=== PATIENT | female | born 1930 | race Caucasian/White ===

== ENCOUNTER → 2016-05-26 | Outpatient (CLI) | payer OTHER, MEDICAID ==
[2016-03-10 12:38] VITALS: BP 187/87
[2016-05-26 09:19] LABS: BASOPHILS # (AUTO) 0.3 X10^3/uL (0.0-0.1); BASOPHILS % (AUTO) 2.9 % (0.2-1.0); EOSINOPHILS # (AUTO) 0.6 x10^3/uL (0.0-0.2); EOSINOPHILS % (AUTO) 6.4 % (0.9-2.9); HEMATOCRIT 34.7 % (36.0-47.0); HEMOGLOBIN 11.1 g/dL (12.0-16.0); LYMPHOCYTES # (AUTO) 3.5 X10^3/uL (1.3-2.9); LYMPHOCYTES % (AUTO) 38.8 % (21.0-51.0); MEAN CORPUSCULAR HEMOGLOBIN 30.1 pg (27.0-34.0); MEAN PLATELET VOLUME 11.1 fL (7.4-11.0); MONOCYTES # (AUTO) 0.7 x10^3/uL (0.3-0.8); MONOCYTES % (AUTO) 7.7 % (0.0-13.0); NEUTROPHILS % (AUTO) 44.2 % (42.0-75.0); PLATELET COUNT 212 X10^3/uL (150.0-450.0); RED BLOOD COUNT 3.69 X10^6/uL (3.5-5.4); RED CELL DISTRIBUTION WIDTH 14.8 % (11.6-16.5)
[2016-05-26 09:30] LABS: ALBUMIN 3.2 g/dL (3.4-5.0); BLOOD UREA NITROGEN 74 mg/dL (7-18); CALCIUM 8.1 mg/dL (8.5-10.1); CARBON DIOXIDE 23.1 mmol/L (21-32); CHLORIDE 111 mmol/L (98-107); COR CA(FOR HYPOALB) 8.7 mg/dL (8.5-10.1); GLUCOSE 102 mg/dL (65-99); PHOSPHORUS 5.6 mg/dL (2.6-4.7); SODIUM 148 mmol/L (136-145); URIC ACID 5.6 mg/dL (2.6-6.0); eGFR BLACK RACES 24 (>60); eGFR NON BLACK RACES 19 (>60)
[2016-05-27 08:18] LABS: CHOL/HDL RATIO 2.6 (0.0-5.0); CHOLESTEROL 119 mg/dL (0-200); HDL CHOLESTEROL 46 mg/dL (40-60); TRIGLYCERIDES 125 mg/dL (0-150)
== END ==
LOC: LAB 08:48
PROVIDERS: ATTEND Internal Medicine
DX: I12.9 Hypertensive chronic kidney disease with stage 1 through stage 4 chronic kidney disease, or unspecified chronic kidney disease (principal); N18.4 Chronic kidney disease, stage 4 (severe)
CPT/HCPCS: 36415; 80061; 80069; 84550; 85025

== ENCOUNTER → 2016-06-17 | Outpatient (CLI) | payer OTHER, MEDICAID ==
[2016-03-10 12:38] VITALS: BP 187/87
[2016-06-17 12:29] LABS: BILIRUBIN,URINE NEGATIVE (NEGATIVE); BLOOD/HEMOGLOBIN,URINE NEGATIVE (NEGATIVE); GLUCOSE, URINE NEGATIVE (NEGATIVE); KETONES,URINE NEGATIVE (NEGATIVE); LEUKOCYTE ESTERASE ,URINE 2+ (NEGATIVE); NITRITES,URINE NEGATIVE (NEGATIVE); PROTEIN,URINE 1+ (NEGATIVE); UROBILINOGEN,URINE NORMAL (NORMAL)
[2016-06-17 12:47] LABS: APPEARANCE,URINE HAZY (CLEAR); BACTERIA,URINE 2+ /HPF (NEGATIVE); COLOR,URINE YELLOW (YELLOW); RBC,URINE 0-2 /HPF (NEGATIVE); SQUAMOUS EPITHELIAL CELL,UR FEW /HPF (NEGATIVE)
--- NOTE | 2016-06-18 08:11 | RAD ---
HISTORY: Right heel pain Study: Right ankle three view Comparison: None Findings: There is moderate medial lateral soft tissue swelling. No joint effusion is present. No fracture, ly tic, or blastic lesion is identified. The talus, subtalar joint and calcaneus are intact. IMPRESSION: Mild medial lateral soft tissue swelling No other significant findings Reported By:
--- NOTE | 2016-06-18 08:12 | RAD ---
HISTORY: Chronic heel pain Study: Right foot three view Comparison: None Findings: The bones are osteopenic peer E No acute cortical disruption or dislocation can be identified. No s ignificant soft tissue swelling or injury can be seen. The visualized portions of the talus and margarita caneus are unremarkable. The joints are normal. IMPRESSION: 1. Osteopenia Reported By:
== END ==
LOC: LAB 11:37
PROVIDERS: ATTEND Nurse Practitioner Family
DX: M54.5 Low back pain (principal); M79.671 Pain in right foot; M85.88 Other specified disorders of bone density and structure, other site
CPT/HCPCS: 73610; 73630; 81001; 87086

== ENCOUNTER 2016-06-21 14:32 | Inpatient (IN) | payer OTHER, MEDICAID ==
[2016-06-21 15:09] LABS: BASOPHILS # (AUTO) 0.1 X10^3/uL (0.0-0.1); BASOPHILS % (AUTO) 1.4 % (0.2-1.0); EOSINOPHILS # (AUTO) 0.4 x10^3/uL (0.0-0.2); EOSINOPHILS % (AUTO) 5.3 % (0.9-2.9); HEMATOCRIT 32.3 % (36.0-47.0); HEMOGLOBIN 10.5 g/dL (12.0-16.0); MEAN CORPUSCULAR HEMOGLOBIN 30.4 pg (27.0-34.0); MEAN CORPUSCULAR HGB CONC 32.5 g/dL (33.0-35.0); MEAN CORPUSCULAR VOLUME 93.6 fL (80.0-100.0); MEAN PLATELET VOLUME 10.1 fL (7.4-11.0); MONOCYTES # (AUTO) 0.6 x10^3/uL (0.3-0.8); MONOCYTES % (AUTO) 7.3 % (0.0-13.0); NEUTROPHILS # (AUTO) 3.8 x10^3/uL (2.2-4.8); PLATELET COUNT 208 X10^3/uL (150.0-450.0); RED BLOOD COUNT 3.45 X10^6/uL (3.5-5.4); RED CELL DISTRIBUTION WIDTH 14.9 % (11.6-16.5); WHITE BLOOD COUNT 7.9 X10^3/uL (3.6-10.0)
--- NOTE | 2016-06-21 15:13 | DR.GENAD ---
HPI - HPI Comment HPI Comment: SHE WAS WEAK AND HER CHEST WAS HURTING. HER HOUSE WAS HOT HER AIR WAS NOT WORKING. SHE WAS WONDERING IF HER SYMTOMS MAY BE RELATED TO THAT. - Complaint/Symptoms Chief Complaint Doctors Comments: PATIENT WAS ON THE CAMMODE WHEN BECAME DIZZY AND ALMOST PASS OUT. - Nurses notes reviewed Nurses Notes Review: Yes - Source History Provided: Patient, Family Member - Mode of Arrival Mode of Arrival: EMS - Timing Came on: Suddenly - Duration Duration: Days - Severity Severity: Moderate PMH - PMH Past Medical History: CHF, COPD, Dyslipidemia, GERD, Hypertension, Renal Disease Past Surgical History: Yes Surgical History: Angioplasty/Stents, Cholecystectomy - Family History Family Medical History: Diabetes Mellitus, Cancer, [place], Coronary Artery Disease, Heart Failure, Hypertension - Social History Do you use any recreational Drugs:: No ROS - Review of Systems Constitutional: Weakness, Fatigue. negative: Chills, Loss of Appetite Eyes: No Symptoms Reported. negative: Eye Pain, Discharge ENTM: No Symptoms Reported Respiratoy: Non-Productive Cough, Short of Breath. negative: Wheezing, Hemoptysis Cardiovascular: Chest Pain, Syncope (NEAR SYNCOPE) Gastrointestinal/Abdominal: No Symptoms Reported. negative: Abdominal Pain, Diarrhea, Nausea, Vomiting Genitourinary: negative: Hematuria Neurological: Weakness, Dizziness. negative: Headache Musculoskeletal: Muscle Pain Integumentary: Dryness Hematologic/Lymphatic: Easy Bruising Endocrine: No Symptoms Reported All Other Systems: Reviewed and Negative PE - Vital Signs Vitals: Temperature 99.0 F Pulse Rate 57 Respiratory Rate 16 Blood Pressure [Right Radial 163/89 Artery] Blood Pressure [Right Arm] 187/87 Blood Pressure [Left Arm] 187/77 Blood Pressure 192/77 O2 Sat by Pulse Oximetry 97 - General General Appearance: Alert - Head Head Exam: Normal Inspection - Eyes Eye exam: Normal Appearance - ENT ENT Exam: Normal External Ear Exam External Ear Exam: Normal External Inspection TM/Canal Exam: Bilateral Normal Nose Exam: Normal Nose Exam Mouth Exam: Normal Inspection Throat Exam: Normal Inspection - Neck Neck Exam: Trachea Midline - Chest Chest Inspection: Symmetric Chest Wall Rise, Other (KYPHOSIS PRESENT) - Respiratory Respiratory Exam: Normal Lung Sounds Bilat Respiratory Exam: Bilateral Rhonchi, Lower Rhonchi - Cardiovascular Cardiovascular Exam: Regular Rate, Normal Rhythm, Bradycardia - Abdominal Exam Abdominal Exam: Normal Bowel Sounds, Soft - Extremities Extremities Exam: Edema (ANKLE EDEMA) - Back Back Exam: Paraspinal Tenderness - Neurologic Neurological Exam: Alert, Motor Sensory Deficit - Skin Skin Exam: Dry MDM - Additional Information Additional Information Obtained From: Family - Differential Diagnosis Differential Diagnosis: NEAR SYNCOPAL EPISODE, CHEST AIN, GENERALIZE WEAKNESS. Course - Education/Counseling Education/Counseling: Patient ROR - Labs Reviewed Laboratory Results Reviewed?: Yes Result Diagrams: 06/22/16 03:23 06/22/16 03:23 Laboratory: WBC 7.9 X10^3/uL (3.6-10.0) 06/21/16 15:00 RBC 3.45 X10^6/uL (3.5-5.4) L 06/21/16 15:00 Hgb 10.5 g/dL (12.0-16.0) L 06/21/16 15:00 Hct 32.3 % (36.0-47.0) L 06/21/16 15:00 MCV 93.6 fL (80.0-100.0) 06/21/16 15:00 MCH 30.4 pg (27.0-34.0) 06/21/16 15:00 MCHC 32.5 g/dL (33.0-35.0) L 06/21/16 15:00 RDW 14.9 % (11.6-16.5) 06/21/16 15:00 Plt Count 208 X10^3/uL (150.0-450.0) 06/21/16 15:00 MPV 10.1 fL (7.4-11.0) 06/21/16 15:00 Neut % 48.0 % (42.0-75.0) 06/21/16 15:00 Lymph % 38.0 % (21.0-51.0) 06/21/16 15:00 [place] % 7.3 % (0.0-13.0) 06/21/16 15:00 Eos % 5.3 % (0.9-2.9) H 06/21/16 15:00 Baso % 1.4 % (0.2-1.0) H 06/21/16 15:00 Neut # 3.8 x10^3/uL (2.2-4.8) 06/21/16 15:00 Lymph # 3.0 X10^3/uL (1.3-2.9) H 06/21/16 15:00 [place] # 0.6 x10^3/uL (0.3-0.8) 06/21/16 15:00 Eos # 0.4 x10^3/uL (0.0-0.2) H 06/21/16 15:00 Baso # 0.1 X10^3/uL (0.0-0.1) 06/21/16 15:00 Absolute Nucleated RBC 0.0 /100WBC 06/21/16 15:00 Sodium 145 mmol/L (136-145) 06/21/16 15:00 Corrected Sodium TNP 06/21/16 15:00 Potassium 4.0 mmol/L (3.5-5.1) 06/21/16 15:00 Chloride 108 mmol/L (98-107) H 06/21/16 15:00 Carbon Dioxide 22.3 mmol/L (21-32) 06/21/16 15:00 BUN 78 mg/dL (7-18) H 06/21/16 15:00 Creatinine 2.73 mg/dL (0.55-1.02) H 06/21/16 15:00 Est GFR (MDRD) Af Amer 21 (>60) L 06/21/16 15:00 Est GFR (MDRD) Non-Af 18 (>60) L 06/21/16 15:00 Glucose 101 mg/dL (65-99) H 06/21/16 15:00 Calcium 8.0 mg/dL (8.5-10.1) L 06/21/16 15:00 Corrected Calcium 8.8 mg/dL (8.5-10.1) 06/21/16 15:00 Total Bilirubin 0.40 mg/dL (0.2-1.0) 06/21/16 15:00 AST 17 Units/L (15-37) 06/21/16 15:00 ALT 10 Units/L (12-78) L 06/21/16 15:00 Alkaline Phosphatase 108 Units/L (46-116) 06/21/16 15:00 Creatine Kinase 76 Units/L (26-192) 06/21/16 15:00 CK-MB (CK-2) < 1.0 ng/mL (0-4.0) 06/21/16 15:00 CK/CKMB % Calc 1.3 % (<4) 06/21/16 15:00 Troponin I < 0.02 ng/mL (0-1.5) 06/21/16 15:00 Total Protein 6.8 g/dL (6.4-8.2) 06/21/16 15:00 Albumin 3.0 g/dL (3.4-5.0) L 06/21/16 15:00 Globulin 3.8 g/dL (2.5-4.5) 06/21/16 15:00 Albumin/Globulin Ratio 0.8 Ratio (1.1-2.1) L 06/21/16 15:00 - XRAY XRAY Interpreted by: Radiologist (REPORT DISCUSS WITH PATIENT.) XRAY Findings: REPORT DISCUSS WITH PATIENT AND HER FAMILY. - EKG Rhythm: NSR (EKG NOTED) - Diagnosis Discharge Problem: Near syncope, Dehydration, Generalized weakness - Discharge Plan Disposition: ADMITTED INPATIENT Condition: Stable - Follow ups/Referrals - Instructions
[2016-06-21 15:23] LABS: BLOOD UREA NITROGEN 78 mg/dL (7-18); CARBON DIOXIDE 22.3 mmol/L (21-32); CHLORIDE 108 mmol/L (98-107); CREATININE 2.73 mg/dL (0.55-1.02); GLUCOSE 101 mg/dL (65-99); SODIUM 145 mmol/L (136-145); TROPONIN I < 0.02 ng/mL (0-1.5); eGFR BLACK RACES 21 (>60); eGFR NON BLACK RACES 18 (>60)
[2016-06-21 15:28] LABS: ALANINE AMINOTRANSFERASE 10 Units/L (12-78); ALKALINE PHOSPHATASE 108 Units/L (46-116); ASPARTATE AMINO TRANSFERASE 17 Units/L (15-37); CKMB % 1.3 % (<4); COR CA(FOR HYPOALB) 8.8 mg/dL (8.5-10.1); CREATINE KINASE 76 Units/L (26-192); CREATINE KINASE MB < 1.0 ng/mL (0-4.0); TOTAL PROTEIN 6.8 g/dL (6.4-8.2)
--- NOTE | 2016-06-21 15:34 | RAD ---
HISTORY: Chest pain Study: Chest one view Comparison: March 09, 2016 Findings: The heart mildly enlarged. No congestive heart failure is noted. The swetha are normal. The aorta is c alcified. The lung spivey are clear. IMPRESSION: Mild cardiomegaly without congestive heart failure Lungs clear Reported By:
--- NOTE | 2016-06-21 15:44 | CT ---
HISTORY: Weakness Study: CT brain without contrast Comparison: March 07, 2016 Technique: Multiple axial images of the brain were obtained from the skull base to the vertex without administr ation of IV contrast. Coronal and sagittal reformats were performed. Dose reduction procedures were used with MA/kv adjusted for body size. Findings: No acute intraparenchymal hemorrhage or mass can be identified. No extra-axial fluid collections ar e seen. No alteration in the attenuation of the brain parenchyma can be identified to suggest acute or subacute ischemic change. The ventricular system is symmetric and nondilated. The extracranial structures are grossly unremarkable. if acute CVA is a strong clinical consideration MRI with diffu mary grace imaging is recommended for further evaluation. IMPRESSION: 1. No significant intracranial abnormality identified Reported By:
[2016-06-21] MEDS: NS 1000 ML 1,000 ML IV SCH (16:27)
[2016-06-21 16:42] LABS: BILIRUBIN,URINE NEGATIVE (NEGATIVE); BLOOD/HEMOGLOBIN,URINE NEGATIVE (NEGATIVE); GLUCOSE, URINE NEGATIVE (NEGATIVE); KETONES,URINE NEGATIVE (NEGATIVE); LEUKOCYTE ESTERASE ,URINE 1+ (NEGATIVE); NITRITES,URINE NEGATIVE (NEGATIVE); PH,URINE 6.5 (5.0 - 8.0); PROTEIN,URINE NEGATIVE (NEGATIVE); UROBILINOGEN,URINE NORMAL (NORMAL)
[2016-06-21 16:50] LABS: APPEARANCE,URINE CLEAR (CLEAR); BACTERIA,URINE 1+ /HPF (NEGATIVE); COLOR,URINE YELLOW (YELLOW); RBC,URINE 0-1 /HPF (NEGATIVE); SQUAMOUS EPITHELIAL CELL,UR FEW /HPF (NEGATIVE)
[2016-06-21 19:52] VITALS: BMI 24.7
[2016-06-21 21:46] LABS: CKMB % 1.4 % (<4); CREATINE KINASE 72 Units/L (26-192); TROPONIN I < 0.02 ng/mL (0-1.5)
[2016-06-22] MEDS: NS 1000 ML 1,000 ML IV SCH ×3 (00:02→16:20)
[2016-06-22 05:33] LABS: BASOPHILS # (AUTO) 0.1 X10^3/uL (0.0-0.1); EOSINOPHILS # (AUTO) 0.5 x10^3/uL (0.0-0.2); EOSINOPHILS % (AUTO) 6.2 % (0.9-2.9); HEMATOCRIT 27.6 % (36.0-47.0); HEMOGLOBIN 8.7 g/dL (12.0-16.0); LYMPHOCYTES # (AUTO) 2.6 X10^3/uL (1.3-2.9); LYMPHOCYTES % (AUTO) 35.4 % (21.0-51.0); MEAN CORPUSCULAR HEMOGLOBIN 29.7 pg (27.0-34.0); MEAN CORPUSCULAR HGB CONC 31.5 g/dL (33.0-35.0); MEAN CORPUSCULAR VOLUME 94.4 fL (80.0-100.0); MEAN PLATELET VOLUME 10.6 fL (7.4-11.0); MONOCYTES # (AUTO) 0.6 x10^3/uL (0.3-0.8); MONOCYTES % (AUTO) 7.8 % (0.0-13.0); NEUTROPHILS # (AUTO) 3.7 x10^3/uL (2.2-4.8); NEUTROPHILS % (AUTO) 49.6 % (42.0-75.0); RED BLOOD COUNT 2.92 X10^6/uL (3.5-5.4); RED CELL DISTRIBUTION WIDTH 14.9 % (11.6-16.5); WHITE BLOOD COUNT 7.4 X10^3/uL (3.6-10.0)
[2016-06-22 05:35] LABS: PLATELET COUNT 158 X10^3/uL (150.0-450.0)
[2016-06-22 05:40] LABS: ALBUMIN 2.5 g/dL (3.4-5.0); CALCIUM 7.7 mg/dL (8.5-10.1); CARBON DIOXIDE 22.6 mmol/L (21-32); CKMB % 1.5 % (<4); COR CA(FOR HYPOALB) 8.9 mg/dL (8.5-10.1); CREATINE KINASE MB 1.1 ng/mL (0-4.0); CREATININE 2.37 mg/dL (0.55-1.02); TOTAL PROTEIN 5.6 g/dL (6.4-8.2); TROPONIN I 0.02 ng/mL (0-1.5)
[2016-06-22] MEDS ORDERED: ZYLOPRIM PO SCH (09:00)
[2016-06-22] MEDS ORDERED: BUMEX TAB 1 MG PO SCH (09:00)
[2016-06-22] MEDS ORDERED: [UNRECOGNIZED DRUG - OTHER] PO SCH (09:00)
[2016-06-22] MEDS ORDERED: [UNRECOGNIZED DRUG - OTHER] PO SCH (09:00)
[2016-06-22] MEDS: DIAMOX PO SCH (09:22)
[2016-06-22] MEDS: TOPROL XL PO SCH (09:22)
[2016-06-22] MEDS: PriLOSEC PO SCH ×2 (09:22→23:01)
[2016-06-22] MEDS: ALBUMIN HUMAN 25%- 100ML 100 ML IV SCH (09:23)
--- NOTE | 2016-06-22 14:14 | VAS ---
HISTORY: Syncope Study: Carotid sonogram Comparison: None Technique: Multiple mccullough scale and color flow Doppler images of the right and left carotid arterial system were obtained. The vertebral arterial system was evaluated as well. Findings: Normal color flow Doppler is seen throughout the right and left carotid arterial system. No hemodyn amically significant stenosis is seen based on velocity criteria. The left vertebral arteries dem onstrate antegrade flow. The right vertebral artery was not identified. IMPRESSION: 1. No hemodynamically significant stenosis. 2. The right vertebral artery was not identified Reported By:
--- NOTE | 2016-06-22 15:37 | DR.H&P ---
H&P - History & Physical for Day of: H&P Date: 06/22/16 - Chief Complaint Chief Complaint: NEAR SYNCOPAL EPISODE - Allergies Allergies/Adverse Reactions: Allergies Allergy/AdvReac Type Severity Reaction Status Date / Time No Known Drug Allergy Allergy Verified 06/21/16 14:33 - History of Present Illness History of Present Illness: THIS IS AN 86 YEAR OLD FEMALE, WHO IS A PATIENT OF [facility]. SHE PRESENTS TO THE EMERGENCY ROOM, VIA EMS, WITH COMPLAINTS OF A NEAR SYNCOPAL EPISODE AT HOME. SHE REPORTS SHE WAS SITTING ON THE TOILET WHEN SHE BECAME DIZZY AND NEARLY PASSED OUT. SHE IS ALSO REPORTING GENERALIZED WEAKNESS AND CHEST PAIN ON ARRIVAL. PATIENT REPORTS HER AIR CONDITIONING IN HER HOME IS NOT WORKING AND HER HOUSE WAS HOT. SHE WAS WONDERING IF THAT WAS THE CAUSE OF DIZZINESS. LABS AND CT OBTAINED. CBC WNL EXCEPT: H/H 10.5/32.3. CMP WNL EXCEPT: SODIUM 147, POTASSIUM 3.3, CHL 113, BUN/ CREAT 70/2.34, GFR 21, GLUCOSE 124, CALCIUM 7.7, TOT PROTEIN 5.6, ALBUMIN 2.5. BRAIN CT REPORTS NO SIGNIFICANT ABNORMALITY. CHEST XRAY REPORTS MILD CARDIOMEGALY WITHOUT CHF; LUNGS CLEAR. EKG: SINUS RHYTHM, PAC, RATE 57. WE WILL ADMIT PATIENT FOR FURTHER TREATMENT AND EVALUATION. WE WILL START IV FLUIDS AND MONITOR ON TELEMETRY. WE WILL FOLLOW UP IN AM WITH LABS. - Past Medical History Past Medical History: CHF, COPD, Coronary Artery Disease, Dyslipidemia, GERD, Gout, Hypertension, Renal Disease Additional Medical History: Cataracts, Heart Murmur, Gastrointestinal Ulcer, Gout, Vascular Dementia, Bronchitis - Past Surgical History Surgical History: Angioplasty/Stents, Cholecystectomy Additional Surgical History: Cataract Surgery - Family History Family Medical History: Diabetes Mellitus, Cancer, [place], Coronary Artery Disease, Heart Failure, Hypertension - Social History Does patient currently use any type of tobacco product: No Have you used tobacco products in the last 12 months: No Type of Tobacco Use: None Does any household member use tobacco: No Alcohol Use: None Drug Use: Prescription Drugs - Medications Home Medications: Acetazolamide 1 tab PO DAILY 03/07/16 Allopurinol 1 tab PO DAILY 03/07/16 Bumetanide 1 tab PO BID 03/07/16 Ezetimibe [Zetia] 1 tab PO HS 03/07/16 Metoprolol Tartrate [Lopressor] 1 tab PO DAILY 03/07/16 Omeprazole 1 cap PO BID 03/07/16 Simvastatin 1 tab PO HS 03/07/16 - Review of Systems Constitutional: Weakness, Malaise Eyes: No Symptoms Reported. denies: Pain, Vision Change, Conjunctivae Inflammation, Eyelid Inflammation, Redness ENT: No Symptoms Reported. denies: Ear Pain, Ear Discharge, Nose Pain, Nose Discharge, Nose Congestion, Mouth Pain, Mouth Swelling, Throat Pain, Throat Swelling Respiratory: No Symptoms Reported. denies: Cough, Shortness of Breath, Hemoptysis, SOB with Excertion, Pleuritic Pain, Sputum, Wheezing Cardiovascular: Chest Pain, Light Headedness. denies: Palpitations, Orthopnea, Paroxysmal Noc. Dyspnea Gastrointestinal: No Symptoms Reported. denies: Nausea, Vomiting, Abdominal Pain, Diarrhea, Constipation, Melena, Hematochezia Genitourinary: No Symptoms Reported. denies: Dysuria, Frequency, Incontinence, Hematuria, Retention Musculoskeletal: Other (Generalized Muscle Weakness). denies: Shoulder Pain, Arm Pain, Back Pain, Hand Pain Skin: No Symptoms Reported. denies: Rash, Lesions, Jaundice, Bruising, Wound, Ecchymosis Neurological: Weakness. denies: Numbness, Incoordination, Change in Speech, Confusion, Seizures - Physical Exam Vital Signs: Temperature 97.4 F Pulse Rate [Right Brachial] 65 Respiratory Rate 20 Blood Pressure [Right Arm] 194/76 O2 Sat by Pulse Oximetry 96 Oriented: Normal, Time, Person, Place Eyes: Normal. negative: Blurred Vision, Diplopia, Discharge, Pain, Redness, Photophobia Ear: Normal. negative: Swelling, Ecchymosis, Hemotypanum, Abrasion, Laceration Nose: Normal. negative: Injected, Discharge, Blood Throat: Dry. negative: Tonsillar Hypertrophy, Exudate Respiratory: Clear Throughout Cardiovascular: Normal. negative: Murmur, Edema : Normal. negative: Dysuria, Hematuria, Frequency, Discharge, Bleeding, Auscultation: Bowel Sounds: Decreased. negative: Bruit Palpation: Normal. negative: Spleen Enlarged, Liver Enlarged, Mass Pulsatile Tenderness: Normal. negative: Rebound, Guarding, Rigidity Skin: Decreased Turgur. negative: Diaphoresis, Wound, Bruising, Ecchymosis Musculoskeletal: Instability Psychiatric: Normal Mood Description: Calm, Appropriate Affect: Normal Speech Pattern: Clear, Appropriate - Assessment/Plan (1) Near syncope Status: Acute Plan: ADMIT PATIENT, START IV FLUIDS, CONTINUE TO MONITOR. (2) Dehydration Status: Acute Plan: START IV FLUIDS, MONITOR LABS. (3) Generalized weakness Status: Acute Plan: ABOVE. 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
[2016-06-22] MEDS ORDERED: TYLENOL 325 MG TAB PO PRN (16:20)
--- NOTE | 2016-06-22 16:27 | PCM.PROG ---
Progress Note - Progress Note for Day of Date: 06/22/16 - Subjective Subjective: PATIENT CONTINUES WITH GENERALIZED WEAKNESS AND DIZZINESS. FAMILY AT BEDSIDE. WE DISCUSS CURRENT TREATMENT. PATIENT CONTINUES ON IV FLUIDS FOR DEHYDRATION. CBC WNL EXCEPT: H/H 8.7/27.6. CMP WNL EXCEPT: SODIUM 147, POTASSIUM 3.3, CHL 113, BUN/CREAT 70/2.37, GFR 21, GLUCOSE 124, CALCIUM 7.7, TOT PROTEIN 5.6, ALBUMIN 2.5. WE WILL OBTAIN SERIAL CARDIAC ENZYMES AND EKG'S. WE WILL ALSO OBTAIN CAROTID DOPPLER AND ECHO. WE WILL CONTINUE IV FLUIDS AND CONTINUE TO MONITOR ON TELEMETRY. WE WILL FOLLOW UP IN AM WITH LABS. - Past Medical Family Social History Past Med/Fam/Surg Hx: No changes since H&P Allergies: Allergies No Known Drug Allergy Allergy (Verified 06/21/16 14:33) - Review of Systems ROS: No change since H&P - Vital Signs and I&O's Vital Signs: Temperature 97.4 F Pulse Rate [Right Brachial] 65 Respiratory Rate 20 Blood Pressure [Right Arm] 194/76 O2 Sat by Pulse Oximetry 96 Intake and Output: Intake & Output 06/20/16 06/21/16 06/22/16 06/23/16 11:59 11:59 11:59 11:59 Intake Total 1196 Balance 1196 - Physical Exam Oriented: Normal, Time, Person, Place Eyes: Normal. negative: Blurred Vision, Diplopia, Discharge, Pain, Redness, Photophobia Ear: Normal. negative: Swelling, Ecchymosis, Hemotypanum, Abrasion, Laceration Nose: Normal. negative: Injected, Discharge, Blood Throat: Dry. negative: Tonsillar Hypertrophy, Exudate Respiratory: Normal Cardiovascular: Normal. negative: Murmur, Edema : Normal. negative: Dysuria, Hematuria, Frequency, Discharge, Bleeding, Auscultation: Bowel Sounds: Decreased. negative: Bruit Palpation: Normal. negative: Spleen Enlarged, Liver Enlarged, Mass Pulsatile Tenderness: Normal. negative: Rebound, Guarding, Rigidity Skin: Decreased Turgur. negative: Diaphoresis, Wound, Bruising, Ecchymosis Musculoskeletal: Instability Psychiatric: Normal Mood Description: Calm, Appropriate Affect: Normal Speech Pattern: Clear, Appropriate - Laboratory and Diagnostics Result Diagrams: 06/22/16 03:23 06/22/16 03:23 Labs: Laboratory WBC 7.4 X10^3/uL (3.6-10.0) 06/22/16 03:23 RBC 2.92 X10^6/uL (3.5-5.4) L 06/22/16 03:23 Hgb 8.7 g/dL (12.0-16.0) L 06/22/16 03:23 Hct 27.6 % (36.0-47.0) L 06/22/16 03:23 MCV 94.4 fL (80.0-100.0) 06/22/16 03:23 MCH 29.7 pg (27.0-34.0) 06/22/16 03:23 MCHC 31.5 g/dL (33.0-35.0) L 06/22/16 03:23 RDW 14.9 % (11.6-16.5) 06/22/16 03:23 Plt Count 158 X10^3/uL (150.0-450.0) 06/22/16 03:23 MPV 10.6 fL (7.4-11.0) 06/22/16 03:23 Neut % 49.6 % (42.0-75.0) 06/22/16 03:23 Lymph % 35.4 % (21.0-51.0) 06/22/16 03:23 [place] % 7.8 % (0.0-13.0) 06/22/16 03:23 Eos % 6.2 % (0.9-2.9) H 06/22/16 03:23 Baso % 1.0 % (0.2-1.0) 06/22/16 03:23 Neut # 3.7 x10^3/uL (2.2-4.8) 06/22/16 03:23 Lymph # 2.6 X10^3/uL (1.3-2.9) 06/22/16 03:23 [place] # 0.6 x10^3/uL (0.3-0.8) 06/22/16 03:23 Eos # 0.5 x10^3/uL (0.0-0.2) H 06/22/16 03:23 Baso # 0.1 X10^3/uL (0.0-0.1) 06/22/16 03:23 Absolute Nucleated RBC 0.2 /100WBC 06/22/16 03:23 INR Target Range - 06/22/16 03:23 INR 1.09 (0.8-1.3) 06/22/16 03:23 PTT 32.2 SECONDS (22.9-36.5) 06/22/16 03:23 PTT Comment - 06/22/16 03:23 Sodium 147 mmol/L (136-145) H 06/22/16 03:23 Corrected Sodium 148 mmol/L (136-145) H 06/22/16 03:23 Potassium 3.3 mmol/L (3.5-5.1) L 06/22/16 03:23 Chloride 113 mmol/L (98-107) H 06/22/16 03:23 Carbon Dioxide 22.6 mmol/L (21-32) 06/22/16 03:23 BUN 70 mg/dL (7-18) H 06/22/16 03:23 Creatinine 2.37 mg/dL (0.55-1.02) H 06/22/16 03:23 Est GFR (MDRD) Af Amer 25 (>60) L 06/22/16 03:23 Est GFR (MDRD) Non-Af 21 (>60) L 06/22/16 03:23 Glucose 124 mg/dL (65-99) H 06/22/16 03:23 Calcium 7.7 mg/dL (8.5-10.1) L 06/22/16 03:23 Corrected Calcium 8.9 mg/dL (8.5-10.1) 06/22/16 03:23 Total Bilirubin 0.30 mg/dL (0.2-1.0) 06/22/16 03:23 AST 16 Units/L (15-37) 06/22/16 03:23 ALT 9 Units/L (12-78) L 06/22/16 03:23 Alkaline Phosphatase 84 Units/L (46-116) 06/22/16 03:23 Creatine Kinase 74 Units/L (26-192) 06/22/16 03:23 CK-MB (CK-2) 1.1 ng/mL (0-4.0) 06/22/16 03:23 CK/CKMB % Calc 1.5 % (<4) 06/22/16 03:23 Troponin I 0.02 ng/mL (0-1.5) 06/22/16 03:23 Total Protein 5.6 g/dL (6.4-8.2) L 06/22/16 03:23 Albumin 2.5 g/dL (3.4-5.0) L 06/22/16 03:23 Globulin 3.1 g/dL (2.5-4.5) 06/22/16 03:23 Albumin/Globulin Ratio 0.8 Ratio (1.1-2.1) L 06/22/16 03:23 Specimen Type Clean catch urine 06/21/16 16:30 Urine Color Yellow (YELLOW) 06/21/16 16:30 Urine Appearance Clear (CLEAR) 06/21/16 16:30 Urine pH 6.5 (5.0 - 8.0) 06/21/16 16:30 Ur Specific [place] 1.010 (1.000-1.030) 06/21/16 16:30 Urine Protein Negative (NEGATIVE) 06/21/16 16:30 Urine Glucose (UA) Negative (NEGATIVE) 06/21/16 16:30 Urine Ketones Negative (NEGATIVE) 06/21/16 16:30 Urine Occult Blood Negative (NEGATIVE) 06/21/16 16:30 Urine Nitrite Negative (NEGATIVE) 06/21/16 16:30 Urine Bilirubin Negative (NEGATIVE) 06/21/16 16:30 Urine Urobilinogen Normal (NORMAL) 06/21/16 16:30 Ur Leukocyte Esterase 1+ (NEGATIVE) 06/21/16 16:30 Urine RBC 0-1 /HPF (NEGATIVE) 06/21/16 16:30 Urine WBC 0-3 /HPF (NEGATIVE) 06/21/16 16:30 Ur Squamous Epith Cells Few /HPF (NEGATIVE) 06/21/16 16:30 Urine Bacteria 1+ /HPF (NEGATIVE) 06/21/16 16:30 Ur Culture Indicated? No/not indicated 06/21/16 16:30 - Plan (1) Near syncope Status: Acute Plan: CONTINUE IV FLUIDS, CONTINUE TO MONITOR. (2) Dehydration Status: Acute Plan: CONTINUE IV FLUIDS, MONITOR LABS. (3) Generalized weakness Status: Acute Plan: ABOVE. (4) CHF (congestive heart failure) Status: Chronic Qualifiers: Congestive heart failure type: C Congestive heart failure chronicity: C (5) GERD (gastroesophageal reflux disease) Status: Chronic Qualifiers: Esophagitis presence: esophagitis presence not specified Qualified Code(s) : K21.9 - Gastro-esophageal reflux disease without esophagitis (6) Gout Status: Chronic Qualifiers: Gout site: multiple sites Gout etiology: idiopathic Encounter type: E Laterality: L Chronicity: chronic Presence of tophus: without tophus Qualified Code(s): M1A.09X0 - Idiopathic chronic gout, multiple sites, without tophus (tophi) (7) Hyperlipidemia Status: Chronic Qualifiers: Hyperlipidemia type: mixed hyperlipidemia Qualified Code(s): E78.2 - Mixed hyperlipidemia (8) Hypertension Status: Chronic Qualifiers: Hypertension type: essential hypertension Qualified Code(s): I10 - Essential (primary) hypertension (9) Renal failure Status: Chronic (10) Vascular dementia Status: Chronic Qualifiers: Dementia behavioral disturbance: without behavioral disturbance Qualified Code(s): F01.50 - Vascular dementia without behavioral disturbance
[2016-06-22] MEDS: ZOCOR TAB 20 MG PO SCH (23:01)
[2016-06-22] MEDS: ZETIA TAB 10 MG PO SCH (23:02)
[2016-06-23] MEDS: NS 1000 ML 1,000 ML IV SCH ×2 (00:34→11:32)
[2016-06-23 05:53] LABS: BASOPHILS # (AUTO) 0.1 X10^3/uL (0.0-0.1); BASOPHILS % (AUTO) 0.9 % (0.2-1.0); EOSINOPHILS # (AUTO) 0.5 x10^3/uL (0.0-0.2); EOSINOPHILS % (AUTO) 5.7 % (0.9-2.9); HEMATOCRIT 29.5 % (36.0-47.0); HEMOGLOBIN 9.5 g/dL (12.0-16.0); LYMPHOCYTES # (AUTO) 2.1 X10^3/uL (1.3-2.9); LYMPHOCYTES % (AUTO) 25.7 % (21.0-51.0); MEAN CORPUSCULAR HEMOGLOBIN 30.3 pg (27.0-34.0); MEAN CORPUSCULAR HGB CONC 32.3 g/dL (33.0-35.0); MEAN CORPUSCULAR VOLUME 93.9 fL (80.0-100.0); MEAN PLATELET VOLUME 10.6 fL (7.4-11.0); MONOCYTES # (AUTO) 0.7 x10^3/uL (0.3-0.8); MONOCYTES % (AUTO) 8.2 % (0.0-13.0); NEUTROPHILS # (AUTO) 4.9 x10^3/uL (2.2-4.8); NEUTROPHILS % (AUTO) 59.5 % (42.0-75.0); PLATELET COUNT 182 X10^3/uL (150.0-450.0); RED BLOOD COUNT 3.14 X10^6/uL (3.5-5.4); RED CELL DISTRIBUTION WIDTH 15.5 % (11.6-16.5); WHITE BLOOD COUNT 8.2 X10^3/uL (3.6-10.0)
[2016-06-23 05:56] LABS: ALANINE AMINOTRANSFERASE 8 Units/L (12-78); ALBUMIN 2.5 g/dL (3.4-5.0); ALKALINE PHOSPHATASE 78 Units/L (46-116); ASPARTATE AMINO TRANSFERASE 14 Units/L (15-37); BLOOD UREA NITROGEN 46 mg/dL (7-18); CALCIUM 7.8 mg/dL (8.5-10.1); CARBON DIOXIDE 18.9 mmol/L (21-32); CREATININE 1.71 mg/dL (0.55-1.02); GLUCOSE 102 mg/dL (65-99); TOTAL PROTEIN 5.4 g/dL (6.4-8.2); eGFR BLACK RACES 36 (>60); eGFR NON BLACK RACES 30 (>60)
[2016-06-23 06:05] LABS: CHLORIDE 120 mmol/L (98-107); SODIUM 150 mmol/L (136-145)
[2016-06-23] MEDS: ALBUMIN HUMAN 25%- 100ML 100 ML IV SCH (08:38)
[2016-06-23] MEDS: DIAMOX PO SCH (08:39)
[2016-06-23] MEDS: PriLOSEC PO SCH ×2 (08:39→21:12)
[2016-06-23] MEDS: TOPROL XL PO SCH (08:39)
[2016-06-23] MEDS: DUONEB 0.5 MG/3 MG NEB SCH ×3 (12:17→20:20)
--- NOTE | 2016-06-23 17:15 | PCM.PROG ---
Progress Note - Progress Note for Day of Date: 06/23/16 - Subjective Subjective: PATIENT CONTINUES WITH GENERALIZED WEAKNESS AND DIZZINESS. FAMILY AT BEDSIDE. PATIENT CONTINUES ON IV FLUIDS FOR DEHYDRATION. RENAL FUNCTION IS SHOWING IMPROVEMENT WITH IV FLUIDS. FAMILY MEMBER REPORTS PATIENT HAD DIARRHEA AND VOMITING PRIOR TO ADMISSION. ON AUSCULTATION, LUNGS NOTED WITH SCATTERED WHEEZING. CBC WNL EXCEPT: H/H 9.5/29.5. CMP WNL EXCEPT: SODIUM 150, CHL 120, CARBON DIOXIDE 18.9, BUN/CREAT 46/1.71, GFR 30, GLUCOSE 102, CALCIUM 7.8, TOT PROTEIN 5.4, ALBUMIN 2.5. CAROTID DOPPLER WAS NORMAL. WE WILL OBTAIN ECHO TODAY. WE WILL DECREASE IV FLUIDS, START DUONEBS, AND CONTINUE TO MONITOR ON TELEMETRY. WE WILL FOLLOW UP IN AM WITH LABS AND CHEST XRAY. - Past Medical Family Social History Past Med/Fam/Surg Hx: No changes since H&P Allergies: Allergies No Known Drug Allergy Allergy (Verified 06/21/16 14:33) - Review of Systems ROS: No change since H&P - Vital Signs and I&O's Vital Signs: Temperature 97.7 F Pulse Rate [Right Brachial] 58 Pulse Rate 68 Respiratory Rate 16 Blood Pressure [Right Arm] 171/65 O2 Sat by Pulse Oximetry 95 Intake and Output: Intake & Output 06/21/16 06/22/16 06/23/16 06/24/16 11:59 11:59 11:59 11:59 Intake Total 1196 1270 660 Balance 1196 1270 660 - Physical Exam Oriented: Normal, Time, Person, Place Eyes: Normal. negative: Blurred Vision, Diplopia, Discharge, Pain, Redness, Photophobia Ear: Normal. negative: Swelling, Ecchymosis, Hemotypanum, Abrasion, Laceration Nose: Normal. negative: Injected, Discharge, Blood Throat: Dry. negative: Tonsillar Hypertrophy, Exudate Respiratory: Generalized, Wheezes Cardiovascular: Normal. negative: Murmur, Edema : Normal. negative: Dysuria, Hematuria, Frequency, Discharge, Bleeding, Auscultation: Bowel Sounds: Normal. negative: Bruit Palpation: Normal. negative: Spleen Enlarged, Liver Enlarged, Mass Pulsatile Tenderness: Normal. negative: Rebound, Guarding, Rigidity Skin: Decreased Turgur. negative: Diaphoresis, Wound, Bruising, Ecchymosis Musculoskeletal: Instability Psychiatric: Normal Mood Description: Calm, Appropriate Affect: Normal Speech Pattern: Clear, Appropriate - Laboratory and Diagnostics Result Diagrams: 06/23/16 05:20 06/23/16 05:20 Labs: Laboratory WBC 8.2 X10^3/uL (3.6-10.0) 06/23/16 05:20 RBC 3.14 X10^6/uL (3.5-5.4) L 06/23/16 05:20 Hgb 9.5 g/dL (12.0-16.0) L 06/23/16 05:20 Hct 29.5 % (36.0-47.0) L 06/23/16 05:20 MCV 93.9 fL (80.0-100.0) 06/23/16 05:20 MCH 30.3 pg (27.0-34.0) 06/23/16 05:20 MCHC 32.3 g/dL (33.0-35.0) L 06/23/16 05:20 RDW 15.5 % (11.6-16.5) 06/23/16 05:20 Plt Count 182 X10^3/uL (150.0-450.0) 06/23/16 05:20 MPV 10.6 fL (7.4-11.0) 06/23/16 05:20 Neut % 59.5 % (42.0-75.0) 06/23/16 05:20 Lymph % 25.7 % (21.0-51.0) 06/23/16 05:20 [place] % 8.2 % (0.0-13.0) 06/23/16 05:20 Eos % 5.7 % (0.9-2.9) H 06/23/16 05:20 Baso % 0.9 % (0.2-1.0) 06/23/16 05:20 Neut # 4.9 x10^3/uL (2.2-4.8) H 06/23/16 05:20 Lymph # 2.1 X10^3/uL (1.3-2.9) 06/23/16 05:20 [place] # 0.7 x10^3/uL (0.3-0.8) 06/23/16 05:20 Eos # 0.5 x10^3/uL (0.0-0.2) H 06/23/16 05:20 Baso # 0.1 X10^3/uL (0.0-0.1) 06/23/16 05:20 Absolute Nucleated RBC 0.0 /100WBC 06/23/16 05:20 INR Target Range - 06/22/16 03:23 INR 1.09 (0.8-1.3) 06/22/16 03:23 PTT 32.2 SECONDS (22.9-36.5) 06/22/16 03:23 PTT Comment - 06/22/16 03:23 Sodium 150 mmol/L (136-145) H* 06/23/16 05:20 Corrected Sodium TNP 06/23/16 05:20 Potassium 3.6 mmol/L (3.5-5.1) 06/23/16 05:20 Chloride 120 mmol/L (98-107) H* 06/23/16 05:20 Carbon Dioxide 18.9 mmol/L (21-32) L 06/23/16 05:20 BUN 46 mg/dL (7-18) H 06/23/16 05:20 Creatinine 1.71 mg/dL (0.55-1.02) H 06/23/16 05:20 Est GFR (MDRD) Af Amer 36 (>60) L 06/23/16 05:20 Est GFR (MDRD) Non-Af 30 (>60) L 06/23/16 05:20 Glucose 102 mg/dL (65-99) H 06/23/16 05:20 Calcium 7.8 mg/dL (8.5-10.1) L 06/23/16 05:20 Corrected Calcium 9.0 mg/dL (8.5-10.1) 06/23/16 05:20 Total Bilirubin 0.30 mg/dL (0.2-1.0) 06/23/16 05:20 AST 14 Units/L (15-37) L 06/23/16 05:20 ALT 8 Units/L (12-78) L 06/23/16 05:20 Alkaline Phosphatase 78 Units/L (46-116) 06/23/16 05:20 Creatine Kinase 74 Units/L (26-192) 06/22/16 03:23 CK-MB (CK-2) 1.1 ng/mL (0-4.0) 06/22/16 03:23 CK/CKMB % Calc 1.5 % (<4) 06/22/16 03:23 Troponin I 0.02 ng/mL (0-1.5) 06/22/16 03:23 Total Protein 5.4 g/dL (6.4-8.2) L 06/23/16 05:20 Albumin 2.5 g/dL (3.4-5.0) L 06/23/16 05:20 Globulin 2.9 g/dL (2.5-4.5) 06/23/16 05:20 Albumin/Globulin Ratio 0.9 Ratio (1.1-2.1) L 06/23/16 05:20 Specimen Type Clean catch urine 06/21/16 16:30 Urine Color Yellow (YELLOW) 06/21/16 16:30 Urine Appearance Clear (CLEAR) 06/21/16 16:30 Urine pH 6.5 (5.0 - 8.0) 06/21/16 16:30 Ur Specific [place] 1.010 (1.000-1.030) 06/21/16 16:30 Urine Protein Negative (NEGATIVE) 06/21/16 16:30 Urine Glucose (UA) Negative (NEGATIVE) 06/21/16 16:30 Urine Ketones Negative (NEGATIVE) 06/21/16 16:30 Urine Occult Blood Negative (NEGATIVE) 06/21/16 16:30 Urine Nitrite Negative (NEGATIVE) 06/21/16 16:30 Urine Bilirubin Negative (NEGATIVE) 06/21/16 16:30 Urine Urobilinogen Normal (NORMAL) 06/21/16 16:30 Ur Leukocyte Esterase 1+ (NEGATIVE) 06/21/16 16:30 Urine RBC 0-1 /HPF (NEGATIVE) 06/21/16 16:30 Urine WBC 0-3 /HPF (NEGATIVE) 06/21/16 16:30 Ur Squamous Epith Cells Few /HPF (NEGATIVE) 06/21/16 16:30 Urine Bacteria 1+ /HPF (NEGATIVE) 06/21/16 16:30 Ur Culture Indicated? No/not indicated 06/21/16 16:30 - Plan (1) Near syncope Status: Acute Plan: CONTINUE IV FLUIDS, CONTINUE TO MONITOR. (2) Dehydration Status: Acute Plan: CONTINUE IV FLUIDS, MONITOR LABS. (3) Generalized weakness Status: Acute Plan: ABOVE. (4) CHF (congestive heart failure) Status: Chronic Qualifiers: Congestive heart failure type: C Congestive heart failure chronicity: C Plan: ECHO TODAY. (5) GERD (gastroesophageal reflux disease) Status: Chronic Qualifiers: Esophagitis presence: esophagitis presence not specified Qualified Code(s) : K21.9 - Gastro-esophageal reflux disease without esophagitis (6) Gout Status: Chronic Qualifiers: Gout site: multiple sites Gout etiology: idiopathic Encounter type: E Laterality: L Chronicity: chronic Presence of tophus: without tophus Qualified Code(s): M1A.09X0 - Idiopathic chronic gout, multiple sites, without tophus (tophi) (7) Hyperlipidemia Status: Chronic Qualifiers: Hyperlipidemia type: mixed hyperlipidemia Qualified Code(s): E78.2 - Mixed hyperlipidemia (8) Hypertension Status: Chronic Qualifiers: Hypertension type: essential hypertension Qualified Code(s): I10 - Essential (primary) hypertension (9) Renal failure Status: Chronic (10) Vascular dementia Status: Chronic Qualifiers: Dementia behavioral disturbance: without behavioral disturbance Qualified Code(s): F01.50 - Vascular dementia without behavioral disturbance
[2016-06-23] MEDS: ZETIA TAB 10 MG PO SCH (21:12)
[2016-06-23] MEDS: ZOCOR TAB 20 MG PO SCH (21:12)
[2016-06-23] MEDS ORDERED: NS 1/2 1000 ML IV 1,000 ML IV ONE (22:43)
[2016-06-23] MEDS: NS 1/2 1000 ML IV 1,000 ML IV SCH (22:48)
[2016-06-24] MEDS: NS 1/2 1000 ML IV 1,000 ML IV SCH (02:08)
[2016-06-24 05:19] LABS: BASOPHILS # (AUTO) 0.1 X10^3/uL (0.0-0.1); BASOPHILS % (AUTO) 1.2 % (0.2-1.0); EOSINOPHILS # (AUTO) 0.2 x10^3/uL (0.0-0.2); EOSINOPHILS % (AUTO) 3.4 % (0.9-2.9); HEMATOCRIT 27.5 % (36.0-47.0); HEMOGLOBIN 8.8 g/dL (12.0-16.0); LYMPHOCYTES % (AUTO) 28.5 % (21.0-51.0); MEAN CORPUSCULAR HEMOGLOBIN 30.2 pg (27.0-34.0); MEAN CORPUSCULAR VOLUME 94.2 fL (80.0-100.0); MEAN PLATELET VOLUME 10.8 fL (7.4-11.0); MONOCYTES # (AUTO) 0.6 x10^3/uL (0.3-0.8); MONOCYTES % (AUTO) 8.3 % (0.0-13.0); NEUTROPHILS # (AUTO) 4.1 x10^3/uL (2.2-4.8); NEUTROPHILS % (AUTO) 58.6 % (42.0-75.0); PLATELET COUNT 168 X10^3/uL (150.0-450.0); RED BLOOD COUNT 2.92 X10^6/uL (3.5-5.4)
[2016-06-24 05:37] LABS: ALANINE AMINOTRANSFERASE 9 Units/L (12-78); ALBUMIN 2.9 g/dL (3.4-5.0); ALKALINE PHOSPHATASE 77 Units/L (46-116); ASPARTATE AMINO TRANSFERASE 16 Units/L (15-37); BLOOD UREA NITROGEN 34 mg/dL (7-18); CALCIUM 7.8 mg/dL (8.5-10.1); CARBON DIOXIDE 16.8 mmol/L (21-32); COR CA(FOR HYPOALB) 8.7 mg/dL (8.5-10.1); CREATININE 1.56 mg/dL (0.55-1.02); GLUCOSE 91 mg/dL (65-99); SODIUM 148 mmol/L (136-145); TOTAL PROTEIN 5.7 g/dL (6.4-8.2); eGFR BLACK RACES 41 (>60); eGFR NON BLACK RACES 34 (>60)
[2016-06-24 05:52] LABS: CHLORIDE 117 mmol/L (98-107)
--- NOTE | 2016-06-24 07:05 | RAD ---
Chest, one view Indication: Weakness, syncope, wheeze Comparison: 06/21/2016 Findings: Mild cardiac silhouette enlargement is unchanged. There is increased perihilar and basilar predominant interstitial thickening with suggestion of trace bilateral pleural effusions. No dense infiltrate identified. Impression: Cardiomegaly with suggestion of mild CHF. Reported By:
[2016-06-24] MEDS: TOPROL XL PO SCH (08:55)
[2016-06-24] MEDS: ALBUMIN HUMAN 25%- 100ML 100 ML IV SCH (08:55)
[2016-06-24] MEDS: DIAMOX PO SCH (08:55)
[2016-06-24] MEDS: PriLOSEC PO SCH ×2 (08:56→21:59)
[2016-06-24] MEDS: DUONEB 0.5 MG/3 MG NEB SCH ×4 (09:02→21:32)
--- NOTE | 2016-06-24 10:16 | RAD ---
AP abdomen Indication: Abdominal pain, constipation Comparison: CT abdomen and pelvis 05/01/2014 Findings: The bowel gas pattern is nonobstructed. There is no significantly increased colonic stool burden. No free air identified. Common duct stent overlies the central abdomen. Impression: No acute abdominal abnormality. No marked colonic stool burden. Reported By:
[2016-06-24] MEDS: MIRALAX POWDER (1 DOSE 17GM) PO SCH (12:03)
[2016-06-24] MEDS: MILK OF MAGNESIA PO SCH ×4 (12:03→21:59)
[2016-06-24] MEDS: COLACE CAP 100 MG PO SCH ×2 (12:04→21:59)
[2016-06-24] MEDS: MEGACE PO SCH ×2 (12:04→21:59)
[2016-06-24] MEDS: LASIX IVP SCH ×2 (12:04→21:59)
--- NOTE | 2016-06-24 13:22 | PCM.PROG ---
Progress Note - Progress Note for Day of Date: 06/24/16 - Subjective Subjective: PATIENT CONTINUES WITH GENERALIZED WEAKNESS AND DIZZINESS. PATIENT ALSO COMPLAINS OF SHORTNESS OF BREATH. FAMILY AT BEDSIDE. FAMILY STATES THAT PATIENT HAS NOT HAD A BOWEL MOVEMENT AND IS NOT EATING WELL. PATIENT CONTINUES ON IV FLUIDS FOR DEHYDRATION. RENAL FUNCTION IS SHOWING IMPROVEMENT WITH IV FLUID. ON AUSCULTATION, LUNGS NOTED WITH SCATTERED WHEEZING. BOWEL SOUNDS ARE HYPOACTIVE. CBC WNL EXCEPT: H/H 8.8/27.5. CMP WNL EXCEPT: SODIUM 148, CHL 117, CARBON DIOXIDE 16.8, BUN/CREAT 34/1.56, GFR 34, CALCIUM 7.8, TOT PROTEIN 5.7, ALBUMIN 2.9. ECHO WAS OBTAINED AND REPORTS AN EJECTION FRACTION OF 73%. CHEST XRAY REPORTS MILD CHF. WE WILL DISCONTINUE IVF, START BOWEL REGIMEN, CHECK KUB, AND CONTINUE TO MONITOR ON TELEMETRY. WE WILL ALSO START ON MEGACE AND LASIX TODAY. WE WILL FOLLOW UP IN AM WITH LABS AND CHEST XRAY. - Past Medical Family Social History Past Med/Fam/Surg Hx: No changes since H&P Allergies: Allergies No Known Drug Allergy Allergy (Verified 06/21/16 14:33) - Review of Systems ROS: No change since H&P - Vital Signs and I&O's Vital Signs: Temperature 97.5 F Pulse Rate [Right Brachial] 58 Pulse Rate 78 Respiratory Rate 18 Blood Pressure [Right Arm] 171/66 Blood Pressure [Left Arm] 179/74 O2 Sat by Pulse Oximetry 98 Intake and Output: Intake & Output 06/22/16 06/23/16 06/24/16 06/25/16 11:59 11:59 11:59 11:59 Intake Total 1196 1270 1140 Balance 1196 1270 1140 - Physical Exam Oriented: Normal, Time, Person, Place Eyes: Normal. negative: Blurred Vision, Diplopia, Discharge, Pain, Redness, Photophobia Ear: Normal. negative: Swelling, Ecchymosis, Hemotypanum, Abrasion, Laceration Nose: Normal. negative: Injected, Discharge, Blood Throat: Dry. negative: Tonsillar Hypertrophy, Exudate Respiratory: Generalized, Wheezes Cardiovascular: Normal. negative: Murmur, Edema : Normal. negative: Dysuria, Hematuria, Frequency, Discharge, Bleeding, Auscultation: Bowel Sounds: Normal. negative: Bruit Palpation: Normal. negative: Spleen Enlarged, Liver Enlarged, Mass Pulsatile Tenderness: Normal. negative: Rebound, Guarding, Rigidity Skin: Decreased Turgur. negative: Diaphoresis, Wound, Bruising, Ecchymosis Musculoskeletal: Instability Psychiatric: Normal Mood Description: Calm, Appropriate Affect: Normal Speech Pattern: Clear, Appropriate - Laboratory and Diagnostics Result Diagrams: 06/24/16 04:40 06/24/16 04:40 Labs: Laboratory WBC 7.0 X10^3/uL (3.6-10.0) 06/24/16 04:40 RBC 2.92 X10^6/uL (3.5-5.4) L 06/24/16 04:40 Hgb 8.8 g/dL (12.0-16.0) L 06/24/16 04:40 Hct 27.5 % (36.0-47.0) L 06/24/16 04:40 MCV 94.2 fL (80.0-100.0) 06/24/16 04:40 MCH 30.2 pg (27.0-34.0) 06/24/16 04:40 MCHC 32.0 g/dL (33.0-35.0) L 06/24/16 04:40 RDW 15.0 % (11.6-16.5) 06/24/16 04:40 Plt Count 168 X10^3/uL (150.0-450.0) 06/24/16 04:40 MPV 10.8 fL (7.4-11.0) 06/24/16 04:40 Neut % 58.6 % (42.0-75.0) 06/24/16 04:40 Lymph % 28.5 % (21.0-51.0) 06/24/16 04:40 [place] % 8.3 % (0.0-13.0) 06/24/16 04:40 Eos % 3.4 % (0.9-2.9) H 06/24/16 04:40 Baso % 1.2 % (0.2-1.0) H 06/24/16 04:40 Neut # 4.1 x10^3/uL (2.2-4.8) 06/24/16 04:40 Lymph # 2.0 X10^3/uL (1.3-2.9) 06/24/16 04:40 [place] # 0.6 x10^3/uL (0.3-0.8) 06/24/16 04:40 Eos # 0.2 x10^3/uL (0.0-0.2) 06/24/16 04:40 Baso # 0.1 X10^3/uL (0.0-0.1) 06/24/16 04:40 Absolute Nucleated RBC 0.0 /100WBC 06/24/16 04:40 INR Target Range - 06/22/16 03:23 INR 1.09 (0.8-1.3) 06/22/16 03:23 PTT 32.2 SECONDS (22.9-36.5) 06/22/16 03:23 PTT Comment - 06/22/16 03:23 Sodium 148 mmol/L (136-145) H 06/24/16 04:40 Corrected Sodium TNP 06/24/16 04:40 Potassium 3.5 mmol/L (3.5-5.1) 06/24/16 04:40 Chloride 117 mmol/L (98-107) H* 06/24/16 04:40 Carbon Dioxide 16.8 mmol/L (21-32) L 06/24/16 04:40 BUN 34 mg/dL (7-18) H 06/24/16 04:40 Creatinine 1.56 mg/dL (0.55-1.02) H 06/24/16 04:40 Est GFR (MDRD) Af Amer 41 (>60) L 06/24/16 04:40 Est GFR (MDRD) Non-Af 34 (>60) L 06/24/16 04:40 Glucose 91 mg/dL (65-99) 06/24/16 04:40 Calcium 7.8 mg/dL (8.5-10.1) L 06/24/16 04:40 Corrected Calcium 8.7 mg/dL (8.5-10.1) 06/24/16 04:40 Total Bilirubin 0.50 mg/dL (0.2-1.0) 06/24/16 04:40 AST 16 Units/L (15-37) 06/24/16 04:40 ALT 9 Units/L (12-78) L 06/24/16 04:40 Alkaline Phosphatase 77 Units/L (46-116) 06/24/16 04:40 Creatine Kinase 74 Units/L (26-192) 06/22/16 03:23 CK-MB (CK-2) 1.1 ng/mL (0-4.0) 06/22/16 03:23 CK/CKMB % Calc 1.5 % (<4) 06/22/16 03:23 Troponin I 0.02 ng/mL (0-1.5) 06/22/16 03:23 Total Protein 5.7 g/dL (6.4-8.2) L 06/24/16 04:40 Albumin 2.9 g/dL (3.4-5.0) L 06/24/16 04:40 Globulin 2.8 g/dL (2.5-4.5) 06/24/16 04:40 Albumin/Globulin Ratio 1.0 Ratio (1.1-2.1) L 06/24/16 04:40 Specimen Type Clean catch urine 06/21/16 16:30 Urine Color Yellow (YELLOW) 06/21/16 16:30 Urine Appearance Clear (CLEAR) 06/21/16 16:30 Urine pH 6.5 (5.0 - 8.0) 06/21/16 16:30 Ur Specific [place] 1.010 (1.000-1.030) 06/21/16 16:30 Urine Protein Negative (NEGATIVE) 06/21/16 16:30 Urine Glucose (UA) Negative (NEGATIVE) 06/21/16 16:30 Urine Ketones Negative (NEGATIVE) 06/21/16 16:30 Urine Occult Blood Negative (NEGATIVE) 06/21/16 16:30 Urine Nitrite Negative (NEGATIVE) 06/21/16 16:30 Urine Bilirubin Negative (NEGATIVE) 06/21/16 16:30 Urine Urobilinogen Normal (NORMAL) 06/21/16 16:30 Ur Leukocyte Esterase 1+ (NEGATIVE) 06/21/16 16:30 Urine RBC 0-1 /HPF (NEGATIVE) 06/21/16 16:30 Urine WBC 0-3 /HPF (NEGATIVE) 06/21/16 16:30 Ur Squamous Epith Cells Few /HPF (NEGATIVE) 06/21/16 16:30 Urine Bacteria 1+ /HPF (NEGATIVE) 06/21/16 16:30 Ur Culture Indicated? No/not indicated 06/21/16 16:30 - Plan (1) CHF (congestive heart failure) Status: Chronic Qualifiers: Congestive heart failure type: C Congestive heart failure chronicity: C Plan: LASIX 20MG IV BID X 2 DOSES, CHEST XRAY IN AM (2) Dehydration Status: Acute Plan: MONITOR LABS. (3) Near syncope Status: Acute Plan: CONTINUE TO MONITOR. (4) Generalized weakness Status: Acute Plan: ABOVE. (5) GERD (gastroesophageal reflux disease) Status: Chronic Qualifiers: Esophagitis presence: esophagitis presence not specified Qualified Code(s) : K21.9 - Gastro-esophageal reflux disease without esophagitis (6) Gout Status: Chronic Qualifiers: Gout site: multiple sites Gout etiology: idiopathic Encounter type: E Laterality: L Chronicity: chronic Presence of tophus: without tophus Qualified Code(s): M1A.09X0 - Idiopathic chronic gout, multiple sites, without tophus (tophi) (7) Hyperlipidemia Status: Chronic Qualifiers: Hyperlipidemia type: mixed hyperlipidemia Qualified Code(s): E78.2 - Mixed hyperlipidemia (8) Hypertension Status: Chronic Qualifiers: Hypertension type: essential hypertension Qualified Code(s): I10 - Essential (primary) hypertension (9) Renal failure Status: Chronic (10) Vascular dementia Status: Chronic Qualifiers: Dementia behavioral disturbance: without behavioral disturbance Qualified Code(s): F01.50 - Vascular dementia without behavioral disturbance
[2016-06-24] MEDS: ZETIA TAB 10 MG PO SCH (21:59)
[2016-06-24] MEDS: ZOCOR TAB 20 MG PO SCH (21:59)
--- NOTE | 2016-06-25 05:46 | RAD ---
Chest AP portable Indication: Near syncope. Findings: There is cardiomegaly with increased interstitial markings. No pneumothorax or effusion se en. No consolidation seen. Impression: Cardiomegaly and edema suggesting CHF, slightly improved from the prior. Reported By:
[2016-06-25 06:03] LABS: ALANINE AMINOTRANSFERASE 8 Units/L (12-78); ALBUMIN 3.1 g/dL (3.4-5.0); ALKALINE PHOSPHATASE 80 Units/L (46-116); ASPARTATE AMINO TRANSFERASE 15 Units/L (15-37); BLOOD UREA NITROGEN 33 mg/dL (7-18); CALCIUM 8.3 mg/dL (8.5-10.1); CARBON DIOXIDE 20.1 mmol/L (21-32); CREATININE 1.63 mg/dL (0.55-1.02); GLUCOSE 101 mg/dL (65-99); TOTAL PROTEIN 5.9 g/dL (6.4-8.2); eGFR BLACK RACES 39 (>60); eGFR NON BLACK RACES 32 (>60)
[2016-06-25 06:25] LABS: BASOPHILS # (AUTO) 0.1 X10^3/uL (0.0-0.1); BASOPHILS % (AUTO) 1.1 % (0.2-1.0); EOSINOPHILS # (AUTO) 0.2 x10^3/uL (0.0-0.2); EOSINOPHILS % (AUTO) 3.4 % (0.9-2.9); HEMATOCRIT 26.6 % (36.0-47.0); HEMOGLOBIN 8.8 g/dL (12.0-16.0); LYMPHOCYTES % (AUTO) 29.6 % (21.0-51.0); MEAN CORPUSCULAR HEMOGLOBIN 30.9 pg (27.0-34.0); MEAN CORPUSCULAR HGB CONC 33.1 g/dL (33.0-35.0); MEAN CORPUSCULAR VOLUME 93.3 fL (80.0-100.0); MONOCYTES # (AUTO) 0.5 x10^3/uL (0.3-0.8); MONOCYTES % (AUTO) 7.7 % (0.0-13.0); NEUTROPHILS % (AUTO) 58.2 % (42.0-75.0); PLATELET COUNT 165 X10^3/uL (150.0-450.0); RED BLOOD COUNT 2.85 X10^6/uL (3.5-5.4); RED CELL DISTRIBUTION WIDTH 15.2 % (11.6-16.5); WHITE BLOOD COUNT 6.9 X10^3/uL (3.6-10.0)
[2016-06-25 06:37] LABS: CHLORIDE 119 mmol/L (98-107); SODIUM 152 mmol/L (136-145)
[2016-06-25] MEDS ORDERED: K-RIDER 10 MEQ/NS 100 ML 10 MEQ/100 ML BAG IV PRN (07:10)
[2016-06-25] MEDS ORDERED: POTASSIUM CHLORIDE LIQ 20 MEQ UDC PO PRN (07:10)
[2016-06-25] MEDS ORDERED: K-LYTE EFFERVESCENT PO PRN (07:10)
[2016-06-25] MEDS: ALBUMIN HUMAN 25%- 100ML 100 ML IV SCH (08:55)
[2016-06-25] MEDS: MEGACE PO SCH ×2 (08:56→21:36)
[2016-06-25] MEDS: TOPROL XL PO SCH (08:56)
[2016-06-25] MEDS: DIAMOX PO SCH (08:57)
[2016-06-25] MEDS: PriLOSEC PO SCH ×2 (08:57→21:36)
[2016-06-25] MEDS: DUONEB 0.5 MG/3 MG NEB SCH ×4 (09:40→20:42)
[2016-06-25] MEDS: LASIX IVP SCH ×2 (12:02→21:36)
[2016-06-25] MEDS: K-DUR TAB 20 MEQ PO PRN ×3 (12:03→21:36)
[2016-06-25] MEDS: COLACE CAP 100 MG PO SCH ×2 (12:22→21:36)
[2016-06-25] MEDS: MILK OF MAGNESIA PO SCH ×4 (12:23→21:35)
[2016-06-25] MEDS: MAGIC MOUTHWASH MT SCH ×4 (12:23→21:36)
[2016-06-25] MEDS: MIRALAX POWDER (1 DOSE 17GM) PO SCH (12:23)
--- NOTE | 2016-06-25 16:48 | PCM.PROG ---
Progress Note - Progress Note for Day of Date: 06/25/16 - Subjective Subjective: PATIENT REPORTS DIZZINESS AND WEAKNESS ARE IMPROVING. FAMILY MEMBER AT BEDSIDE AND REPORTS PATIENT HAS NOT HAD A BOWEL MOVEMENT SINCE ADMISSION. PATIENT WAS PLACED ON BOWEL REGIMEN OF MILK OF MAGNESIA, MIRALAX, AND COLACE YESTERDAY. PATIENT REPORTS HER MOUTH IS RAW WITH ULCERS. PATIENT CONTINUES WITH POOR APPETITE. ON AUSCULTATION, LUNGS CONTINUE WITH SCATTERED WHEEZING. BOWEL SOUNDS ARE HYPOACTIVE. CBC WNL EXCEPT: H/H 8.8/26.6. CMP WNL EXCEPT: SODIUM 152, POTASSIUM 3.2, CHL 119, CARBON DIOXIDE 20.1, BUN/CREAT 33./1.63, GFR 32, GLUCOSE 101, CALCIUM 8.3, TOT PROTEIN 5.9, ALBUMIN 3.1. CHEST XRAY REPORTS EDEMA SUGGESTING CHF, SLIGHTLY IMPROVED FROM PRIOR. A KUB OBTAINED YESTERDAY REPORTS NO ACUTE ABDOMINAL PATHOLOGY; NO MARKED COLONIC STOOL BURDEN. WE WILL START POTASSIUM PROTOCOL, MAGIC MOUTHWASH, AND ADMINISTER LASIX 20MG IV BID FOR TWO DOSES. WE WILL CONTINUE BOWEL REGIMEN, MEGACE, AND FOLLOW UP IN AM WITH LABS AND CHEST XRAY. - Past Medical Family Social History Past Med/Fam/Surg Hx: No changes since H&P Allergies: Allergies No Known Drug Allergy Allergy (Verified 06/21/16 14:33) - Review of Systems ROS: No change since H&P - Vital Signs and I&O's Vital Signs: Temperature 97.6 F Pulse Rate [Right Brachial] 91 Pulse Rate 88 Respiratory Rate 20 Blood Pressure [Right Arm] 186/84 Blood Pressure [Left Arm] 169/71 O2 Sat by Pulse Oximetry 99 Intake and Output: Intake & Output 06/23/16 06/24/16 06/25/16 06/26/16 11:59 11:59 11:59 11:59 Intake Total 1270 1140 770 460 Balance 1270 1140 770 460 - Physical Exam Oriented: Normal, Time, Person, Place Eyes: Normal. negative: Blurred Vision, Diplopia, Discharge, Pain, Redness, Photophobia Ear: Normal. negative: Swelling, Ecchymosis, Hemotypanum, Abrasion, Laceration Nose: Normal. negative: Injected, Discharge, Blood Throat: Dry. negative: Tonsillar Hypertrophy, Exudate Respiratory: Generalized, Wheezes Cardiovascular: Normal. negative: Murmur, Edema : Normal. negative: Dysuria, Hematuria, Frequency, Discharge, Bleeding, Auscultation: Bowel Sounds: Normal. negative: Bruit Palpation: Normal. negative: Spleen Enlarged, Liver Enlarged, Mass Pulsatile Tenderness: Normal. negative: Rebound, Guarding, Rigidity Skin: Decreased Turgur. negative: Diaphoresis, Wound, Bruising, Ecchymosis Musculoskeletal: Instability Psychiatric: Normal Mood Description: Calm, Appropriate Affect: Normal Speech Pattern: Clear, Appropriate - Laboratory and Diagnostics Result Diagrams: 06/25/16 05:05 06/25/16 14:55 Labs: Laboratory WBC 6.9 X10^3/uL (3.6-10.0) 06/25/16 05:05 RBC 2.85 X10^6/uL (3.5-5.4) L 06/25/16 05:05 Hgb 8.8 g/dL (12.0-16.0) L 06/25/16 05:05 Hct 26.6 % (36.0-47.0) L 06/25/16 05:05 MCV 93.3 fL (80.0-100.0) 06/25/16 05:05 MCH 30.9 pg (27.0-34.0) 06/25/16 05:05 MCHC 33.1 g/dL (33.0-35.0) 06/25/16 05:05 RDW 15.2 % (11.6-16.5) 06/25/16 05:05 Plt Count 165 X10^3/uL (150.0-450.0) 06/25/16 05:05 MPV 11.0 fL (7.4-11.0) 06/25/16 05:05 Neut % 58.2 % (42.0-75.0) 06/25/16 05:05 Lymph % 29.6 % (21.0-51.0) 06/25/16 05:05 [place] % 7.7 % (0.0-13.0) 06/25/16 05:05 Eos % 3.4 % (0.9-2.9) H 06/25/16 05:05 Baso % 1.1 % (0.2-1.0) H 06/25/16 05:05 Neut # 4.0 x10^3/uL (2.2-4.8) 06/25/16 05:05 Lymph # 2.0 X10^3/uL (1.3-2.9) 06/25/16 05:05 [place] # 0.5 x10^3/uL (0.3-0.8) 06/25/16 05:05 Eos # 0.2 x10^3/uL (0.0-0.2) 06/25/16 05:05 Baso # 0.1 X10^3/uL (0.0-0.1) 06/25/16 05:05 Absolute Nucleated RBC 0.1 /100WBC 06/25/16 05:05 INR Target Range - 06/22/16 03:23 INR 1.09 (0.8-1.3) 06/22/16 03:23 PTT 32.2 SECONDS (22.9-36.5) 06/22/16 03:23 PTT Comment - 06/22/16 03:23 Sodium 152 mmol/L (136-145) H* 06/25/16 05:05 Corrected Sodium TNP 06/25/16 05:05 Potassium 3.2 mmol/L (3.5-5.1) L 06/25/16 14:55 Chloride 119 mmol/L (98-107) H* 06/25/16 05:05 Carbon Dioxide 20.1 mmol/L (21-32) L 06/25/16 05:05 BUN 33 mg/dL (7-18) H 06/25/16 05:05 Creatinine 1.63 mg/dL (0.55-1.02) H 06/25/16 05:05 Est GFR (MDRD) Af Amer 39 (>60) L 06/25/16 05:05 Est GFR (MDRD) Non-Af 32 (>60) L 06/25/16 05:05 Glucose 101 mg/dL (65-99) H 06/25/16 05:05 Calcium 8.3 mg/dL (8.5-10.1) L 06/25/16 05:05 Corrected Calcium 9.0 mg/dL (8.5-10.1) 06/25/16 05:05 Total Bilirubin 0.70 mg/dL (0.2-1.0) 06/25/16 05:05 AST 15 Units/L (15-37) 06/25/16 05:05 ALT 8 Units/L (12-78) L 06/25/16 05:05 Alkaline Phosphatase 80 Units/L (46-116) 06/25/16 05:05 Creatine Kinase 74 Units/L (26-192) 06/22/16 03:23 CK-MB (CK-2) 1.1 ng/mL (0-4.0) 06/22/16 03:23 CK/CKMB % Calc 1.5 % (<4) 06/22/16 03:23 Troponin I 0.02 ng/mL (0-1.5) 06/22/16 03:23 Total Protein 5.9 g/dL (6.4-8.2) L 06/25/16 05:05 Albumin 3.1 g/dL (3.4-5.0) L 06/25/16 05:05 Globulin 2.8 g/dL (2.5-4.5) 06/25/16 05:05 Albumin/Globulin Ratio 1.1 Ratio (1.1-2.1) 06/25/16 05:05 Specimen Type Clean catch urine 06/21/16 16:30 Urine Color Yellow (YELLOW) 06/21/16 16:30 Urine Appearance Clear (CLEAR) 06/21/16 16:30 Urine pH 6.5 (5.0 - 8.0) 06/21/16 16:30 Ur Specific [place] 1.010 (1.000-1.030) 06/21/16 16:30 Urine Protein Negative (NEGATIVE) 06/21/16 16:30 Urine Glucose (UA) Negative (NEGATIVE) 06/21/16 16:30 Urine Ketones Negative (NEGATIVE) 06/21/16 16:30 Urine Occult Blood Negative (NEGATIVE) 06/21/16 16:30 Urine Nitrite Negative (NEGATIVE) 06/21/16 16:30 Urine Bilirubin Negative (NEGATIVE) 06/21/16 16:30 Urine Urobilinogen Normal (NORMAL) 06/21/16 16:30 Ur Leukocyte Esterase 1+ (NEGATIVE) 06/21/16 16:30 Urine RBC 0-1 /HPF (NEGATIVE) 06/21/16 16:30 Urine WBC 0-3 /HPF (NEGATIVE) 06/21/16 16:30 Ur Squamous Epith Cells Few /HPF (NEGATIVE) 06/21/16 16:30 Urine Bacteria 1+ /HPF (NEGATIVE) 06/21/16 16:30 Ur Culture Indicated? No/not indicated 06/21/16 16:30 - Plan (1) CHF (congestive heart failure) Status: Chronic Qualifiers: Congestive heart failure type: C Congestive heart failure chronicity: C Plan: LASIX 20MG IV BID X 2 DOSES, CHEST XRAY IN AM (2) Constipation by delayed colonic transit Status: Acute Plan: CONTINUE BOWEL REGIMEN, MONITOR. (3) Dehydration Status: Acute Plan: MONITOR LABS. (4) Near syncope Status: Acute Plan: CONTINUE TO MONITOR. (5) Generalized weakness Status: Acute Plan: ABOVE. (6) GERD (gastroesophageal reflux disease) Status: Chronic Qualifiers: Esophagitis presence: esophagitis presence not specified Qualified Code(s) : K21.9 - Gastro-esophageal reflux disease without esophagitis (7) Gout Status: Chronic Qualifiers: Gout site: multiple sites Gout etiology: idiopathic Encounter type: E Laterality: L Chronicity: chronic Presence of tophus: without tophus Qualified Code(s): M1A.09X0 - Idiopathic chronic gout, multiple sites, without tophus (tophi) (8) Hyperlipidemia Status: Chronic Qualifiers: Hyperlipidemia type: mixed hyperlipidemia Qualified Code(s): E78.2 - Mixed hyperlipidemia (9) Hypertension Status: Chronic Qualifiers: Hypertension type: essential hypertension Qualified Code(s): I10 - Essential (primary) hypertension (10) Renal failure Status: Chronic Qualifiers: Renal failure chronicity: R Acute renal failure type: A Chronic kidney disease stage: C (11) Vascular dementia Status: Chronic Qualifiers: Dementia behavioral disturbance: without behavioral disturbance Qualified Code(s): F01.50 - Vascular dementia without behavioral disturbance
[2016-06-25] MEDS: ZETIA TAB 10 MG PO SCH (21:36)
[2016-06-25] MEDS: ZOCOR TAB 20 MG PO SCH (21:45)
[2016-06-26 07:07] LABS: BASOPHILS # (AUTO) 0.1 X10^3/uL (0.0-0.1); BASOPHILS % (AUTO) 1.2 % (0.2-1.0); EOSINOPHILS # (AUTO) 0.4 x10^3/uL (0.0-0.2); EOSINOPHILS % (AUTO) 5.4 % (0.9-2.9); HEMOGLOBIN 9.2 g/dL (12.0-16.0); LYMPHOCYTES % (AUTO) 24.3 % (21.0-51.0); MEAN CORPUSCULAR HEMOGLOBIN 30.3 pg (27.0-34.0); MEAN CORPUSCULAR HGB CONC 32.8 g/dL (33.0-35.0); MEAN CORPUSCULAR VOLUME 92.1 fL (80.0-100.0); MEAN PLATELET VOLUME 10.9 fL (7.4-11.0); MONOCYTES # (AUTO) 0.6 x10^3/uL (0.3-0.8); MONOCYTES % (AUTO) 7.1 % (0.0-13.0); NEUTROPHILS # (AUTO) 5.1 x10^3/uL (2.2-4.8); PLATELET COUNT 175 X10^3/uL (150.0-450.0); RED BLOOD COUNT 3.04 X10^6/uL (3.5-5.4); RED CELL DISTRIBUTION WIDTH 15.4 % (11.6-16.5); WHITE BLOOD COUNT 8.3 X10^3/uL (3.6-10.0)
[2016-06-26 07:18] LABS: ALANINE AMINOTRANSFERASE 10 Units/L (12-78); ALBUMIN 3.7 g/dL (3.4-5.0); ALKALINE PHOSPHATASE 87 Units/L (46-116); ASPARTATE AMINO TRANSFERASE 19 Units/L (15-37); BLOOD UREA NITROGEN 31 mg/dL (7-18); CALCIUM 8.8 mg/dL (8.5-10.1); CARBON DIOXIDE 19.1 mmol/L (21-32); CREATININE 1.72 mg/dL (0.55-1.02); GLUCOSE 80 mg/dL (65-99); TOTAL PROTEIN 6.6 g/dL (6.4-8.2); eGFR BLACK RACES 36 (>60); eGFR NON BLACK RACES 30 (>60)
[2016-06-26 07:49] LABS: CHLORIDE 119 mmol/L (98-107); SODIUM 153 mmol/L (136-145)
--- NOTE | 2016-06-26 07:49 | RAD ---
History: Chest pain and dyspnea. Exam: Single view of the chest. Comparison: June 25, 2016. Findings: The trachea is midline. The cardiomediastinal silhouette is mildly enlarged. There is no e vidence for CHF or pulmonary edema. There is no pneumothorax or mediastinal shift. The lungs are kathryn ar without consolidation, effusion, or pneumothorax. The chest is hyperinflated with an increased AP dimension of the chest, diaphragmatic flattening, and central interstitial changes which would be c ompatible with changes of obstructive airways disease. No acute cardiopulmonary abnormalities are se en. No acute bony abnormalities are seen. Impression: 1. No acute cardiopulmonary abnormality. 2. Findings of obstructive airways disease. Reported By:
[2016-06-26] MEDS: DUONEB 0.5 MG/3 MG NEB SCH ×4 (08:14→20:13)
[2016-06-26] MEDS: MAGIC MOUTHWASH MT SCH ×4 (08:52→21:40)
[2016-06-26] MEDS: MEGACE PO SCH ×2 (08:52→21:38)
[2016-06-26] MEDS: TOPROL XL PO SCH (08:52)
[2016-06-26] MEDS: PriLOSEC PO SCH ×2 (08:52→21:44)
[2016-06-26] MEDS: ALBUMIN HUMAN 25%- 100ML 100 ML IV SCH (08:53)
[2016-06-26] MEDS: COLACE CAP 100 MG PO SCH ×2 (08:54→21:38)
[2016-06-26] MEDS: MIRALAX POWDER (1 DOSE 17GM) PO SCH (08:55)
[2016-06-26] MEDS: DIAMOX PO SCH (08:55)
[2016-06-26] MEDS: MILK OF MAGNESIA PO SCH ×4 (08:55→21:40)
--- NOTE | 2016-06-26 16:53 | PCM.PROG ---
Progress Note - Progress Note for Day of Date: 06/26/16 - Subjective Subjective: PATIENT REPORTS DIZZINESS AND WEAKNESS ARE IMPROVING. FAMILY MEMBER AT BEDSIDE AND REPORTS PATIENT HAS HAD THREE BOWEL MOVEMENTS. PATIENT REPORTS APPETITE IS POOR DUE TO MOUTH ULCERS. ON AUSCULTATION, LUNGS CONTINUE WITH SCATTERED WHEEZING. CBC WNL EXCEPT: H/H 9.2/28.0. CMP WNL EXCEPT: SODIUM 153, CHL 119, CARBON DIOXIDE 19.1, BUN/CREAT 31/1.72, GFR 30. CHEST XRAY REPORTS LUNGS CLEAR. WE WILL CONTINUE MAGIC MOUTHWASH, BOWEL REGIMEN, MEGACE, AND FOLLOW UP IN AM WITH LABS AND CHEST XRAY. - Past Medical Family Social History Past Med/Fam/Surg Hx: No changes since H&P Allergies: Allergies No Known Drug Allergy Allergy (Verified 06/21/16 14:33) - Review of Systems ROS: No change since H&P - Vital Signs and I&O's Vital Signs: Temperature 98 F Pulse Rate [Right Brachial] 84 Pulse Rate 86 Respiratory Rate 18 Blood Pressure [Right Arm] 191/75 Blood Pressure [Left Arm] 144/67 O2 Sat by Pulse Oximetry 98 Intake and Output: Intake & Output 06/24/16 06/25/16 06/26/16 06/27/16 11:59 11:59 11:59 11:59 Intake Total 1140 770 980 480 Balance 1140 770 980 480 - Physical Exam Oriented: Normal, Time, Person, Place Eyes: Normal. negative: Blurred Vision, Diplopia, Discharge, Pain, Redness, Photophobia Ear: Normal. negative: Swelling, Ecchymosis, Hemotypanum, Abrasion, Laceration Nose: Normal. negative: Injected, Discharge, Blood Throat: Dry. negative: Tonsillar Hypertrophy, Exudate Respiratory: Normal Cardiovascular: Normal. negative: Murmur, Edema : Normal. negative: Dysuria, Hematuria, Frequency, Discharge, Bleeding, Auscultation: Bowel Sounds: Normal. negative: Bruit Palpation: Normal Tenderness: Normal. negative: Rebound, Guarding, Rigidity Skin: Normal. negative: Diaphoresis, Wound, Bruising, Ecchymosis Musculoskeletal: Instability Psychiatric: Normal Mood Description: Calm, Appropriate Affect: Normal Speech Pattern: Clear, Appropriate - Laboratory and Diagnostics Result Diagrams: 06/26/16 04:02 06/26/16 04:02 Labs: Laboratory WBC 8.3 X10^3/uL (3.6-10.0) 06/26/16 04:02 RBC 3.04 X10^6/uL (3.5-5.4) L 06/26/16 04:02 Hgb 9.2 g/dL (12.0-16.0) L 06/26/16 04:02 Hct 28.0 % (36.0-47.0) L 06/26/16 04:02 MCV 92.1 fL (80.0-100.0) 06/26/16 04:02 MCH 30.3 pg (27.0-34.0) 06/26/16 04:02 MCHC 32.8 g/dL (33.0-35.0) L 06/26/16 04:02 RDW 15.4 % (11.6-16.5) 06/26/16 04:02 Plt Count 175 X10^3/uL (150.0-450.0) 06/26/16 04:02 MPV 10.9 fL (7.4-11.0) 06/26/16 04:02 Neut % 62.0 % (42.0-75.0) 06/26/16 04:02 Lymph % 24.3 % (21.0-51.0) 06/26/16 04:02 [place] % 7.1 % (0.0-13.0) 06/26/16 04:02 Eos % 5.4 % (0.9-2.9) H 06/26/16 04:02 Baso % 1.2 % (0.2-1.0) H 06/26/16 04:02 Neut # 5.1 x10^3/uL (2.2-4.8) H 06/26/16 04:02 Lymph # 2.0 X10^3/uL (1.3-2.9) 06/26/16 04:02 [place] # 0.6 x10^3/uL (0.3-0.8) 06/26/16 04:02 Eos # 0.4 x10^3/uL (0.0-0.2) H 06/26/16 04:02 Baso # 0.1 X10^3/uL (0.0-0.1) 06/26/16 04:02 Absolute Nucleated RBC 0.1 /100WBC 06/26/16 04:02 INR Target Range - 06/22/16 03:23 INR 1.09 (0.8-1.3) 06/22/16 03:23 PTT 32.2 SECONDS (22.9-36.5) 06/22/16 03:23 PTT Comment - 06/22/16 03:23 Sodium 153 mmol/L (136-145) H* 06/26/16 04:02 Corrected Sodium TNP 06/26/16 04:02 Potassium 4.3 mmol/L (3.5-5.1) 06/26/16 04:02 Chloride 119 mmol/L (98-107) H* 06/26/16 04:02 Carbon Dioxide 19.1 mmol/L (21-32) L 06/26/16 04:02 BUN 31 mg/dL (7-18) H 06/26/16 04:02 Creatinine 1.72 mg/dL (0.55-1.02) H 06/26/16 04:02 Est GFR (MDRD) Af Amer 36 (>60) L 06/26/16 04:02 Est GFR (MDRD) Non-Af 30 (>60) L 06/26/16 04:02 Glucose 80 mg/dL (65-99) 06/26/16 04:02 Calcium 8.8 mg/dL (8.5-10.1) 06/26/16 04:02 Corrected Calcium TNP 06/26/16 04:02 Total Bilirubin 0.70 mg/dL (0.2-1.0) 06/26/16 04:02 AST 19 Units/L (15-37) 06/26/16 04:02 ALT 10 Units/L (12-78) L 06/26/16 04:02 Alkaline Phosphatase 87 Units/L (46-116) 06/26/16 04:02 Creatine Kinase 74 Units/L (26-192) 06/22/16 03:23 CK-MB (CK-2) 1.1 ng/mL (0-4.0) 06/22/16 03:23 CK/CKMB % Calc 1.5 % (<4) 06/22/16 03:23 Troponin I 0.02 ng/mL (0-1.5) 06/22/16 03:23 Total Protein 6.6 g/dL (6.4-8.2) 06/26/16 04:02 Albumin 3.7 g/dL (3.4-5.0) 06/26/16 04:02 Globulin 2.9 g/dL (2.5-4.5) 06/26/16 04:02 Albumin/Globulin Ratio 1.3 Ratio (1.1-2.1) 06/26/16 04:02 Specimen Type Clean catch urine 06/21/16 16:30 Urine Color Yellow (YELLOW) 06/21/16 16:30 Urine Appearance Clear (CLEAR) 06/21/16 16:30 Urine pH 6.5 (5.0 - 8.0) 06/21/16 16:30 Ur Specific [place] 1.010 (1.000-1.030) 06/21/16 16:30 Urine Protein Negative (NEGATIVE) 06/21/16 16:30 Urine Glucose (UA) Negative (NEGATIVE) 06/21/16 16:30 Urine Ketones Negative (NEGATIVE) 06/21/16 16:30 Urine Occult Blood Negative (NEGATIVE) 06/21/16 16:30 Urine Nitrite Negative (NEGATIVE) 06/21/16 16:30 Urine Bilirubin Negative (NEGATIVE) 06/21/16 16:30 Urine Urobilinogen Normal (NORMAL) 06/21/16 16:30 Ur Leukocyte Esterase 1+ (NEGATIVE) 06/21/16 16:30 Urine RBC 0-1 /HPF (NEGATIVE) 06/21/16 16:30 Urine WBC 0-3 /HPF (NEGATIVE) 06/21/16 16:30 Ur Squamous Epith Cells Few /HPF (NEGATIVE) 06/21/16 16:30 Urine Bacteria 1+ /HPF (NEGATIVE) 06/21/16 16:30 Ur Culture Indicated? No/not indicated 06/21/16 16:30 - Plan (1) Generalized weakness Status: Acute Plan: CONTINUE PT/OT, MONITOR. (2) Constipation by delayed colonic transit Status: Acute Plan: CONTINUE BOWEL REGIMEN, MONITOR. (3) CHF (congestive heart failure) Status: Chronic Qualifiers: Congestive heart failure type: C Congestive heart failure chronicity: C Plan: CONTINUE TO MONITOR. (4) Dehydration Status: Acute Plan: MONITOR LABS. (5) Near syncope Status: Acute Plan: CONTINUE TO MONITOR. (6) GERD (gastroesophageal reflux disease) Status: Chronic Qualifiers: Esophagitis presence: esophagitis presence not specified Qualified Code(s) : K21.9 - Gastro-esophageal reflux disease without esophagitis (7) Gout Status: Chronic Qualifiers: Gout site: multiple sites Gout etiology: idiopathic Encounter type: E Laterality: L Chronicity: chronic Presence of tophus: without tophus Qualified Code(s): M1A.09X0 - Idiopathic chronic gout, multiple sites, without tophus (tophi) (8) Hyperlipidemia Status: Chronic Qualifiers: Hyperlipidemia type: mixed hyperlipidemia Qualified Code(s): E78.2 - Mixed hyperlipidemia (9) Hypertension Status: Chronic Qualifiers: Hypertension type: essential hypertension Qualified Code(s): I10 - Essential (primary) hypertension (10) Renal failure Status: Chronic Qualifiers: Renal failure chronicity: R Acute renal failure type: A Chronic kidney disease stage: C (11) Vascular dementia Status: Chronic Qualifiers: Dementia behavioral disturbance: without behavioral disturbance Qualified Code(s): F01.50 - Vascular dementia without behavioral disturbance
[2016-06-26] MEDS: ZETIA TAB 10 MG PO SCH (21:38)
[2016-06-26] MEDS: ZOCOR TAB 20 MG PO SCH (21:38)
[2016-06-27 06:03] LABS: BASOPHILS # (AUTO) 0.1 X10^3/uL (0.0-0.1); BASOPHILS % (AUTO) 1.4 % (0.2-1.0); EOSINOPHILS # (AUTO) 0.4 x10^3/uL (0.0-0.2); EOSINOPHILS % (AUTO) 6.3 % (0.9-2.9); HEMATOCRIT 25.5 % (36.0-47.0); HEMOGLOBIN 8.5 g/dL (12.0-16.0); LYMPHOCYTES # (AUTO) 2.2 X10^3/uL (1.3-2.9); MEAN CORPUSCULAR HEMOGLOBIN 30.8 pg (27.0-34.0); MEAN CORPUSCULAR HGB CONC 33.4 g/dL (33.0-35.0); MEAN CORPUSCULAR VOLUME 92.3 fL (80.0-100.0); MEAN PLATELET VOLUME 10.8 fL (7.4-11.0); MONOCYTES # (AUTO) 0.5 x10^3/uL (0.3-0.8); MONOCYTES % (AUTO) 7.4 % (0.0-13.0); NEUTROPHILS # (AUTO) 3.8 x10^3/uL (2.2-4.8); NEUTROPHILS % (AUTO) 53.9 % (42.0-75.0); PLATELET COUNT 173 X10^3/uL (150.0-450.0); RED BLOOD COUNT 2.76 X10^6/uL (3.5-5.4); RED CELL DISTRIBUTION WIDTH 15.6 % (11.6-16.5)
[2016-06-27 07:20] LABS: ALANINE AMINOTRANSFERASE 10 Units/L (12-78); ALBUMIN 3.4 g/dL (3.4-5.0); ALKALINE PHOSPHATASE 76 Units/L (46-116); ASPARTATE AMINO TRANSFERASE 22 Units/L (15-37); BLOOD UREA NITROGEN 30 mg/dL (7-18); CALCIUM 8.4 mg/dL (8.5-10.1); CARBON DIOXIDE 17.3 mmol/L (21-32); GLUCOSE 78 mg/dL (65-99); SODIUM 149 mmol/L (136-145); TOTAL PROTEIN 6.1 g/dL (6.4-8.2); eGFR BLACK RACES 37 (>60); eGFR NON BLACK RACES 30 (>60)
[2016-06-27 07:34] LABS: CHLORIDE 117 mmol/L (98-107)
[2016-06-27] MEDS: MEGACE PO SCH (08:37)
[2016-06-27] MEDS: COLACE CAP 100 MG PO SCH (08:37)
[2016-06-27] MEDS: DIAMOX PO SCH (08:37)
[2016-06-27] MEDS: PriLOSEC PO SCH (08:37)
[2016-06-27] MEDS: TOPROL XL PO SCH (08:37)
[2016-06-27] MEDS: MIRALAX POWDER (1 DOSE 17GM) PO SCH (08:38)
[2016-06-27] MEDS: MILK OF MAGNESIA PO SCH ×3 (08:38→17:03)
[2016-06-27] MEDS: MAGIC MOUTHWASH MT SCH ×3 (08:39→17:03)
[2016-06-27] MEDS: DUONEB 0.5 MG/3 MG NEB SCH (09:00)
--- NOTE | 2016-06-27 10:31 | RAD ---
HISTORY: Near syncope, CHF Study: AP chest obtained 6:58 a.m. Comparison: June 26, 2016 Findings: The trachea is midline . There is no widening or shift of mediastinum. Marked calcification of the a ortic arch. The heart is top normal size. The costophrenic angles are sharp and both diaphragms are adequately maintained. The lungs are adequately aerated. Osseous structures are within normal limits for the patient's age prominence of the pulmonary vascular markings noted bilaterally may be second raza to mild chronic cardiac decompensation. IMPRESSION: 1. Mild cardiomegaly. Prominent pulmonary vessels consistent with mild chronic cardiac decompensatio n. No evidence of bacterial pneumonia. Reported By:
[2016-06-27 16:08] VITALS: BP 198/77
== END 2016-06-27 19:25 | disposition home or self-care (01) | DRG 312 ==
LOC: ER 14:32 → MED/SURG 16:48
PROVIDERS: ADMIT Internal Medicine; ATTEND Internal Medicine
DX: R55 Syncope and collapse (principal); E86.0 Dehydration; R53.1 Weakness; R07.89 Other chest pain; E78.2 Mixed hyperlipidemia; K21.9 Gastro-esophageal reflux disease without esophagitis; I12.9 Hypertensive chronic kidney disease with stage 1 through stage 4 chronic kidney disease, or unspecified chronic kidney disease; I51.7 Cardiomegaly; I25.10 Atherosclerotic heart disease of native coronary artery without angina pectoris; I50.9 Heart failure, unspecified; F01.50 Vascular dementia, unspecified severity, without behavioral disturbance, psychotic disturbance, mood disturbance, and anxiety; N18.9 Chronic kidney disease, unspecified
CPT/HCPCS: 36415; 70450; 71010; 74000; 80053; 81001; 82550; 82553; 84132; 84484; 85025; 85610; 85730; 93005; 93880; 94640; 94760; 96365; 96374; 99284; A4222; P9047; S0179; J1940; J7620

== ENCOUNTER 2016-07-05 12:40 | Inpatient (IN) | payer OTHER, MEDICAID ==
--- NOTE | 2016-07-05 12:56 | DR.GENAD ---
HPI - HPI Comment HPI Comment: PATIENT HAVE INCREASING SOB, WEAKNESS AND FATIGUE. APPETITE POOR. ORAL INTAKE POOR. IN HOSPITAL RECENTLY BUT CONTINUE TO GET WORSE AT HOME. NO FEVER REPORTED. RIGHT LEG SWOLLEN AND RED. THIS IS NEW. - Complaint/Symptoms Chief Complaint Doctors Comments: SHORTNESS OF BREATH. - Nurses notes reviewed Nurses Notes Review: Yes - Source History Provided: Patient, EMS - Mode of Arrival Mode of Arrival: Stretcher - Timing Came on: Gradually - Duration Duration: Constant Duration: Days - Severity Severity: Moderate PMH - PMH Past Medical History: CHF, COPD, Coronary Artery Disease, Dyslipidemia, GERD, Gout, Hypertension, Renal Disease Past Surgical History: Yes Surgical History: Angioplasty/Stents, Cholecystectomy - Family History Family Medical History: Diabetes Mellitus, Cancer, [place], Coronary Artery Disease, Heart Failure, Hypertension - Social History Do you use any recreational Drugs:: No ROS - Review of Systems Constitutional: Weakness, Fatigue, Loss of Appetite. negative: Chills, Diaphoresis, Fever Eyes: No Symptoms Reported. negative: Eye Pain, Discharge ENTM: negative: Ear Pain, Nose Discharge, Nose Congestion, Throat Swelling Respiratoy: Non-Productive Cough, Short of Breath, Wheezing. negative: Productive Cough, Hemoptysis Cardiovascular: Chest Pain, Edema. negative: Palpitations, Syncope Gastrointestinal/Abdominal: Abdominal Pain, Nausea. negative: Constipation, Diarrhea, Vomiting Genitourinary: negative: Hematuria, Pain, Bleeding Neurological: Weakness, Dizziness. negative: Headache Musculoskeletal: Muscle Pain Integumentary: Dryness, Other (CELLULITIS LEFT LEG) Hematologic/Lymphatic: Easy Bruising Endocrine: negative: Flushing All Other Systems: Reviewed and Negative PE - Vital Signs Vitals: Temperature 99.6 F Pulse Rate [Right Brachial] 73 Pulse Rate 77 Respiratory Rate 16 Blood Pressure [Right Radial 163/89 Artery] Blood Pressure [Right Arm] 176/68 Blood Pressure [Left Arm] 144/67 Blood Pressure 193/57 O2 Sat by Pulse Oximetry 98 - General Limitations: Other (DEMENTIA) General Appearance: Alert - Head Head Exam: Normal Inspection - Eyes Eye exam: PERRL, Scleral Icterus. negative: Conjunctival Injection - ENT ENT Exam: Normal External Ear Exam External Ear Exam: Normal External Inspection TM/Canal Exam: Bilateral Normal Nose Exam: Normal Nose Exam Mouth Exam: Normal Inspection Throat Exam: Normal Inspection - Neck Neck Exam: Trachea Midline - Chest Chest Inspection: Symmetric Chest Wall Rise - Respiratory Respiratory Exam: Respiratory Distress. negative: Chest Wall Tenderness Respiratory Exam: Bilateral Wheezing, Bilateral Rhonchi, Upper Rhonchi, Lower Wheezing, Lower Rhonchi - Cardiovascular Cardiovascular Exam: Regular Rate, Normal Rhythm, Normal Heart Sounds - Abdominal Exam Abdominal Exam: Normal Bowel Sounds, Soft, Tenderness Abdominal Tenderness: Diffuse, Mild - Extremities Extremities Exam: Tenderness (LEGS. LT LEG MORE SWOLLEN AND RED.), Edema (LOWER EXTREMITIES. LEFT GREATER THAN RT.) - Back Back Exam: Paraspinal Tenderness - Neurologic Neurological Exam: Alert, Other (ORIENTED TO PERSON AND PLACE.) - Psychiatric Psychiatric Exam: Normal Affect, Normal Mood - Skin Skin Exam: Dry, Erythema MDM - Additional Information Additional Information Obtained From: Family - Differential Diagnosis Differential Diagnosis: DEHYDRATION, RERSP DISTRESS, UTI, ABDOMINAL PAIN, CHF, CELLULITIS Course - Treatment Treatment: SEE ORDERS. - Consultation Consultation Comments: DISCUSS PATIENT WITH . HE WILL ADMIT PATIENT. - Education/Counseling Education/Counseling: Patient, Family, Education Educated On: Diagnosis ROR - Labs Reviewed Laboratory Results Reviewed?: Yes Result Diagrams: 07/06/16 05:20 07/06/16 05:20 Laboratory: WBC 14.6 X10^3/uL (3.6-10.0) H 07/05/16 13:00 RBC 3.58 X10^6/uL (3.5-5.4) 07/05/16 13:00 Hgb 10.5 g/dL (12.0-16.0) L 07/05/16 13:00 Hct 32.8 % (36.0-47.0) L 07/05/16 13:00 MCV 91.5 fL (80.0-100.0) 07/05/16 13:00 MCH 29.4 pg (27.0-34.0) 07/05/16 13:00 MCHC 32.1 g/dL (33.0-35.0) L 07/05/16 13:00 RDW 15.3 % (11.6-16.5) 07/05/16 13:00 Plt Count 229 X10^3/uL (150.0-450.0) 07/05/16 13:00 Plt Count Comment Adequate (ADEQUATE) 07/05/16 13:00 MPV 10.9 fL (7.4-11.0) 07/05/16 13:00 Neut % 90.1 % (42.0-75.0) H 07/05/16 13:00 Lymph % 4.9 % (21.0-51.0) L 07/05/16 13:00 [place] % 4.2 % (0.0-13.0) 07/05/16 13:00 Eos % 0.1 % (0.9-2.9) L 07/05/16 13:00 Baso % 0.7 % (0.2-1.0) 07/05/16 13:00 Neut # 13.2 x10^3/uL (2.2-4.8) H 07/05/16 13:00 Lymph # 0.7 X10^3/uL (1.3-2.9) L 07/05/16 13:00 [place] # 0.6 x10^3/uL (0.3-0.8) 07/05/16 13:00 Eos # 0.0 x10^3/uL (0.0-0.2) 07/05/16 13:00 Baso # 0.1 X10^3/uL (0.0-0.1) 07/05/16 13:00 Absolute Nucleated RBC 0.0 /100WBC 07/05/16 13:00 Total Counted 100 07/05/16 13:00 Neutrophils % (Manual) 78 % (39-76) H 07/05/16 13:00 Band Neutrophils % 12 % (0-10) H 07/05/16 13:00 Lymphocytes % (Manual) 7 % (13-43) L 07/05/16 13:00 Monocytes % (Manual) 3 % (4-9) L 07/05/16 13:00 Plt Morphology Comment Normal (NORMAL) 07/05/16 13:00 RBC Morphology Normal (NORMAL) 07/05/16 13:00 Sodium 147 mmol/L (136-145) H 07/05/16 13:00 Corrected Sodium TNP 07/05/16 13:00 Potassium 3.6 mmol/L (3.5-5.1) 07/05/16 13:00 Chloride 111 mmol/L (98-107) H 07/05/16 13:00 Carbon Dioxide 18.8 mmol/L (21-32) L 07/05/16 13:00 BUN 35 mg/dL (7-18) H 07/05/16 13:00 Creatinine 2.07 mg/dL (0.55-1.02) H 07/05/16 13:00 Est GFR (MDRD) Af Amer 29 (>60) L 07/05/16 13:00 Est GFR (MDRD) Non-Af 24 (>60) L 07/05/16 13:00 Glucose 91 mg/dL (65-99) 07/05/16 13:00 Calcium 8.3 mg/dL (8.5-10.1) L 07/05/16 13:00 Corrected Calcium TNP 07/05/16 13:00 Total Bilirubin 2.40 mg/dL (0.2-1.0) H 07/05/16 13:00 AST 1107 Units/L (15-37) H 07/05/16 13:00 ALT 406 Units/L (12-78) H 07/05/16 13:00 Alkaline Phosphatase 667 Units/L (46-116) H 07/05/16 13:00 Creatine Kinase 93 Units/L (26-192) 07/05/16 13:00 CK-MB (CK-2) < 1.0 ng/mL (0-4.0) 07/05/16 13:00 CK/CKMB % Calc 1.1 % (<4) 07/05/16 13:00 Troponin I 0.64 ng/mL (0-1.5) 07/05/16 13:00 B-Natriuretic Peptide 771 pg/mL (0-79) H* 07/05/16 13:00 Total Protein 6.8 g/dL (6.4-8.2) 07/05/16 13:00 Albumin 3.4 g/dL (3.4-5.0) 07/05/16 13:00 Globulin 3.4 g/dL (2.5-4.5) 07/05/16 13:00 Albumin/Globulin Ratio 1.0 Ratio (1.1-2.1) L 07/05/16 13:00 Amylase 35 Units/L (25-115) 07/05/16 13:00 Lipase 127 Units/L (73-393) 07/05/16 13:00 Specimen Type Random urine 07/05/16 13:27 Urine Color Yellow (YELLOW) 07/05/16 13:27 Urine Appearance Hazy (CLEAR) 07/05/16 13:27 Urine pH 6.0 (5.0 - 8.0) 07/05/16 13:27 Ur Specific [place] 1.020 (1.000-1.030) 07/05/16 13:27 Urine Protein 1+ (NEGATIVE) 07/05/16 13:27 Urine Glucose (UA) Negative (NEGATIVE) 07/05/16 13:27 Urine Ketones Negative (NEGATIVE) 07/05/16 13:27 Urine Occult Blood 1+ (NEGATIVE) 07/05/16 13:27 Urine Nitrite Negative (NEGATIVE) 07/05/16 13:27 Urine Bilirubin Negative (NEGATIVE) 07/05/16 13:27 Urine Urobilinogen Normal (NORMAL) 07/05/16 13:27 Ur Leukocyte Esterase 1+ (NEGATIVE) 07/05/16 13:27 Urine RBC 3-5 /HPF (NEGATIVE) 07/05/16 13:27 Urine WBC 10-15 /HPF (NEGATIVE) 07/05/16 13:27 Ur Squamous Epith Cells Moderate /HPF (NEGATIVE) 07/05/16 13:27 Amorphous Sediment Trace /HPF (NEGATIVE) 07/05/16 13:27 Urine Bacteria Trace /HPF (NEGATIVE) 07/05/16 13:27 Ur Culture Indicated? No/not indicated 07/05/16 13:27 - XRAY XRAY Interpreted by: Radiologist XRAY Findings: REPORT NOTED - EKG Rhythm: NSR (EKG NOTED) - Diagnosis Discharge Problem: Respiratory distress, Elevated LFTs, Dehydration UTI (urinary tract infection) Qualifiers: Urinary tract infection type: site unspecified Hematuria presence: without hematuria Qualified Code(s): N39.0 - Urinary tract infection, site not specified CHF (congestive heart failure) Qualifiers: Congestive heart failure type: combined Congestive heart failure chronicity: acute on chronic Qualified Code(s): I50.43 - Acute on chronic combined systolic (congestive) and diastolic (congestive) heart failure Cellulitis Qualifiers: Site of cellulitis: extremity Site of cellulitis of extremity: lower extremity Laterality: left Qualified Code(s): L03.116 - Cellulitis of left lower limb - Discharge Plan Disposition: ADMITTED INPATIENT Condition: Stable - Follow ups/Referrals - Instructions
[2016-07-05 13:18] LABS: BASOPHILS # (AUTO) 0.1 X10^3/uL (0.0-0.1); BASOPHILS % (AUTO) 0.7 % (0.2-1.0); EOSINOPHILS % (AUTO) 0.1 % (0.9-2.9); HEMATOCRIT 32.8 % (36.0-47.0); HEMOGLOBIN 10.5 g/dL (12.0-16.0); LYMPHOCYTES # (AUTO) 0.7 X10^3/uL (1.3-2.9); LYMPHOCYTES % (AUTO) 4.9 % (21.0-51.0); MEAN CORPUSCULAR HEMOGLOBIN 29.4 pg (27.0-34.0); MEAN CORPUSCULAR HGB CONC 32.1 g/dL (33.0-35.0); MEAN CORPUSCULAR VOLUME 91.5 fL (80.0-100.0); MEAN PLATELET VOLUME 10.9 fL (7.4-11.0); MONOCYTES # (AUTO) 0.6 x10^3/uL (0.3-0.8); MONOCYTES % (AUTO) 4.2 % (0.0-13.0); NEUTROPHILS # (AUTO) 13.2 x10^3/uL (2.2-4.8); NEUTROPHILS % (AUTO) 90.1 % (42.0-75.0); PLATELET COUNT 229 X10^3/uL (150.0-450.0); RED BLOOD COUNT 3.58 X10^6/uL (3.5-5.4); RED CELL DISTRIBUTION WIDTH 15.3 % (11.6-16.5); WHITE BLOOD COUNT 14.6 X10^3/uL (3.6-10.0)
[2016-07-05 13:29] LABS: BLOOD UREA NITROGEN 35 mg/dL (7-18); CALCIUM 8.3 mg/dL (8.5-10.1); CARBON DIOXIDE 18.8 mmol/L (21-32); CHLORIDE 111 mmol/L (98-107); CREATININE 2.07 mg/dL (0.55-1.02); GLUCOSE 91 mg/dL (65-99); SODIUM 147 mmol/L (136-145); TROPONIN I 0.64 ng/mL (0-1.5); eGFR BLACK RACES 29 (>60); eGFR NON BLACK RACES 24 (>60)
[2016-07-05 13:34] LABS: ALANINE AMINOTRANSFERASE 406 Units/L (12-78); ALBUMIN 3.4 g/dL (3.4-5.0); ALKALINE PHOSPHATASE 667 Units/L (46-116); CKMB % 1.1 % (<4); CREATINE KINASE 93 Units/L (26-192); CREATINE KINASE MB < 1.0 ng/mL (0-4.0); TOTAL PROTEIN 6.8 g/dL (6.4-8.2)
[2016-07-05 13:36] LABS: ASPARTATE AMINO TRANSFERASE 1107 Units/L (15-37)
[2016-07-05 13:39] LABS: BAND NEUTROPHILS % 12 % (0-10)
[2016-07-05 13:40] LABS: PLATELET MORPHOLOGY COMMENT NORMAL (NORMAL)
[2016-07-05 13:55] LABS: BILIRUBIN,URINE NEGATIVE (NEGATIVE); BLOOD/HEMOGLOBIN,URINE 1+ (NEGATIVE); GLUCOSE, URINE NEGATIVE (NEGATIVE); KETONES,URINE NEGATIVE (NEGATIVE); LEUKOCYTE ESTERASE ,URINE 1+ (NEGATIVE); NITRITES,URINE NEGATIVE (NEGATIVE); PROTEIN,URINE 1+ (NEGATIVE); UROBILINOGEN,URINE NORMAL (NORMAL)
--- NOTE | 2016-07-05 14:01 | RAD ---
HISTORY: Chest pain Study: Single view chest Comparison: 06/27/2016 Findings: Single portable view is limited by patient's condition with severe kyphosis causing partial obscurin g of the upper lobes. The visualized lungs are grossly clear.. The cardiac and mediastinal contours are within normal limits. The soft tissues are unremarkable. IMPRESSION: 1. Negative limited portable chest radiograph. Reported By:
[2016-07-05 14:21] LABS: APPEARANCE,URINE HAZY (CLEAR); COLOR,URINE YELLOW (YELLOW)
[2016-07-05 14:22] LABS: AMORPHOUS SEDIMENT,UR TRACE /HPF (NEGATIVE); BACTERIA,URINE TRACE /HPF (NEGATIVE); SQUAMOUS EPITHELIAL CELL,UR MODERATE /HPF (NEGATIVE)
[2016-07-05 14:22] LABS: B-TYPE NATRIURETIC PEPTIDE 771 pg/mL (0-79)
[2016-07-05 14:33] LABS: AMYLASE 35 Units/L (25-115); LIPASE 127 Units/L (73-393)
[2016-07-05] MEDS: NS 1000 ML 1,000 ML IV SCH ×2 (15:10→22:46)
--- NOTE | 2016-07-05 15:19 | CT ---
HISTORY: Abdominal pain, diarrhea Study: CT abdomen pelvis without contrast Comparison: May 01, 2014 Technique: Axial non contrast images with coronal and sagittal reformats. Dose reduction procedures were used with MA/kv adjusted for body size. The lack of intravenous and oral contrast limits this e xamination. Findings: The lung bases are clear. The liver, spleen, adrenal glands, and pancreas are within normal limits only to the limitations of an unenhanced examination. The kidneys are unobstructed. Bilateral nonobs tructing calculi and vascular calcifications are present. No ureteral calculi are identified. The ap pendix is normal. No significant intraperitoneal or retroperitoneal lymphadenopathy is identified. T here is a duodenum tube present. There are no findings suggestive of diverticulitis or colitis. No b ladder abnormality is identified. No lytic or blastic skeletal lesions are identified. IMPRESSION: No acute intra-abdominal or intrapelvic abnormality to the limitations of an unenhanced examination Reported By:
[2016-07-05] MEDS: ROCEPHIN VIAL 1 GM 1 GM in NS 50 ML IV + SPIKE MINIBAG* 50 ML IV SCH (17:09)
[2016-07-05 17:35] VITALS: BMI 24.7
[2016-07-05 19:43] LABS: CKMB % 0.9 % (<4); CREATINE KINASE 107 Units/L (26-192); CREATINE KINASE MB < 1.0 ng/mL (0-4.0); TROPONIN I 0.47 ng/mL (0-1.5)
[2016-07-06 02:22] LABS: CKMB % 1.3 % (<4); CREATINE KINASE MB 1.1 ng/mL (0-4.0); TROPONIN I 0.25 ng/mL (0-1.5)
--- NOTE | 2016-07-06 06:14 | RAD ---
HISTORY: Respiratory distress Study: Chest one view Comparison: July 05, 2016 Findings: The patient is rotated to the left. Patient's chin obscures the left lung apex. The heart is mildly enlarged. No congestive heart failure is noted. The aorta is calcified. The lungs are mildly hyperin flated but free of acute infiltrates. No pleural effusions are identified. The bony thorax is unrema rkable. IMPRESSION: Minimal cardiomegaly without congestive heart failure No infiltrates Reported By:
[2016-07-06 06:26] LABS: BASOPHILS # (AUTO) 0.1 X10^3/uL (0.0-0.1); BASOPHILS % (AUTO) 0.7 % (0.2-1.0); EOSINOPHILS # (AUTO) 0.3 x10^3/uL (0.0-0.2); EOSINOPHILS % (AUTO) 2.4 % (0.9-2.9); HEMATOCRIT 27.5 % (36.0-47.0); HEMOGLOBIN 8.8 g/dL (12.0-16.0); LYMPHOCYTES # (AUTO) 1.8 X10^3/uL (1.3-2.9); LYMPHOCYTES % (AUTO) 14.8 % (21.0-51.0); MEAN CORPUSCULAR HEMOGLOBIN 29.6 pg (27.0-34.0); MEAN CORPUSCULAR HGB CONC 32.2 g/dL (33.0-35.0); MEAN CORPUSCULAR VOLUME 91.9 fL (80.0-100.0); MEAN PLATELET VOLUME 10.9 fL (7.4-11.0); MONOCYTES # (AUTO) 0.5 x10^3/uL (0.3-0.8); MONOCYTES % (AUTO) 4.4 % (0.0-13.0); NEUTROPHILS # (AUTO) 9.6 x10^3/uL (2.2-4.8); NEUTROPHILS % (AUTO) 77.7 % (42.0-75.0); PLATELET COUNT 200 X10^3/uL (150.0-450.0); RED BLOOD COUNT 2.99 X10^6/uL (3.5-5.4); RED CELL DISTRIBUTION WIDTH 15.1 % (11.6-16.5); WHITE BLOOD COUNT 12.4 X10^3/uL (3.6-10.0)
[2016-07-06 06:35] LABS: ALANINE AMINOTRANSFERASE 310 Units/L (12-78); ALBUMIN 2.8 g/dL (3.4-5.0); ALKALINE PHOSPHATASE 518 Units/L (46-116); ASPARTATE AMINO TRANSFERASE 524 Units/L (15-37); BLOOD UREA NITROGEN 39 mg/dL (7-18); CALCIUM 7.5 mg/dL (8.5-10.1); CARBON DIOXIDE 20.6 mmol/L (21-32); CHLORIDE 114 mmol/L (98-107); CHOL/HDL RATIO 2.4 (0.0-5.0); CHOLESTEROL 67 mg/dL (0-200); COR CA(FOR HYPOALB) 8.5 mg/dL (8.5-10.1); GLUCOSE 95 mg/dL (65-99); HDL CHOLESTEROL 28 mg/dL (40-60); MAGNESIUM 1.7 mg/dL (1.7-2.9); SODIUM 148 mmol/L (136-145); TOTAL PROTEIN 5.7 g/dL (6.4-8.2); TRIGLYCERIDES 59 mg/dL (0-150); eGFR BLACK RACES 29 (>60); eGFR NON BLACK RACES 24 (>60)
[2016-07-06] MEDS: NS 1000 ML 1,000 ML IV SCH (07:47)
[2016-07-06] MEDS ORDERED: PATIENT'S HOME MEDICATION (Memantine Hcl [Namenda] 5 MG) PO SCH (09:00)
[2016-07-06] MEDS ORDERED: PATIENT'S HOME MEDICATION (Omeprazole [Omeprazole] 1 CAP) PO SCH (09:00)
[2016-07-06] MEDS ORDERED: CATAPRES-TTS-3 TD SCH ×2 (09:00→23:00)
[2016-07-06] MEDS: LOPRESSOR TAB 50 MG PO SCH (09:14)
[2016-07-06] MEDS: MAGIC MOUTHWASH MT SCH ×4 (09:14→21:10)
[2016-07-06] MEDS: COLACE CAP 100 MG PO SCH ×2 (09:14→21:10)
[2016-07-06] MEDS: MEGACE PO SCH ×2 (09:15→21:10)
[2016-07-06] MEDS: PriLOSEC PO SCH ×2 (09:15→21:10)
[2016-07-06] MEDS: NAMENDA TAB 10 MG PO SCH (09:15)
[2016-07-06] MEDS: ROCEPHIN VIAL 1 GM 1 GM in NS 50 ML IV + SPIKE MINIBAG* 50 ML IV SCH (09:15)
[2016-07-06] MEDS: DIAMOX PO SCH (10:08)
--- NOTE | 2016-07-06 12:23 | DR.UPDATE ---
H&P Update History and Physical Update: HISTORY AND PHYSICAL UPDATE FOR ADMISSION 07/05/16 MS. HOYT'S H&P WAS COMPLETED WITH A PRIOR ADMISSION ON 06/21/16. SHE HAS BEEN SEEN AND EXAMINED WITH THE FOLLOWING CHANGES NOTED. MS. HOYT PRESENTED TO THE EMERGENCY ROOM, VIA EMS, WITH COMPLAINTS OF SHORTNESS OF BREATH. PATIENT IS NOTED WITH RESPIRATORY DISTRESS ON ARRIVAL TO ER WITH ACCESSORY MUSCLE USE. SHE IS NOTED WITH CELLULITIS TO LEFT LOWER EXTREMITY WITH WARMTH, ERYTHEMA, AND EDEMA. LABS AND XRAY OBTAINED. CBC WNL EXCEPT: WBC 14.6, H/H 10.5/32.8. CMP WNL EXCEPT: SODIUM 147, CHL 111, CARBON DIOXIDE 18.8, BUN/CREAT 35/2.07, GFR 24, CALCIUM 8.3, TOT BILIRUBIN 2.40, AST 1107, ALT 406, ALK PHOS 667. BNP 771. CARDIAC ENZYMES WNL. CHEST XRAY IS NORMAL. WKG: SINUS RHYTHM, RATE 75. CT OF ABD/PELVIS REPORTS NO ACUTE INTRA-ABDOMINAL OR INTRAPELVIC ABNORMALITY. WE WILL ADMIT PATIENT FOR FURTHER TREATMENT AND EVALUATION. WE WILL START ROCEPHIN FOR CELLULITIS, IV FLUIDS, AND CONTINUE TO MONITOR. WE WILL FOLLOW UP IN AM WITH LABS.
--- NOTE | 2016-07-06 12:48 | PCM.PROG ---
Progress Note - Progress Note for Day of Date: 07/06/16 - Subjective Subjective: PATIENT CONTINUES WITH SHORTNESS OF BREATH THIS MORNING AND CONTINUES ON SUPPLEMENTAL OXYGEN. FAMILY MEMBER AT BEDSIDE. LEFT LOWER EXTREMITY CONTINUES WITH CELLLULITIS. LIVER ENZYMES ARE STILL ELEVATED THIS MORNING; HOWEVER, HAVE IMPROVED WITH IV HYDRATION. ABDOMEN IS NOTED WITH DIFFUSE TENDERNESS ON PALPATION. CBC WNL EXCEPT: WBC 12.4, H/H 8.8/27.5. CMP WNL EXCEPT: SODIUM 148, CHL 114, CARBON DIOXIDE 20.6, BUN/CREAT 39/2.10, GFR 24 , TOT BILIRUBIN 2.00, AST 524, ALT 310, ALK PHOS 518, TOT PROTEIN 5.7, ALBUMIN 2.8. WE WILL OBTAIN A HEPATITIS PANEL AND LIVER ULTRASOUND TODAY. WE WILL CONTINUE IV FLUIDS AND MONITOR LABS. - Past Medical Family Social History Past Med/Fam/Surg Hx: No changes since H&P Allergies: Allergies No Known Drug Allergy Allergy (Verified 07/05/16 12:41) - Review of Systems ROS: No change since H&P - Vital Signs and I&O's Vital Signs: Temperature 98.7 F Pulse Rate [Apical] 60 Pulse Rate [Right Brachial] 59 Respiratory Rate 17 Blood Pressure [Right Arm] 185/40 O2 Sat by Pulse Oximetry 95 Intake and Output: Intake & Output 07/04/16 07/05/16 07/06/16 07/07/16 11:59 11:59 11:59 11:59 Intake Total 1617 Output Total 400 Balance 1217 - Physical Exam Oriented: Normal, Time, Person, Place Eyes: Normal. negative: Blurred Vision, Diplopia, Discharge, Pain, Redness, Photophobia Ear: Normal. negative: Swelling, Ecchymosis, Hemotypanum, Abrasion, Laceration Nose: Normal. negative: Injected, Discharge, Blood Throat: Normal. negative: Tonsillar Hypertrophy, Red, Exudate Respiratory: Normal Cardiovascular: Normal. negative: Murmur, Edema : Normal. negative: Dysuria, Hematuria, Frequency, Discharge, Bleeding, Auscultation: Bowel Sounds: Normal. negative: Bruit Palpation: Normal. negative: Spleen Enlarged, Liver Enlarged, Mass Pulsatile Tenderness: Diffuse, Moderate. negative: Rebound, Guarding, Rigidity Musculoskeletal: Left (Lower Extremity), Swelling, Tender Psychiatric: Normal Mood Description: Calm, Appropriate Affect: Normal Speech Pattern: Clear, Appropriate - Laboratory and Diagnostics Result Diagrams: 07/06/16 05:20 07/06/16 05:20 Labs: Laboratory WBC 12.4 X10^3/uL (3.6-10.0) H 07/06/16 05:20 RBC 2.99 X10^6/uL (3.5-5.4) L 07/06/16 05:20 Hgb 8.8 g/dL (12.0-16.0) L 07/06/16 05:20 Hct 27.5 % (36.0-47.0) L 07/06/16 05:20 MCV 91.9 fL (80.0-100.0) 07/06/16 05:20 MCH 29.6 pg (27.0-34.0) 07/06/16 05:20 MCHC 32.2 g/dL (33.0-35.0) L 07/06/16 05:20 RDW 15.1 % (11.6-16.5) 07/06/16 05:20 Plt Count 200 X10^3/uL (150.0-450.0) 07/06/16 05:20 Plt Count Comment Adequate (ADEQUATE) 07/05/16 13:00 MPV 10.9 fL (7.4-11.0) 07/06/16 05:20 Neut % 77.7 % (42.0-75.0) H 07/06/16 05:20 Lymph % 14.8 % (21.0-51.0) L 07/06/16 05:20 [place] % 4.4 % (0.0-13.0) 07/06/16 05:20 Eos % 2.4 % (0.9-2.9) 07/06/16 05:20 Baso % 0.7 % (0.2-1.0) 07/06/16 05:20 Neut # 9.6 x10^3/uL (2.2-4.8) H 07/06/16 05:20 Lymph # 1.8 X10^3/uL (1.3-2.9) 07/06/16 05:20 [place] # 0.5 x10^3/uL (0.3-0.8) 07/06/16 05:20 Eos # 0.3 x10^3/uL (0.0-0.2) H 07/06/16 05:20 Baso # 0.1 X10^3/uL (0.0-0.1) 07/06/16 05:20 Absolute Nucleated RBC 0.0 /100WBC 07/06/16 05:20 Total Counted 100 07/05/16 13:00 Neutrophils % (Manual) 78 % (39-76) H 07/05/16 13:00 Band Neutrophils % 12 % (0-10) H 07/05/16 13:00 Lymphocytes % (Manual) 7 % (13-43) L 07/05/16 13:00 Monocytes % (Manual) 3 % (4-9) L 07/05/16 13:00 Plt Morphology Comment Normal (NORMAL) 07/05/16 13:00 RBC Morphology Normal (NORMAL) 07/05/16 13:00 INR Target Range - 07/06/16 05:20 INR 1.31 (0.8-1.3) H 07/06/16 05:20 PTT 34.4 SECONDS (22.9-36.5) 07/06/16 05:20 PTT Comment - 07/06/16 05:20 Sodium 148 mmol/L (136-145) H 07/06/16 05:20 Corrected Sodium TNP 07/06/16 05:20 Potassium 3.3 mmol/L (3.5-5.1) L 07/06/16 05:20 Chloride 114 mmol/L (98-107) H 07/06/16 05:20 Carbon Dioxide 20.6 mmol/L (21-32) L 07/06/16 05:20 BUN 39 mg/dL (7-18) H 07/06/16 05:20 Creatinine 2.10 mg/dL (0.55-1.02) H 07/06/16 05:20 Est GFR (MDRD) Af Amer 29 (>60) L 07/06/16 05:20 Est GFR (MDRD) Non-Af 24 (>60) L 07/06/16 05:20 Glucose 95 mg/dL (65-99) 07/06/16 05:20 Calcium 7.5 mg/dL (8.5-10.1) L 07/06/16 05:20 Corrected Calcium 8.5 mg/dL (8.5-10.1) 07/06/16 05:20 Magnesium 1.7 mg/dL (1.7-2.9) 07/06/16 05:20 Total Bilirubin 2.00 mg/dL (0.2-1.0) H 07/06/16 05:20 AST 524 Units/L (15-37) H 07/06/16 05:20 ALT 310 Units/L (12-78) H 07/06/16 05:20 Alkaline Phosphatase 518 Units/L (46-116) H 07/06/16 05:20 Creatine Kinase 86 Units/L (26-192) 07/06/16 01:25 CK-MB (CK-2) 1.1 ng/mL (0-4.0) 07/06/16 01:25 CK/CKMB % Calc 1.3 % (<4) 07/06/16 01:25 Troponin I 0.25 ng/mL (0-1.5) 07/06/16 01:25 B-Natriuretic Peptide 771 pg/mL (0-79) H* 07/05/16 13:00 Total Protein 5.7 g/dL (6.4-8.2) L 07/06/16 05:20 Albumin 2.8 g/dL (3.4-5.0) L 07/06/16 05:20 Globulin 2.9 g/dL (2.5-4.5) 07/06/16 05:20 Albumin/Globulin Ratio 1.0 Ratio (1.1-2.1) L 07/06/16 05:20 Triglycerides 59 mg/dL (0-150) 07/06/16 05:20 Cholesterol 67 mg/dL (0-200) 07/06/16 05:20 LDL Cholesterol, Calc 27 mg/dL (0-100) 07/06/16 05:20 HDL Cholesterol 28 mg/dL (40-60) L 07/06/16 05:20 Cholesterol/HDL Ratio 2.4 (0.0-5.0) 07/06/16 05:20 Amylase 35 Units/L (25-115) 07/05/16 13:00 Lipase 127 Units/L (73-393) 07/05/16 13:00 Specimen Type Random urine 07/05/16 13:27 Urine Color Yellow (YELLOW) 07/05/16 13:27 Urine Appearance Hazy (CLEAR) 07/05/16 13:27 Urine pH 6.0 (5.0 - 8.0) 07/05/16 13:27 Ur Specific [place] 1.020 (1.000-1.030) 07/05/16 13:27 Urine Protein 1+ (NEGATIVE) 07/05/16 13:27 Urine Glucose (UA) Negative (NEGATIVE) 07/05/16 13: Urine Ketones Negative (NEGATIVE) 07/05/16 13:27 Urine Occult Blood 1+ (NEGATIVE) 07/05/16 13: Urine Nitrite Negative (NEGATIVE) 07/05/16 13: Urine Bilirubin Negative (NEGATIVE) 07/05/16 13: Urine Urobilinogen Normal (NORMAL) 07/05/16 13: Ur Leukocyte Esterase 1+ (NEGATIVE) 07/05/16 13: Urine RBC 3-5 /HPF (NEGATIVE) 07/05/16 13: Urine WBC 10-15 /HPF (NEGATIVE) 07/05/16 13:27 Ur Squamous Epith Cells Moderate /HPF (NEGATIVE) 07/05/16 13:27 Amorphous Sediment Trace /HPF (NEGATIVE) 07/05/16 13:27 Urine Bacteria Trace /HPF (NEGATIVE) 07/05/16 13:27 Ur Culture Indicated? No/not indicated 07/05/16 13:27 - Plan (1) Cellulitis Status: Acute Qualifiers: Site of cellulitis: extremity Site of cellulitis of extremity: lower extremity Site of cellulitis of trunk: S Laterality: left Qualified Code(s ): L03.116 - Cellulitis of left lower limb Plan: CONTINUE ROCEPHIN IV, MONITOR FOR INCREASING CELLULITIS. (2) Dehydration Status: Acute Plan: CONTINUE IV FLUIDS, MONITOR. (3) Elevated LFTs Status: Acute Plan: LIVER ULTRASOUND, HEPATITIS PANEL, CONTINUE IV FLUIDS, MONITOR LABS. (4) Respiratory distress Status: Acute Plan: CONTINUE SUPPLEMENTAL OXYGEN, MONITOR. (5) CHF (congestive heart failure) Status: Chronic Qualifiers: Congestive heart failure type: combined Congestive heart failure chronicity : acute on chronic Qualified Code(s): I50.43 - Acute on chronic combined systolic (congestive) and diastolic (congestive) heart failure Plan: CONITNUE TO MONITOR CHEST XRAY. (6) GERD (gastroesophageal reflux disease) Status: Chronic Qualifiers: Esophagitis presence: esophagitis presence not specified Qualified Code(s) : K21.9 - Gastro-esophageal reflux disease without esophagitis (7) Gout Status: Chronic Qualifiers: Gout site: multiple sites Gout etiology: idiopathic Encounter type: E Laterality: L Chronicity: chronic Presence of tophus: without tophus Qualified Code(s): M1A.09X0 - Idiopathic chronic gout, multiple sites, without tophus (tophi) (8) Hyperlipidemia Status: Chronic Qualifiers: Hyperlipidemia type: mixed hyperlipidemia Qualified Code(s): E78.2 - Mixed hyperlipidemia (9) Hypertension Status: Chronic Qualifiers: Hypertension type: essential hypertension Qualified Code(s): I10 - Essential (primary) hypertension (10) Renal failure Status: Chronic Qualifiers: Renal failure chronicity: chronic Acute renal failure type: A Chronic kidney disease stage: stage 3 (moderate) Qualified Code(s): N18.3 - Chronic kidney disease, stage 3 (moderate) (11) Vascular dementia Status: Chronic Qualifiers: Dementia behavioral disturbance: without behavioral disturbance Qualified Code(s): F01.50 - Vascular dementia without behavioral disturbance
[2016-07-06] MEDS ORDERED: NS 1/2 1000 ML IV 1,000 ML IV ONE (14:38)
[2016-07-06] MEDS: NS 1/2 1000 ML IV 1,000 ML IV SCH (14:40)
--- NOTE | 2016-07-06 17:12 | US ---
Limited abdominal ultrasound Indication: Elevated liver enzymes, epigastric pain. Comparison: CT 07/05/2016 Technique: Multiple sonographic images of the abdomen were obtained per protocol. Findings: The liver is normal in size and configuration, without focal lesion. The gallbladder is foster rgically absent. There is no significant biliary dilation, accounting for postcholecystectomy state. The right kidney appears somewhat small, but no nephrolithiasis, hydronephrosis, or solid or cystic renal lesion was identified. The visualized pancreas was unremarkable. Impression: No significant abnormality. Reported By:
[2016-07-06] MEDS: ZETIA TAB 10 MG PO SCH (21:10)
[2016-07-06] MEDS: ZOCOR TAB 20 MG PO SCH (21:10)
[2016-07-07] MEDS: NS 1/2 1000 ML IV 1,000 ML IV SCH ×2 (03:05→16:05)
[2016-07-07] MEDS ORDERED: NS 1/2 1000 ML IV 1,000 ML IV ONE ×2 (03:22→15:58)
--- NOTE | 2016-07-07 06:25 | RAD ---
HISTORY: Respiratory distress Study: Chest one view Comparison: July 06, 2016 Findings: The patient is rotated to the left. The heart remains enlarged. No definite congestive heart failure is noted. The aorta is calcified. The swetha are normal. The lungs are hyperinflated but free of acut e infiltrates. No pleural effusions are identified. The bony thorax is unremarkable. IMPRESSION: Cardiomegaly without congestive heart failure Lungs hyperinflated but free of acute infiltrates, consistent with COPD Reported By:
[2016-07-07 06:34] LABS: BASOPHILS # (AUTO) 0.1 X10^3/uL (0.0-0.1); BASOPHILS % (AUTO) 0.7 % (0.2-1.0); EOSINOPHILS # (AUTO) 0.5 x10^3/uL (0.0-0.2); EOSINOPHILS % (AUTO) 5.3 % (0.9-2.9); HEMATOCRIT 28.3 % (36.0-47.0); HEMOGLOBIN 9.2 g/dL (12.0-16.0); LYMPHOCYTES # (AUTO) 2.5 X10^3/uL (1.3-2.9); LYMPHOCYTES % (AUTO) 24.9 % (21.0-51.0); MEAN CORPUSCULAR HEMOGLOBIN 29.9 pg (27.0-34.0); MEAN CORPUSCULAR HGB CONC 32.5 g/dL (33.0-35.0); MEAN CORPUSCULAR VOLUME 92.1 fL (80.0-100.0); MEAN PLATELET VOLUME 11.2 fL (7.4-11.0); MONOCYTES # (AUTO) 0.7 x10^3/uL (0.3-0.8); MONOCYTES % (AUTO) 6.7 % (0.0-13.0); NEUTROPHILS # (AUTO) 6.2 x10^3/uL (2.2-4.8); NEUTROPHILS % (AUTO) 62.4 % (42.0-75.0); PLATELET COUNT 213 X10^3/uL (150.0-450.0); RED BLOOD COUNT 3.08 X10^6/uL (3.5-5.4); RED CELL DISTRIBUTION WIDTH 15.5 % (11.6-16.5); WHITE BLOOD COUNT 9.9 X10^3/uL (3.6-10.0)
[2016-07-07 06:48] LABS: ALANINE AMINOTRANSFERASE 221 Units/L (12-78); ALBUMIN 2.7 g/dL (3.4-5.0); ALKALINE PHOSPHATASE 489 Units/L (46-116); ASPARTATE AMINO TRANSFERASE 202 Units/L (15-37); BLOOD UREA NITROGEN 36 mg/dL (7-18); CALCIUM 7.6 mg/dL (8.5-10.1); CARBON DIOXIDE 17.8 mmol/L (21-32); CHLORIDE 114 mmol/L (98-107); COR CA(FOR HYPOALB) 8.6 mg/dL (8.5-10.1); CREATININE 2.03 mg/dL (0.55-1.02); GLUCOSE 95 mg/dL (65-99); SODIUM 147 mmol/L (136-145); eGFR BLACK RACES 30 (>60); eGFR NON BLACK RACES 25 (>60)
[2016-07-07] MEDS: PriLOSEC PO SCH ×2 (08:43→21:19)
[2016-07-07] MEDS: NAMENDA TAB 10 MG PO SCH (08:43)
[2016-07-07] MEDS: COLACE CAP 100 MG PO SCH ×2 (08:43→21:19)
[2016-07-07] MEDS: ROCEPHIN VIAL 1 GM 1 GM in NS 50 ML IV + SPIKE MINIBAG* 50 ML IV SCH (08:43)
[2016-07-07] MEDS: LOPRESSOR TAB 50 MG PO SCH (08:43)
[2016-07-07] MEDS: MEGACE PO SCH ×2 (08:43→21:19)
[2016-07-07] MEDS: DIAMOX PO SCH (08:44)
[2016-07-07] MEDS ORDERED: K-LYTE EFFERVESCENT PO PRN (08:56)
[2016-07-07] MEDS ORDERED: K-RIDER 10 MEQ/NS 100 ML 10 MEQ/100 ML BAG IV PRN (08:56)
[2016-07-07] MEDS ORDERED: POTASSIUM CHLORIDE LIQ 20 MEQ UDC PO PRN (08:56)
[2016-07-07] MEDS: MAGIC MOUTHWASH MT SCH ×4 (09:00→21:30)
--- NOTE | 2016-07-07 11:10 | PCM.PROG ---
Progress Note - Subjective Subjective: PATIENT IS AWAKE IN BED ON MORNING ROUNDS. PATIENT CONTINUES WITH SHORTNESS OF BREATH THIS MORNING AND CONTINUES ON SUPPLEMENTAL OXYGEN. LEFT LOWER EXTREMITY CONTINUES WITH CELLLULITIS. LIVER ENZYMES ARE STILL ELEVATED THIS MORNING; HOWEVER, HAVE IMPROVED WITH IV HYDRATION. ABDOMEN IS NOTED WITH DIFFUSE TENDERNESS ON PALPATION. CBC WNL EXCEPT: H/H 9.2/28.3. CMP WNL EXCEPT : SODIUM 147, POTASSIUM 2.9, CHL 114, CARBON DIOXIDE 17.8, BUN/CREAT 36/2.03, GFR 25, AST 202, ALT 221, ALK PHOS 489, TOT PROTEIN 6.0, ALBUMIN 2.7. WE WILL CONTINUE IV FLUIDS AND MONITOR LABS. WE WILL START LOVENOX BID PROPHYLAXIS. - Past Medical Family Social History Past Med/Fam/Surg Hx: No changes since H&P Allergies: Allergies No Known Drug Allergy Allergy (Verified 07/05/16 12:41) - Review of Systems ROS: No change since H&P - Vital Signs and I&O's Vital Signs: Temperature 98.5 F Pulse Rate [Apical] 63 Pulse Rate [Right Brachial] 72 Respiratory Rate 18 Blood Pressure [Right Arm] 180/79 Blood Pressure [Left Arm] 189/44 O2 Sat by Pulse Oximetry 94 Intake and Output: Intake & Output 07/04/16 07/05/16 07/06/16 07/07/16 11:59 11:59 11:59 11:59 Intake Total 1617 2281 Output Total 400 500 Balance 1217 1781 - Physical Exam Oriented: Normal, Time, Person, Place Eyes: Normal. negative: Blurred Vision, Diplopia, Discharge, Pain, Redness, Photophobia Ear: Normal. negative: Swelling, Ecchymosis, Hemotypanum, Abrasion, Laceration Nose: Normal. negative: Injected, Discharge, Blood Throat: Normal. negative: Tonsillar Hypertrophy, Red, Exudate Respiratory: Normal Cardiovascular: Normal. negative: Murmur, Edema : Normal. negative: Dysuria, Hematuria, Frequency, Discharge, Bleeding, Auscultation: Bowel Sounds: Normal. negative: Bruit Palpation: Normal Tenderness: Diffuse, Moderate. negative: Rebound, Guarding, Rigidity Musculoskeletal: Left (Lower Extremity), Swelling, Tender Psychiatric: Normal Mood Description: Calm, Appropriate Affect: Normal Speech Pattern: Clear, Appropriate - Laboratory and Diagnostics Result Diagrams: 07/07/16 05:05 07/07/16 05:05 Labs: Laboratory WBC 9.9 X10^3/uL (3.6-10.0) 07/07/16 05:05 RBC 3.08 X10^6/uL (3.5-5.4) L 07/07/16 05:05 Hgb 9.2 g/dL (12.0-16.0) L 07/07/16 05:05 Hct 28.3 % (36.0-47.0) L 07/07/16 05:05 MCV 92.1 fL (80.0-100.0) 07/07/16 05:05 MCH 29.9 pg (27.0-34.0) 07/07/16 05:05 MCHC 32.5 g/dL (33.0-35.0) L 07/07/16 05:05 RDW 15.5 % (11.6-16.5) 07/07/16 05:05 Plt Count 213 X10^3/uL (150.0-450.0) 07/07/16 05:05 Plt Count Comment Adequate (ADEQUATE) 07/05/16 13:00 MPV 11.2 fL (7.4-11.0) H 07/07/16 05:05 Neut % 62.4 % (42.0-75.0) 07/07/16 05:05 Lymph % 24.9 % (21.0-51.0) 07/07/16 05:05 [place] % 6.7 % (0.0-13.0) 07/07/16 05:05 Eos % 5.3 % (0.9-2.9) H 07/07/16 05:05 Baso % 0.7 % (0.2-1.0) 07/07/16 05:05 Neut # 6.2 x10^3/uL (2.2-4.8) H 07/07/16 05:05 Lymph # 2.5 X10^3/uL (1.3-2.9) 07/07/16 05:05 [place] # 0.7 x10^3/uL (0.3-0.8) 07/07/16 05:05 Eos # 0.5 x10^3/uL (0.0-0.2) H 07/07/16 05:05 Baso # 0.1 X10^3/uL (0.0-0.1) 07/07/16 05:05 Absolute Nucleated RBC 0.2 /100WBC 07/07/16 05:05 Total Counted 100 07/05/16 13:00 Neutrophils % (Manual) 78 % (39-76) H 07/05/16 13:00 Band Neutrophils % 12 % (0-10) H 07/05/16 13:00 Lymphocytes % (Manual) 7 % (13-43) L 07/05/16 13:00 Monocytes % (Manual) 3 % (4-9) L 07/05/16 13:00 Plt Morphology Comment Normal (NORMAL) 07/05/16 13:00 RBC Morphology Normal (NORMAL) 07/05/16 13:00 INR Target Range - 07/06/16 05:20 INR 1.31 (0.8-1.3) H 07/06/16 05:20 PTT 34.4 SECONDS (22.9-36.5) 07/06/16 05:20 PTT Comment - 07/06/16 05:20 Sodium 147 mmol/L (136-145) H 07/07/16 05:05 Corrected Sodium TNP 07/07/16 05:05 Potassium 2.9 mmol/L (3.5-5.1) L* 07/07/16 05:05 Chloride 114 mmol/L (98-107) H 07/07/16 05:05 Carbon Dioxide 17.8 mmol/L (21-32) L 07/07/16 05:05 BUN 36 mg/dL (7-18) H 07/07/16 05:05 Creatinine 2.03 mg/dL (0.55-1.02) H 07/07/16 05:05 Est GFR (MDRD) Af Amer 30 (>60) L 07/07/16 05:05 Est GFR (MDRD) Non-Af 25 (>60) L 07/07/16 05:05 Glucose 95 mg/dL (65-99) 07/07/16 05:05 Calcium 7.6 mg/dL (8.5-10.1) L 07/07/16 05:05 Corrected Calcium 8.6 mg/dL (8.5-10.1) 07/07/16 05:05 Magnesium 1.7 mg/dL (1.7-2.9) 07/06/16 05:20 Total Bilirubin 0.70 mg/dL (0.2-1.0) 07/07/16 05:05 AST 202 Units/L (15-37) H 07/07/16 05:05 ALT 221 Units/L (12-78) H 07/07/16 05:05 Alkaline Phosphatase 489 Units/L (46-116) H 07/07/16 05:05 Creatine Kinase 86 Units/L (26-192) 07/06/16 01:25 CK-MB (CK-2) 1.1 ng/mL (0-4.0) 07/06/16 01:25 CK/CKMB % Calc 1.3 % (<4) 07/06/16 01:25 Troponin I 0.25 ng/mL (0-1.5) 07/06/16 01:25 B-Natriuretic Peptide 771 pg/mL (0-79) H* 07/05/16 13:00 Total Protein 6.0 g/dL (6.4-8.2) L 07/07/16 05:05 Albumin 2.7 g/dL (3.4-5.0) L 07/07/16 05:05 Globulin 3.3 g/dL (2.5-4.5) 07/07/16 05:05 Albumin/Globulin Ratio 0.8 Ratio (1.1-2.1) L 07/07/16 05:05 Triglycerides 59 mg/dL (0-150) 07/06/16 05:20 Cholesterol 67 mg/dL (0-200) 07/06/16 05:20 LDL Cholesterol, Calc 27 mg/dL (0-100) 07/06/16 05:20 HDL Cholesterol 28 mg/dL (40-60) L 07/06/16 05:20 Cholesterol/HDL Ratio 2.4 (0.0-5.0) 07/06/16 05:20 Amylase 35 Units/L (25-115) 07/05/16 13:00 Lipase 127 Units/L (73-393) 07/05/16 13:00 Specimen Type Random urine 07/05/16 13:27 Urine Color Yellow (YELLOW) 07/05/16 13:27 Urine Appearance Hazy (CLEAR) 07/05/16 13:27 Urine pH 6.0 (5.0 - 8.0) 07/05/16 13:27 Ur Specific [place] 1.020 (1.000-1.030) 07/05/16 13:27 Urine Protein 1+ (NEGATIVE) 07/05/16 13:27 Urine Glucose (UA) Negative (NEGATIVE) 07/05/16 13:27 Urine Ketones Negative (NEGATIVE) 07/05/16 13:27 Urine Occult Blood 1+ (NEGATIVE) 07/05/16 13:27 Urine Nitrite Negative (NEGATIVE) 07/05/16 13:27 Urine Bilirubin Negative (NEGATIVE) 07/05/16 13:27 Urine Urobilinogen Normal (NORMAL) 07/05/16 13:27 Ur Leukocyte Esterase 1+ (NEGATIVE) 07/05/16 13:27 Urine RBC 3-5 /HPF (NEGATIVE) 07/05/16 13:27 Urine WBC 10-15 /HPF (NEGATIVE) 07/05/16 13:27 Ur Squamous Epith Cells Moderate /HPF (NEGATIVE) 07/05/16 13: Amorphous Sediment Trace /HPF (NEGATIVE) 07/05/16 13:27 Urine Bacteria Trace /HPF (NEGATIVE) 07/05/16 13:27 Ur Culture Indicated? No/not indicated 07/05/16 13:27 - Plan (1) Cellulitis Status: Acute Qualifiers: Site of cellulitis: extremity Site of cellulitis of extremity: lower extremity Site of cellulitis of trunk: S Laterality: left Qualified Code(s ): L03.116 - Cellulitis of left lower limb Plan: CONTINUE ROCEPHIN IV, MONITOR FOR INCREASING CELLULITIS. (2) Dehydration Status: Acute Plan: CONTINUE IV FLUIDS, MONITOR. (3) Elevated LFTs Status: Acute Plan: CONTINUE IV FLUIDS, MONITOR LABS. (4) Respiratory distress Status: Acute Plan: CONTINUE SUPPLEMENTAL OXYGEN, MONITOR. (5) CHF (congestive heart failure) Status: Chronic Qualifiers: Congestive heart failure type: combined Congestive heart failure chronicity : acute on chronic Qualified Code(s): I50.43 - Acute on chronic combined systolic (congestive) and diastolic (congestive) heart failure Plan: CONITNUE TO MONITOR CHEST XRAY. (6) GERD (gastroesophageal reflux disease) Status: Chronic Qualifiers: Esophagitis presence: esophagitis presence not specified Qualified Code(s) : K21.9 - Gastro-esophageal reflux disease without esophagitis (7) Gout Status: Chronic Qualifiers: Gout site: multiple sites Gout etiology: idiopathic Encounter type: E Laterality: L Chronicity: chronic Presence of tophus: without tophus Qualified Code(s): M1A.09X0 - Idiopathic chronic gout, multiple sites, without tophus (tophi) (8) Hyperlipidemia Status: Chronic Qualifiers: Hyperlipidemia type: mixed hyperlipidemia Qualified Code(s): E78.2 - Mixed hyperlipidemia (9) Hypertension Status: Chronic Qualifiers: Hypertension type: essential hypertension Qualified Code(s): I10 - Essential (primary) hypertension (10) Renal failure Status: Chronic Qualifiers: Renal failure chronicity: chronic Acute renal failure type: A Chronic kidney disease stage: stage 3 (moderate) Qualified Code(s): N18.3 - Chronic kidney disease, stage 3 (moderate) (11) Vascular dementia Status: Chronic Qualifiers: Dementia behavioral disturbance: without behavioral disturbance Qualified Code(s): F01.50 - Vascular dementia without behavioral disturbance
[2016-07-07] MEDS: LOVENOX INJ 30 MG SYR SC SCH ×2 (12:40→21:18)
[2016-07-07] MEDS: K-DUR TAB 20 MEQ PO PRN ×2 (12:50→19:40)
[2016-07-07] MEDS: ZOCOR TAB 20 MG PO SCH (21:19)
[2016-07-07] MEDS: ZETIA TAB 10 MG PO SCH (21:19)
--- NOTE | 2016-07-08 06:14 | RAD ---
Chest AP portable Indication: Respiratory distress. Comparison: July 07, 2016. Findings: There is cardiomegaly and hyperinflation. No pneumothorax, consolidation or effusion seen. [place] obscures the left upper lobe. Impression: Cardiomegaly and COPD. Reported By:
[2016-07-08 06:39] LABS: BASOPHILS # (AUTO) 0.1 X10^3/uL (0.0-0.1); BASOPHILS % (AUTO) 0.9 % (0.2-1.0); EOSINOPHILS # (AUTO) 0.4 x10^3/uL (0.0-0.2); EOSINOPHILS % (AUTO) 4.3 % (0.9-2.9); HEMATOCRIT 29.2 % (36.0-47.0); HEMOGLOBIN 9.6 g/dL (12.0-16.0); LYMPHOCYTES # (AUTO) 3.4 X10^3/uL (1.3-2.9); LYMPHOCYTES % (AUTO) 34.6 % (21.0-51.0); MEAN CORPUSCULAR HEMOGLOBIN 30.3 pg (27.0-34.0); MEAN CORPUSCULAR HGB CONC 32.8 g/dL (33.0-35.0); MEAN CORPUSCULAR VOLUME 92.4 fL (80.0-100.0); MEAN PLATELET VOLUME 11.6 fL (7.4-11.0); MONOCYTES # (AUTO) 0.6 x10^3/uL (0.3-0.8); MONOCYTES % (AUTO) 6.6 % (0.0-13.0); NEUTROPHILS # (AUTO) 5.2 x10^3/uL (2.2-4.8); NEUTROPHILS % (AUTO) 53.6 % (42.0-75.0); PLATELET COUNT 238 X10^3/uL (150.0-450.0); RED BLOOD COUNT 3.16 X10^6/uL (3.5-5.4); RED CELL DISTRIBUTION WIDTH 15.9 % (11.6-16.5); WHITE BLOOD COUNT 9.7 X10^3/uL (3.6-10.0)
[2016-07-08 06:47] LABS: ALANINE AMINOTRANSFERASE 134 Units/L (12-78); ALBUMIN 2.6 g/dL (3.4-5.0); ALKALINE PHOSPHATASE 414 Units/L (46-116); ASPARTATE AMINO TRANSFERASE 79 Units/L (15-37); BLOOD UREA NITROGEN 33 mg/dL (7-18); CALCIUM 7.9 mg/dL (8.5-10.1); CARBON DIOXIDE 16.1 mmol/L (21-32); CREATININE 1.76 mg/dL (0.55-1.02); GLUCOSE 90 mg/dL (65-99); SODIUM 145 mmol/L (136-145); eGFR BLACK RACES 35 (>60); eGFR NON BLACK RACES 29 (>60)
[2016-07-08 07:15] LABS: CHLORIDE 116 mmol/L (98-107)
[2016-07-08] MEDS: LOVENOX INJ 30 MG SYR SC SCH ×2 (08:42→20:17)
[2016-07-08] MEDS: ROCEPHIN VIAL 1 GM 1 GM in NS 50 ML IV + SPIKE MINIBAG* 50 ML IV SCH (08:49)
[2016-07-08] MEDS: COLACE CAP 100 MG PO SCH ×2 (08:52→20:17)
[2016-07-08] MEDS: LOPRESSOR TAB 50 MG PO SCH ×2 (08:53→20:17)
[2016-07-08] MEDS: MEGACE PO SCH ×2 (08:53→20:18)
[2016-07-08] MEDS: NAMENDA TAB 10 MG PO SCH (08:54)
[2016-07-08] MEDS: DIAMOX PO SCH (08:56)
[2016-07-08] MEDS: PriLOSEC PO SCH ×2 (08:57→20:18)
[2016-07-08] MEDS: MAGIC MOUTHWASH MT SCH ×4 (08:59→20:19)
--- NOTE | 2016-07-08 15:02 | PCM.PROG ---
Progress Note - Progress Note for Day of Date: 07/08/16 - Subjective Subjective: PATIENT IS ALERT, SITTING UP IN BED. STAFF REPORTS BLOOD PRESSURE HAS BEEN ELEVATED AND IS 220/95 THIS MORNING WITH A PULSE OF 70. PATIENT IS NOTED WITH LESS SHORTNESS OF BREATH THIS MORNING. LEFT LOWER EXTREMITY CELLLULITIS IS IMPROVING. LIVER ENZYMES ARE IMPROVING. ABDOMEN IS WITHOUT TENDERNESS. CBC WNL EXCEPT: H/H 9.6/29.2. CMP WNL EXCEPT: CHL 116, CARBON DIOXIDE 16.1, BUN/CREAT 33/1.76, GFR 29, AST 79, ALT 134, ALK PHOS 414, TOT PROTEIN 6.0, ALBUMIN 2.6. CHEST XRAY REPORTS CARDIOMEGALY AND COPD. WE WILL INCREASE METOPROLOL TO BID AND START LISINOPRIL 20MG AT BEDTIME. WE WILL CONTINUE IV FLUIDS AND MONITOR LABS. - Past Medical Family Social History Past Med/Fam/Surg Hx: No changes since H&P Allergies: Allergies No Known Drug Allergy Allergy (Verified 07/05/16 12:41) - Review of Systems ROS: No change since H&P - Vital Signs and I&O's Vital Signs: Temperature 97.9 F Pulse Rate [Apical] 69 Pulse Rate [Right Brachial] 60 Respiratory Rate 20 Blood Pressure [Right Arm] 143/69 Blood Pressure [Left Arm] 142/74 O2 Sat by Pulse Oximetry 98 Intake and Output: Intake & Output 07/06/16 07/07/16 07/08/16 07/09/16 11:59 11:59 11:59 11:59 Intake Total 1617 2281 551 Output Total 400 500 Balance 1217 1781 551 - Physical Exam Oriented: Normal, Time, Person, Place Eyes: Normal. negative: Blurred Vision, Diplopia, Discharge, Pain, Redness, Photophobia Ear: Normal. negative: Swelling, Ecchymosis, Hemotypanum, Abrasion, Laceration Nose: Normal. negative: Injected, Discharge, Blood Throat: Normal. negative: Tonsillar Hypertrophy, Red, Exudate Respiratory: Normal Cardiovascular: Normal. negative: Murmur, Edema : Normal. negative: Dysuria, Hematuria, Frequency, Discharge, Bleeding, Auscultation: Bowel Sounds: Normal. negative: Bruit Palpation: Normal. negative: Spleen Enlarged, Liver Enlarged, Mass Pulsatile Tenderness: Diffuse, Moderate. negative: Rebound, Guarding, Rigidity Musculoskeletal: Left (Lower Extremity), Swelling, Tender Psychiatric: Normal Mood Description: Calm, Appropriate Affect: Normal Speech Pattern: Clear, Appropriate - Laboratory and Diagnostics Result Diagrams: 07/08/16 03:55 07/08/16 03:55 Labs: Laboratory WBC 9.7 X10^3/uL (3.6-10.0) 07/08/16 03:55 RBC 3.16 X10^6/uL (3.5-5.4) L 07/08/16 03:55 Hgb 9.6 g/dL (12.0-16.0) L 07/08/16 03:55 Hct 29.2 % (36.0-47.0) L 07/08/16 03:55 MCV 92.4 fL (80.0-100.0) 07/08/16 03:55 MCH 30.3 pg (27.0-34.0) 07/08/16 03:55 MCHC 32.8 g/dL (33.0-35.0) L 07/08/16 03:55 RDW 15.9 % (11.6-16.5) 07/08/16 03:55 Plt Count 238 X10^3/uL (150.0-450.0) 07/08/16 03:55 Plt Count Comment Adequate (ADEQUATE) 07/05/16 13:00 MPV 11.6 fL (7.4-11.0) H 07/08/16 03:55 Neut % 53.6 % (42.0-75.0) 07/08/16 03:55 Lymph % 34.6 % (21.0-51.0) 07/08/16 03:55 [place] % 6.6 % (0.0-13.0) 07/08/16 03:55 Eos % 4.3 % (0.9-2.9) H 07/08/16 03:55 Baso % 0.9 % (0.2-1.0) 07/08/16 03:55 Neut # 5.2 x10^3/uL (2.2-4.8) H 07/08/16 03:55 Lymph # 3.4 X10^3/uL (1.3-2.9) H 07/08/16 03:55 [place] # 0.6 x10^3/uL (0.3-0.8) 07/08/16 03:55 Eos # 0.4 x10^3/uL (0.0-0.2) H 07/08/16 03:55 Baso # 0.1 X10^3/uL (0.0-0.1) 07/08/16 03:55 Absolute Nucleated RBC 0.0 /100WBC 07/08/16 03:55 Total Counted 100 07/05/16 13:00 Neutrophils % (Manual) 78 % (39-76) H 07/05/16 13:00 Band Neutrophils % 12 % (0-10) H 07/05/16 13:00 Lymphocytes % (Manual) 7 % (13-43) L 07/05/16 13:00 Monocytes % (Manual) 3 % (4-9) L 07/05/16 13:00 Plt Morphology Comment Normal (NORMAL) 07/05/16 13:00 RBC Morphology Normal (NORMAL) 07/05/16 13:00 INR Target Range - 07/06/16 05:20 INR 1.31 (0.8-1.3) H 07/06/16 05:20 PTT 34.4 SECONDS (22.9-36.5) 07/06/16 05:20 PTT Comment - 07/06/16 05:20 Sodium 145 mmol/L (136-145) 07/08/16 03:55 Corrected Sodium TNP 07/08/16 03:55 Potassium 4.7 mmol/L (3.5-5.1) 07/08/16 03:55 Chloride 116 mmol/L (98-107) H* 07/08/16 03:55 Carbon Dioxide 16.1 mmol/L (21-32) L 07/08/16 03:55 BUN 33 mg/dL (7-18) H 07/08/16 03:55 Creatinine 1.76 mg/dL (0.55-1.02) H 07/08/16 03:55 Est GFR (MDRD) Af Amer 35 (>60) L 07/08/16 03:55 Est GFR (MDRD) Non-Af 29 (>60) L 07/08/16 03:55 Glucose 90 mg/dL (65-99) 07/08/16 03:55 Calcium 7.9 mg/dL (8.5-10.1) L 07/08/16 03:55 Corrected Calcium 9.0 mg/dL (8.5-10.1) 07/08/16 03:55 Magnesium 1.7 mg/dL (1.7-2.9) 07/06/16 05:20 Total Bilirubin 0.40 mg/dL (0.2-1.0) 07/08/16 03:55 AST 79 Units/L (15-37) H 07/08/16 03:55 ALT 134 Units/L (12-78) H 07/08/16 03:55 Alkaline Phosphatase 414 Units/L (46-116) H 07/08/16 03:55 Creatine Kinase 86 Units/L (26-192) 07/06/16 01:25 CK-MB (CK-2) 1.1 ng/mL (0-4.0) 07/06/16 01:25 CK/CKMB % Calc 1.3 % (<4) 07/06/16 01:25 Troponin I 0.25 ng/mL (0-1.5) 07/06/16 01:25 B-Natriuretic Peptide 771 pg/mL (0-79) H* 07/05/16 13:00 Total Protein 6.0 g/dL (6.4-8.2) L 07/08/16 03:55 Albumin 2.6 g/dL (3.4-5.0) L 07/08/16 03:55 Globulin 3.4 g/dL (2.5-4.5) 07/08/16 03:55 Albumin/Globulin Ratio 0.8 Ratio (1.1-2.1) L 07/08/16 03:55 Triglycerides 59 mg/dL (0-150) 07/06/16 05:20 Cholesterol 67 mg/dL (0-200) 07/06/16 05:20 LDL Cholesterol, Calc 27 mg/dL (0-100) 07/06/16 05:20 HDL Cholesterol 28 mg/dL (40-60) L 07/06/16 05:20 Cholesterol/HDL Ratio 2.4 (0.0-5.0) 07/06/16 05:20 Amylase 35 Units/L (25-115) 07/05/16 13:00 Lipase 127 Units/L (73-393) 07/05/16 13:00 Specimen Type Random urine 07/05/16 13:27 Urine Color Yellow (YELLOW) 07/05/16 13:27 Urine Appearance Hazy (CLEAR) 07/05/16 13:27 Urine pH 6.0 (5.0 - 8.0) 07/05/16 13:27 Ur Specific [place] 1.020 (1.000-1.030) 07/05/16 13:27 Urine Protein 1+ (NEGATIVE) 07/05/16 13:27 Urine Glucose (UA) Negative (NEGATIVE) 07/05/16 13:27 Urine Ketones Negative (NEGATIVE) 07/05/16 13:27 Urine Occult Blood 1+ (NEGATIVE) 07/05/16 13:27 Urine Nitrite Negative (NEGATIVE) 07/05/16 13: Urine Bilirubin Negative (NEGATIVE) 07/05/16 13:27 Urine Urobilinogen Normal (NORMAL) 07/05/16 13:27 Ur Leukocyte Esterase 1+ (NEGATIVE) 07/05/16 13:27 Urine RBC 3-5 /HPF (NEGATIVE) 07/05/16 13:27 Urine WBC 10-15 /HPF (NEGATIVE) 07/05/16 13:27 Ur Squamous Epith Cells Moderate /HPF (NEGATIVE) 07/05/16 13:27 Amorphous Sediment Trace /HPF (NEGATIVE) 07/05/16 13:27 Urine Bacteria Trace /HPF (NEGATIVE) 07/05/16 13:27 Ur Culture Indicated? No/not indicated 07/05/16 13:27 - Plan (1) Cellulitis Status: Acute Qualifiers: Site of cellulitis: extremity Site of cellulitis of extremity: lower extremity Site of cellulitis of trunk: S Laterality: left Qualified Code(s ): L03.116 - Cellulitis of left lower limb Plan: CONTINUE ROCEPHIN IV, MONITOR FOR INCREASING CELLULITIS. (2) Hypertension Status: Acute Qualifiers: Hypertension type: essential hypertension Qualified Code(s): I10 - Essential (primary) hypertension Plan: START LISINOPRIL 20MG AT HS, INCREASE METOPROLOL TO BID, MONITOR. (3) Dehydration Status: Acute Plan: CONTINUE IV FLUIDS, MONITOR. (4) Elevated LFTs Status: Acute Plan: CONTINUE IV FLUIDS, MONITOR LABS. (5) Respiratory distress Status: Acute Plan: CONTINUE SUPPLEMENTAL OXYGEN, MONITOR. (6) CHF (congestive heart failure) Status: Chronic Qualifiers: Congestive heart failure type: combined Congestive heart failure chronicity : acute on chronic Qualified Code(s): I50.43 - Acute on chronic combined systolic (congestive) and diastolic (congestive) heart failure Plan: CONITNUE TO MONITOR CHEST XRAY. (7) GERD (gastroesophageal reflux disease) Status: Chronic Qualifiers: Esophagitis presence: esophagitis presence not specified Qualified Code(s) : K21.9 - Gastro-esophageal reflux disease without esophagitis (8) Gout Status: Chronic Qualifiers: Gout site: multiple sites Gout etiology: idiopathic Encounter type: E Laterality: L Chronicity: chronic Presence of tophus: without tophus Qualified Code(s): M1A.09X0 - Idiopathic chronic gout, multiple sites, without tophus (tophi) (9) Hyperlipidemia Status: Chronic Qualifiers: Hyperlipidemia type: mixed hyperlipidemia Qualified Code(s): E78.2 - Mixed hyperlipidemia (10) Renal failure Status: Chronic Qualifiers: Renal failure chronicity: chronic Acute renal failure type: A Chronic kidney disease stage: stage 3 (moderate) Qualified Code(s): N18.3 - Chronic kidney disease, stage 3 (moderate) (11) Vascular dementia Status: Chronic Qualifiers: Dementia behavioral disturbance: without behavioral disturbance Qualified Code(s): F01.50 - Vascular dementia without behavioral disturbance
[2016-07-08] MEDS ORDERED: ZESTRIL TAB 20 MG ONE (20:06)
[2016-07-08] MEDS: ZESTRIL TAB 20 MG PO SCH (20:17)
[2016-07-08] MEDS: ZETIA TAB 10 MG PO SCH (20:17)
[2016-07-08] MEDS: ZOCOR TAB 20 MG PO SCH (20:17)
[2016-07-08 22:27] LABS: HEPATITIS A ANTIBODY IGM Negative (Negative)
[2016-07-09] MEDS ORDERED: NS 1/2 1000 ML IV 1,000 ML IV ONE ×2 (06:11→13:18)
[2016-07-09] MEDS: NS 1/2 1000 ML IV 1,000 ML IV SCH ×3 (06:14→22:06)
[2016-07-09 06:26] LABS: BASOPHILS # (AUTO) 0.1 X10^3/uL (0.0-0.1); BASOPHILS % (AUTO) 1.5 % (0.2-1.0); EOSINOPHILS # (AUTO) 0.3 x10^3/uL (0.0-0.2); EOSINOPHILS % (AUTO) 4.7 % (0.9-2.9); HEMATOCRIT 28.3 % (36.0-47.0); HEMOGLOBIN 9.3 g/dL (12.0-16.0); LYMPHOCYTES # (AUTO) 3.1 X10^3/uL (1.3-2.9); LYMPHOCYTES % (AUTO) 41.5 % (21.0-51.0); MEAN CORPUSCULAR HEMOGLOBIN 30.4 pg (27.0-34.0); MEAN CORPUSCULAR HGB CONC 32.9 g/dL (33.0-35.0); MEAN CORPUSCULAR VOLUME 92.3 fL (80.0-100.0); MEAN PLATELET VOLUME 11.3 fL (7.4-11.0); MONOCYTES # (AUTO) 0.4 x10^3/uL (0.3-0.8); MONOCYTES % (AUTO) 5.9 % (0.0-13.0); NEUTROPHILS # (AUTO) 3.4 x10^3/uL (2.2-4.8); NEUTROPHILS % (AUTO) 46.4 % (42.0-75.0); PLATELET COUNT 234 X10^3/uL (150.0-450.0); RED BLOOD COUNT 3.07 X10^6/uL (3.5-5.4); RED CELL DISTRIBUTION WIDTH 15.8 % (11.6-16.5); WHITE BLOOD COUNT 7.4 X10^3/uL (3.6-10.0)
[2016-07-09 06:32] LABS: ALANINE AMINOTRANSFERASE 77 Units/L (12-78); ALBUMIN 2.2 g/dL (3.4-5.0); ALKALINE PHOSPHATASE 334 Units/L (46-116); ASPARTATE AMINO TRANSFERASE 36 Units/L (15-37); BLOOD UREA NITROGEN 27 mg/dL (7-18); CALCIUM 8.2 mg/dL (8.5-10.1); CARBON DIOXIDE 16.2 mmol/L (21-32); COR CA(FOR HYPOALB) 9.6 mg/dL (8.5-10.1); CREATININE 1.47 mg/dL (0.55-1.02); GLUCOSE 86 mg/dL (65-99); SODIUM 144 mmol/L (136-145); TOTAL PROTEIN 5.5 g/dL (6.4-8.2); eGFR BLACK RACES 43 (>60); eGFR NON BLACK RACES 36 (>60)
--- NOTE | 2016-07-09 06:35 | RAD ---
Chest AP portable Indication: Respiratory distress. Findings: There is no pneumothorax or effusion. There is cardiomegaly with hyperinflation. Increased interstitial markings and peribronchial thickening noted. Impression: Cardiomegaly and COPD change. Bronchitis may be present. Reported By:
[2016-07-09 06:38] LABS: CHLORIDE 116 mmol/L (98-107)
[2016-07-09 07:25] LABS: HEPATITIS B CORE IGM Negative (Negative); HEPATITIS B SURFACE ANTIGEN Negative (Negative)
[2016-07-09] MEDS: MEGACE PO SCH ×2 (09:49→21:13)
[2016-07-09] MEDS: LOPRESSOR TAB 50 MG PO SCH ×2 (09:49→21:13)
[2016-07-09] MEDS: LOVENOX INJ 30 MG SYR SC SCH ×2 (09:49→21:13)
[2016-07-09] MEDS: DIAMOX PO SCH (09:49)
[2016-07-09] MEDS: COLACE CAP 100 MG PO SCH ×2 (09:49→21:14)
[2016-07-09] MEDS: ROCEPHIN VIAL 1 GM 1 GM in NS 50 ML IV + SPIKE MINIBAG* 50 ML IV SCH (09:49)
[2016-07-09] MEDS: PriLOSEC PO SCH ×2 (09:49→21:13)
[2016-07-09] MEDS: NAMENDA TAB 10 MG PO SCH (09:49)
[2016-07-09] MEDS: MAGIC MOUTHWASH MT SCH ×5 (09:50→21:14)
[2016-07-09] MEDS: MILK OF MAGNESIA PO SCH (10:33)
[2016-07-09] MEDS: ALBUMIN HUMAN 25%- 100ML 100 ML IV SCH (10:34)
[2016-07-09] MEDS: CHECK PATCH XX SCH ×2 (13:30→21:14)
[2016-07-09] MEDS ORDERED: ZESTRIL TAB 20 MG ONE (20:54)
[2016-07-09] MEDS: ZOCOR TAB 20 MG PO SCH (21:13)
[2016-07-09] MEDS: ZESTRIL TAB 20 MG PO SCH (21:13)
[2016-07-09] MEDS: ZETIA TAB 10 MG PO SCH (21:13)
--- NOTE | 2016-07-09 22:00 | PCM.PROG ---
Progress Note - Progress Note for Day of Date: 07/09/16 - Subjective Subjective: PATIENT IS ALERT UPON ROUNDS. BLOOD PRESSURE IS SLIGHTLY IMPROVED. SHORTNESS OF BREATH IS IMPROVING. LEFT LOWER EXTREMITY CELLLULITIS CONTINUES TO IMPROVE. CBC WNL EXCEPT: H/H 9.3/28.3. CMP WNL EXCEPT: CHL 116, CARBON DIOXIDE 16.2, BUN/CREAT 27/1.47, GFR 36, CALCIUM 8.2, ALK PHOS 334, TOT PROTEIN 5.5, ALBUMIN 2.2. CHEST XRAY REPORTS CARDIOMEGALY AND COPD CHANGE; PERIBRONCHIAL THICKENING. WE WILL OBTAIN A 3-PHASE BONE SCAN AND IONIZED CALCIUM. WE WILL CONTINUE METOPROLOL AND LISINOPRIL. WE WILL START DUONEBS, CONTINUE IV FLUIDS, ROCEPHIN, AND MONITOR LABS. - Past Medical Family Social History Past Med/Fam/Surg Hx: No changes since H&P Allergies: Allergies No Known Drug Allergy Allergy (Verified 07/05/16 12:41) - Review of Systems ROS: No change since H&P - Vital Signs and I&O's Vital Signs: Temperature 98.0 F Pulse Rate [Left Brachial] 81 Pulse Rate [Apical] 79 Pulse Rate [Right Brachial] 77 Respiratory Rate 20 Blood Pressure [Right Arm] 161/84 Blood Pressure [Left Arm] 133/69 O2 Sat by Pulse Oximetry 98 Intake and Output: Intake & Output 07/07/16 07/08/16 07/09/16 07/10/16 11:59 11:59 11:59 11:59 Intake Total 2281 265 666 4976 Output Total 500 Balance 1781 141 684 6023 - Physical Exam Oriented: Normal, Time, Person, Place Eyes: Normal. negative: Blurred Vision, Diplopia, Discharge, Pain, Redness, Photophobia Ear: Normal. negative: Swelling, Ecchymosis, Hemotypanum, Abrasion, Laceration Nose: Normal. negative: Injected, Discharge, Blood Throat: Normal. negative: Tonsillar Hypertrophy, Red, Exudate Respiratory: Generalized, Diminished Cardiovascular: Normal. negative: Murmur, Edema : Normal. negative: Dysuria, Hematuria, Frequency, Discharge, Bleeding, Auscultation: Bowel Sounds: Normal. negative: Bruit Palpation: Normal. negative: Spleen Enlarged, Liver Enlarged, Mass Pulsatile Tenderness: Diffuse, Moderate. negative: Rebound, Guarding, Rigidity Musculoskeletal: Left (Lower Extremity), Swelling, Tender Psychiatric: Normal Mood Description: Calm, Appropriate Affect: Normal Speech Pattern: Clear, Appropriate - Laboratory and Diagnostics Result Diagrams: 07/09/16 05:15 07/09/16 05:15 Labs: Laboratory WBC 7.4 X10^3/uL (3.6-10.0) 07/09/16 05:15 RBC 3.07 X10^6/uL (3.5-5.4) L 07/09/16 05:15 Hgb 9.3 g/dL (12.0-16.0) L 07/09/16 05:15 Hct 28.3 % (36.0-47.0) L 07/09/16 05:15 MCV 92.3 fL (80.0-100.0) 07/09/16 05:15 MCH 30.4 pg (27.0-34.0) 07/09/16 05:15 MCHC 32.9 g/dL (33.0-35.0) L 07/09/16 05:15 RDW 15.8 % (11.6-16.5) 07/09/16 05:15 Plt Count 234 X10^3/uL (150.0-450.0) 07/09/16 05:15 Plt Count Comment Adequate (ADEQUATE) 07/05/16 13:00 MPV 11.3 fL (7.4-11.0) H 07/09/16 05:15 Neut % 46.4 % (42.0-75.0) 07/09/16 05:15 Lymph % 41.5 % (21.0-51.0) 07/09/16 05:15 [place] % 5.9 % (0.0-13.0) 07/09/16 05:15 Eos % 4.7 % (0.9-2.9) H 07/09/16 05:15 Baso % 1.5 % (0.2-1.0) H 07/09/16 05:15 Neut # 3.4 x10^3/uL (2.2-4.8) 07/09/16 05:15 Lymph # 3.1 X10^3/uL (1.3-2.9) H 07/09/16 05:15 [place] # 0.4 x10^3/uL (0.3-0.8) 07/09/16 05:15 Eos # 0.3 x10^3/uL (0.0-0.2) H 07/09/16 05:15 Baso # 0.1 X10^3/uL (0.0-0.1) 07/09/16 05:15 Absolute Nucleated RBC 0.4 /100WBC 07/09/16 05:15 Total Counted 100 07/05/16 13:00 Neutrophils % (Manual) 78 % (39-76) H 07/05/16 13:00 Band Neutrophils % 12 % (0-10) H 07/05/16 13:00 Lymphocytes % (Manual) 7 % (13-43) L 07/05/16 13:00 Monocytes % (Manual) 3 % (4-9) L 07/05/16 13:00 Plt Morphology Comment Normal (NORMAL) 07/05/16 13:00 RBC Morphology Normal (NORMAL) 07/05/16 13:00 INR Target Range - 07/06/16 05:20 INR 1.31 (0.8-1.3) H 07/06/16 05:20 PTT 34.4 SECONDS (22.9-36.5) 07/06/16 05:20 PTT Comment - 07/06/16 05:20 Sodium 144 mmol/L (136-145) 07/09/16 05:15 Corrected Sodium TNP 07/09/16 05:15 Potassium 4.5 mmol/L (3.5-5.1) 07/09/16 05:15 Chloride 116 mmol/L (98-107) H* 07/09/16 05:15 Carbon Dioxide 16.2 mmol/L (21-32) L 07/09/16 05:15 BUN 27 mg/dL (7-18) H 07/09/16 05:15 Creatinine 1.47 mg/dL (0.55-1.02) H 07/09/16 05:15 Est GFR (MDRD) Af Amer 43 (>60) L 07/09/16 05:15 Est GFR (MDRD) Non-Af 36 (>60) L 07/09/16 05:15 Glucose 86 mg/dL (65-99) 07/09/16 05:15 Calcium 8.2 mg/dL (8.5-10.1) L 07/09/16 05:15 Corrected Calcium 9.6 mg/dL (8.5-10.1) 07/09/16 05:15 Magnesium 1.7 mg/dL (1.7-2.9) 07/06/16 05:20 Total Bilirubin 0.50 mg/dL (0.2-1.0) 07/09/16 05:15 AST 36 Units/L (15-37) 07/09/16 05:15 ALT 77 Units/L (12-78) 07/09/16 05:15 Alkaline Phosphatase 334 Units/L (46-116) H 07/09/16 05:15 Creatine Kinase 86 Units/L (26-192) 07/06/16 01:25 CK-MB (CK-2) 1.1 ng/mL (0-4.0) 07/06/16 01:25 CK/CKMB % Calc 1.3 % (<4) 07/06/16 01:25 Troponin I 0.25 ng/mL (0-1.5) 07/06/16 01:25 B-Natriuretic Peptide 771 pg/mL (0-79) H* 07/05/16 13:00 Total Protein 5.5 g/dL (6.4-8.2) L 07/09/16 05:15 Albumin 2.2 g/dL (3.4-5.0) L 07/09/16 05:15 Globulin 3.3 g/dL (2.5-4.5) 07/09/16 05:15 Albumin/Globulin Ratio 0.7 Ratio (1.1-2.1) L 07/09/16 05:15 Triglycerides 59 mg/dL (0-150) 07/06/16 05:20 Cholesterol 67 mg/dL (0-200) 07/06/16 05:20 LDL Cholesterol, Calc 27 mg/dL (0-100) 07/06/16 05:20 HDL Cholesterol 28 mg/dL (40-60) L 07/06/16 05:20 Cholesterol/HDL Ratio 2.4 (0.0-5.0) 07/06/16 05:20 Amylase 35 Units/L (25-115) 07/05/16 13:00 Lipase 127 Units/L (73-393) 07/05/16 13:00 Specimen Type Random urine 07/05/16 13:27 Urine Color Yellow (YELLOW) 07/05/16 13:27 Urine Appearance Hazy (CLEAR) 07/05/16 13:27 Urine pH 6.0 (5.0 - 8.0) 07/05/16 13:27 Ur Specific [place] 1.020 (1.000-1.030) 07/05/16 13:27 Urine Protein 1+ (NEGATIVE) 07/05/16 13:27 Urine Glucose (UA) Negative (NEGATIVE) 07/05/16 13:27 Urine Ketones Negative (NEGATIVE) 07/05/16 13:27 Urine Occult Blood 1+ (NEGATIVE) 07/05/16 13:27 Urine Nitrite Negative (NEGATIVE) 07/05/16 13:27 Urine Bilirubin Negative (NEGATIVE) 07/05/16 13:27 Urine Urobilinogen Normal (NORMAL) 07/05/16 13:27 Ur Leukocyte Esterase 1+ (NEGATIVE) 07/05/16 13:27 Urine RBC 3-5 /HPF (NEGATIVE) 07/05/16 13:27 Urine WBC 10-15 /HPF (NEGATIVE) 07/05/16 13:27 Ur Squamous Epith Cells Moderate /HPF (NEGATIVE) 07/05/16 13:27 Amorphous Sediment Trace /HPF (NEGATIVE) 07/05/16 13:27 Urine Bacteria Trace /HPF (NEGATIVE) 07/05/16 13:27 Ur Culture Indicated? No/not indicated 07/05/16 13:27 Hepatitis A IgM Ab Negative (Negative) 07/06/16 10:55 Hep Bs Antigen Negative (Negative) 07/06/16 10:55 Hep Bs Ag Confirmation TNP 07/06/16 10:55 Hep B Core IgM Ab Negative (Negative) 07/06/16 10:55 Hepatitis C Ab Index 0.10 IV 07/06/16 10:55 Hepatitis C Interp Negative (Negative) 07/06/16 10:55 Hepatitis Interpret See note 07/06/16 10:55 - Plan (1) Cellulitis Status: Acute Qualifiers: Site of cellulitis: extremity Site of cellulitis of extremity: lower extremity Site of cellulitis of trunk: S Laterality: left Qualified Code(s ): L03.116 - Cellulitis of left lower limb Plan: CONTINUE ROCEPHIN IV, MONITOR FOR INCREASING CELLULITIS. (2) Hypertension Status: Acute Qualifiers: Hypertension type: essential hypertension Qualified Code(s): I10 - Essential (primary) hypertension Plan: CONTINUE LISINOPRIL, METOPROLOL, MONITOR. (3) Dehydration Status: Acute Plan: CONTINUE IV FLUIDS, MONITOR. (4) Elevated LFTs Status: Acute Plan: CONTINUE IV FLUIDS, MONITOR LABS. (5) Respiratory distress Status: Acute Plan: CONTINUE SUPPLEMENTAL OXYGEN, MONITOR. (6) CHF (congestive heart failure) Status: Chronic Qualifiers: Congestive heart failure type: combined Congestive heart failure chronicity : acute on chronic Qualified Code(s): I50.43 - Acute on chronic combined systolic (congestive) and diastolic (congestive) heart failure Plan: CONITNUE TO MONITOR CHEST XRAY. (7) GERD (gastroesophageal reflux disease) Status: Chronic Qualifiers: Esophagitis presence: esophagitis presence not specified Qualified Code(s) : K21.9 - Gastro-esophageal reflux disease without esophagitis (8) Gout Status: Chronic Qualifiers: Gout site: multiple sites Gout etiology: idiopathic Encounter type: E Laterality: L Chronicity: chronic Presence of tophus: without tophus Qualified Code(s): M1A.09X0 - Idiopathic chronic gout, multiple sites, without tophus (tophi) (9) Hyperlipidemia Status: Chronic Qualifiers: Hyperlipidemia type: mixed hyperlipidemia Qualified Code(s): E78.2 - Mixed hyperlipidemia (10) Renal failure Status: Chronic Qualifiers: Renal failure chronicity: chronic Acute renal failure type: A Chronic kidney disease stage: stage 3 (moderate) Qualified Code(s): N18.3 - Chronic kidney disease, stage 3 (moderate) (11) Vascular dementia Status: Chronic Qualifiers: Dementia behavioral disturbance: without behavioral disturbance Qualified Code(s): F01.50 - Vascular dementia without behavioral disturbance
[2016-07-10] MEDS: NS 1/2 1000 ML IV 1,000 ML IV SCH ×3 (06:27→20:58)
[2016-07-10] MEDS ORDERED: NS 1/2 1000 ML IV 1,000 ML IV ONE ×2 (06:30→20:45)
[2016-07-10 07:01] LABS: ALANINE AMINOTRANSFERASE 52 Units/L (12-78); ALBUMIN 2.7 g/dL (3.4-5.0); ALKALINE PHOSPHATASE 298 Units/L (46-116); ASPARTATE AMINO TRANSFERASE 23 Units/L (15-37); BASOPHILS # (AUTO) 0.1 X10^3/uL (0.0-0.1); BASOPHILS % (AUTO) 1.2 % (0.2-1.0); BLOOD UREA NITROGEN 25 mg/dL (7-18); CALCIUM 8.2 mg/dL (8.5-10.1); CARBON DIOXIDE 16.6 mmol/L (21-32); CHLORIDE 113 mmol/L (98-107); COR CA(FOR HYPOALB) 9.2 mg/dL (8.5-10.1); CREATININE 1.55 mg/dL (0.55-1.02); EOSINOPHILS # (AUTO) 0.3 x10^3/uL (0.0-0.2); EOSINOPHILS % (AUTO) 3.6 % (0.9-2.9); GLUCOSE 98 mg/dL (65-99); HEMOGLOBIN 9.7 g/dL (12.0-16.0); LYMPHOCYTES # (AUTO) 3.3 X10^3/uL (1.3-2.9); LYMPHOCYTES % (AUTO) 37.7 % (21.0-51.0); MEAN CORPUSCULAR HEMOGLOBIN 29.7 pg (27.0-34.0); MEAN CORPUSCULAR HGB CONC 32.2 g/dL (33.0-35.0); MEAN CORPUSCULAR VOLUME 92.2 fL (80.0-100.0); MEAN PLATELET VOLUME 10.8 fL (7.4-11.0); MONOCYTES # (AUTO) 0.7 x10^3/uL (0.3-0.8); MONOCYTES % (AUTO) 7.5 % (0.0-13.0); NEUTROPHILS # (AUTO) 4.3 x10^3/uL (2.2-4.8); PLATELET COUNT 290 X10^3/uL (150.0-450.0); RED BLOOD COUNT 3.26 X10^6/uL (3.5-5.4); SODIUM 144 mmol/L (136-145); TOTAL PROTEIN 5.9 g/dL (6.4-8.2); WHITE BLOOD COUNT 8.7 X10^3/uL (3.6-10.0); eGFR BLACK RACES 41 (>60); eGFR NON BLACK RACES 34 (>60)
--- NOTE | 2016-07-10 07:55 | RAD ---
HISTORY: CHF Study: Single view of the chest. Comparison: 07/09/2016 Findings: The cardiomediastinal silhouette is normal. No focal consolidations, pleural effusions or pneumothor ax. Mild interstitial prominence. IMPRESSION: 1. Mild interstitial prominence which may represent edema. Reported By:
[2016-07-10] MEDS: MILK OF MAGNESIA PO SCH (08:35)
[2016-07-10] MEDS: DIAMOX PO SCH (08:36)
[2016-07-10] MEDS: PriLOSEC PO SCH ×2 (08:36→20:58)
[2016-07-10] MEDS: MEGACE PO SCH ×2 (08:36→20:58)
[2016-07-10] MEDS: LOVENOX INJ 30 MG SYR SC SCH ×2 (08:36→20:58)
[2016-07-10] MEDS: LOPRESSOR TAB 50 MG PO SCH ×3 (08:36→20:58)
[2016-07-10] MEDS: COLACE CAP 100 MG PO SCH ×2 (08:36→20:58)
[2016-07-10] MEDS: NAMENDA TAB 10 MG PO SCH (08:36)
[2016-07-10] MEDS: ALBUMIN HUMAN 25%- 100ML 100 ML IV SCH (08:38)
[2016-07-10] MEDS: ROCEPHIN VIAL 1 GM 1 GM in NS 50 ML IV + SPIKE MINIBAG* 50 ML IV SCH (08:38)
[2016-07-10] MEDS: MAGIC MOUTHWASH MT SCH ×5 (08:44→20:59)
[2016-07-10] MEDS: CHECK PATCH XX SCH ×2 (08:44→21:00)
[2016-07-10] MEDS: DUONEB 0.5 MG/3 MG NEB SCH ×4 (08:47→20:05)
[2016-07-10] MEDS ORDERED: ZESTRIL TAB 20 MG ONE (20:46)
[2016-07-10] MEDS: ZESTRIL TAB 20 MG PO SCH (20:58)
[2016-07-10] MEDS: ZOCOR TAB 20 MG PO SCH (20:58)
[2016-07-10] MEDS: ZETIA TAB 10 MG PO SCH (20:58)
[2016-07-11] MEDS ORDERED: NS 1/2 1000 ML IV 1,000 ML IV ONE ×2 (05:23→13:29)
[2016-07-11] MEDS: NS 1/2 1000 ML IV 1,000 ML IV SCH ×2 (05:48→13:39)
[2016-07-11 07:14] LABS: BASOPHILS # (AUTO) 0.1 X10^3/uL (0.0-0.1); BASOPHILS % (AUTO) 1.2 % (0.2-1.0); EOSINOPHILS # (AUTO) 0.2 x10^3/uL (0.0-0.2); EOSINOPHILS % (AUTO) 3.1 % (0.9-2.9); HEMATOCRIT 26.4 % (36.0-47.0); HEMOGLOBIN 8.5 g/dL (12.0-16.0); LYMPHOCYTES # (AUTO) 2.7 X10^3/uL (1.3-2.9); LYMPHOCYTES % (AUTO) 34.9 % (21.0-51.0); MEAN CORPUSCULAR HEMOGLOBIN 29.6 pg (27.0-34.0); MEAN CORPUSCULAR HGB CONC 32.2 g/dL (33.0-35.0); MEAN CORPUSCULAR VOLUME 91.9 fL (80.0-100.0); MEAN PLATELET VOLUME 11.5 fL (7.4-11.0); MONOCYTES # (AUTO) 0.7 x10^3/uL (0.3-0.8); MONOCYTES % (AUTO) 8.8 % (0.0-13.0); PLATELET COUNT 243 X10^3/uL (150.0-450.0); RED BLOOD COUNT 2.87 X10^6/uL (3.5-5.4); RED CELL DISTRIBUTION WIDTH 15.7 % (11.6-16.5); WHITE BLOOD COUNT 7.8 X10^3/uL (3.6-10.0)
--- NOTE | 2016-07-11 07:14 | RAD ---
HISTORY: CHF Study: Single view of the chest. Comparison: 07/10/2016 Findings: The cardiomediastinal silhouette is normal. No focal consolidations, pleural effusions or pneumothor ax. Mild interstitial prominence which is unchanged. IMPRESSION: 1. Possible mild pulmonary edema. 2. It should be noted that in the absence of a change in clinical status or intervening procedure, d aily chest x-ray has not been shown to affect outcomes in hospitalized patients. [email or web address] [email or web address]/[email or web address] Reported By:
[2016-07-11 07:18] LABS: ALANINE AMINOTRANSFERASE 44 Units/L (12-78); ALBUMIN 2.7 g/dL (3.4-5.0); ALKALINE PHOSPHATASE 254 Units/L (46-116); ASPARTATE AMINO TRANSFERASE 25 Units/L (15-37); BLOOD UREA NITROGEN 24 mg/dL (7-18); CALCIUM 8.2 mg/dL (8.5-10.1); CHLORIDE 114 mmol/L (98-107); COR CA(FOR HYPOALB) 9.2 mg/dL (8.5-10.1); CREATININE 1.38 mg/dL (0.55-1.02); GLUCOSE 88 mg/dL (65-99); SODIUM 143 mmol/L (136-145); TOTAL PROTEIN 5.6 g/dL (6.4-8.2); eGFR BLACK RACES 47 (>60); eGFR NON BLACK RACES 39 (>60)
[2016-07-11] MEDS: ALBUMIN HUMAN 25%- 100ML 100 ML IV SCH ×2 (07:56→08:06)
[2016-07-11] MEDS: DIAMOX PO SCH ×2 (07:58→08:06)
[2016-07-11] MEDS: COLACE CAP 100 MG PO SCH ×3 (07:58→20:42)
[2016-07-11] MEDS: MEGACE PO SCH ×2 (07:59→20:43)
[2016-07-11] MEDS: LOPRESSOR TAB 50 MG PO SCH ×2 (07:59→20:43)
[2016-07-11] MEDS: LOVENOX INJ 30 MG SYR SC SCH ×2 (08:02→20:42)
[2016-07-11] MEDS: NAMENDA TAB 10 MG PO SCH (08:08)
[2016-07-11] MEDS: PriLOSEC PO SCH ×2 (08:08→20:43)
[2016-07-11] MEDS: MILK OF MAGNESIA PO SCH ×2 (08:08→08:13)
[2016-07-11] MEDS: CHECK PATCH XX SCH ×2 (08:11→20:51)
[2016-07-11] MEDS: MAGIC MOUTHWASH MT SCH ×4 (08:12→20:44)
[2016-07-11] MEDS: ROCEPHIN VIAL 1 GM 1 GM in NS 50 ML IV + SPIKE MINIBAG* 50 ML IV SCH (08:15)
[2016-07-11] MEDS: DUONEB 0.5 MG/3 MG NEB SCH ×4 (08:31→20:47)
[2016-07-11] MEDS ORDERED: ZESTRIL TAB 20 MG ONE (20:32)
[2016-07-11] MEDS: ZOCOR TAB 20 MG PO SCH (20:43)
[2016-07-11] MEDS: ZETIA TAB 10 MG PO SCH (20:43)
[2016-07-11] MEDS: ZESTRIL TAB 20 MG PO SCH (20:43)
[2016-07-12] MEDS: NS 1/2 1000 ML IV 1,000 ML IV SCH ×3 (05:13→22:01)
[2016-07-12 05:43] LABS: BASOPHILS # (AUTO) 0.2 X10^3/uL (0.0-0.1); EOSINOPHILS # (AUTO) 0.3 x10^3/uL (0.0-0.2); EOSINOPHILS % (AUTO) 2.9 % (0.9-2.9); HEMATOCRIT 27.3 % (36.0-47.0); HEMOGLOBIN 8.7 g/dL (12.0-16.0); LYMPHOCYTES # (AUTO) 3.4 X10^3/uL (1.3-2.9); LYMPHOCYTES % (AUTO) 34.8 % (21.0-51.0); MEAN CORPUSCULAR HEMOGLOBIN 29.7 pg (27.0-34.0); MEAN CORPUSCULAR HGB CONC 31.8 g/dL (33.0-35.0); MEAN CORPUSCULAR VOLUME 93.4 fL (80.0-100.0); MEAN PLATELET VOLUME 11.1 fL (7.4-11.0); MONOCYTES # (AUTO) 0.7 x10^3/uL (0.3-0.8); MONOCYTES % (AUTO) 6.9 % (0.0-13.0); NEUTROPHILS # (AUTO) 5.2 x10^3/uL (2.2-4.8); NEUTROPHILS % (AUTO) 53.4 % (42.0-75.0); PLATELET COUNT 270 X10^3/uL (150.0-450.0); RED BLOOD COUNT 2.92 X10^6/uL (3.5-5.4); RED CELL DISTRIBUTION WIDTH 16.1 % (11.6-16.5); WHITE BLOOD COUNT 9.8 X10^3/uL (3.6-10.0)
[2016-07-12 05:54] LABS: ALBUMIN 3.2 g/dL (3.4-5.0); CALCIUM 8.4 mg/dL (8.5-10.1); CARBON DIOXIDE 15.6 mmol/L (21-32); CREATININE 1.43 mg/dL (0.55-1.02); TOTAL PROTEIN 6.2 g/dL (6.4-8.2)
--- NOTE | 2016-07-12 06:33 | RAD ---
HISTORY: Respiratory distress Study: Chest one view Comparison: July 11, 2016 Findings: The heart is enlarged. Mild pulmonary venous congestion is present. No interstitial or alveolar pulm onary edema or alveolar infiltrates are identified. Hyperinflation is present. No pleural effusions are identified. The bony thorax is unremarkable. IMPRESSION: Cardiomegaly with mild pulmonary venous congestion. Hyperinflation consistent with COPD in the appropriate clinical setting Reported By:
[2016-07-12] MEDS: ALBUMIN HUMAN 25%- 100ML 100 ML IV SCH (08:16)
[2016-07-12] MEDS: LOVENOX INJ 30 MG SYR SC SCH ×2 (08:17→22:01)
[2016-07-12] MEDS: MILK OF MAGNESIA PO SCH (08:18)
[2016-07-12] MEDS: LOPRESSOR TAB 50 MG PO SCH ×2 (08:18→22:01)
[2016-07-12] MEDS: DIAMOX PO SCH (08:19)
[2016-07-12] MEDS: MEGACE PO SCH ×2 (08:19→22:00)
[2016-07-12] MEDS: COLACE CAP 100 MG PO SCH ×2 (08:19→22:01)
[2016-07-12] MEDS: NAMENDA TAB 10 MG PO SCH (08:19)
[2016-07-12] MEDS: ROCEPHIN VIAL 1 GM 1 GM in NS 50 ML IV + SPIKE MINIBAG* 50 ML IV SCH (08:20)
[2016-07-12] MEDS: PriLOSEC PO SCH ×2 (08:20→22:00)
[2016-07-12] MEDS: DUONEB 0.5 MG/3 MG NEB SCH ×3 (08:31→20:27)
[2016-07-12] MEDS: MAGIC MOUTHWASH MT SCH ×4 (09:19→22:01)
[2016-07-12] MEDS: CHECK PATCH XX SCH ×2 (09:19→22:02)
--- NOTE | 2016-07-12 15:41 | NM ---
HISTORY: Generalized weakness, anemia, rule out metastatic disease Study: Nuclear medicine whole-body bone scan Comparison: None Technique: Whole body bone scintigraphy was performed in the anterior and posterior projection after the intravenous administration of 25.5 mCi of technetium labeled MDP injected in the right antecubi onesimo fossa. Findings: Physiologic distribution of radiotracer is observed throughout the appendicular and axial skeleton. Normal soft tissue uptake and renal excretion is noted. No pathologic focal tracer accumulation is seen. IMPRESSION: Normal whole body bone scan. Reported By:
[2016-07-12] MEDS ORDERED: ZESTRIL TAB 20 MG ONE (21:23)
[2016-07-12] MEDS: ZOCOR TAB 20 MG PO SCH (22:00)
[2016-07-12] MEDS: ZETIA TAB 10 MG PO SCH (22:00)
[2016-07-12] MEDS: ZESTRIL TAB 20 MG PO SCH (22:01)
[2016-07-13] MEDS: NS 1/2 1000 ML IV 1,000 ML IV SCH (05:28)
--- NOTE | 2016-07-13 06:24 | RAD ---
HISTORY: Respiratory distress Study: Chest one view Comparison: July 12, 2016 Findings: The heart is enlarged. Mild pulmonary venous congestion is present. No interstitial edema, alveolar edema, alveolar infiltrates, or pleural effusions are identified. The lungs are hyperinflated. The a cassi is calcified. The bony thorax is unremarkable. IMPRESSION: Cardiomegaly with mild pulmonary venous congestion. Lungs hyperinflated but free of acute infiltrates, consistent with COPD Reported By:
[2016-07-13] MEDS: DUONEB 0.5 MG/3 MG NEB SCH ×4 (09:05→21:00)
[2016-07-13] MEDS: NAMENDA TAB 10 MG PO SCH ×2 (09:37→12:36)
[2016-07-13] MEDS: PriLOSEC PO SCH ×3 (09:37→21:49)
[2016-07-13] MEDS: MILK OF MAGNESIA PO SCH ×2 (09:37→12:36)
[2016-07-13] MEDS: LOPRESSOR TAB 50 MG PO SCH ×4 (09:37→21:56)
[2016-07-13] MEDS: COLACE CAP 100 MG PO SCH ×3 (09:38→21:49)
[2016-07-13] MEDS: MEGACE PO SCH ×3 (09:38→21:49)
[2016-07-13] MEDS: DIAMOX PO SCH ×2 (09:38→12:35)
[2016-07-13] MEDS: LOVENOX INJ 30 MG SYR SC SCH ×3 (09:38→21:49)
[2016-07-13] MEDS: CHECK PATCH XX SCH ×2 (10:11→21:57)
[2016-07-13] MEDS: ALBUMIN HUMAN 25%- 100ML 100 ML IV SCH (10:11)
[2016-07-13] MEDS: ROCEPHIN VIAL 1 GM 1 GM in NS 50 ML IV + SPIKE MINIBAG* 50 ML IV SCH (10:12)
[2016-07-13] MEDS: MAGIC MOUTHWASH MT SCH ×4 (10:12→21:55)
[2016-07-13] MEDS: HALDOL INJ IM PRN (11:01)
--- NOTE | 2016-07-13 12:36 | PCM.PROG ---
Progress Note - Progress Note for Day of Date: 07/12/16 - Subjective Subjective: PATIENT IS CONFUSED UPON ROUNDS. WE HAD PLANNED FOR DISCHARGE TODAY ; HOWEVER, PATIENT IS MORE CONFUSED TODAY AND IS REFUSING TO EAT, REFUSING MEDICATIONS, LABS, AND VITAL SIGNS. PATIENT CONTINUES WITH SHORTNESS OF BREATH THIS MORNING. LEFT LOWER EXTREMITY CELLLULITIS CONTINUES TO IMPROVE. ON AUSCULTATION, LUNGS ARE NOTED WITH SCATTERED WHEEZING THROUGHOUT. CBC WNL EXCEPT: H/H 8.7/27.3. CMP WNL EXCEPT: CHL 113, CARBON DIOXIDE 15.6, BUN/CREAT 22/1.43, GFR 37, CALCIUM 8.4, ALK PHOS 261, TOT PROTEIN 6.2, ALBUMIN 3.2. PATIENT IS SCHEDULED FOR A 3-PHASE BONE SCAN TODAY. CHEST XRAY REPORTS CARDIOMEGALY WITH MILD PULMONARY VENOUS CONGESTION; HYPERINFLATION CONSISTENT WITH COPD. WE WILL CONTINUE CURRENT TREATMENT AND MONITOR LABS. WE WILL FOLLOW UP IN AM WITH LABS AND CHEST XRAY. - Past Medical Family Social History Past Med/Fam/Surg Hx: No changes since H&P Allergies: Allergies No Known Drug Allergy Allergy (Verified 07/05/16 12:41) - Review of Systems ROS: No change since H&P - Vital Signs and I&O's Vital Signs: Temperature 97.6 F Pulse Rate [Left Brachial] 89 Pulse Rate [Apical] 111 Pulse Rate [Right Brachial] 81 Pulse Rate 125 Respiratory Rate 20 Blood Pressure [Right Arm] 175/98 Blood Pressure [Left Arm] 128/90 O2 Sat by Pulse Oximetry 95 Intake and Output: Intake & Output 07/11/16 07/12/16 07/13/16 07/14/16 11:59 11:59 11:59 11:59 Intake Total 3228 2385 1085 Balance 3228 2385 1085 - Physical Exam Oriented: Normal, Time, Person, Place Eyes: Normal. negative: Blurred Vision, Diplopia, Discharge, Pain, Redness, Photophobia Ear: Normal. negative: Swelling, Ecchymosis, Hemotypanum, Abrasion, Laceration Nose: Normal. negative: Injected, Discharge, Blood Throat: Normal. negative: Tonsillar Hypertrophy, Red, Exudate Respiratory: Generalized, Wheezes Cardiovascular: Normal. negative: Murmur, Edema : Normal. negative: Dysuria, Hematuria, Frequency, Discharge, Bleeding, Auscultation: Bowel Sounds: Normal. negative: Bruit Palpation: Normal. negative: Spleen Enlarged, Liver Enlarged, Mass Pulsatile Tenderness: Diffuse, Moderate. negative: Rebound, Guarding, Rigidity Musculoskeletal: Left (Lower Extremity), Swelling, Tender Psychiatric: Normal Mood Description: Calm, Appropriate Affect: Normal Speech Pattern: Clear, Appropriate - Laboratory and Diagnostics Result Diagrams: 07/12/16 04:40 07/12/16 04:40 Labs: Laboratory WBC 9.8 X10^3/uL (3.6-10.0) 07/12/16 04:40 RBC 2.92 X10^6/uL (3.5-5.4) L 07/12/16 04:40 Hgb 8.7 g/dL (12.0-16.0) L 07/12/16 04:40 Hct 27.3 % (36.0-47.0) L 07/12/16 04:40 MCV 93.4 fL (80.0-100.0) 07/12/16 04:40 MCH 29.7 pg (27.0-34.0) 07/12/16 04:40 MCHC 31.8 g/dL (33.0-35.0) L 07/12/16 04:40 RDW 16.1 % (11.6-16.5) 07/12/16 04:40 Plt Count 270 X10^3/uL (150.0-450.0) 07/12/16 04:40 Plt Count Comment Adequate (ADEQUATE) 07/05/16 13:00 MPV 11.1 fL (7.4-11.0) H 07/12/16 04:40 Neut % 53.4 % (42.0-75.0) 07/12/16 04:40 Lymph % 34.8 % (21.0-51.0) 07/12/16 04:40 [place] % 6.9 % (0.0-13.0) 07/12/16 04:40 Eos % 2.9 % (0.9-2.9) 07/12/16 04:40 Baso % 2.0 % (0.2-1.0) H 07/12/16 04:40 Neut # 5.2 x10^3/uL (2.2-4.8) H 07/12/16 04:40 Lymph # 3.4 X10^3/uL (1.3-2.9) H 07/12/16 04:40 [place] # 0.7 x10^3/uL (0.3-0.8) 07/12/16 04:40 Eos # 0.3 x10^3/uL (0.0-0.2) H 07/12/16 04:40 Baso # 0.2 X10^3/uL (0.0-0.1) H 07/12/16 04:40 Absolute Nucleated RBC 0.1 /100WBC 07/12/16 04:40 Total Counted 100 07/05/16 13:00 Neutrophils % (Manual) 78 % (39-76) H 07/05/16 13:00 Band Neutrophils % 12 % (0-10) H 07/05/16 13:00 Lymphocytes % (Manual) 7 % (13-43) L 07/05/16 13:00 Monocytes % (Manual) 3 % (4-9) L 07/05/16 13:00 Plt Morphology Comment Normal (NORMAL) 07/05/16 13:00 RBC Morphology Normal (NORMAL) 07/05/16 13:00 INR Target Range - 07/06/16 05:20 INR 1.31 (0.8-1.3) H 07/06/16 05:20 PTT 34.4 SECONDS (22.9-36.5) 07/06/16 05:20 PTT Comment - 07/06/16 05:20 Sodium 144 mmol/L (136-145) 07/12/16 04:40 Corrected Sodium 144 mmol/L (136-145) 07/12/16 04:40 Potassium 4.0 mmol/L (3.5-5.1) 07/12/16 04:40 Chloride 113 mmol/L (98-107) H 07/12/16 04:40 Carbon Dioxide 15.6 mmol/L (21-32) L 07/12/16 04:40 BUN 22 mg/dL (7-18) H 07/12/16 04:40 Creatinine 1.43 mg/dL (0.55-1.02) H 07/12/16 04:40 Est GFR (MDRD) Af Amer 45 (>60) L 07/12/16 04:40 Est GFR (MDRD) Non-Af 37 (>60) L 07/12/16 04:40 Glucose 115 mg/dL (65-99) H 07/12/16 04:40 Calcium 8.4 mg/dL (8.5-10.1) L 07/12/16 04:40 Corrected Calcium 9.0 mg/dL (8.5-10.1) 07/12/16 04:40 Ionized Calcium [place] 1.25 mmol/L (1.11-1.30) 07/09/16 10:25 Ionized Calcium pH 7.4 1.11 mmol/L (1.11-1.30) 07/09/16 10:25 Magnesium 1.7 mg/dL (1.7-2.9) 07/06/16 05:20 Total Bilirubin 0.40 mg/dL (0.2-1.0) 07/12/16 04:40 AST 33 Units/L (15-37) 07/12/16 04:40 ALT 42 Units/L (12-78) 07/12/16 04:40 Alkaline Phosphatase 261 Units/L (46-116) H 07/12/16 04:40 Creatine Kinase 86 Units/L (26-192) 07/06/16 01:25 CK-MB (CK-2) 1.1 ng/mL (0-4.0) 07/06/16 01:25 CK/CKMB % Calc 1.3 % (<4) 07/06/16 01:25 Troponin I 0.25 ng/mL (0-1.5) 07/06/16 01:25 B-Natriuretic Peptide 771 pg/mL (0-79) H* 07/05/16 13:00 Total Protein 6.2 g/dL (6.4-8.2) L 07/12/16 04:40 Albumin 3.2 g/dL (3.4-5.0) L 07/12/16 04:40 Globulin 3.0 g/dL (2.5-4.5) 07/12/16 04:40 Albumin/Globulin Ratio 1.1 Ratio (1.1-2.1) 07/12/16 04:40 Triglycerides 59 mg/dL (0-150) 07/06/16 05:20 Cholesterol 67 mg/dL (0-200) 07/06/16 05:20 LDL Cholesterol, Calc 27 mg/dL (0-100) 07/06/16 05:20 HDL Cholesterol 28 mg/dL (40-60) L 07/06/16 05:20 Cholesterol/HDL Ratio 2.4 (0.0-5.0) 07/06/16 05:20 Amylase 35 Units/L (25-115) 07/05/16 13:00 Lipase 127 Units/L (73-393) 07/05/16 13:00 Specimen Type Random urine 07/05/16 13:27 Urine Color Yellow (YELLOW) 07/05/16 13:27 Urine Appearance Hazy (CLEAR) 07/05/16 13:27 Urine pH 6.0 (5.0 - 8.0) 07/05/16 13:27 Ur Specific [place] 1.020 (1.000-1.030) 07/05/16 13:27 Urine Protein 1+ (NEGATIVE) 07/05/16 13:27 Urine Glucose (UA) Negative (NEGATIVE) 07/05/16 13:27 Urine Ketones Negative (NEGATIVE) 07/05/16 13:27 Urine Occult Blood 1+ (NEGATIVE) 07/05/16 13:27 Urine Nitrite Negative (NEGATIVE) 07/05/16 13:27 Urine Bilirubin Negative (NEGATIVE) 07/05/16 13:27 Urine Urobilinogen Normal (NORMAL) 07/05/16 13:27 Ur Leukocyte Esterase 1+ (NEGATIVE) 07/05/16 13:27 Urine RBC 3-5 /HPF (NEGATIVE) 07/05/16 13:27 Urine WBC 10-15 /HPF (NEGATIVE) 07/05/16 13:27 Ur Squamous Epith Cells Moderate /HPF (NEGATIVE) 07/05/16 13:27 Amorphous Sediment Trace /HPF (NEGATIVE) 07/05/16 13:27 Urine Bacteria Trace /HPF (NEGATIVE) 07/05/16 13:27 Ur Culture Indicated? No/not indicated 07/05/16 13:27 Hepatitis A IgM Ab Negative (Negative) 07/06/16 10:55 Hep Bs Antigen Negative (Negative) 07/06/16 10:55 Hep Bs Ag Confirmation TNP 07/06/16 10:55 Hep B Core IgM Ab Negative (Negative) 07/06/16 10:55 Hepatitis C Ab Index 0.10 IV 07/06/16 10:55 Hepatitis C Interp Negative (Negative) 07/06/16 10:55 Hepatitis Interpret See note 07/06/16 10:55 - Plan (1) Altered mental status Status: Acute Qualifiers: Altered mental status type: A Coma depth: C Coma timing: C (2) Cellulitis Status: Acute Qualifiers: Site of cellulitis: extremity Site of cellulitis of extremity: lower extremity Site of cellulitis of trunk: S Laterality: left Qualified Code(s ): L03.116 - Cellulitis of left lower limb Plan: CONTINUE ROCEPHIN IV, MONITOR FOR INCREASING CELLULITIS. (3) Respiratory distress Status: Acute Plan: CONTINUE SUPPLEMENTAL OXYGEN, MONITOR. (4) Dehydration Status: Acute Plan: CONTINUE IV FLUIDS, MONITOR. (5) Elevated LFTs Status: Acute Plan: CONTINUE IV FLUIDS, MONITOR LABS. (6) Hypertension Status: Chronic Qualifiers: Hypertension type: essential hypertension Qualified Code(s): I10 - Essential (primary) hypertension Plan: CONTINUE LISINOPRIL, METOPROLOL, CATAPRES PATCH, MONITOR. (7) CHF (congestive heart failure) Status: Chronic Qualifiers: Congestive heart failure type: combined Congestive heart failure chronicity : acute on chronic Qualified Code(s): I50.43 - Acute on chronic combined systolic (congestive) and diastolic (congestive) heart failure Plan: CONITNUE TO MONITOR CHEST XRAY. (8) GERD (gastroesophageal reflux disease) Status: Chronic Qualifiers: Esophagitis presence: esophagitis presence not specified Qualified Code(s) : K21.9 - Gastro-esophageal reflux disease without esophagitis (9) Gout Status: Chronic Qualifiers: Gout site: multiple sites Gout etiology: idiopathic Encounter type: E Laterality: L Chronicity: chronic Presence of tophus: without tophus Qualified Code(s): M1A.09X0 - Idiopathic chronic gout, multiple sites, without tophus (tophi) (10) Hyperlipidemia Status: Chronic Qualifiers: Hyperlipidemia type: mixed hyperlipidemia Qualified Code(s): E78.2 - Mixed hyperlipidemia (11) Renal failure Status: Chronic Qualifiers: Renal failure chronicity: chronic Acute renal failure type: A Chronic kidney disease stage: stage 3 (moderate) Qualified Code(s): N18.3 - Chronic kidney disease, stage 3 (moderate) (12) Vascular dementia Status: Chronic Qualifiers: Dementia behavioral disturbance: without behavioral disturbance Qualified Code(s): F01.50 - Vascular dementia without behavioral disturbance
--- NOTE | 2016-07-13 12:53 | PCM.PROG ---
Progress Note - Progress Note for Day of Date: 07/13/16 - Subjective Subjective: PATIENT CONTINUES WITH CONFUSION THIS MORNING. GRANDDAUGHTER AT BEDSIDE. PATIENT CONTINUES WITH REFUSING TO EAT, REFUSING MEDICATIONS, LABS, AND VITAL SIGNS. PATIENT IS UNCOOPERATIVE WITH TREATMENT. PATIENT CONTINUES WITH SHORTNESS OF BREATH THIS MORNING. LEFT LOWER EXTREMITY CELLLULITIS CONTINUES TO IMPROVE. ON AUSCULTATION, LUNGS CONTINUE WITH SCATTERED WHEEZING THROUGHOUT. BONE SCAN IS NORMAL. CHEST XRAY REPORTS CARDIOMEGALY WITH MILD PULMONARY VENOUS CONGESTION; HYPERINFLATION CONSISTENT WITH COPD. WE WILL START HALDOL AND ZYPREXA, CONTINUE CURRENT TREATMENT, AND MONITOR LABS. WE WILL FOLLOW UP IN AM WITH LABS AND CHEST XRAY. - Past Medical Family Social History Past Med/Fam/Surg Hx: No changes since H&P Allergies: Allergies No Known Drug Allergy Allergy (Verified 07/05/16 12:41) - Review of Systems ROS: No change since H&P - Vital Signs and I&O's Vital Signs: Temperature 97.6 F Pulse Rate [Left Brachial] 89 Pulse Rate [Apical] 111 Pulse Rate [Right Brachial] 81 Pulse Rate 125 Respiratory Rate 20 Blood Pressure [Right Arm] 175/98 Blood Pressure [Left Arm] 128/90 O2 Sat by Pulse Oximetry 95 Intake and Output: Intake & Output 07/11/16 07/12/16 07/13/16 07/14/16 11:59 11:59 11:59 11:59 Intake Total 3228 2385 1085 Balance 3228 2385 1085 - Physical Exam Oriented: Normal, Time, Person, Place Eyes: Normal. negative: Blurred Vision, Diplopia, Discharge, Pain, Redness, Photophobia Ear: Normal. negative: Swelling, Ecchymosis, Hemotypanum, Abrasion, Laceration Nose: Normal. negative: Injected, Discharge, Blood Throat: Normal. negative: Tonsillar Hypertrophy, Red, Exudate Respiratory: Generalized, Wheezes Cardiovascular: Normal. negative: Murmur, Edema : Normal. negative: Dysuria, Hematuria, Frequency, Discharge, Bleeding, Auscultation: Bowel Sounds: Normal. negative: Bruit Palpation: Normal Tenderness: Normal. negative: Rebound, Guarding, Rigidity Musculoskeletal: Left (Lower Extremity), Swelling, Tender Psychiatric: Other (Confusion) Mood Description: Hostile, Withdrawn Speech Pattern: Clear, Inappropriate - Laboratory and Diagnostics Result Diagrams: 07/12/16 04:40 07/12/16 04:40 Labs: Laboratory WBC 9.8 X10^3/uL (3.6-10.0) 07/12/16 04:40 RBC 2.92 X10^6/uL (3.5-5.4) L 07/12/16 04:40 Hgb 8.7 g/dL (12.0-16.0) L 07/12/16 04:40 Hct 27.3 % (36.0-47.0) L 07/12/16 04:40 MCV 93.4 fL (80.0-100.0) 07/12/16 04:40 MCH 29.7 pg (27.0-34.0) 07/12/16 04:40 MCHC 31.8 g/dL (33.0-35.0) L 07/12/16 04:40 RDW 16.1 % (11.6-16.5) 07/12/16 04:40 Plt Count 270 X10^3/uL (150.0-450.0) 07/12/16 04:40 Plt Count Comment Adequate (ADEQUATE) 07/05/16 13:00 MPV 11.1 fL (7.4-11.0) H 07/12/16 04:40 Neut % 53.4 % (42.0-75.0) 07/12/16 04:40 Lymph % 34.8 % (21.0-51.0) 07/12/16 04:40 [place] % 6.9 % (0.0-13.0) 07/12/16 04:40 Eos % 2.9 % (0.9-2.9) 07/12/16 04:40 Baso % 2.0 % (0.2-1.0) H 07/12/16 04:40 Neut # 5.2 x10^3/uL (2.2-4.8) H 07/12/16 04:40 Lymph # 3.4 X10^3/uL (1.3-2.9) H 07/12/16 04:40 [place] # 0.7 x10^3/uL (0.3-0.8) 07/12/16 04:40 Eos # 0.3 x10^3/uL (0.0-0.2) H 07/12/16 04:40 Baso # 0.2 X10^3/uL (0.0-0.1) H 07/12/16 04:40 Absolute Nucleated RBC 0.1 /100WBC 07/12/16 04:40 Total Counted 100 07/05/16 13:00 Neutrophils % (Manual) 78 % (39-76) H 07/05/16 13:00 Band Neutrophils % 12 % (0-10) H 07/05/16 13:00 Lymphocytes % (Manual) 7 % (13-43) L 07/05/16 13:00 Monocytes % (Manual) 3 % (4-9) L 07/05/16 13:00 Plt Morphology Comment Normal (NORMAL) 07/05/16 13:00 RBC Morphology Normal (NORMAL) 07/05/16 13:00 INR Target Range - 07/06/16 05:20 INR 1.31 (0.8-1.3) H 07/06/16 05:20 PTT 34.4 SECONDS (22.9-36.5) 07/06/16 05:20 PTT Comment - 07/06/16 05:20 Sodium 144 mmol/L (136-145) 07/12/16 04:40 Corrected Sodium 144 mmol/L (136-145) 07/12/16 04:40 Potassium 4.0 mmol/L (3.5-5.1) 07/12/16 04:40 Chloride 113 mmol/L (98-107) H 07/12/16 04:40 Carbon Dioxide 15.6 mmol/L (21-32) L 07/12/16 04:40 BUN 22 mg/dL (7-18) H 07/12/16 04:40 Creatinine 1.43 mg/dL (0.55-1.02) H 07/12/16 04:40 Est GFR (MDRD) Af Amer 45 (>60) L 07/12/16 04:40 Est GFR (MDRD) Non-Af 37 (>60) L 07/12/16 04:40 Glucose 115 mg/dL (65-99) H 07/12/16 04:40 Calcium 8.4 mg/dL (8.5-10.1) L 07/12/16 04:40 Corrected Calcium 9.0 mg/dL (8.5-10.1) 07/12/16 04:40 Ionized Calcium [place] 1.25 mmol/L (1.11-1.30) 07/09/16 10:25 Ionized Calcium pH 7.4 1.11 mmol/L (1.11-1.30) 07/09/16 10:25 Magnesium 1.7 mg/dL (1.7-2.9) 07/06/16 05:20 Total Bilirubin 0.40 mg/dL (0.2-1.0) 07/12/16 04:40 AST 33 Units/L (15-37) 07/12/16 04:40 ALT 42 Units/L (12-78) 07/12/16 04:40 Alkaline Phosphatase 261 Units/L (46-116) H 07/12/16 04:40 Creatine Kinase 86 Units/L (26-192) 07/06/16 01:25 CK-MB (CK-2) 1.1 ng/mL (0-4.0) 07/06/16 01:25 CK/CKMB % Calc 1.3 % (<4) 07/06/16 01:25 Troponin I 0.25 ng/mL (0-1.5) 07/06/16 01:25 B-Natriuretic Peptide 771 pg/mL (0-79) H* 07/05/16 13:00 Total Protein 6.2 g/dL (6.4-8.2) L 07/12/16 04:40 Albumin 3.2 g/dL (3.4-5.0) L 07/12/16 04:40 Globulin 3.0 g/dL (2.5-4.5) 07/12/16 04:40 Albumin/Globulin Ratio 1.1 Ratio (1.1-2.1) 07/12/16 04:40 Triglycerides 59 mg/dL (0-150) 07/06/16 05:20 Cholesterol 67 mg/dL (0-200) 07/06/16 05:20 LDL Cholesterol, Calc 27 mg/dL (0-100) 07/06/16 05:20 HDL Cholesterol 28 mg/dL (40-60) L 07/06/16 05:20 Cholesterol/HDL Ratio 2.4 (0.0-5.0) 07/06/16 05:20 Amylase 35 Units/L (25-115) 07/05/16 13:00 Lipase 127 Units/L (73-393) 07/05/16 13:00 Specimen Type Random urine 07/05/16 13:27 Urine Color Yellow (YELLOW) 07/05/16 13:27 Urine Appearance Hazy (CLEAR) 07/05/16 13:27 Urine pH 6.0 (5.0 - 8.0) 07/05/16 13:27 Ur Specific [place] 1.020 (1.000-1.030) 07/05/16 13:27 Urine Protein 1+ (NEGATIVE) 07/05/16 13:27 Urine Glucose (UA) Negative (NEGATIVE) 07/05/16 13:27 Urine Ketones Negative (NEGATIVE) 07/05/16 13:27 Urine Occult Blood 1+ (NEGATIVE) 07/05/16 13:27 Urine Nitrite Negative (NEGATIVE) 07/05/16 13:27 Urine Bilirubin Negative (NEGATIVE) 07/05/16 13:27 Urine Urobilinogen Normal (NORMAL) 07/05/16 13:27 Ur Leukocyte Esterase 1+ (NEGATIVE) 07/05/16 13:27 Urine RBC 3-5 /HPF (NEGATIVE) 07/05/16 13:27 Urine WBC 10-15 /HPF (NEGATIVE) 07/05/16 13:27 Ur Squamous Epith Cells Moderate /HPF (NEGATIVE) 07/05/16 13:27 Amorphous Sediment Trace /HPF (NEGATIVE) 07/05/16 13:27 Urine Bacteria Trace /HPF (NEGATIVE) 07/05/16 13:27 Ur Culture Indicated? No/not indicated 07/05/16 13:27 Hepatitis A IgM Ab Negative (Negative) 07/06/16 10:55 Hep Bs Antigen Negative (Negative) 07/06/16 10:55 Hep Bs Ag Confirmation TNP 07/06/16 10:55 Hep B Core IgM Ab Negative (Negative) 07/06/16 10:55 Hepatitis C Ab Index 0.10 IV 07/06/16 10:55 Hepatitis C Interp Negative (Negative) 07/06/16 10:55 Hepatitis Interpret See note 07/06/16 10:55 - Plan (1) Altered mental status Status: Acute Qualifiers: Altered mental status type: delirium Coma depth: C Coma timing: C Qualified Code(s): R41.0 - Disorientation, unspecified Plan: START HALDOL, ZYPREXA, MONITOR. (2) Cellulitis Status: Acute Qualifiers: Site of cellulitis: extremity Site of cellulitis of extremity: lower extremity Site of cellulitis of trunk: S Laterality: left Qualified Code(s ): L03.116 - Cellulitis of left lower limb Plan: CONTINUE ROCEPHIN IV, MONITOR FOR INCREASING CELLULITIS. (3) Respiratory distress Status: Acute Plan: CONTINUE SUPPLEMENTAL OXYGEN, MONITOR. (4) Dehydration Status: Acute Plan: CONTINUE IV FLUIDS, MONITOR. (5) Elevated LFTs Status: Acute Plan: CONTINUE IV FLUIDS, MONITOR LABS. (6) Vascular dementia Status: Chronic Qualifiers: Dementia behavioral disturbance: without behavioral disturbance Qualified Code(s): F01.50 - Vascular dementia without behavioral disturbance Plan: ABOVE. (7) Hypertension Status: Chronic Qualifiers: Hypertension type: essential hypertension Qualified Code(s): I10 - Essential (primary) hypertension Plan: CONTINUE LISINOPRIL, METOPROLOL, CATAPRES PATCH, MONITOR. (8) CHF (congestive heart failure) Status: Chronic Qualifiers: Congestive heart failure type: combined Congestive heart failure chronicity : acute on chronic Qualified Code(s): I50.43 - Acute on chronic combined systolic (congestive) and diastolic (congestive) heart failure Plan: CONITNUE TO MONITOR CHEST XRAY. (9) GERD (gastroesophageal reflux disease) Status: Chronic Qualifiers: Esophagitis presence: esophagitis presence not specified Qualified Code(s) : K21.9 - Gastro-esophageal reflux disease without esophagitis (10) Gout Status: Chronic Qualifiers: Gout site: multiple sites Gout etiology: idiopathic Encounter type: E Laterality: L Chronicity: chronic Presence of tophus: without tophus Qualified Code(s): M1A.09X0 - Idiopathic chronic gout, multiple sites, without tophus (tophi) (11) Hyperlipidemia Status: Chronic Qualifiers: Hyperlipidemia type: mixed hyperlipidemia Qualified Code(s): E78.2 - Mixed hyperlipidemia (12) Renal failure Status: Chronic Qualifiers: Renal failure chronicity: chronic Acute renal failure type: A Chronic kidney disease stage: stage 3 (moderate) Qualified Code(s): N18.3 - Chronic kidney disease, stage 3 (moderate)
[2016-07-13] MEDS ORDERED: CARDIZEM CD 240 MG PO ONE (16:28)
[2016-07-13] MEDS ORDERED: CARDIZEM INJ 125 MG VIAL ONE (19:23)
[2016-07-13] MEDS ORDERED: NS 100 ML IV 100 ML IV ONE (19:24)
[2016-07-13] MEDS ORDERED: CARDIZEM INJ 50 MG VIAL ONE (19:29)
[2016-07-13] MEDS: CARDIZEM INJ 125 MG VIAL 125 MG in NS 100 ML IV 100 ML IV PRN (19:31)
[2016-07-13 19:32] LABS: BASOPHILS % (AUTO) 0.3 % (0.2-1.0); EOSINOPHILS % (AUTO) 0.3 % (0.9-2.9); HEMATOCRIT 30.1 % (36.0-47.0); HEMOGLOBIN 9.4 g/dL (12.0-16.0); LYMPHOCYTES # (AUTO) 2.2 X10^3/uL (1.3-2.9); LYMPHOCYTES % (AUTO) 18.1 % (21.0-51.0); MEAN CORPUSCULAR HEMOGLOBIN 29.5 pg (27.0-34.0); MEAN CORPUSCULAR HGB CONC 31.4 g/dL (33.0-35.0); MEAN CORPUSCULAR VOLUME 94.1 fL (80.0-100.0); MONOCYTES # (AUTO) 0.8 x10^3/uL (0.3-0.8); MONOCYTES % (AUTO) 6.6 % (0.0-13.0); NEUTROPHILS # (AUTO) 9.1 x10^3/uL (2.2-4.8); NEUTROPHILS % (AUTO) 74.7 % (42.0-75.0); PLATELET COUNT 325 X10^3/uL (150.0-450.0); RED CELL DISTRIBUTION WIDTH 16.5 % (11.6-16.5); WHITE BLOOD COUNT 12.1 X10^3/uL (3.6-10.0)
[2016-07-13 19:34] LABS: ABG BASE EXCESS -15.7 mmol/L (-2.0-2.0)
[2016-07-13 19:35] LABS: ABG ALLEN TEST POS; ABG HCO3 9.4 mmol/L (22-26)
[2016-07-13 19:41] LABS: ALANINE AMINOTRANSFERASE 42 Units/L (12-78); ALBUMIN 3.8 g/dL (3.4-5.0); ALKALINE PHOSPHATASE 274 Units/L (46-116); ASPARTATE AMINO TRANSFERASE 29 Units/L (15-37); BLOOD UREA NITROGEN 32 mg/dL (7-18); CALCIUM 9.2 mg/dL (8.5-10.1); CHLORIDE 111 mmol/L (98-107); CREATININE 1.78 mg/dL (0.55-1.02); GLUCOSE 97 mg/dL (65-99); SODIUM 139 mmol/L (136-145); TOTAL PROTEIN 6.8 g/dL (6.4-8.2); eGFR BLACK RACES 35 (>60); eGFR NON BLACK RACES 29 (>60)
[2016-07-13 19:42] LABS: CARBON DIOXIDE 10.9 mmol/L (21-32)
[2016-07-13] MEDS ORDERED: NS 1/2 1000 ML IV 1,000 ML IV ONE (20:05)
[2016-07-13] MEDS ORDERED: SODIUM BICARBONATE 8.4% INJ ADULT ONE (20:16)
[2016-07-13] MEDS: SODIUM BICARBONATE IV SCH ×2 (20:22)
[2016-07-13] MEDS: NS IV SCH ×2 (20:22)
[2016-07-13] MEDS: ZOCOR TAB 20 MG PO SCH (21:55)
[2016-07-13] MEDS: ZETIA TAB 10 MG PO SCH (21:55)
[2016-07-13] MEDS: ZESTRIL TAB 20 MG PO SCH (21:55)
[2016-07-14] MEDS: DUONEB 0.5 MG/3 MG NEB SCH ×7 (01:01→21:08)
[2016-07-14] MEDS: CARDIZEM INJ 125 MG VIAL 125 MG in NS 100 ML IV 100 ML IV PRN ×4 (02:50→18:57)
[2016-07-14 05:00] LABS: BASOPHILS # (AUTO) 0.1 X10^3/uL (0.0-0.1); BASOPHILS % (AUTO) 1.2 % (0.2-1.0); EOSINOPHILS # (AUTO) 0.1 x10^3/uL (0.0-0.2); EOSINOPHILS % (AUTO) 0.5 % (0.9-2.9); HEMATOCRIT 27.1 % (36.0-47.0); HEMOGLOBIN 8.5 g/dL (12.0-16.0); LYMPHOCYTES # (AUTO) 2.7 X10^3/uL (1.3-2.9); LYMPHOCYTES % (AUTO) 22.2 % (21.0-51.0); MEAN CORPUSCULAR HEMOGLOBIN 29.7 pg (27.0-34.0); MEAN CORPUSCULAR HGB CONC 31.6 g/dL (33.0-35.0); MEAN CORPUSCULAR VOLUME 94.2 fL (80.0-100.0); MEAN PLATELET VOLUME 11.1 fL (7.4-11.0); MONOCYTES # (AUTO) 0.9 x10^3/uL (0.3-0.8); MONOCYTES % (AUTO) 7.3 % (0.0-13.0); NEUTROPHILS # (AUTO) 8.3 x10^3/uL (2.2-4.8); NEUTROPHILS % (AUTO) 68.8 % (42.0-75.0); PLATELET COUNT 298 X10^3/uL (150.0-450.0); RED BLOOD COUNT 2.87 X10^6/uL (3.5-5.4); RED CELL DISTRIBUTION WIDTH 16.5 % (11.6-16.5)
[2016-07-14 05:13] LABS: ALANINE AMINOTRANSFERASE 40 Units/L (12-78); ALBUMIN 3.5 g/dL (3.4-5.0); ALKALINE PHOSPHATASE 244 Units/L (46-116); ASPARTATE AMINO TRANSFERASE 28 Units/L (15-37); BLOOD UREA NITROGEN 35 mg/dL (7-18); CALCIUM 8.7 mg/dL (8.5-10.1); CHLORIDE 114 mmol/L (98-107); CREATININE 1.94 mg/dL (0.55-1.02); GLUCOSE 85 mg/dL (65-99); SODIUM 147 mmol/L (136-145); TOTAL PROTEIN 6.4 g/dL (6.4-8.2); eGFR BLACK RACES 32 (>60); eGFR NON BLACK RACES 26 (>60)
[2016-07-14 05:18] LABS: CARBON DIOXIDE 13.7 mmol/L (21-32)
[2016-07-14] MEDS ORDERED: NS 1/2 1000 ML IV 1,000 ML IV ONE (07:16)
[2016-07-14] MEDS: SODIUM BICARBONATE IV SCH ×2 (07:20)
[2016-07-14] MEDS: NS IV SCH ×8 (07:20→22:01)
[2016-07-14] MEDS: ALBUMIN HUMAN 25%- 100ML 100 ML IV SCH (08:35)
[2016-07-14] MEDS: LOVENOX INJ 30 MG SYR SC SCH ×2 (08:39→21:31)
[2016-07-14] MEDS: ROCEPHIN VIAL 1 GM 1 GM in NS 50 ML IV + SPIKE MINIBAG* 50 ML IV SCH (08:39)
[2016-07-14] MEDS: PriLOSEC PO SCH ×2 (09:20→21:25)
[2016-07-14] MEDS: MILK OF MAGNESIA PO SCH (09:20)
[2016-07-14] MEDS: NAMENDA TAB 10 MG PO SCH (09:20)
[2016-07-14] MEDS: MEGACE PO SCH ×2 (09:21→21:28)
[2016-07-14] MEDS: CHECK PATCH XX SCH ×2 (09:21→21:22)
[2016-07-14] MEDS: DIAMOX PO SCH (09:22)
[2016-07-14] MEDS: MAGIC MOUTHWASH MT SCH ×4 (09:22→21:31)
[2016-07-14] MEDS: COLACE CAP 100 MG PO SCH ×2 (09:23→21:28)
[2016-07-14] MEDS: SODIUM ACETATE IV SCH ×6 (12:23→22:01)
--- NOTE | 2016-07-14 13:06 | PCM.PROG ---
Progress Note - Progress Note for Day of Date: 07/14/16 - Subjective Subjective: PATIENT WAS TRANSFERRED TO THE INTENSIVE CARE UNIT YESTERDAY AFTERNOON FOR A-FIB WITH RVR. SHE WAS STARTED ON A CARDIZEM DRIP FOR RATE CONTROL AND CONTINUES ON IT THIS MORNING. HEART RATE IS IRREGULAR WITH RATE UNCONTROLLED NEAR 120 BPM. SON AT BEDSIDE AND REPORTS PATIENT WAS A SMOKER FOR AT LEAST 60 YEARS. SHE CONTINUES WITH INTERMITTENT CONFUSION. PATIENT HAS SHORTNESS OF BREATH AT REST. PATIENT DENIES CHEST PAIN. LEFT LOWER EXTREMITY CELLLULITIS CONTINUES TO IMPROVE. ON AUSCULTATION, LUNGS ARE DIMINISHED. CBC WNL EXCEPT: WBC 12.0, H/H 8.5/27.1. CMP WNL EXCEPT: SODIUM 147, CHL 114, CARBON DIOXIDE 13.7, BUN/CREAT 35/1.94, GFR 26, ALK PHOS 244. ABG ABORMALS: PH 7.260, PCO2 21.0, HCO3 9.4, FIO2 28.0. WE WILL HOLD CATAPRES, LISINOPRIL, AND LOPRESSOR AND CONTINUE CARDIZEM DRIP. WE WILL TITRATE DRIP TO CONTROL RATE. WE WILL ADD SODIUM ACETATE TO IV FLUIDS, OBTAIN SERIAL EKG'S, AND FOLLOW UP IN AM WITH LABS, CHEST XRAY, AND ABG. - Past Medical Family Social History Past Med/Fam/Surg Hx: No changes since H&P Allergies: Allergies No Known Drug Allergy Allergy (Verified 07/05/16 12:41) - Review of Systems ROS: No change since H&P - Vital Signs and I&O's Vital Signs: Temperature 98.9 F Pulse Rate [Left Brachial] 89 Pulse Rate [Apical] 111 Pulse Rate [Right Brachial] 124 Pulse Rate 93 Respiratory Rate 20 Blood Pressure [Right Arm] 131/63 Blood Pressure [Left Arm] 128/90 O2 Sat by Pulse Oximetry 99 Intake and Output: Intake & Output 07/12/16 07/13/16 07/14/16 07/15/16 11:59 11:59 11:59 11:59 Intake Total 2385 1085 1250 125 Output Total 220 Balance 2385 1085 1030 125 - Physical Exam Oriented: Normal, Time, Person, Place Eyes: Normal. negative: Blurred Vision, Diplopia, Discharge, Pain, Redness, Photophobia Ear: Normal. negative: Swelling, Ecchymosis, Hemotypanum, Abrasion, Laceration Nose: Normal. negative: Injected, Discharge, Blood Throat: Normal. negative: Tonsillar Hypertrophy, Red, Exudate Respiratory: Generalized, Diminished Cardiovascular: Normal. negative: Murmur, Edema : Normal. negative: Dysuria, Hematuria, Frequency, Discharge, Bleeding, Auscultation: Bowel Sounds: Normal. negative: Bruit Palpation: Normal. negative: Spleen Enlarged, Liver Enlarged, Mass Pulsatile Tenderness: Normal. negative: Rebound, Guarding, Rigidity Skin: Wound (Left Lower Extremity Cellulitis) Musculoskeletal: Left (Lower Extremity), Swelling, Tender Psychiatric: Other (Intermittent Confusion) Mood Description: Calm Affect: Normal Speech Pattern: Clear, Appropriate - Laboratory and Diagnostics Result Diagrams: 07/14/16 03:45 07/14/16 03:45 Labs: Laboratory WBC 12.0 X10^3/uL (3.6-10.0) H 07/14/16 03:45 RBC 2.87 X10^6/uL (3.5-5.4) L 07/14/16 03:45 Hgb 8.5 g/dL (12.0-16.0) L 07/14/16 03:45 Hct 27.1 % (36.0-47.0) L 07/14/16 03:45 MCV 94.2 fL (80.0-100.0) 07/14/16 03:45 MCH 29.7 pg (27.0-34.0) 07/14/16 03:45 MCHC 31.6 g/dL (33.0-35.0) L 07/14/16 03:45 RDW 16.5 % (11.6-16.5) 07/14/16 03:45 Plt Count 298 X10^3/uL (150.0-450.0) 07/14/16 03:45 Plt Count Comment Adequate (ADEQUATE) 07/05/16 13:00 MPV 11.1 fL (7.4-11.0) H 07/14/16 03:45 Neut % 68.8 % (42.0-75.0) 07/14/16 03:45 Lymph % 22.2 % (21.0-51.0) 07/14/16 03:45 [place] % 7.3 % (0.0-13.0) 07/14/16 03:45 Eos % 0.5 % (0.9-2.9) L 07/14/16 03:45 Baso % 1.2 % (0.2-1.0) H 07/14/16 03:45 Neut # 8.3 x10^3/uL (2.2-4.8) H 07/14/16 03:45 Lymph # 2.7 X10^3/uL (1.3-2.9) 07/14/16 03:45 [place] # 0.9 x10^3/uL (0.3-0.8) H 07/14/16 03:45 Eos # 0.1 x10^3/uL (0.0-0.2) 07/14/16 03:45 Baso # 0.1 X10^3/uL (0.0-0.1) 07/14/16 03:45 Absolute Nucleated RBC 0.2 /100WBC 07/14/16 03:45 Total Counted 100 07/05/16 13:00 Neutrophils % (Manual) 78 % (39-76) H 07/05/16 13:00 Band Neutrophils % 12 % (0-10) H 07/05/16 13:00 Lymphocytes % (Manual) 7 % (13-43) L 07/05/16 13:00 Monocytes % (Manual) 3 % (4-9) L 07/05/16 13:00 Plt Morphology Comment Normal (NORMAL) 07/05/16 13:00 RBC Morphology Normal (NORMAL) 07/05/16 13:00 INR Target Range - 07/06/16 05:20 INR 1.31 (0.8-1.3) H 07/06/16 05:20 PTT 34.4 SECONDS (22.9-36.5) 07/06/16 05:20 PTT Comment - 07/06/16 05:20 Sample Site Lr 07/13/16 19:30 ABG pH 7.260 (7.35-7.45) L 07/13/16 19:30 ABG pCO2 21.0 mmHg (35.0-45.0) L 07/13/16 19:30 ABG pO2 92.0 mmHg (80.0-100.0) 07/13/16 19:30 ABG HCO3 9.4 mmol/L (22-26) L* 07/13/16 19:30 ABG O2 Saturation 96.0 % (90-100) 07/13/16 19:30 ABG Base Excess -15.7 mmol/L (-2.0-2.0) L 07/13/16 19:30 Oscar Test Pos 07/13/16 19:30 A-a Gradient 81.0 mmHg 07/13/16 19:30 FiO2 28.000 07/13/16 19:30 Blood Gas Comments Pt [place] well. mm 07/13/16 19:30 Sodium 147 mmol/L (136-145) H 07/14/16 03:45 Corrected Sodium TNP 07/14/16 03:45 Potassium 4.8 mmol/L (3.5-5.1) 07/14/16 03:45 Chloride 114 mmol/L (98-107) H 07/14/16 03:45 Carbon Dioxide 13.7 mmol/L (21-32) L* 07/14/16 03:45 BUN 35 mg/dL (7-18) H 07/14/16 03:45 Creatinine 1.94 mg/dL (0.55-1.02) H 07/14/16 03:45 Est GFR (MDRD) Af Amer 32 (>60) L 07/14/16 03:45 Est GFR (MDRD) Non-Af 26 (>60) L 07/14/16 03:45 Glucose 85 mg/dL (65-99) 07/14/16 03:45 Calcium 8.7 mg/dL (8.5-10.1) 07/14/16 03:45 Corrected Calcium TNP 07/14/16 03:45 Ionized Calcium [place] 1.25 mmol/L (1.11-1.30) 07/09/16 10:25 Ionized Calcium pH 7.4 1.11 mmol/L (1.11-1.30) 07/09/16 10:25 Magnesium 1.7 mg/dL (1.7-2.9) 07/06/16 05:20 Total Bilirubin 0.50 mg/dL (0.2-1.0) 07/14/16 03:45 AST 28 Units/L (15-37) 07/14/16 03:45 ALT 40 Units/L (12-78) 07/14/16 03:45 Alkaline Phosphatase 244 Units/L (46-116) H 07/14/16 03:45 Creatine Kinase 86 Units/L (26-192) 07/06/16 01:25 CK-MB (CK-2) 1.1 ng/mL (0-4.0) 07/06/16 01:25 CK/CKMB % Calc 1.3 % (<4) 07/06/16 01:25 Troponin I 0.25 ng/mL (0-1.5) 07/06/16 01:25 B-Natriuretic Peptide 771 pg/mL (0-79) H* 07/05/16 13:00 Total Protein 6.4 g/dL (6.4-8.2) 07/14/16 03:45 Albumin 3.5 g/dL (3.4-5.0) 07/14/16 03:45 Globulin 2.9 g/dL (2.5-4.5) 07/14/16 03:45 Albumin/Globulin Ratio 1.2 Ratio (1.1-2.1) 07/14/16 03:45 Triglycerides 59 mg/dL (0-150) 07/06/16 05:20 Cholesterol 67 mg/dL (0-200) 07/06/16 05:20 LDL Cholesterol, Calc 27 mg/dL (0-100) 07/06/16 05:20 HDL Cholesterol 28 mg/dL (40-60) L 07/06/16 05:20 Cholesterol/HDL Ratio 2.4 (0.0-5.0) 07/06/16 05:20 Amylase 35 Units/L (25-115) 07/05/16 13:00 Lipase 127 Units/L (73-393) 07/05/16 13:00 Specimen Type Random urine 07/05/16 13:27 Urine Color Yellow (YELLOW) 07/05/16 13:27 Urine Appearance Hazy (CLEAR) 07/05/16 13:27 Urine pH 6.0 (5.0 - 8.0) 07/05/16 13:27 Ur Specific [place] 1.020 (1.000-1.030) 07/05/16 13:27 Urine Protein 1+ (NEGATIVE) 07/05/16 13:27 Urine Glucose (UA) Negative (NEGATIVE) 07/05/16 13:27 Urine Ketones Negative (NEGATIVE) 07/05/16 13:27 Urine Occult Blood 1+ (NEGATIVE) 07/05/16 13:27 Urine Nitrite Negative (NEGATIVE) 07/05/16 13:27 Urine Bilirubin Negative (NEGATIVE) 07/05/16 13:27 Urine Urobilinogen Normal (NORMAL) 07/05/16 13:27 Ur Leukocyte Esterase 1+ (NEGATIVE) 07/05/16 13:27 Urine RBC 3-5 /HPF (NEGATIVE) 07/05/16 13:27 Urine WBC 10-15 /HPF (NEGATIVE) 07/05/16 13:27 Ur Squamous Epith Cells Moderate /HPF (NEGATIVE) 07/05/16 13:27 Amorphous Sediment Trace /HPF (NEGATIVE) 07/05/16 13:27 Urine Bacteria Trace /HPF (NEGATIVE) 07/05/16 13:27 Ur Culture Indicated? No/not indicated 07/05/16 13:27 Hepatitis A IgM Ab Negative (Negative) 07/06/16 10:55 Hep Bs Antigen Negative (Negative) 07/06/16 10:55 Hep Bs Ag Confirmation TNP 07/06/16 10:55 Hep B Core IgM Ab Negative (Negative) 07/06/16 10:55 Hepatitis C Ab Index 0.10 IV 07/06/16 10:55 Hepatitis C Interp Negative (Negative) 07/06/16 10:55 Hepatitis Interpret See note 07/06/16 10:55 - Plan (1) Atrial fibrillation with RVR Status: Acute Plan: CONTINUE TO MONITOR ON TELEMETRY, CONTINUE CARDIZEM DRIP. (2) Cellulitis Status: Acute Qualifiers: Site of cellulitis: extremity Site of cellulitis of extremity: lower extremity Site of cellulitis of trunk: S Laterality: left Qualified Code(s ): L03.116 - Cellulitis of left lower limb Plan: CONTINUE ROCEPHIN IV, MONITOR FOR INCREASING CELLULITIS. (3) Altered mental status Status: Acute Qualifiers: Altered mental status type: delirium Coma depth: C Coma timing: C Qualified Code(s): R41.0 - Disorientation, unspecified Plan: CONTINUE HALDOL, ZYPREXA, MONITOR. (4) Respiratory distress Status: Acute Plan: CONTINUE SUPPLEMENTAL OXYGEN, MONITOR. (5) Dehydration Status: Acute Plan: CONTINUE IV FLUIDS, MONITOR. (6) Elevated LFTs Status: Acute Plan: CONTINUE IV FLUIDS, MONITOR LABS. (7) Vascular dementia Status: Chronic Qualifiers: Dementia behavioral disturbance: without behavioral disturbance Qualified Code(s): F01.50 - Vascular dementia without behavioral disturbance Plan: ABOVE. (8) Hypertension Status: Chronic Qualifiers: Hypertension type: essential hypertension Qualified Code(s): I10 - Essential (primary) hypertension Plan: CONTINUE TO MONITOR. (9) CHF (congestive heart failure) Status: Chronic Qualifiers: Congestive heart failure type: combined Congestive heart failure chronicity : acute on chronic Qualified Code(s): I50.43 - Acute on chronic combined systolic (congestive) and diastolic (congestive) heart failure Plan: CONTINUE TO MONITOR CHEST XRAY. (10) GERD (gastroesophageal reflux disease) Status: Chronic Qualifiers: Esophagitis presence: esophagitis presence not specified Qualified Code(s) : K21.9 - Gastro-esophageal reflux disease without esophagitis (11) Gout Status: Chronic Qualifiers: Gout site: multiple sites Gout etiology: idiopathic Encounter type: E Laterality: L Chronicity: chronic Presence of tophus: without tophus Qualified Code(s): M1A.09X0 - Idiopathic chronic gout, multiple sites, without tophus (tophi) (12) Hyperlipidemia Status: Chronic Qualifiers: Hyperlipidemia type: mixed hyperlipidemia Qualified Code(s): E78.2 - Mixed hyperlipidemia (13) Renal failure Status: Chronic Qualifiers: Renal failure chronicity: chronic Acute renal failure type: A Chronic kidney disease stage: stage 3 (moderate) Qualified Code(s): N18.3 - Chronic kidney disease, stage 3 (moderate)
[2016-07-14] MEDS: CORDARONE TAB 200 MG PO SCH ×2 (14:12→18:04)
[2016-07-14 15:31] LABS: BILIRUBIN,URINE NEGATIVE (NEGATIVE); BLOOD/HEMOGLOBIN,URINE 1+ (NEGATIVE); GLUCOSE, URINE NEGATIVE (NEGATIVE); KETONES,URINE 2+ (NEGATIVE); LEUKOCYTE ESTERASE ,URINE 2+ (NEGATIVE); NITRITES,URINE NEGATIVE (NEGATIVE); PROTEIN,URINE 4+ (NEGATIVE); UROBILINOGEN,URINE NORMAL (NORMAL)
[2016-07-14 16:11] LABS: APPEARANCE,URINE SLIGHTLY HAZY (CLEAR); COLOR,URINE YELLOW (YELLOW)
[2016-07-14 16:12] LABS: AMORPHOUS SEDIMENT,UR 1+ /HPF (NEGATIVE); BACTERIA,URINE TRACE /HPF (NEGATIVE); SQUAMOUS EPITHELIAL CELL,UR NUMEROUS /HPF (NEGATIVE); YEAST,URINE FEW /HPF (NEGATIVE)
[2016-07-14] MEDS: ZETIA TAB 10 MG PO SCH (21:28)
[2016-07-14] MEDS: ZOCOR TAB 20 MG PO SCH (21:29)
[2016-07-14] MEDS: HALDOL INJ IM PRN (23:03)
[2016-07-15] MEDS: DUONEB 0.5 MG/3 MG NEB SCH ×6 (01:40→21:06)
[2016-07-15] MEDS: CARDIZEM INJ 125 MG VIAL 125 MG in NS 100 ML IV 100 ML IV PRN ×3 (03:36→20:53)
[2016-07-15 05:49] LABS: ABG BASE EXCESS -10.6 mmol/L (-2.0-2.0)
[2016-07-15 05:51] LABS: ABG ALLEN TEST POS; ABG HCO3 13.5 mmol/L (22-26)
[2016-07-15 05:52] LABS: BASOPHILS # (AUTO) 0.1 X10^3/uL (0.0-0.1); BASOPHILS % (AUTO) 1.1 % (0.2-1.0); EOSINOPHILS # (AUTO) 0.2 x10^3/uL (0.0-0.2); EOSINOPHILS % (AUTO) 1.7 % (0.9-2.9); HEMATOCRIT 22.2 % (36.0-47.0); HEMOGLOBIN 7.2 g/dL (12.0-16.0); LYMPHOCYTES # (AUTO) 1.9 X10^3/uL (1.3-2.9); LYMPHOCYTES % (AUTO) 21.4 % (21.0-51.0); MEAN CORPUSCULAR HEMOGLOBIN 30.3 pg (27.0-34.0); MEAN CORPUSCULAR HGB CONC 32.6 g/dL (33.0-35.0); MEAN PLATELET VOLUME 10.9 fL (7.4-11.0); MONOCYTES # (AUTO) 0.7 x10^3/uL (0.3-0.8); MONOCYTES % (AUTO) 7.5 % (0.0-13.0); NEUTROPHILS # (AUTO) 6.1 x10^3/uL (2.2-4.8); NEUTROPHILS % (AUTO) 68.3 % (42.0-75.0); PLATELET COUNT 224 X10^3/uL (150.0-450.0); RED BLOOD COUNT 2.39 X10^6/uL (3.5-5.4); RED CELL DISTRIBUTION WIDTH 16.3 % (11.6-16.5)
[2016-07-15 06:26] LABS: ALANINE AMINOTRANSFERASE 31 Units/L (12-78); ALBUMIN 3.4 g/dL (3.4-5.0); ALKALINE PHOSPHATASE 181 Units/L (46-116); ASPARTATE AMINO TRANSFERASE 21 Units/L (15-37); BLOOD UREA NITROGEN 40 mg/dL (7-18); CALCIUM 8.3 mg/dL (8.5-10.1); CARBON DIOXIDE 15.4 mmol/L (21-32); CHLORIDE 114 mmol/L (98-107); CREATININE 2.16 mg/dL (0.55-1.02); GLUCOSE 88 mg/dL (65-99); SODIUM 148 mmol/L (136-145); TOTAL PROTEIN 5.7 g/dL (6.4-8.2); eGFR BLACK RACES 28 (>60); eGFR NON BLACK RACES 23 (>60)
[2016-07-15] MEDS: NS IV SCH ×6 (06:26→13:30)
[2016-07-15] MEDS: SODIUM ACETATE IV SCH ×6 (06:26→13:30)
[2016-07-15 06:29] LABS: HYPOCHROMASIA 1+; PLATELET MORPHOLOGY COMMENT NORMAL (NORMAL)
[2016-07-15] MEDS ORDERED: BENADRYL INJ 50 MG VIAL IVP PRN (08:50)
[2016-07-15] MEDS ORDERED: TYLENOL 325 MG TAB PO PRN (08:50)
[2016-07-15] MEDS ORDERED: LASIX IVP PRN ×2 (08:51)
[2016-07-15] MEDS: DIAMOX PO SCH (09:26)
[2016-07-15] MEDS: NAMENDA TAB 10 MG PO SCH (09:26)
[2016-07-15] MEDS: COLACE CAP 100 MG PO SCH ×2 (09:27→20:57)
[2016-07-15] MEDS: PriLOSEC PO SCH ×2 (09:27→20:57)
[2016-07-15] MEDS: MEGACE PO SCH ×2 (09:27→20:57)
[2016-07-15] MEDS: CORDARONE TAB 200 MG PO SCH ×2 (09:28→17:00)
[2016-07-15] MEDS: MILK OF MAGNESIA PO SCH (09:29)
[2016-07-15] MEDS: LOVENOX INJ 30 MG SYR SC SCH ×2 (09:29→20:56)
[2016-07-15] MEDS: ROCEPHIN VIAL 1 GM 1 GM in NS 50 ML IV + SPIKE MINIBAG* 50 ML IV SCH (09:30)
[2016-07-15] MEDS: MAGIC MOUTHWASH MT SCH ×4 (09:32→20:56)
[2016-07-15] MEDS: NS 500 ML IV 500 ML IV ONE ×2 (09:51→12:16)
[2016-07-15] MEDS: CHECK PATCH XX SCH (09:52)
[2016-07-15] MEDS: ALBUMIN HUMAN 25%- 100ML 100 ML IV SCH (10:12)
--- NOTE | 2016-07-15 13:35 | PCM.PROG ---
Progress Note - Progress Note for Day of Date: 07/15/16 - Subjective Subjective: PATIENT CONTINUES ON CARDIZEM DRIP FOR ATRIAL FIBRILLATION WITH RVR. GRANDDAUGHTER AT BEDSIDE. HEART RATE CONTINUES WITH IRREGULARITY WITH RATE UNCONTROLLED, AROUND 110 BPM. PATIENT WAS MAXED OUT ON CARDIZEM DRIP YESTERDAY, ATTEMPTING TO CONTROL HEART RATE. WE STARTED AMIODARONE PO BID. PATIENT IS MORE ALERT THIS MORNING. SHE CONTINUES WITH INTERMITTENT CONFUSION AND CONTINUES TO REFUSE PO MEDICATIONS. APPETITE IS ALSO POOR. LEFT LOWER EXTREMITY CELLLULITIS CONTINUES TO IMPROVE. ON AUSCULTATION, LUNGS ARE DIMINISHED. CBC WNL EXCEPT: H/H 7.2/22.2. CMP WNL EXCEPT: SODIUM 148, CHL 114 , CARBON DIOXIDE 15.4, BUN/CREAT 40/2.16, GFR 23, ALK PHOS 181. ABG ABNORMALS: PH 7.340, PCO2 25.0, HCO3 13.5, FIO2 24.0. EKG: ATRIAL FIBRILLATION, RATE 124. WE WILL CONTINUE CARDIZEM DRIP AND AMIODARONE. WE WILL FOLLOW UP IN AM WITH LABS, CHEST XRAY, AND ABG. - Past Medical Family Social History Past Med/Fam/Surg Hx: No changes since H&P Allergies: Allergies No Known Drug Allergy Allergy (Verified 07/05/16 12:41) - Review of Systems ROS: No change since H&P - Vital Signs and I&O's Vital Signs: Temperature 97.5 F Pulse Rate [Left Brachial] 107 Pulse Rate [Apical] 107 Pulse Rate [Right Brachial] 124 Pulse Rate 88 Respiratory Rate 14 Blood Pressure [Right Arm] 114/43 Blood Pressure [Left Arm] 128/90 O2 Sat by Pulse Oximetry 100 Intake and Output: Intake & Output 07/13/16 07/14/16 07/15/16 07/16/16 11:59 11:59 11:59 11:59 Intake Total 1085 1250 2639 Output Total 220 400 Balance 1085 1030 2239 - Physical Exam Oriented: Normal, Time, Person, Place Eyes: Normal. negative: Blurred Vision, Diplopia, Discharge, Pain, Redness, Photophobia Ear: Normal. negative: Swelling, Ecchymosis, Hemotypanum, Abrasion, Laceration Nose: Normal. negative: Injected, Discharge, Blood Throat: Normal. negative: Tonsillar Hypertrophy, Red, Exudate Respiratory: Generalized, Diminished Cardiovascular: Normal. negative: Murmur, Edema : Normal. negative: Dysuria, Hematuria, Frequency, Discharge, Bleeding, Auscultation: Bowel Sounds: Normal. negative: Bruit Palpation: Normal. negative: Spleen Enlarged, Liver Enlarged, Mass Pulsatile Tenderness: Normal. negative: Rebound, Guarding, Rigidity Skin: Wound (Left Lower Extremity Cellulitis) Musculoskeletal: Left (Lower Extremity), Swelling, Tender Psychiatric: Other (Intermittent Confusion) Mood Description: Calm Affect: Normal Speech Pattern: Clear, Inappropriate - Laboratory and Diagnostics Result Diagrams: 07/15/16 05:10 07/15/16 05:10 Labs: Laboratory WBC 9.0 X10^3/uL (3.6-10.0) 07/15/16 05:10 RBC 2.39 X10^6/uL (3.5-5.4) L 07/15/16 05:10 Hgb 7.2 g/dL (12.0-16.0) L 07/15/16 05:10 Hct 22.2 % (36.0-47.0) L 07/15/16 05:10 MCV 93.0 fL (80.0-100.0) 07/15/16 05:10 MCH 30.3 pg (27.0-34.0) 07/15/16 05:10 MCHC 32.6 g/dL (33.0-35.0) L 07/15/16 05:10 RDW 16.3 % (11.6-16.5) 07/15/16 05:10 Plt Count 224 X10^3/uL (150.0-450.0) 07/15/16 05:10 Plt Count Comment Adequate (ADEQUATE) 07/15/16 05:10 MPV 10.9 fL (7.4-11.0) 07/15/16 05:10 Neut % 68.3 % (42.0-75.0) 07/15/16 05:10 Lymph % 21.4 % (21.0-51.0) 07/15/16 05:10 [place] % 7.5 % (0.0-13.0) 07/15/16 05:10 Eos % 1.7 % (0.9-2.9) 07/15/16 05:10 Baso % 1.1 % (0.2-1.0) H 07/15/16 05:10 Neut # 6.1 x10^3/uL (2.2-4.8) H 07/15/16 05:10 Lymph # 1.9 X10^3/uL (1.3-2.9) 07/15/16 05:10 [place] # 0.7 x10^3/uL (0.3-0.8) 07/15/16 05:10 Eos # 0.2 x10^3/uL (0.0-0.2) 07/15/16 05:10 Baso # 0.1 X10^3/uL (0.0-0.1) 07/15/16 05:10 Absolute Nucleated RBC 0.2 /100WBC 07/15/16 05:10 Total Counted 100 07/05/16 13:00 Neutrophils % (Manual) 78 % (39-76) H 07/05/16 13:00 Band Neutrophils % 12 % (0-10) H 07/05/16 13:00 Lymphocytes % (Manual) 7 % (13-43) L 07/05/16 13:00 Monocytes % (Manual) 3 % (4-9) L 07/05/16 13:00 Plt Morphology Comment Normal (NORMAL) 07/15/16 05:10 RBC Morphology Abnormal (NORMAL) A 07/15/16 05:10 Hypochromasia 1+ A 07/15/16 05:10 INR Target Range - 07/06/16 05:20 INR 1.31 (0.8-1.3) H 07/06/16 05:20 PTT 34.4 SECONDS (22.9-36.5) 07/06/16 05:20 PTT Comment - 07/06/16 05:20 Sample Site Rrad 07/15/16 05:42 ABG pH 7.340 (7.35-7.45) L 07/15/16 05:42 ABG pCO2 25.0 mmHg (35.0-45.0) L 07/15/16 05:42 ABG pO2 91.0 mmHg (80.0-100.0) 07/15/16 05:42 ABG HCO3 13.5 mmol/L (22-26) L* 07/15/16 05:42 ABG O2 Saturation 96.0 % (90-100) 07/15/16 05:42 ABG Base Excess -10.6 mmol/L (-2.0-2.0) L 07/15/16 05:42 Oscar Test Pos 07/15/16 05:42 A-a Gradient 49.0 mmHg 07/15/16 05:42 FiO2 24.000 07/15/16 05:42 Blood Gas Comments Jey abg well-mtf 07/15/16 05:42 Sodium 148 mmol/L (136-145) H 07/15/16 05:10 Corrected Sodium TNP 07/15/16 05:10 Potassium 3.7 mmol/L (3.5-5.1) 07/15/16 05:10 Chloride 114 mmol/L (98-107) H 07/15/16 05:10 Carbon Dioxide 15.4 mmol/L (21-32) L 07/15/16 05:10 BUN 40 mg/dL (7-18) H 07/15/16 05:10 Creatinine 2.16 mg/dL (0.55-1.02) H 07/15/16 05:10 Est GFR (MDRD) Af Amer 28 (>60) L 07/15/16 05:10 Est GFR (MDRD) Non-Af 23 (>60) L 07/15/16 05:10 Glucose 88 mg/dL (65-99) 07/15/16 05:10 Calcium 8.3 mg/dL (8.5-10.1) L 07/15/16 05:10 Corrected Calcium TNP 07/15/16 05:10 Ionized Calcium [place] 1.25 mmol/L (1.11-1.30) 07/09/16 10:25 Ionized Calcium pH 7.4 1.11 mmol/L (1.11-1.30) 07/09/16 10:25 Magnesium 1.7 mg/dL (1.7-2.9) 07/06/16 05:20 Total Bilirubin 0.40 mg/dL (0.2-1.0) 07/15/16 05:10 AST 21 Units/L (15-37) 07/15/16 05:10 ALT 31 Units/L (12-78) 07/15/16 05:10 Alkaline Phosphatase 181 Units/L (46-116) H 07/15/16 05:10 Creatine Kinase 86 Units/L (26-192) 07/06/16 01:25 CK-MB (CK-2) 1.1 ng/mL (0-4.0) 07/06/16 01:25 CK/CKMB % Calc 1.3 % (<4) 07/06/16 01:25 Troponin I 0.25 ng/mL (0-1.5) 07/06/16 01:25 B-Natriuretic Peptide 771 pg/mL (0-79) H* 07/05/16 13:00 Total Protein 5.7 g/dL (6.4-8.2) L 07/15/16 05:10 Albumin 3.4 g/dL (3.4-5.0) 07/15/16 05:10 Globulin 2.3 g/dL (2.5-4.5) L 07/15/16 05:10 Albumin/Globulin Ratio 1.5 Ratio (1.1-2.1) 07/15/16 05:10 Triglycerides 59 mg/dL (0-150) 07/06/16 05:20 Cholesterol 67 mg/dL (0-200) 07/06/16 05:20 LDL Cholesterol, Calc 27 mg/dL (0-100) 07/06/16 05:20 HDL Cholesterol 28 mg/dL (40-60) L 07/06/16 05:20 Cholesterol/HDL Ratio 2.4 (0.0-5.0) 07/06/16 05:20 Amylase 35 Units/L (25-115) 07/05/16 13:00 Lipase 127 Units/L (73-393) 07/05/16 13:00 Specimen Type Catherized urine 07/14/16 15:16 Urine Color Yellow (YELLOW) 07/14/16 15:16 Urine Appearance Slightly hazy (CLEAR) 07/14/16 15:16 Urine pH 5.0 (5.0 - 8.0) 07/14/16 15:16 Ur Specific [place] 1.020 (1.000-1.030) 07/14/16 15:16 Urine Protein 4+ (NEGATIVE) 07/14/16 15:16 Urine Glucose (UA) Negative (NEGATIVE) 07/14/16 15:16 Urine Ketones 2+ (NEGATIVE) 07/14/16 15:16 Urine Occult Blood 1+ (NEGATIVE) 07/14/16 15:16 Urine Nitrite Negative (NEGATIVE) 07/14/16 15:16 Urine Bilirubin Negative (NEGATIVE) 07/14/16 15:16 Urine Urobilinogen Normal (NORMAL) 07/14/16 15:16 Ur Leukocyte Esterase 2+ (NEGATIVE) 07/14/16 15:16 Urine RBC 1-2 /HPF (NEGATIVE) 07/14/16 15:16 Urine WBC 10-12 /HPF (NEGATIVE) 07/14/16 15:16 Ur Squamous Epith Cells Numerous /HPF (NEGATIVE) 07/14/16 15:16 Amorphous Sediment 1+ /HPF (NEGATIVE) 07/14/16 15:16 Urine Bacteria Trace /HPF (NEGATIVE) 07/14/16 15:16 Urine Yeast Few /HPF (NEGATIVE) 07/14/16 15:16 Ur Culture Indicated? Yes/culture set up 07/14/16 15:16 Hepatitis A IgM Ab Negative (Negative) 07/06/16 10:55 Hep Bs Antigen Negative (Negative) 07/06/16 10:55 Hep Bs Ag Confirmation TNP 07/06/16 10:55 Hep B Core IgM Ab Negative (Negative) 07/06/16 10:55 Hepatitis C Ab Index 0.10 IV 07/06/16 10:55 Hepatitis C Interp Negative (Negative) 07/06/16 10:55 Hepatitis Interpret See note 07/06/16 10:55 Blood Type A POSITIVE 07/15/16 10:03 Antibody Screen Negative 07/15/16 10:03 Crossmatch See Detail 07/15/16 10:03 - Plan (1) Atrial fibrillation with RVR Status: Acute Plan: CONTINUE TO MONITOR ON TELEMETRY, CONTINUE CARDIZEM DRIP AND AMIODARONE. (2) Cellulitis Status: Acute Qualifiers: Site of cellulitis: extremity Site of cellulitis of extremity: lower extremity Site of cellulitis of trunk: S Laterality: left Qualified Code(s ): L03.116 - Cellulitis of left lower limb Plan: CONTINUE ROCEPHIN IV, MONITOR FOR INCREASING CELLULITIS. (3) Altered mental status Status: Acute Qualifiers: Altered mental status type: delirium Coma depth: C Coma timing: C Qualified Code(s): R41.0 - Disorientation, unspecified Plan: CONTINUE HALDOL, ZYPREXA, MONITOR. (4) Respiratory distress Status: Acute Plan: CONTINUE SUPPLEMENTAL OXYGEN, MONITOR. (5) Dehydration Status: Acute Plan: CONTINUE IV FLUIDS, MONITOR. (6) Elevated LFTs Status: Acute Plan: CONTINUE IV FLUIDS, MONITOR LABS. (7) Vascular dementia Status: Chronic Qualifiers: Dementia behavioral disturbance: without behavioral disturbance Qualified Code(s): F01.50 - Vascular dementia without behavioral disturbance Plan: ABOVE. (8) Hypertension Status: Chronic Qualifiers: Hypertension type: essential hypertension Qualified Code(s): I10 - Essential (primary) hypertension Plan: CONTINUE TO MONITOR. (9) CHF (congestive heart failure) Status: Chronic Qualifiers: Congestive heart failure type: combined Congestive heart failure chronicity : acute on chronic Qualified Code(s): I50.43 - Acute on chronic combined systolic (congestive) and diastolic (congestive) heart failure Plan: CONTINUE TO MONITOR CHEST XRAY. (10) GERD (gastroesophageal reflux disease) Status: Chronic Qualifiers: Esophagitis presence: esophagitis presence not specified Qualified Code(s) : K21.9 - Gastro-esophageal reflux disease without esophagitis (11) Gout Status: Chronic Qualifiers: Gout site: multiple sites Gout etiology: idiopathic Encounter type: E Laterality: L Chronicity: chronic Presence of tophus: without tophus Qualified Code(s): M1A.09X0 - Idiopathic chronic gout, multiple sites, without tophus (tophi) (12) Hyperlipidemia Status: Chronic Qualifiers: Hyperlipidemia type: mixed hyperlipidemia Qualified Code(s): E78.2 - Mixed hyperlipidemia (13) Renal failure Status: Chronic Qualifiers: Renal failure chronicity: chronic Acute renal failure type: A Chronic kidney disease stage: stage 3 (moderate) Qualified Code(s): N18.3 - Chronic kidney disease, stage 3 (moderate)
[2016-07-15] MEDS: ZOCOR TAB 20 MG PO SCH (20:57)
[2016-07-15] MEDS: ZETIA TAB 10 MG PO SCH (20:57)
[2016-07-16] MEDS: SODIUM ACETATE IV SCH ×12 (00:17→21:29)
[2016-07-16] MEDS: NS IV SCH ×12 (00:17→21:29)
[2016-07-16] MEDS: DUONEB 0.5 MG/3 MG NEB SCH ×6 (00:53→22:18)
[2016-07-16 05:23] LABS: ABG BASE EXCESS -10.3 mmol/L (-2.0-2.0)
[2016-07-16 05:24] LABS: ABG ALLEN TEST POS; ABG HCO3 14.6 mmol/L (22-26)
[2016-07-16] MEDS: CARDIZEM INJ 125 MG VIAL 125 MG in NS 100 ML IV 100 ML IV PRN (05:46)
[2016-07-16] MEDS: CORDARONE TAB 200 MG PO SCH ×2 (06:08→16:20)
--- NOTE | 2016-07-16 06:22 | RAD ---
HISTORY: Cough, congestion Study: Chest one view Comparison: July 13, 2016 Findings: The heart remains enlarged. No definite congestive heart failure is noted. The lungs are hyperinflat ed but free of acute alveolar infiltrates. A small right pleural effusion may be present. The bony t horax is unremarkable. IMPRESSION: Cardiomegaly without congestive heart failure on today's examination Hyperinflation Small right pleural effusion Reported By:
[2016-07-16 06:28] LABS: ALANINE AMINOTRANSFERASE 31 Units/L (12-78); ALBUMIN 3.6 g/dL (3.4-5.0); ALKALINE PHOSPHATASE 202 Units/L (46-116); ASPARTATE AMINO TRANSFERASE 20 Units/L (15-37); BLOOD UREA NITROGEN 37 mg/dL (7-18); CALCIUM 8.4 mg/dL (8.5-10.1); CARBON DIOXIDE 17.6 mmol/L (21-32); CHLORIDE 112 mmol/L (98-107); CREATININE 2.27 mg/dL (0.55-1.02); GLUCOSE 92 mg/dL (65-99); SODIUM 147 mmol/L (136-145); TOTAL PROTEIN 6.2 g/dL (6.4-8.2); eGFR BLACK RACES 26 (>60); eGFR NON BLACK RACES 22 (>60)
[2016-07-16 06:33] LABS: BASOPHILS # (AUTO) 0.2 X10^3/uL (0.0-0.1); BASOPHILS % (AUTO) 1.2 % (0.2-1.0); EOSINOPHILS # (AUTO) 0.3 x10^3/uL (0.0-0.2); EOSINOPHILS % (AUTO) 2.1 % (0.9-2.9); HEMATOCRIT 32.5 % (36.0-47.0); HEMOGLOBIN 10.7 g/dL (12.0-16.0); LYMPHOCYTES # (AUTO) 1.8 X10^3/uL (1.3-2.9); LYMPHOCYTES % (AUTO) 13.7 % (21.0-51.0); MEAN CORPUSCULAR HEMOGLOBIN 29.3 pg (27.0-34.0); MEAN CORPUSCULAR HGB CONC 32.7 g/dL (33.0-35.0); MEAN CORPUSCULAR VOLUME 89.6 fL (80.0-100.0); MEAN PLATELET VOLUME 11.1 fL (7.4-11.0); MONOCYTES # (AUTO) 0.9 x10^3/uL (0.3-0.8); MONOCYTES % (AUTO) 6.4 % (0.0-13.0); NEUTROPHILS # (AUTO) 10.3 x10^3/uL (2.2-4.8); NEUTROPHILS % (AUTO) 76.6 % (42.0-75.0); PLATELET COUNT 288 X10^3/uL (150.0-450.0); RED BLOOD COUNT 3.63 X10^6/uL (3.5-5.4); RED CELL DISTRIBUTION WIDTH 16.8 % (11.6-16.5); WHITE BLOOD COUNT 13.4 X10^3/uL (3.6-10.0)
[2016-07-16] MEDS: MAGIC MOUTHWASH MT SCH ×4 (08:24→20:34)
[2016-07-16] MEDS: NAMENDA TAB 10 MG PO SCH (08:25)
[2016-07-16] MEDS: COLACE CAP 100 MG PO SCH ×2 (08:26→20:33)
[2016-07-16] MEDS: PriLOSEC PO SCH ×2 (08:26→20:33)
[2016-07-16] MEDS: MEGACE PO SCH ×2 (08:26→20:34)
[2016-07-16] MEDS: LOVENOX INJ 30 MG SYR SC SCH ×2 (08:27→20:34)
[2016-07-16] MEDS: ALBUMIN HUMAN 25%- 100ML 100 ML IV SCH (08:27)
[2016-07-16] MEDS: ROCEPHIN VIAL 1 GM 1 GM in NS 50 ML IV + SPIKE MINIBAG* 50 ML IV SCH (08:28)
[2016-07-16] MEDS: DIAMOX PO SCH (08:36)
[2016-07-16] MEDS: MILK OF MAGNESIA PO SCH (08:37)
[2016-07-16] MEDS ORDERED: PHARMACY CONSULT - DOSE _____ XX SCH (10:00)
[2016-07-16] MEDS: CARDIZEM CD 180 MG PO SCH (10:15)
--- NOTE | 2016-07-16 10:50 | PCM.PROG ---
Progress Note - Progress Note for Day of Date: 07/16/16 - Subjective Subjective: PATIENT CONTINUES ON CARDIZEM DRIP FOR ATRIAL FIBRILLATION WITH RVR. HEART RATE CONTINUES WITH IRREGULARITY WITH RATE AT 95 BPM. PATIENT RECEIVED TWO UNITS PRBC'S YESTERDAY AND HEMOGLOBIN IMPROVED FROM 7.2 TO 10.7. PATIENT TOLERATED TRANSFUSION WELL. PATIENT IS ALERT AND ORIENTED, EATING BREAKFAST WITH ASSITANCE AND TOLERATING FAIR. PATIENT IS NOTED WITH A MOIST, NON-PRODUCTIVE COUGH. LEFT LOWER EXTREMITY CELLLULITIS CONTINUES TO IMPROVE. ON AUSCULTATION, LUNGS ARE DIMINISHED. CBC WNL EXCEPT: H/H 10.7/32.5. CMP WNL EXCEPT: SODIUM 147, POTASSIUM 3.2, CHL 112, CARBON DIOXIDE 17.6, BUN/CREAT 37/ 2.27, GFR 22, ALK PHOS 202, TOT PROTEIN 6.2. ABG ABNORMALS: PH 7.310, PCO2 29.0 , PO2 78.0, HCO3 14.6, FIO2 28.0. EKG: ATRIAL FIBRILLATION, RATE 115. CHEST XRAY REPORTS CARDIOMEGALY WITHOUT CHF; HYPERINFLATION; SMALL RIGHT PLEURAL EFFUSION. FINAL URINE CULTURE REPORTS ENTEROCOCCUS FAECIUM. WE WILL WEAN CARDIZEM DRIP, START CARDIZEM PO AND CONTINUE AMIODARONE. WE WILL START MACROBID FOR URINE CULTURE RESULTS, HAVE PHYSICAL THERAPY RE-EVALUATE FOR TREATMENT, AND FOLLOW UP IN AM WITH LABS, CHEST XRAY, AND ABG. - Past Medical Family Social History Past Med/Fam/Surg Hx: No changes since H&P Allergies: Allergies No Known Drug Allergy Allergy (Verified 07/05/16 12:41) - Review of Systems ROS: No change since H&P - Vital Signs and I&O's Vital Signs: Temperature 98.8 F Pulse Rate [Left Brachial] 107 Pulse Rate [Apical] 93 Pulse Rate [Right Brachial] 124 Pulse Rate 101 Respiratory Rate 14 Blood Pressure [Right Arm] 143/54 Blood Pressure [Left Arm] 128/90 O2 Sat by Pulse Oximetry 100 Intake and Output: Intake & Output 07/13/16 07/14/16 07/15/16 07/16/16 11:59 11:59 11:59 11:59 Intake Total 1085 1250 2639 2900 Output Total 220 400 475 Balance 1085 1030 2239 2425 - Physical Exam Oriented: Normal, Time, Person, Place Eyes: Normal. negative: Blurred Vision, Diplopia, Discharge, Pain, Redness, Photophobia Ear: Normal. negative: Swelling, Ecchymosis, Hemotypanum, Abrasion, Laceration Nose: Normal. negative: Injected, Discharge, Blood Throat: Normal. negative: Tonsillar Hypertrophy, Red, Exudate Respiratory: Generalized, Diminished Cardiovascular: Normal. negative: Murmur, Edema : Normal. negative: Dysuria, Hematuria, Frequency, Discharge, Bleeding, Auscultation: Bowel Sounds: Normal. negative: Bruit Palpation: Normal. negative: Spleen Enlarged, Liver Enlarged, Mass Pulsatile Tenderness: Normal. negative: Rebound, Guarding, Rigidity Skin: Wound (Left Lower Extremity Cellulitis) Musculoskeletal: Left (Lower Extremity), Swelling, Tender Psychiatric: Normal Mood Description: Calm, Appropriate Affect: Normal Speech Pattern: Clear, Appropriate - Laboratory and Diagnostics Result Diagrams: 07/16/16 05:30 07/16/16 05:30 Labs: 07/14/16 15:16 Urine,Catheterized Urine Culture - Final Enterococcus Faecium Laboratory WBC 13.4 X10^3/uL (3.6-10.0) H 07/16/16 05:30 RBC 3.63 X10^6/uL (3.5-5.4) 07/16/16 05:30 Hgb 10.7 g/dL (12.0-16.0) L 07/16/16 05:30 Hct 32.5 % (36.0-47.0) L 07/16/16 05:30 MCV 89.6 fL (80.0-100.0) 07/16/16 05:30 MCH 29.3 pg (27.0-34.0) 07/16/16 05:30 MCHC 32.7 g/dL (33.0-35.0) L 07/16/16 05:30 RDW 16.8 % (11.6-16.5) H 07/16/16 05:30 Plt Count 288 X10^3/uL (150.0-450.0) 07/16/16 05:30 Plt Count Comment Adequate (ADEQUATE) 07/15/16 05:10 MPV 11.1 fL (7.4-11.0) H 07/16/16 05:30 Neut % 76.6 % (42.0-75.0) H 07/16/16 05:30 Lymph % 13.7 % (21.0-51.0) L 07/16/16 05:30 [place] % 6.4 % (0.0-13.0) 07/16/16 05:30 Eos % 2.1 % (0.9-2.9) 07/16/16 05:30 Baso % 1.2 % (0.2-1.0) H 07/16/16 05:30 Neut # 10.3 x10^3/uL (2.2-4.8) H 07/16/16 05:30 Lymph # 1.8 X10^3/uL (1.3-2.9) 07/16/16 05:30 [place] # 0.9 x10^3/uL (0.3-0.8) H 07/16/16 05:30 Eos # 0.3 x10^3/uL (0.0-0.2) H 07/16/16 05:30 Baso # 0.2 X10^3/uL (0.0-0.1) H 07/16/16 05:30 Absolute Nucleated RBC 0.1 /100WBC 07/16/16 05:30 Total Counted 100 07/05/16 13:00 Neutrophils % (Manual) 78 % (39-76) H 07/05/16 13:00 Band Neutrophils % 12 % (0-10) H 07/05/16 13:00 Lymphocytes % (Manual) 7 % (13-43) L 07/05/16 13:00 Monocytes % (Manual) 3 % (4-9) L 07/05/16 13:00 Plt Morphology Comment Normal (NORMAL) 07/15/16 05:10 RBC Morphology Abnormal (NORMAL) A 07/15/16 05:10 Hypochromasia 1+ A 07/15/16 05:10 INR Target Range - 07/06/16 05:20 INR 1.31 (0.8-1.3) H 07/06/16 05:20 PTT 34.4 SECONDS (22.9-36.5) 07/06/16 05:20 PTT Comment - 07/06/16 05:20 Sample Site Right rad 07/16/16 05:10 ABG pH 7.310 (7.35-7.45) L 07/16/16 05:10 ABG pCO2 29.0 mmHg (35.0-45.0) L 07/16/16 05:10 ABG pO2 78.0 mmHg (80.0-100.0) L 07/16/16 05:10 ABG HCO3 14.6 mmol/L (22-26) L* 07/16/16 05:10 ABG O2 Saturation 94.0 % (90-100) 07/16/16 05:10 ABG Base Excess -10.3 mmol/L (-2.0-2.0) L 07/16/16 05:10 Oscar Test Pos 07/16/16 05:10 A-a Gradient 85.0 mmHg 07/16/16 05:10 FiO2 28.000 07/16/16 05:10 Blood Gas Comments Jey well, af 07/16/16 05:10 Sodium 147 mmol/L (136-145) H 07/16/16 05:30 Corrected Sodium TNP 07/16/16 05:30 Potassium 3.2 mmol/L (3.5-5.1) L 07/16/16 05:30 Chloride 112 mmol/L (98-107) H 07/16/16 05:30 Carbon Dioxide 17.6 mmol/L (21-32) L 07/16/16 05:30 BUN 37 mg/dL (7-18) H 07/16/16 05:30 Creatinine 2.27 mg/dL (0.55-1.02) H 07/16/16 05:30 Est GFR (MDRD) Af Amer 26 (>60) L 07/16/16 05:30 Est GFR (MDRD) Non-Af 22 (>60) L 07/16/16 05:30 Glucose 92 mg/dL (65-99) 07/16/16 05:30 Calcium 8.4 mg/dL (8.5-10.1) L 07/16/16 05:30 Corrected Calcium TNP 07/16/16 05:30 Ionized Calcium [place] 1.25 mmol/L (1.11-1.30) 07/09/16 10:25 Ionized Calcium pH 7.4 1.11 mmol/L (1.11-1.30) 07/09/16 10:25 Magnesium 1.7 mg/dL (1.7-2.9) 07/06/16 05:20 Total Bilirubin 0.50 mg/dL (0.2-1.0) 07/16/16 05:30 AST 20 Units/L (15-37) 07/16/16 05:30 ALT 31 Units/L (12-78) 07/16/16 05:30 Alkaline Phosphatase 202 Units/L (46-116) H 07/16/16 05:30 Creatine Kinase 86 Units/L (26-192) 07/06/16 01:25 CK-MB (CK-2) 1.1 ng/mL (0-4.0) 07/06/16 01:25 CK/CKMB % Calc 1.3 % (<4) 07/06/16 01:25 Troponin I 0.25 ng/mL (0-1.5) 07/06/16 01:25 B-Natriuretic Peptide 771 pg/mL (0-79) H* 07/05/16 13:00 Total Protein 6.2 g/dL (6.4-8.2) L 07/16/16 05:30 Albumin 3.6 g/dL (3.4-5.0) 07/16/16 05:30 Globulin 2.6 g/dL (2.5-4.5) 07/16/16 05:30 Albumin/Globulin Ratio 1.4 Ratio (1.1-2.1) 07/16/16 05:30 Triglycerides 59 mg/dL (0-150) 07/06/16 05:20 Cholesterol 67 mg/dL (0-200) 07/06/16 05:20 LDL Cholesterol, Calc 27 mg/dL (0-100) 07/06/16 05:20 HDL Cholesterol 28 mg/dL (40-60) L 07/06/16 05:20 Cholesterol/HDL Ratio 2.4 (0.0-5.0) 07/06/16 05:20 Amylase 35 Units/L (25-115) 07/05/16 13:00 Lipase 127 Units/L (73-393) 07/05/16 13:00 Specimen Type Catherized urine 07/14/16 15:16 Urine Color Yellow (YELLOW) 07/14/16 15:16 Urine Appearance Slightly hazy (CLEAR) 07/14/16 15:16 Urine pH 5.0 (5.0 - 8.0) 07/14/16 15:16 Ur Specific [place] 1.020 (1.000-1.030) 07/14/16 15:16 Urine Protein 4+ (NEGATIVE) 07/14/16 15:16 Urine Glucose (UA) Negative (NEGATIVE) 07/14/16 15:16 Urine Ketones 2+ (NEGATIVE) 07/14/16 15:16 Urine Occult Blood 1+ (NEGATIVE) 07/14/16 15:16 Urine Nitrite Negative (NEGATIVE) 07/14/16 15:16 Urine Bilirubin Negative (NEGATIVE) 07/14/16 15:16 Urine Urobilinogen Normal (NORMAL) 07/14/16 15:16 Ur Leukocyte Esterase 2+ (NEGATIVE) 07/14/16 15:16 Urine RBC 1-2 /HPF (NEGATIVE) 07/14/16 15:16 Urine WBC 10-12 /HPF (NEGATIVE) 07/14/16 15:16 Ur Squamous Epith Cells Numerous /HPF (NEGATIVE) 07/14/16 15:16 Amorphous Sediment 1+ /HPF (NEGATIVE) 07/14/16 15:16 Urine Bacteria Trace /HPF (NEGATIVE) 07/14/16 15:16 Urine Yeast Few /HPF (NEGATIVE) 07/14/16 15:16 Ur Culture Indicated? Yes/culture set up 07/14/16 15:16 Hepatitis A IgM Ab Negative (Negative) 07/06/16 10:55 Hep Bs Antigen Negative (Negative) 07/06/16 10:55 Hep Bs Ag Confirmation TNP 07/06/16 10:55 Hep B Core IgM Ab Negative (Negative) 07/06/16 10:55 Hepatitis C Ab Index 0.10 IV 07/06/16 10:55 Hepatitis C Interp Negative (Negative) 07/06/16 10:55 Hepatitis Interpret See note 07/06/16 10:55 Blood Type A POSITIVE 07/15/16 10:03 Antibody Screen Negative 07/15/16 10:03 Crossmatch See Detail 07/15/16 10:03 - Plan (1) Atrial fibrillation with RVR Status: Acute Plan: WEAN CARDIZEM DRIP, START CARDIZEM PO, CONTINUE AMIODARONE, CONTINUE TO MONITOR ON TELEMETRY. (2) Cellulitis Status: Acute Qualifiers: Site of cellulitis: extremity Site of cellulitis of extremity: lower extremity Site of cellulitis of trunk: S Laterality: left Qualified Code(s ): L03.116 - Cellulitis of left lower limb Plan: CONTINUE ROCEPHIN IV, MONITOR FOR INCREASING CELLULITIS. (3) Altered mental status Status: Acute Qualifiers: Altered mental status type: delirium Coma depth: C Coma timing: C Qualified Code(s): R41.0 - Disorientation, unspecified Plan: CONTINUE HALDOL, ZYPREXA, MONITOR. (4) Respiratory distress Status: Acute Plan: CONTINUE SUPPLEMENTAL OXYGEN, MONITOR. (5) Dehydration Status: Acute Plan: CONTINUE IV FLUIDS, MONITOR. (6) Elevated LFTs Status: Acute Plan: CONTINUE IV FLUIDS, MONITOR LABS. (7) Renal failure Status: Chronic Qualifiers: Renal failure chronicity: chronic Acute renal failure type: A Chronic kidney disease stage: stage 3 (moderate) Qualified Code(s): N18.3 - Chronic kidney disease, stage 3 (moderate) (8) Vascular dementia Status: Chronic Qualifiers: Dementia behavioral disturbance: without behavioral disturbance Qualified Code(s): F01.50 - Vascular dementia without behavioral disturbance Plan: ABOVE. (9) Hypertension Status: Chronic Qualifiers: Hypertension type: essential hypertension Qualified Code(s): I10 - Essential (primary) hypertension Plan: CONTINUE TO MONITOR. (10) CHF (congestive heart failure) Status: Chronic Qualifiers: Congestive heart failure type: combined Congestive heart failure chronicity : acute on chronic Qualified Code(s): I50.43 - Acute on chronic combined systolic (congestive) and diastolic (congestive) heart failure Plan: CONTINUE TO MONITOR CHEST XRAY. (11) GERD (gastroesophageal reflux disease) Status: Chronic Qualifiers: Esophagitis presence: esophagitis presence not specified Qualified Code(s) : K21.9 - Gastro-esophageal reflux disease without esophagitis (12) Gout Status: Chronic Qualifiers: Gout site: multiple sites Gout etiology: idiopathic Encounter type: E Laterality: L Chronicity: chronic Presence of tophus: without tophus Qualified Code(s): M1A.09X0 - Idiopathic chronic gout, multiple sites, without tophus (tophi) (13) Hyperlipidemia Status: Chronic Qualifiers: Hyperlipidemia type: mixed hyperlipidemia Qualified Code(s): E78.2 - Mixed hyperlipidemia
[2016-07-16] MEDS: MACROBID CAP 100 MG EXT REL PO SCH ×2 (10:52→20:33)
[2016-07-16] MEDS: MIRALAX POWDER (1 DOSE 17GM) PO SCH (11:12)
[2016-07-16] MEDS: ZETIA TAB 10 MG PO SCH (20:33)
[2016-07-16] MEDS: ZOCOR TAB 20 MG PO SCH (20:33)
[2016-07-17] MEDS: NS IV SCH ×6 (01:28→12:40)
[2016-07-17] MEDS: SODIUM ACETATE IV SCH ×6 (01:28→12:40)
[2016-07-17] MEDS: DUONEB 0.5 MG/3 MG NEB SCH ×6 (02:06→21:44)
[2016-07-17] MEDS ORDERED: BUTT CREAM (COMPOUND) ONE (02:53)
[2016-07-17] MEDS ORDERED: BUTT CREAM (COMPOUND) TOP PRN (03:14)
[2016-07-17 06:54] LABS: BASOPHILS # (AUTO) 0.1 X10^3/uL (0.0-0.1); BASOPHILS % (AUTO) 1.1 % (0.2-1.0); EOSINOPHILS # (AUTO) 0.3 x10^3/uL (0.0-0.2); EOSINOPHILS % (AUTO) 2.3 % (0.9-2.9); HEMATOCRIT 33.3 % (36.0-47.0); HEMOGLOBIN 10.4 g/dL (12.0-16.0); LYMPHOCYTES # (AUTO) 2.1 X10^3/uL (1.3-2.9); MEAN CORPUSCULAR HEMOGLOBIN 28.9 pg (27.0-34.0); MEAN CORPUSCULAR HGB CONC 31.3 g/dL (33.0-35.0); MEAN CORPUSCULAR VOLUME 92.4 fL (80.0-100.0); MEAN PLATELET VOLUME 12.2 fL (7.4-11.0); MONOCYTES % (AUTO) 8.6 % (0.0-13.0); NEUTROPHILS # (AUTO) 7.7 x10^3/uL (2.2-4.8); PLATELET COUNT 216 X10^3/uL (150.0-450.0); RED CELL DISTRIBUTION WIDTH 17.4 % (11.6-16.5); WHITE BLOOD COUNT 11.1 X10^3/uL (3.6-10.0)
[2016-07-17 07:40] LABS: ALANINE AMINOTRANSFERASE 36 Units/L (12-78); ALBUMIN 3.7 g/dL (3.4-5.0); ALKALINE PHOSPHATASE 178 Units/L (46-116); ASPARTATE AMINO TRANSFERASE 25 Units/L (15-37); BLOOD UREA NITROGEN 35 mg/dL (7-18); CALCIUM 8.1 mg/dL (8.5-10.1); CARBON DIOXIDE 16.6 mmol/L (21-32); CHLORIDE 111 mmol/L (98-107); CREATININE 2.11 mg/dL (0.55-1.02); GLUCOSE 82 mg/dL (65-99); SODIUM 146 mmol/L (136-145); TOTAL PROTEIN 6.3 g/dL (6.4-8.2); eGFR BLACK RACES 29 (>60); eGFR NON BLACK RACES 24 (>60)
--- NOTE | 2016-07-17 08:08 | RAD ---
HISTORY: CHF Study: Single view chest Comparison: 07/16/2016 Findings: Single portable view, limited by patient rotation and obscuring of the left lung apex. Hazy right ba silar opacity that may represent a small layering effusion. Otherwise the lungs are clear. Stable ca rdiomegaly and calcified thoracic aorta. The soft tissues are unremarkable. IMPRESSION: 1. Stable cardiomegaly with suspected small right effusion. Reported By:
[2016-07-17] MEDS: ALBUMIN HUMAN 25%- 100ML 100 ML IV SCH (08:34)
[2016-07-17] MEDS: ROCEPHIN VIAL 1 GM 1 GM in NS 50 ML IV + SPIKE MINIBAG* 50 ML IV SCH (08:34)
[2016-07-17] MEDS: MILK OF MAGNESIA PO SCH ×2 (08:35→13:57)
[2016-07-17] MEDS: MIRALAX POWDER (1 DOSE 17GM) PO SCH ×2 (08:35→13:56)
[2016-07-17] MEDS: LOVENOX INJ 30 MG SYR SC SCH ×2 (08:36→20:22)
[2016-07-17] MEDS: MEGACE PO SCH ×3 (08:37→20:22)
[2016-07-17] MEDS: PriLOSEC PO SCH ×3 (08:37→20:22)
[2016-07-17] MEDS: COLACE CAP 100 MG PO SCH ×3 (08:38→20:22)
[2016-07-17] MEDS: NAMENDA TAB 10 MG PO SCH ×2 (08:38→13:56)
[2016-07-17] MEDS: DIAMOX PO SCH ×2 (08:38→13:57)
[2016-07-17] MEDS: CORDARONE TAB 200 MG PO SCH ×3 (08:38→17:15)
[2016-07-17] MEDS: MACROBID CAP 100 MG EXT REL PO SCH ×3 (08:38→20:22)
[2016-07-17] MEDS: MAGIC MOUTHWASH MT SCH ×4 (08:39→20:32)
[2016-07-17] MEDS: CARDIZEM CD 180 MG PO SCH ×3 (08:39→20:30)
[2016-07-17] MEDS: ZOCOR TAB 20 MG PO SCH (20:22)
[2016-07-17] MEDS: ZETIA TAB 10 MG PO SCH (20:22)
[2016-07-18] MEDS: NS IV SCH ×8 (01:00→20:54)
[2016-07-18] MEDS: SODIUM ACETATE IV SCH ×8 (01:00→20:54)
[2016-07-18] MEDS: DUONEB 0.5 MG/3 MG NEB SCH ×6 (01:12→21:16)
[2016-07-18 04:56] LABS: BASOPHILS # (AUTO) 0.2 X10^3/uL (0.0-0.1); BASOPHILS % (AUTO) 1.5 % (0.2-1.0); EOSINOPHILS # (AUTO) 0.5 x10^3/uL (0.0-0.2); HEMATOCRIT 34.1 % (36.0-47.0); HEMOGLOBIN 10.8 g/dL (12.0-16.0); LYMPHOCYTES # (AUTO) 2.1 X10^3/uL (1.3-2.9); LYMPHOCYTES % (AUTO) 18.3 % (21.0-51.0); MEAN CORPUSCULAR HEMOGLOBIN 28.9 pg (27.0-34.0); MEAN CORPUSCULAR HGB CONC 31.7 g/dL (33.0-35.0); MEAN CORPUSCULAR VOLUME 91.3 fL (80.0-100.0); MEAN PLATELET VOLUME 11.2 fL (7.4-11.0); MONOCYTES % (AUTO) 8.4 % (0.0-13.0); NEUTROPHILS # (AUTO) 7.7 x10^3/uL (2.2-4.8); NEUTROPHILS % (AUTO) 67.8 % (42.0-75.0); PLATELET COUNT 254 X10^3/uL (150.0-450.0); RED BLOOD COUNT 3.74 X10^6/uL (3.5-5.4); RED CELL DISTRIBUTION WIDTH 17.5 % (11.6-16.5); WHITE BLOOD COUNT 11.4 X10^3/uL (3.6-10.0)
[2016-07-18 05:09] LABS: ALANINE AMINOTRANSFERASE 22 Units/L (12-78); ALBUMIN 3.7 g/dL (3.4-5.0); ALKALINE PHOSPHATASE 170 Units/L (46-116); ASPARTATE AMINO TRANSFERASE 21 Units/L (15-37); BLOOD UREA NITROGEN 31 mg/dL (7-18); CALCIUM 8.3 mg/dL (8.5-10.1); CARBON DIOXIDE 17.7 mmol/L (21-32); CHLORIDE 111 mmol/L (98-107); CREATININE 1.79 mg/dL (0.55-1.02); GLUCOSE 80 mg/dL (65-99); SODIUM 147 mmol/L (136-145); eGFR BLACK RACES 35 (>60); eGFR NON BLACK RACES 29 (>60)
[2016-07-18] MEDS ORDERED: LOPRESSOR TAB 50 MG PO ONE (05:20)
[2016-07-18] MEDS ORDERED: ZOFRAN INJ 4 MG VIAL IVP PRN (07:08)
[2016-07-18] MEDS: CORDARONE TAB 200 MG PO SCH ×2 (07:34→17:45)
[2016-07-18] MEDS: NAMENDA TAB 10 MG PO SCH (08:13)
[2016-07-18] MEDS: MACROBID CAP 100 MG EXT REL PO SCH ×2 (08:14→20:07)
[2016-07-18] MEDS: CARDIZEM CD 180 MG PO SCH (08:15)
[2016-07-18] MEDS: COLACE CAP 100 MG PO SCH ×2 (08:15→20:07)
[2016-07-18] MEDS: MEGACE PO SCH ×2 (08:15→20:07)
[2016-07-18] MEDS: PriLOSEC PO SCH ×2 (08:15→20:07)
[2016-07-18] MEDS: DIAMOX PO SCH (08:19)
--- NOTE | 2016-07-18 08:19 | RAD ---
HISTORY: GI bleed, ascites Study: Single view chest Comparison: 07/17/2016 Findings: There is a right pleural effusion noted. No pneumothorax or airspace consolidation. Stable cardiomeg farrukh. The soft tissues are unremarkable. IMPRESSION: 1. Stable cardiomegaly and right pleural effusion. Reported By:
[2016-07-18] MEDS: MIRALAX POWDER (1 DOSE 17GM) PO SCH (08:21)
[2016-07-18] MEDS: ROCEPHIN VIAL 1 GM 1 GM in NS 50 ML IV + SPIKE MINIBAG* 50 ML IV SCH (08:21)
[2016-07-18] MEDS: ALBUMIN HUMAN 25%- 100ML 100 ML IV SCH (08:22)
[2016-07-18] MEDS: LOVENOX INJ 30 MG SYR SC SCH ×2 (08:22→20:07)
[2016-07-18] MEDS: MAGIC MOUTHWASH MT SCH ×4 (08:23→20:06)
[2016-07-18] MEDS: MILK OF MAGNESIA PO SCH (08:23)
[2016-07-18] MEDS: ZETIA TAB 10 MG PO SCH (20:07)
[2016-07-18] MEDS: ZOCOR TAB 20 MG PO SCH (20:07)
[2016-07-19] MEDS: DUONEB 0.5 MG/3 MG NEB SCH ×6 (00:53→20:59)
[2016-07-19] MEDS: NS IV SCH ×8 (03:06→16:54)
[2016-07-19] MEDS: SODIUM ACETATE IV SCH ×8 (03:06→16:54)
[2016-07-19 06:28] LABS: BASOPHILS # (AUTO) 0.1 X10^3/uL (0.0-0.1); BASOPHILS % (AUTO) 1.1 % (0.2-1.0); EOSINOPHILS # (AUTO) 0.2 x10^3/uL (0.0-0.2); EOSINOPHILS % (AUTO) 2.4 % (0.9-2.9); HEMOGLOBIN 10.6 g/dL (12.0-16.0); LYMPHOCYTES # (AUTO) 1.6 X10^3/uL (1.3-2.9); LYMPHOCYTES % (AUTO) 16.7 % (21.0-51.0); MEAN CORPUSCULAR HEMOGLOBIN 29.4 pg (27.0-34.0); MEAN CORPUSCULAR HGB CONC 32.2 g/dL (33.0-35.0); MEAN CORPUSCULAR VOLUME 91.3 fL (80.0-100.0); MEAN PLATELET VOLUME 11.3 fL (7.4-11.0); MONOCYTES # (AUTO) 0.9 x10^3/uL (0.3-0.8); MONOCYTES % (AUTO) 9.3 % (0.0-13.0); NEUTROPHILS # (AUTO) 6.8 x10^3/uL (2.2-4.8); NEUTROPHILS % (AUTO) 70.5 % (42.0-75.0); PLATELET COUNT 253 X10^3/uL (150.0-450.0); RED BLOOD COUNT 3.62 X10^6/uL (3.5-5.4); RED CELL DISTRIBUTION WIDTH 17.1 % (11.6-16.5); WHITE BLOOD COUNT 9.6 X10^3/uL (3.6-10.0)
[2016-07-19 07:06] LABS: ALANINE AMINOTRANSFERASE 27 Units/L (12-78); ALBUMIN 3.6 g/dL (3.4-5.0); ALKALINE PHOSPHATASE 145 Units/L (46-116); ASPARTATE AMINO TRANSFERASE 20 Units/L (15-37); BLOOD UREA NITROGEN 32 mg/dL (7-18); CALCIUM 8.3 mg/dL (8.5-10.1); CARBON DIOXIDE 20.6 mmol/L (21-32); CHLORIDE 110 mmol/L (98-107); CREATININE 1.84 mg/dL (0.55-1.02); GLUCOSE 97 mg/dL (65-99); SODIUM 147 mmol/L (136-145); eGFR BLACK RACES 34 (>60); eGFR NON BLACK RACES 28 (>60)
[2016-07-19] MEDS: MAGIC MOUTHWASH MT SCH ×4 (08:41→20:26)
[2016-07-19] MEDS: ALBUMIN HUMAN 25%- 100ML 100 ML IV SCH (08:41)
[2016-07-19] MEDS: ROCEPHIN VIAL 1 GM 1 GM in NS 50 ML IV + SPIKE MINIBAG* 50 ML IV SCH (08:42)
[2016-07-19] MEDS: LOVENOX INJ 30 MG SYR SC SCH ×2 (08:42→20:25)
[2016-07-19] MEDS: CARDIZEM CD 180 MG PO SCH (08:43)
[2016-07-19] MEDS: CORDARONE TAB 200 MG PO SCH ×2 (08:43→17:34)
[2016-07-19] MEDS: MEGACE PO SCH ×2 (08:49→20:25)
[2016-07-19] MEDS: MACROBID CAP 100 MG EXT REL PO SCH ×2 (08:49→20:25)
[2016-07-19] MEDS: COLACE CAP 100 MG PO SCH ×2 (08:49→20:25)
[2016-07-19] MEDS: PriLOSEC PO SCH ×2 (08:49→20:25)
[2016-07-19] MEDS: NAMENDA TAB 10 MG PO SCH (08:49)
[2016-07-19] MEDS: MILK OF MAGNESIA PO SCH (08:55)
[2016-07-19] MEDS: DIAMOX PO SCH (08:55)
[2016-07-19] MEDS: MIRALAX POWDER (1 DOSE 17GM) PO SCH (08:56)
[2016-07-19] MEDS: ZETIA TAB 10 MG PO SCH (20:25)
[2016-07-19] MEDS: ZOCOR TAB 20 MG PO SCH (20:25)
[2016-07-20] MEDS: SODIUM ACETATE IV SCH ×8 (00:50→21:18)
[2016-07-20] MEDS: NS IV SCH ×8 (00:50→21:18)
[2016-07-20] MEDS: DUONEB 0.5 MG/3 MG NEB SCH ×6 (01:29→20:40)
[2016-07-20 06:17] LABS: BASOPHILS # (AUTO) 0.2 X10^3/uL (0.0-0.1); BASOPHILS % (AUTO) 2.2 % (0.2-1.0); EOSINOPHILS # (AUTO) 0.1 x10^3/uL (0.0-0.2); EOSINOPHILS % (AUTO) 1.9 % (0.9-2.9); HEMATOCRIT 33.2 % (36.0-47.0); HEMOGLOBIN 10.8 g/dL (12.0-16.0); LYMPHOCYTES # (AUTO) 1.1 X10^3/uL (1.3-2.9); LYMPHOCYTES % (AUTO) 14.9 % (21.0-51.0); MEAN CORPUSCULAR HEMOGLOBIN 29.4 pg (27.0-34.0); MEAN CORPUSCULAR HGB CONC 32.5 g/dL (33.0-35.0); MEAN CORPUSCULAR VOLUME 90.3 fL (80.0-100.0); MEAN PLATELET VOLUME 10.4 fL (7.4-11.0); MONOCYTES # (AUTO) 0.6 x10^3/uL (0.3-0.8); MONOCYTES % (AUTO) 8.4 % (0.0-13.0); NEUTROPHILS # (AUTO) 5.2 x10^3/uL (2.2-4.8); NEUTROPHILS % (AUTO) 72.6 % (42.0-75.0); PLATELET COUNT 212 X10^3/uL (150.0-450.0); RED BLOOD COUNT 3.67 X10^6/uL (3.5-5.4); RED CELL DISTRIBUTION WIDTH 17.6 % (11.6-16.5); WHITE BLOOD COUNT 7.2 X10^3/uL (3.6-10.0)
[2016-07-20 06:47] LABS: ALANINE AMINOTRANSFERASE 20 Units/L (12-78); ALBUMIN 3.5 g/dL (3.4-5.0); ALKALINE PHOSPHATASE 134 Units/L (46-116); ASPARTATE AMINO TRANSFERASE 17 Units/L (15-37); BLOOD UREA NITROGEN 30 mg/dL (7-18); CARBON DIOXIDE 19.5 mmol/L (21-32); CHLORIDE 109 mmol/L (98-107); CREATININE 1.73 mg/dL (0.55-1.02); GLUCOSE 90 mg/dL (65-99); SODIUM 145 mmol/L (136-145); TOTAL PROTEIN 5.8 g/dL (6.4-8.2); eGFR BLACK RACES 36 (>60); eGFR NON BLACK RACES 30 (>60)
[2016-07-20] MEDS: MAGIC MOUTHWASH MT SCH ×4 (08:17→20:00)
[2016-07-20] MEDS: LOVENOX INJ 30 MG SYR SC SCH ×2 (08:17→19:59)
[2016-07-20] MEDS: ROCEPHIN VIAL 1 GM 1 GM in NS 50 ML IV + SPIKE MINIBAG* 50 ML IV SCH (08:18)
[2016-07-20] MEDS: COLACE CAP 100 MG PO SCH ×2 (08:20→19:59)
[2016-07-20] MEDS: CARDIZEM CD 180 MG PO SCH (08:20)
[2016-07-20] MEDS: PriLOSEC PO SCH ×2 (08:20→19:59)
[2016-07-20] MEDS: MEGACE PO SCH ×2 (08:20→19:59)
[2016-07-20] MEDS: NAMENDA TAB 10 MG PO SCH (08:20)
[2016-07-20] MEDS: CORDARONE TAB 200 MG PO SCH ×2 (08:20→17:13)
[2016-07-20] MEDS ORDERED: LASIX IVP ONE (08:26)
[2016-07-20] MEDS: DIAMOX PO SCH (08:34)
[2016-07-20] MEDS: MIRALAX POWDER (1 DOSE 17GM) PO SCH (08:37)
[2016-07-20] MEDS: MILK OF MAGNESIA PO SCH (08:48)
[2016-07-20] MEDS: MACROBID CAP 100 MG EXT REL PO SCH ×2 (09:09→19:59)
[2016-07-20] MEDS: LOPRESSOR TAB 50 MG PO SCH ×2 (09:09→19:59)
--- NOTE | 2016-07-20 13:58 | PCM.PROG ---
Progress Note - Progress Note for Day of Date: 07/20/16 - Subjective Subjective: Patient is a 86-year-old white female, patient of Dr. Silva who was admitted for atrial fib with RVR. Patient is currently on by mouth Cardizem. This morning patient has third space edema to bilateral upper extremities as well as +2 edema to bilateral shins on lower extremities. Patient also noted to have some weeping to upper extremities. Patient's heart rate 110 to 115, and hypertensive. Plan to restart patient's home medications of metoprolol tartrate 50 mg twice a day, and low dose of lisinopril 10 mg at bedtime. We will give Lasix 20 IV 1 dose monitor strict I's and O's and elevate extremities above heart level. Planned repeat a.m. labs and chest x-ray - Past Medical Family Social History Past Med/Fam/Surg Hx: No changes since H&P Allergies: Allergies No Known Drug Allergy Allergy (Verified 07/05/16 12:41) - Review of Systems ROS: No change since H&P - Vital Signs and I&O's Vital Signs: Temperature 98.3 F Pulse Rate [Left Brachial] 107 Pulse Rate [Apical] 109 Pulse Rate [Right Brachial] 124 Pulse Rate 98 Respiratory Rate 20 Blood Pressure [Right Arm] 160/77 Blood Pressure [Left Arm] 128/90 O2 Sat by Pulse Oximetry 96 Intake and Output: Intake & Output 07/18/16 07/19/16 07/20/16 07/21/16 11:59 11:59 11:59 11:59 Intake Total 2645 3280 2392 Output Total 850 450 450 Balance 1795 2830 1942 - Physical Exam Oriented: Normal, Time, Person, Place Eyes: Normal. negative: Blurred Vision, Diplopia, Discharge, Pain, Redness, Photophobia Ear: Normal. negative: Swelling, Ecchymosis, Hemotypanum, Abrasion, Laceration Nose: Normal. negative: Injected, Discharge, Blood Throat: Normal. negative: Tonsillar Hypertrophy, Red, Exudate Respiratory: Generalized, Diminished Cardiovascular: Normal. negative: Murmur, Edema : Normal. negative: Dysuria, Hematuria, Frequency, Discharge, Bleeding, Auscultation: Bowel Sounds: Normal. negative: Bruit Tenderness: Normal. negative: Rebound, Guarding, Rigidity Skin: Wound (Left Lower Extremity Cellulitis), Other (BILATERAL UPPER EXTREMITY EDEMA WITH WEEPING) Musculoskeletal: Left (Lower Extremity), Swelling, Tender Psychiatric: Normal Mood Description: Calm, Appropriate Affect: Normal Speech Pattern: Clear - Laboratory and Diagnostics Result Diagrams: 07/20/16 05:30 07/20/16 05:30 Labs: 07/14/16 15:16 Urine,Catheterized Urine Culture - Final Enterococcus Faecium Laboratory WBC 7.2 X10^3/uL (3.6-10.0) 07/20/16 05:30 RBC 3.67 X10^6/uL (3.5-5.4) 07/20/16 05:30 Hgb 10.8 g/dL (12.0-16.0) L 07/20/16 05:30 Hct 33.2 % (36.0-47.0) L 07/20/16 05:30 MCV 90.3 fL (80.0-100.0) 07/20/16 05:30 MCH 29.4 pg (27.0-34.0) 07/20/16 05:30 MCHC 32.5 g/dL (33.0-35.0) L 07/20/16 05:30 RDW 17.6 % (11.6-16.5) H 07/20/16 05:30 Plt Count 212 X10^3/uL (150.0-450.0) 07/20/16 05:30 Plt Count Comment Adequate (ADEQUATE) 07/15/16 05:10 MPV 10.4 fL (7.4-11.0) 07/20/16 05:30 Neut % 72.6 % (42.0-75.0) 07/20/16 05:30 Lymph % 14.9 % (21.0-51.0) L 07/20/16 05:30 [place] % 8.4 % (0.0-13.0) 07/20/16 05:30 Eos % 1.9 % (0.9-2.9) 07/20/16 05:30 Baso % 2.2 % (0.2-1.0) H 07/20/16 05:30 Neut # 5.2 x10^3/uL (2.2-4.8) H 07/20/16 05:30 Lymph # 1.1 X10^3/uL (1.3-2.9) L 07/20/16 05:30 [place] # 0.6 x10^3/uL (0.3-0.8) 07/20/16 05:30 Eos # 0.1 x10^3/uL (0.0-0.2) 07/20/16 05:30 Baso # 0.2 X10^3/uL (0.0-0.1) H 07/20/16 05:30 Absolute Nucleated RBC 0.0 /100WBC 07/20/16 05:30 Total Counted 100 07/05/16 13:00 Neutrophils % (Manual) 78 % (39-76) H 07/05/16 13:00 Band Neutrophils % 12 % (0-10) H 07/05/16 13:00 Lymphocytes % (Manual) 7 % (13-43) L 07/05/16 13:00 Monocytes % (Manual) 3 % (4-9) L 07/05/16 13:00 Plt Morphology Comment Normal (NORMAL) 07/15/16 05:10 RBC Morphology Abnormal (NORMAL) A 07/15/16 05:10 Hypochromasia 1+ A 07/15/16 05:10 INR Target Range - 07/06/16 05:20 INR 1.31 (0.8-1.3) H 07/06/16 05:20 PTT 34.4 SECONDS (22.9-36.5) 07/06/16 05:20 PTT Comment - 07/06/16 05:20 Sample Site Right rad 07/16/16 05:10 ABG pH 7.310 (7.35-7.45) L 07/16/16 05:10 ABG pCO2 29.0 mmHg (35.0-45.0) L 07/16/16 05:10 ABG pO2 78.0 mmHg (80.0-100.0) L 07/16/16 05:10 ABG HCO3 14.6 mmol/L (22-26) L* 07/16/16 05:10 ABG O2 Saturation 94.0 % (90-100) 07/16/16 05:10 ABG Base Excess -10.3 mmol/L (-2.0-2.0) L 07/16/16 05:10 Oscar Test Pos 07/16/16 05:10 A-a Gradient 85.0 mmHg 07/16/16 05:10 FiO2 28.000 07/16/16 05:10 Blood Gas Comments Jey well, afh 07/16/16 05:10 Sodium 145 mmol/L (136-145) 07/20/16 05:30 Corrected Sodium TNP 07/20/16 05:30 Potassium 3.3 mmol/L (3.5-5.1) L 07/20/16 05:30 Chloride 109 mmol/L (98-107) H 07/20/16 05:30 Carbon Dioxide 19.5 mmol/L (21-32) L 07/20/16 05:30 BUN 30 mg/dL (7-18) H 07/20/16 05:30 Creatinine 1.73 mg/dL (0.55-1.02) H 07/20/16 05:30 Est GFR (MDRD) Af Amer 36 (>60) L 07/20/16 05:30 Est GFR (MDRD) Non-Af 30 (>60) L 07/20/16 05:30 Glucose 90 mg/dL (65-99) 07/20/16 05:30 Calcium 8.0 mg/dL (8.5-10.1) L 07/20/16 05:30 Corrected Calcium TNP 07/20/16 05:30 Ionized Calcium [place] 1.25 mmol/L (1.11-1.30) 07/09/16 10:25 Ionized Calcium pH 7.4 1.11 mmol/L (1.11-1.30) 07/09/16 10:25 Magnesium 1.7 mg/dL (1.7-2.9) 07/06/16 05:20 Total Bilirubin 0.50 mg/dL (0.2-1.0) 07/20/16 05:30 AST 17 Units/L (15-37) 07/20/16 05:30 ALT 20 Units/L (12-78) 07/20/16 05:30 Alkaline Phosphatase 134 Units/L (46-116) H 07/20/16 05:30 Creatine Kinase 86 Units/L (26-192) 07/06/16 01:25 CK-MB (CK-2) 1.1 ng/mL (0-4.0) 07/06/16 01:25 CK/CKMB % Calc 1.3 % (<4) 07/06/16 01:25 Troponin I 0.25 ng/mL (0-1.5) 07/06/16 01:25 B-Natriuretic Peptide 771 pg/mL (0-79) H* 07/05/16 13:00 Total Protein 5.8 g/dL (6.4-8.2) L 07/20/16 05:30 Albumin 3.5 g/dL (3.4-5.0) 07/20/16 05:30 Globulin 2.3 g/dL (2.5-4.5) L 07/20/16 05:30 Albumin/Globulin Ratio 1.5 Ratio (1.1-2.1) 07/20/16 05:30 Triglycerides 59 mg/dL (0-150) 07/06/16 05:20 Cholesterol 67 mg/dL (0-200) 07/06/16 05:20 LDL Cholesterol, Calc 27 mg/dL (0-100) 07/06/16 05:20 HDL Cholesterol 28 mg/dL (40-60) L 07/06/16 05:20 Cholesterol/HDL Ratio 2.4 (0.0-5.0) 07/06/16 05:20 Amylase 35 Units/L (25-115) 07/05/16 13:00 Lipase 127 Units/L (73-393) 07/05/16 13:00 Specimen Type Catherized urine 07/14/16 15:16 Urine Color Yellow (YELLOW) 07/14/16 15:16 Urine Appearance Slightly hazy (CLEAR) 07/14/16 15:16 Urine pH 5.0 (5.0 - 8.0) 07/14/16 15:16 Ur Specific [place] 1.020 (1.000-1.030) 07/14/16 15:16 Urine Protein 4+ (NEGATIVE) 07/14/16 15:16 Urine Glucose (UA) Negative (NEGATIVE) 07/14/16 15:16 Urine Ketones 2+ (NEGATIVE) 07/14/16 15:16 Urine Occult Blood 1+ (NEGATIVE) 07/14/16 15:16 Urine Nitrite Negative (NEGATIVE) 07/14/16 15:16 Urine Bilirubin Negative (NEGATIVE) 07/14/16 15:16 Urine Urobilinogen Normal (NORMAL) 07/14/16 15:16 Ur Leukocyte Esterase 2+ (NEGATIVE) 07/14/16 15:16 Urine RBC 1-2 /HPF (NEGATIVE) 07/14/16 15:16 Urine WBC 10-12 /HPF (NEGATIVE) 07/14/16 15:16 Ur Squamous Epith Cells Numerous /HPF (NEGATIVE) 07/14/16 15:16 Amorphous Sediment 1+ /HPF (NEGATIVE) 07/14/16 15:16 Urine Bacteria Trace /HPF (NEGATIVE) 07/14/16 15:16 Urine Yeast Few /HPF (NEGATIVE) 07/14/16 15:16 Ur Culture Indicated? Yes/culture set up 07/14/16 15:16 Hepatitis A IgM Ab Negative (Negative) 07/06/16 10:55 Hep Bs Antigen Negative (Negative) 07/06/16 10:55 Hep Bs Ag Confirmation TNP 07/06/16 10:55 Hep B Core IgM Ab Negative (Negative) 07/06/16 10:55 Hepatitis C Ab Index 0.10 IV 07/06/16 10:55 Hepatitis C Interp Negative (Negative) 07/06/16 10:55 Hepatitis Interpret See note 07/06/16 10:55 Blood Type A POSITIVE 07/15/16 10:03 Antibody Screen Negative 07/15/16 10:03 Crossmatch See Detail 07/15/16 10:03 - Plan (1) Afib Status: Acute Qualifiers: Atrial fibrillation type: A Plan: PO CARDIZEM, RESTART PO METOPROLOL. CONTINUE STOCK CHECKER, REPEAT AM LABS. STRIC I & OS,. LASIX 20MG IV X 1 DOSE THIS AM (2) Altered mental status Status: Acute Qualifiers: Altered mental status type: delirium Coma depth: C Coma timing: C Qualified Code(s): R41.0 - Disorientation, unspecified Plan: CONTINUE HALDOL, ZYPREXA, MONITOR. (3) CHF (congestive heart failure) Status: Chronic Qualifiers: Congestive heart failure type: C Congestive heart failure chronicity: C (4) Renal failure Status: Chronic Qualifiers: Renal failure chronicity: chronic Acute renal failure type: A Chronic kidney disease stage: stage 3 (moderate) Qualified Code(s): N18.3 - Chronic kidney disease, stage 3 (moderate) (5) Vascular dementia Status: Chronic Qualifiers: Dementia behavioral disturbance: without behavioral disturbance Qualified Code(s): F01.50 - Vascular dementia without behavioral disturbance Plan: ABOVE.
[2016-07-20] MEDS: ZETIA TAB 10 MG PO SCH (19:59)
[2016-07-20] MEDS: ZOCOR TAB 20 MG PO SCH (19:59)
[2016-07-20] MEDS ORDERED: ZESTRIL TAB 10 MG PO SCH (21:00)
[2016-07-21] MEDS: SODIUM ACETATE IV SCH ×4 (00:18→05:51)
[2016-07-21] MEDS: NS IV SCH ×4 (00:18→05:51)
[2016-07-21] MEDS: DUONEB 0.5 MG/3 MG NEB SCH ×6 (01:42→20:45)
[2016-07-21 06:30] LABS: BASOPHILS # (AUTO) 0.2 X10^3/uL (0.0-0.1); BASOPHILS % (AUTO) 2.6 % (0.2-1.0); EOSINOPHILS # (AUTO) 0.3 x10^3/uL (0.0-0.2); EOSINOPHILS % (AUTO) 3.8 % (0.9-2.9); HEMATOCRIT 35.1 % (36.0-47.0); HEMOGLOBIN 11.5 g/dL (12.0-16.0); LYMPHOCYTES # (AUTO) 1.5 X10^3/uL (1.3-2.9); LYMPHOCYTES % (AUTO) 17.8 % (21.0-51.0); MEAN CORPUSCULAR HEMOGLOBIN 29.6 pg (27.0-34.0); MEAN CORPUSCULAR HGB CONC 32.9 g/dL (33.0-35.0); MEAN PLATELET VOLUME 10.7 fL (7.4-11.0); MONOCYTES # (AUTO) 0.9 x10^3/uL (0.3-0.8); MONOCYTES % (AUTO) 10.7 % (0.0-13.0); NEUTROPHILS # (AUTO) 5.4 x10^3/uL (2.2-4.8); NEUTROPHILS % (AUTO) 65.1 % (42.0-75.0); PLATELET COUNT 261 X10^3/uL (150.0-450.0); RED CELL DISTRIBUTION WIDTH 17.6 % (11.6-16.5); WHITE BLOOD COUNT 8.3 X10^3/uL (3.6-10.0)
--- NOTE | 2016-07-21 06:37 | RAD ---
HISTORY: Respiratory distress Study: Chest one view Comparison: July 18, 2016 Findings: The patient is rotated to the left. The heart is enlarged. Mild pulmonary venous congestion is prese nt. No interstitial or alveolar edema or alveolar infiltrates are identified. Right pleural effusion is unchanged. There is increased density in the retrocardiac area left lower lobe which could be du e to atelectasis, effusion, infiltrate, or a combination. The bony thorax is unremarkable. IMPRESSION: Cardiomegaly with mild pulmonary venous congestion No change right pleural effusion Increase retrocardiac density on the left. Differential diagnosis as above Reported By:
[2016-07-21 06:44] LABS: ALANINE AMINOTRANSFERASE 20 Units/L (12-78); ALBUMIN 3.4 g/dL (3.4-5.0); ALKALINE PHOSPHATASE 134 Units/L (46-116); ASPARTATE AMINO TRANSFERASE 14 Units/L (15-37); BLOOD UREA NITROGEN 35 mg/dL (7-18); CALCIUM 8.2 mg/dL (8.5-10.1); CARBON DIOXIDE 22.8 mmol/L (21-32); CHLORIDE 108 mmol/L (98-107); COR NA(FOR HYPERGLY) 146 mmol/L (136-145); CREATININE 1.76 mg/dL (0.55-1.02); GLUCOSE 134 mg/dL (65-99); SODIUM 145 mmol/L (136-145); TOTAL PROTEIN 6.2 g/dL (6.4-8.2); eGFR BLACK RACES 35 (>60); eGFR NON BLACK RACES 29 (>60)
[2016-07-21 06:49] LABS: B-TYPE NATRIURETIC PEPTIDE 1190 pg/mL (0-79)
[2016-07-21] MEDS: CORDARONE TAB 200 MG PO SCH ×2 (07:53→17:53)
[2016-07-21] MEDS: LOPRESSOR TAB 50 MG PO SCH ×2 (08:01→20:05)
[2016-07-21] MEDS: NAMENDA TAB 10 MG PO SCH (08:01)
[2016-07-21] MEDS: CARDIZEM CD 180 MG PO SCH (08:02)
[2016-07-21] MEDS: PriLOSEC PO SCH ×2 (08:02→20:05)
[2016-07-21] MEDS: MACROBID CAP 100 MG EXT REL PO SCH ×2 (08:02→20:05)
[2016-07-21] MEDS: MEGACE PO SCH ×2 (08:02→20:05)
[2016-07-21] MEDS: DIAMOX PO SCH (08:02)
[2016-07-21] MEDS: COLACE CAP 100 MG PO SCH ×2 (08:03→20:05)
[2016-07-21] MEDS: ROCEPHIN VIAL 1 GM 1 GM in NS 50 ML IV + SPIKE MINIBAG* 50 ML IV SCH (08:03)
[2016-07-21] MEDS: LOVENOX INJ 30 MG SYR SC SCH ×2 (08:03→20:06)
[2016-07-21] MEDS: MIRALAX POWDER (1 DOSE 17GM) PO SCH (08:03)
[2016-07-21] MEDS: MAGIC MOUTHWASH MT SCH ×4 (08:04→20:06)
[2016-07-21] MEDS: MILK OF MAGNESIA PO SCH (08:05)
[2016-07-21] MEDS: LASIX IVP SCH ×2 (09:41→20:06)
[2016-07-21] MEDS: ZESTRIL TAB 10 MG PO SCH ×2 (09:41→20:06)
[2016-07-21] MEDS: NS 1/2 + KCL 20 MEQ/L 1,000 ML IV SCH (09:42)
--- NOTE | 2016-07-21 13:42 | PCM.PROG ---
Progress Note - Progress Note for Day of Date: 07/21/16 - Subjective Subjective: Patient is a 86-year-old white female, patient of Dr. Olivares'guerrero who was admitted for atrial fib with RVR. Patient is currently on by mouth Cardizem. PATIENT WAS RESTARTED ON METIPRANOLOL WELL LISINOPRIL FOR chf MANAGEMENT AND BLOOD PRESSURE CONTROL. pATIENT'S BLOOD PRESSURE HAS SLIGHTLY IMPROVED SINCE RESTARTING HOME MEDICATION HOWEVER HEART RATE CONTINUES TO BE IN THE LOW 100S. pATIENT RECEIVED 1 DOSE OF lASIX 20 iv YESTERDAY WITH APPROXIMATELY 300 CC OUTPUT. pATIENT CONTINUES TO HAVE DIMINISHED BREATH SOUNDS IN UPPER EXTREMITY EDEMA. pATIENT'S RENAL FUNCTION STABLE PLAN TO REPEAT lASIX 40 iv 2 DOSES AND ASSESS OUTPUT. pATIENT HAVE STRICT i [place] REPEAT A.M. LABS. fAMILY AT BEDSIDE AND DISCUSSED PATIENT'S STATUS AND DIAGNOSTIC TEST. pATIENT'S ELDEST SON REQUESTED A dnr ON THE CHART, FAMILY DOES NOT WANT MOTHER PLACED ON A VENTILATOR. cHEST NURSE NOTIFIED. - Past Medical Family Social History Past Med/Fam/Surg Hx: No changes since H&P Allergies: Allergies No Known Drug Allergy Allergy (Verified 07/05/16 12:41) - Review of Systems ROS: No change since H&P - Vital Signs and I&O's Vital Signs: Temperature 98.8 F Pulse Rate [Left Brachial] 107 Pulse Rate [Apical] 102 Pulse Rate [Right Brachial] 124 Pulse Rate 105 Respiratory Rate 20 Blood Pressure [Right Arm] 156/79 Blood Pressure [Left Arm] 128/90 O2 Sat by Pulse Oximetry 95 Intake and Output: Intake & Output 07/19/16 07/20/16 07/21/16 07/22/16 11:59 11:59 11:59 11:59 Intake Total 3280 2392 2853 Output Total 450 450 575 Balance 2830 2982 9164 - Physical Exam Oriented: Normal, Time, Person, Place Eyes: Normal. negative: Blurred Vision, Diplopia, Discharge, Pain, Redness, Photophobia Ear: Normal. negative: Swelling, Ecchymosis, Hemotypanum, Abrasion, Laceration Nose: Normal. negative: Injected, Discharge, Blood Throat: Normal. negative: Tonsillar Hypertrophy, Red, Exudate Respiratory: Generalized, Diminished Cardiovascular: Normal. negative: Murmur, Edema : Normal. negative: Dysuria, Hematuria, Frequency, Discharge, Bleeding, Auscultation: Bowel Sounds: Normal. negative: Bruit Tenderness: Normal. negative: Rebound, Guarding, Rigidity Skin: Wound (Left Lower Extremity Cellulitis), Other (BILATERAL UPPER EXTREMITY EDEMA WITH WEEPING) Musculoskeletal: Left (Lower Extremity), Swelling, Tender Psychiatric: Normal Mood Description: Calm, Appropriate Affect: Normal Speech Pattern: Clear - Laboratory and Diagnostics Result Diagrams: 07/21/16 05:25 07/21/16 05:25 Labs: 07/14/16 15:16 Urine,Catheterized Urine Culture - Final Enterococcus Faecium Laboratory WBC 8.3 X10^3/uL (3.6-10.0) 07/21/16 05:25 RBC 3.90 X10^6/uL (3.5-5.4) 07/21/16 05:25 Hgb 11.5 g/dL (12.0-16.0) L 07/21/16 05:25 Hct 35.1 % (36.0-47.0) L 07/21/16 05:25 MCV 90.0 fL (80.0-100.0) 07/21/16 05:25 MCH 29.6 pg (27.0-34.0) 07/21/16 05:25 MCHC 32.9 g/dL (33.0-35.0) L 07/21/16 05:25 RDW 17.6 % (11.6-16.5) H 07/21/16 05:25 Plt Count 261 X10^3/uL (150.0-450.0) 07/21/16 05:25 Plt Count Comment Adequate (ADEQUATE) 07/15/16 05:10 MPV 10.7 fL (7.4-11.0) 07/21/16 05:25 Neut % 65.1 % (42.0-75.0) 07/21/16 05:25 Lymph % 17.8 % (21.0-51.0) L 07/21/16 05:25 [place] % 10.7 % (0.0-13.0) 07/21/16 05:25 Eos % 3.8 % (0.9-2.9) H 07/21/16 05:25 Baso % 2.6 % (0.2-1.0) H 07/21/16 05:25 Neut # 5.4 x10^3/uL (2.2-4.8) H 07/21/16 05:25 Lymph # 1.5 X10^3/uL (1.3-2.9) 07/21/16 05:25 [place] # 0.9 x10^3/uL (0.3-0.8) H 07/21/16 05:25 Eos # 0.3 x10^3/uL (0.0-0.2) H 07/21/16 05:25 Baso # 0.2 X10^3/uL (0.0-0.1) H 07/21/16 05:25 Absolute Nucleated RBC 0.1 /100WBC 07/21/16 05:25 Total Counted 100 07/05/16 13:00 Neutrophils % (Manual) 78 % (39-76) H 07/05/16 13:00 Band Neutrophils % 12 % (0-10) H 07/05/16 13:00 Lymphocytes % (Manual) 7 % (13-43) L 07/05/16 13:00 Monocytes % (Manual) 3 % (4-9) L 07/05/16 13:00 Plt Morphology Comment Normal (NORMAL) 07/15/16 05:10 RBC Morphology Abnormal (NORMAL) A 07/15/16 05:10 Hypochromasia 1+ A 07/15/16 05:10 INR Target Range - 07/06/16 05:20 INR 1.31 (0.8-1.3) H 07/06/16 05:20 PTT 34.4 SECONDS (22.9-36.5) 07/06/16 05:20 PTT Comment - 07/06/16 05:20 Sample Site Right rad 07/16/16 05:10 ABG pH 7.310 (7.35-7.45) L 07/16/16 05:10 ABG pCO2 29.0 mmHg (35.0-45.0) L 07/16/16 05:10 ABG pO2 78.0 mmHg (80.0-100.0) L 07/16/16 05:10 ABG HCO3 14.6 mmol/L (22-26) L* 07/16/16 05:10 ABG O2 Saturation 94.0 % (90-100) 07/16/16 05:10 ABG Base Excess -10.3 mmol/L (-2.0-2.0) L 07/16/16 05:10 Oscar Test Pos 07/16/16 05:10 A-a Gradient 85.0 mmHg 07/16/16 05:10 FiO2 28.000 07/16/16 05:10 Blood Gas Comments Jey well, afh 07/16/16 05:10 Sodium 145 mmol/L (136-145) 07/21/16 05:25 Corrected Sodium 146 mmol/L (136-145) H 07/21/16 05:25 Potassium 3.2 mmol/L (3.5-5.1) L 07/21/16 05:25 Chloride 108 mmol/L (98-107) H 07/21/16 05:25 Carbon Dioxide 22.8 mmol/L (21-32) 07/21/16 05:25 BUN 35 mg/dL (7-18) H 07/21/16 05:25 Creatinine 1.76 mg/dL (0.55-1.02) H 07/21/16 05:25 Est GFR (MDRD) Af Amer 35 (>60) L 07/21/16 05:25 Est GFR (MDRD) Non-Af 29 (>60) L 07/21/16 05:25 Glucose 134 mg/dL (65-99) H 07/21/16 05:25 Calcium 8.2 mg/dL (8.5-10.1) L 07/21/16 05:25 Corrected Calcium TNP 07/21/16 05:25 Ionized Calcium [place] 1.25 mmol/L (1.11-1.30) 07/09/16 10:25 Ionized Calcium pH 7.4 1.11 mmol/L (1.11-1.30) 07/09/16 10:25 Magnesium 1.7 mg/dL (1.7-2.9) 07/06/16 05:20 Total Bilirubin 0.40 mg/dL (0.2-1.0) 07/21/16 05:25 AST 14 Units/L (15-37) L 07/21/16 05:25 ALT 20 Units/L (12-78) 07/21/16 05:25 Alkaline Phosphatase 134 Units/L (46-116) H 07/21/16 05:25 Creatine Kinase 86 Units/L (26-192) 07/06/16 01:25 CK-MB (CK-2) 1.1 ng/mL (0-4.0) 07/06/16 01:25 CK/CKMB % Calc 1.3 % (<4) 07/06/16 01:25 Troponin I 0.25 ng/mL (0-1.5) 07/06/16 01:25 B-Natriuretic Peptide 1190 pg/mL (0-79) H* 07/21/16 05:25 Total Protein 6.2 g/dL (6.4-8.2) L 07/21/16 05:25 Albumin 3.4 g/dL (3.4-5.0) 07/21/16 05:25 Globulin 2.8 g/dL (2.5-4.5) 07/21/16 05:25 Albumin/Globulin Ratio 1.2 Ratio (1.1-2.1) 07/21/16 05:25 Triglycerides 59 mg/dL (0-150) 07/06/16 05:20 Cholesterol 67 mg/dL (0-200) 07/06/16 05:20 LDL Cholesterol, Calc 27 mg/dL (0-100) 07/06/16 05:20 HDL Cholesterol 28 mg/dL (40-60) L 07/06/16 05:20 Cholesterol/HDL Ratio 2.4 (0.0-5.0) 07/06/16 05:20 Amylase 35 Units/L (25-115) 07/05/16 13:00 Lipase 127 Units/L (73-393) 07/05/16 13:00 Specimen Type Catherized urine 07/14/16 15:16 Urine Color Yellow (YELLOW) 07/14/16 15:16 Urine Appearance Slightly hazy (CLEAR) 07/14/16 15:16 Urine pH 5.0 (5.0 - 8.0) 07/14/16 15:16 Ur Specific [place] 1.020 (1.000-1.030) 07/14/16 15:16 Urine Protein 4+ (NEGATIVE) 07/14/16 15:16 Urine Glucose (UA) Negative (NEGATIVE) 07/14/16 15:16 Urine Ketones 2+ (NEGATIVE) 07/14/16 15:16 Urine Occult Blood 1+ (NEGATIVE) 07/14/16 15:16 Urine Nitrite Negative (NEGATIVE) 07/14/16 15:16 Urine Bilirubin Negative (NEGATIVE) 07/14/16 15:16 Urine Urobilinogen Normal (NORMAL) 07/14/16 15:16 Ur Leukocyte Esterase 2+ (NEGATIVE) 07/14/16 15:16 Urine RBC 1-2 /HPF (NEGATIVE) 07/14/16 15:16 Urine WBC 10-12 /HPF (NEGATIVE) 07/14/16 15:16 Ur Squamous Epith Cells Numerous /HPF (NEGATIVE) 07/14/16 15:16 Amorphous Sediment 1+ /HPF (NEGATIVE) 07/14/16 15:16 Urine Bacteria Trace /HPF (NEGATIVE) 07/14/16 15:16 Urine Yeast Few /HPF (NEGATIVE) 07/14/16 15:16 Ur Culture Indicated? Yes/culture set up 07/14/16 15:16 Hepatitis A IgM Ab Negative (Negative) 07/06/16 10:55 Hep Bs Antigen Negative (Negative) 07/06/16 10:55 Hep Bs Ag Confirmation TNP 07/06/16 10:55 Hep B Core IgM Ab Negative (Negative) 07/06/16 10:55 Hepatitis C Ab Index 0.10 IV 07/06/16 10:55 Hepatitis C Interp Negative (Negative) 07/06/16 10:55 Hepatitis Interpret See note 07/06/16 10:55 Blood Type A POSITIVE 07/15/16 10:03 Antibody Screen Negative 07/15/16 10:03 Crossmatch See Detail 07/15/16 10:03 - Plan (1) Afib Status: Acute Qualifiers: Atrial fibrillation type: A Plan: PO CARDIZEM, METOPROLOL AND LISINOPRIL. 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 STRIC I & OS,. LASIX 40MG IV BID X 2 DOSES (2) Altered mental status Status: Acute Qualifiers: Altered mental status type: delirium Coma depth: C Coma timing: C Qualified Code(s): R41.0 - Disorientation, unspecified Plan: CONTINUE HALDOL, ZYPREXA, MONITOR. (3) CHF (congestive heart failure) Status: Chronic Qualifiers: Congestive heart failure type: C Congestive heart failure chronicity: C (4) Renal failure Status: Chronic Qualifiers: Renal failure chronicity: chronic Acute renal failure type: A Chronic kidney disease stage: stage 3 (moderate) Qualified Code(s): N18.3 - Chronic kidney disease, stage 3 (moderate) (5) Vascular dementia Status: Chronic Qualifiers: Dementia behavioral disturbance: without behavioral disturbance Qualified Code(s): F01.50 - Vascular dementia without behavioral disturbance Plan: ABOVE.
[2016-07-21] MEDS: ZOCOR TAB 20 MG PO SCH (20:05)
[2016-07-22] MEDS: DUONEB 0.5 MG/3 MG NEB SCH ×6 (01:11→20:19)
[2016-07-22 06:28] LABS: BASOPHILS # (AUTO) 0.2 X10^3/uL (0.0-0.1); BASOPHILS % (AUTO) 1.8 % (0.2-1.0); EOSINOPHILS # (AUTO) 0.4 x10^3/uL (0.0-0.2); EOSINOPHILS % (AUTO) 4.1 % (0.9-2.9); HEMATOCRIT 34.6 % (36.0-47.0); HEMOGLOBIN 11.3 g/dL (12.0-16.0); LYMPHOCYTES % (AUTO) 22.8 % (21.0-51.0); MEAN CORPUSCULAR HEMOGLOBIN 29.4 pg (27.0-34.0); MEAN CORPUSCULAR HGB CONC 32.7 g/dL (33.0-35.0); MEAN PLATELET VOLUME 11.6 fL (7.4-11.0); MONOCYTES # (AUTO) 1.1 x10^3/uL (0.3-0.8); MONOCYTES % (AUTO) 12.2 % (0.0-13.0); NEUTROPHILS # (AUTO) 5.1 x10^3/uL (2.2-4.8); NEUTROPHILS % (AUTO) 59.1 % (42.0-75.0); PLATELET COUNT 233 X10^3/uL (150.0-450.0); RED BLOOD COUNT 3.84 X10^6/uL (3.5-5.4); RED CELL DISTRIBUTION WIDTH 17.4 % (11.6-16.5); WHITE BLOOD COUNT 8.7 X10^3/uL (3.6-10.0)
[2016-07-22 06:35] LABS: ALANINE AMINOTRANSFERASE 19 Units/L (12-78); ALBUMIN 3.6 g/dL (3.4-5.0); ALKALINE PHOSPHATASE 126 Units/L (46-116); ASPARTATE AMINO TRANSFERASE 18 Units/L (15-37); BLOOD UREA NITROGEN 38 mg/dL (7-18); CALCIUM 8.3 mg/dL (8.5-10.1); CARBON DIOXIDE 24.6 mmol/L (21-32); CHLORIDE 109 mmol/L (98-107); CREATININE 1.78 mg/dL (0.55-1.02); GLUCOSE 106 mg/dL (65-99); SODIUM 146 mmol/L (136-145); TOTAL PROTEIN 5.9 g/dL (6.4-8.2); eGFR BLACK RACES 35 (>60); eGFR NON BLACK RACES 29 (>60)
[2016-07-22] MEDS: MAGIC MOUTHWASH MT SCH (08:00)
[2016-07-22] MEDS: ROCEPHIN VIAL 1 GM 1 GM in NS 50 ML IV + SPIKE MINIBAG* 50 ML IV SCH (08:17)
[2016-07-22] MEDS: LOVENOX INJ 30 MG SYR SC SCH ×2 (08:18→20:36)
[2016-07-22] MEDS: MEGACE PO SCH ×2 (08:19→20:35)
[2016-07-22] MEDS: CARDIZEM CD 180 MG PO SCH (08:19)
[2016-07-22] MEDS: MACROBID CAP 100 MG EXT REL PO SCH ×2 (08:19→20:35)
[2016-07-22] MEDS: NAMENDA TAB 10 MG PO SCH (08:19)
[2016-07-22] MEDS: DIAMOX PO SCH (08:20)
[2016-07-22] MEDS: LOPRESSOR TAB 50 MG PO SCH ×2 (08:20→20:35)
[2016-07-22] MEDS: ZESTRIL TAB 10 MG PO SCH ×2 (08:20→20:35)
[2016-07-22] MEDS: COLACE CAP 100 MG PO SCH ×2 (08:20→20:35)
[2016-07-22] MEDS: CORDARONE TAB 200 MG PO SCH ×3 (08:21→18:55)
[2016-07-22] MEDS: PriLOSEC PO SCH ×2 (08:21→20:35)
[2016-07-22 13:56] LABS: ABG ALLEN TEST POS; ABG BASE EXCESS 0.1 mmol/L (-2.0-2.0); ABG HCO3 25.4 mmol/L (22-26)
[2016-07-22] MEDS: LASIX IVP SCH ×2 (14:02→20:36)
[2016-07-22] MEDS: NS 1/2 + KCL 20 MEQ/L 1,000 ML IV SCH (14:09)
--- NOTE | 2016-07-22 18:07 | PCM.PROG ---
Progress Note - Progress Note for Day of Date: 07/22/16 - Subjective Subjective: Patient is a 86-year-old white female, patient of Dr. Olivares'guerrero who was admitted for atrial fib with RVR. Patient is currently on by mouth Cardizem. PATIENT CONTINUES WITH SLIGHTLY ELEVATED BLOOD PRESSURE AND HEART RATE IN THE LOW 100S. DISCUSSED INCREASING CARDIZEM PATIENT HAD AROUND 575 CC URINE OUTPUT FOLLOWING lASIX. pATIENT'S RENAL FUNCTION STILL STABLE TODAY, PLAN TO CONTINUE iv lASIX. wE'LL REPEAT A.M. LABS AND CHEST X-RAY. pATIENT'S REPEAT abg SIGNIFICANTLY IMPROVED. PATIENT HAS VERY LIMITED BY MOUTH INTAKE, STATES SHE HAS NO APPETITE PATIENT REFUSED PHYSICAL THERAPY TODAY. pATIENT'S ELDEST SON REQUESTED A dnr ON THE CHART, FAMILY DOES NOT WANT MOTHER PLACED ON A VENTILATOR, HOWEVER TO DISCUSS WITH 4 OTHER SIBLINGS. - Past Medical Family Social History Past Med/Fam/Surg Hx: No changes since H&P Allergies: Allergies No Known Drug Allergy Allergy (Verified 07/05/16 12:41) - Review of Systems ROS: No change since H&P - Vital Signs and I&O's Vital Signs: Temperature 97.6 F Pulse Rate [Left Brachial] 107 Pulse Rate [Apical] 104 Pulse Rate [Right Brachial] 124 Pulse Rate 110 Respiratory Rate 22 Blood Pressure [Right Arm] 161/76 Blood Pressure [Left Arm] 128/90 O2 Sat by Pulse Oximetry 100 Intake and Output: Intake & Output 07/20/16 07/21/16 07/22/16 07/23/16 11:59 11:59 11:59 11:59 Intake Total 2392 2853 1601 599 Output Total 450 575 575 450 Balance 1942 2278 1026 149 - Physical Exam Oriented: Normal, Time, Person, Place Eyes: Normal. negative: Blurred Vision, Diplopia, Discharge, Pain, Redness, Photophobia Ear: Normal. negative: Swelling, Ecchymosis, Hemotypanum, Abrasion, Laceration Nose: Normal. negative: Injected, Discharge, Blood Throat: Normal. negative: Tonsillar Hypertrophy, Red, Exudate Respiratory: Generalized, Diminished Cardiovascular: Normal. negative: Murmur, Edema : Normal. negative: Dysuria, Hematuria, Frequency, Discharge, Bleeding, Auscultation: Bowel Sounds: Normal. negative: Bruit Tenderness: Normal. negative: Rebound, Guarding, Rigidity Skin: Wound (Left Lower Extremity Cellulitis), Other (BILATERAL UPPER EXTREMITY EDEMA WITH WEEPING) Musculoskeletal: Left (Lower Extremity), Swelling, Tender Psychiatric: Normal Mood Description: Calm, Appropriate Affect: Normal Speech Pattern: Clear - Laboratory and Diagnostics Result Diagrams: 07/22/16 04:25 07/22/16 04:25 Labs: 07/14/16 15:16 Urine,Catheterized Urine Culture - Final Enterococcus Faecium Laboratory WBC 8.7 X10^3/uL (3.6-10.0) 07/22/16 04:25 RBC 3.84 X10^6/uL (3.5-5.4) 07/22/16 04:25 Hgb 11.3 g/dL (12.0-16.0) L 07/22/16 04:25 Hct 34.6 % (36.0-47.0) L 07/22/16 04:25 MCV 90.0 fL (80.0-100.0) 07/22/16 04:25 MCH 29.4 pg (27.0-34.0) 07/22/16 04:25 MCHC 32.7 g/dL (33.0-35.0) L 07/22/16 04:25 RDW 17.4 % (11.6-16.5) H 07/22/16 04:25 Plt Count 233 X10^3/uL (150.0-450.0) 07/22/16 04:25 Plt Count Comment Adequate (ADEQUATE) 07/15/16 05:10 MPV 11.6 fL (7.4-11.0) H 07/22/16 04:25 Neut % 59.1 % (42.0-75.0) 07/22/16 04:25 Lymph % 22.8 % (21.0-51.0) 07/22/16 04:25 [place] % 12.2 % (0.0-13.0) 07/22/16 04:25 Eos % 4.1 % (0.9-2.9) H 07/22/16 04:25 Baso % 1.8 % (0.2-1.0) H 07/22/16 04:25 Neut # 5.1 x10^3/uL (2.2-4.8) H 07/22/16 04:25 Lymph # 2.0 X10^3/uL (1.3-2.9) 07/22/16 04:25 [place] # 1.1 x10^3/uL (0.3-0.8) H 07/22/16 04:25 Eos # 0.4 x10^3/uL (0.0-0.2) H 07/22/16 04:25 Baso # 0.2 X10^3/uL (0.0-0.1) H 07/22/16 04:25 Absolute Nucleated RBC 0.0 /100WBC 07/22/16 04:25 Total Counted 100 07/05/16 13:00 Neutrophils % (Manual) 78 % (39-76) H 07/05/16 13:00 Band Neutrophils % 12 % (0-10) H 07/05/16 13:00 Lymphocytes % (Manual) 7 % (13-43) L 07/05/16 13:00 Monocytes % (Manual) 3 % (4-9) L 07/05/16 13:00 Plt Morphology Comment Normal (NORMAL) 07/15/16 05:10 RBC Morphology Abnormal (NORMAL) A 07/15/16 05:10 Hypochromasia 1+ A 07/15/16 05:10 INR Target Range - 07/06/16 05:20 INR 1.31 (0.8-1.3) H 07/06/16 05:20 PTT 34.4 SECONDS (22.9-36.5) 07/06/16 05:20 PTT Comment - 07/06/16 05:20 Sample Site Rr 07/22/16 13:51 ABG pH 7.380 (7.35-7.45) 07/22/16 13:51 ABG pCO2 43.0 mmHg (35.0-45.0) 07/22/16 13:51 ABG pO2 66.0 mmHg (80.0-100.0) L 07/22/16 13:51 ABG HCO3 25.4 mmol/L (22-26) 07/22/16 13:51 ABG O2 Saturation 92.0 % (90-100) 07/22/16 13:51 ABG Base Excess 0.1 mmol/L (-2.0-2.0) 07/22/16 13:51 Oscar Test Pos 07/22/16 13:51 A-a Gradient 80.0 mmHg 07/22/16 13:51 FiO2 28.000 07/22/16 13:51 Blood Gas Comments Pt [place] well. cdn 07/22/16 13:51 Sodium 146 mmol/L (136-145) H 07/22/16 04:25 Corrected Sodium TNP 07/22/16 04:25 Potassium 3.1 mmol/L (3.5-5.1) L 07/22/16 04:25 Chloride 109 mmol/L (98-107) H 07/22/16 04:25 Carbon Dioxide 24.6 mmol/L (21-32) 07/22/16 04:25 BUN 38 mg/dL (7-18) H 07/22/16 04:25 Creatinine 1.78 mg/dL (0.55-1.02) H 07/22/16 04:25 Est GFR (MDRD) Af Amer 35 (>60) L 07/22/16 04:25 Est GFR (MDRD) Non-Af 29 (>60) L 07/22/16 04:25 Glucose 106 mg/dL (65-99) H 07/22/16 04:25 Calcium 8.3 mg/dL (8.5-10.1) L 07/22/16 04:25 Corrected Calcium TNP 07/22/16 04:25 Ionized Calcium [place] 1.25 mmol/L (1.11-1.30) 07/09/16 10:25 Ionized Calcium pH 7.4 1.11 mmol/L (1.11-1.30) 07/09/16 10:25 Magnesium 1.7 mg/dL (1.7-2.9) 07/06/16 05:20 Total Bilirubin 0.40 mg/dL (0.2-1.0) 07/22/16 04:25 AST 18 Units/L (15-37) 07/22/16 04:25 ALT 19 Units/L (12-78) 07/22/16 04:25 Alkaline Phosphatase 126 Units/L (46-116) H 07/22/16 04:25 Creatine Kinase 86 Units/L (26-192) 07/06/16 01:25 CK-MB (CK-2) 1.1 ng/mL (0-4.0) 07/06/16 01:25 CK/CKMB % Calc 1.3 % (<4) 07/06/16 01:25 Troponin I 0.25 ng/mL (0-1.5) 07/06/16 01:25 B-Natriuretic Peptide 1190 pg/mL (0-79) H* 07/21/16 05:25 Total Protein 5.9 g/dL (6.4-8.2) L 07/22/16 04:25 Albumin 3.6 g/dL (3.4-5.0) 07/22/16 04:25 Globulin 2.3 g/dL (2.5-4.5) L 07/22/16 04:25 Albumin/Globulin Ratio 1.6 Ratio (1.1-2.1) 07/22/16 04:25 Triglycerides 59 mg/dL (0-150) 07/06/16 05:20 Cholesterol 67 mg/dL (0-200) 07/06/16 05:20 LDL Cholesterol, Calc 27 mg/dL (0-100) 07/06/16 05:20 HDL Cholesterol 28 mg/dL (40-60) L 07/06/16 05:20 Cholesterol/HDL Ratio 2.4 (0.0-5.0) 07/06/16 05:20 Amylase 35 Units/L (25-115) 07/05/16 13:00 Lipase 127 Units/L (73-393) 07/05/16 13:00 Specimen Type Catherized urine 07/14/16 15:16 Urine Color Yellow (YELLOW) 07/14/16 15:16 Urine Appearance Slightly hazy (CLEAR) 07/14/16 15:16 Urine pH 5.0 (5.0 - 8.0) 07/14/16 15:16 Ur Specific [place] 1.020 (1.000-1.030) 07/14/16 15:16 Urine Protein 4+ (NEGATIVE) 07/14/16 15:16 Urine Glucose (UA) Negative (NEGATIVE) 07/14/16 15:16 Urine Ketones 2+ (NEGATIVE) 07/14/16 15:16 Urine Occult Blood 1+ (NEGATIVE) 07/14/16 15:16 Urine Nitrite Negative (NEGATIVE) 07/14/16 15:16 Urine Bilirubin Negative (NEGATIVE) 07/14/16 15:16 Urine Urobilinogen Normal (NORMAL) 07/14/16 15:16 Ur Leukocyte Esterase 2+ (NEGATIVE) 07/14/16 15:16 Urine RBC 1-2 /HPF (NEGATIVE) 07/14/16 15:16 Urine WBC 10-12 /HPF (NEGATIVE) 07/14/16 15:16 Ur Squamous Epith Cells Numerous /HPF (NEGATIVE) 07/14/16 15:16 Amorphous Sediment 1+ /HPF (NEGATIVE) 07/14/16 15:16 Urine Bacteria Trace /HPF (NEGATIVE) 07/14/16 15:16 Urine Yeast Few /HPF (NEGATIVE) 07/14/16 15:16 Ur Culture Indicated? Yes/culture set up 07/14/16 15:16 Hepatitis A IgM Ab Negative (Negative) 07/06/16 10:55 Hep Bs Antigen Negative (Negative) 07/06/16 10:55 Hep Bs Ag Confirmation TNP 07/06/16 10:55 Hep B Core IgM Ab Negative (Negative) 07/06/16 10:55 Hepatitis C Ab Index 0.10 IV 07/06/16 10:55 Hepatitis C Interp Negative (Negative) 07/06/16 10:55 Hepatitis Interpret See note 07/06/16 10:55 Blood Type A POSITIVE 07/15/16 10:03 Antibody Screen Negative 07/15/16 10:03 Crossmatch See Detail 07/15/16 10:03 - Plan (1) Afib Status: Acute Qualifiers: Atrial fibrillation type: A Plan: PO CARDIZEM, METOPROLOL AND LISINOPRIL. 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 STRIC I & OS,. LASIX 40MG IV (2) Altered mental status Status: Acute Qualifiers: Altered mental status type: delirium Coma depth: C Coma timing: C Qualified Code(s): R41.0 - Disorientation, unspecified Plan: CONTINUE HALDOL, ZYPREXA, MONITOR. (3) CHF (congestive heart failure) Status: Chronic Qualifiers: Congestive heart failure type: C Congestive heart failure chronicity: C (4) Renal failure Status: Chronic Qualifiers: Renal failure chronicity: chronic Acute renal failure type: A Chronic kidney disease stage: stage 3 (moderate) Qualified Code(s): N18.3 - Chronic kidney disease, stage 3 (moderate) (5) Vascular dementia Status: Chronic Qualifiers: Dementia behavioral disturbance: without behavioral disturbance Qualified Code(s): F01.50 - Vascular dementia without behavioral disturbance Plan: ABOVE. (6) Adult failure to thrive Status: Acute Plan: wHEN PATIENT IS MEDICALLY STABLE FAMILY DISCUSSED WITH CASE MANAGEMENT PLACEMENT IN ALF FACILITY, FAMILY ALSO DISCUSSING dnr.
[2016-07-22 19:08] LABS: BILIRUBIN,URINE NEGATIVE (NEGATIVE); BLOOD/HEMOGLOBIN,URINE 2+ (NEGATIVE); GLUCOSE, URINE NEGATIVE (NEGATIVE); KETONES,URINE NEGATIVE (NEGATIVE); LEUKOCYTE ESTERASE ,URINE 2+ (NEGATIVE); NITRITES,URINE NEGATIVE (NEGATIVE); PROTEIN,URINE 3+ (NEGATIVE); UROBILINOGEN,URINE NORMAL (NORMAL)
[2016-07-22 19:15] LABS: APPEARANCE,URINE CLOUDY (CLEAR); BACTERIA,URINE 1+ /HPF (NEGATIVE); COLOR,URINE YELLOW (YELLOW); SQUAMOUS EPITHELIAL CELL,UR RARE /HPF (NEGATIVE); YEAST,URINE MANY /HPF (NEGATIVE)
[2016-07-22] MEDS: ZOCOR TAB 20 MG PO SCH (20:35)
[2016-07-23] MEDS: DUONEB 0.5 MG/3 MG NEB SCH ×6 (01:28→20:07)
[2016-07-23 04:33] LABS: ABG ALLEN TEST POS; ABG BASE EXCESS 0.1 mmol/L (-2.0-2.0); ABG HCO3 24.7 mmol/L (22-26)
[2016-07-23 05:50] LABS: ALANINE AMINOTRANSFERASE 22 Units/L (12-78); ALBUMIN 3.3 g/dL (3.4-5.0); ALKALINE PHOSPHATASE 123 Units/L (46-116); ASPARTATE AMINO TRANSFERASE 27 Units/L (15-37); BLOOD UREA NITROGEN 35 mg/dL (7-18); CALCIUM 8.4 mg/dL (8.5-10.1); CARBON DIOXIDE 24.1 mmol/L (21-32); CHLORIDE 110 mmol/L (98-107); CREATININE 1.66 mg/dL (0.55-1.02); GLUCOSE 88 mg/dL (65-99); SODIUM 146 mmol/L (136-145); TOTAL PROTEIN 5.7 g/dL (6.4-8.2); eGFR BLACK RACES 38 (>60); eGFR NON BLACK RACES 31 (>60)
[2016-07-23] MEDS: CORDARONE TAB 200 MG PO SCH ×2 (06:25→17:49)
[2016-07-23 06:30] LABS: BASOPHILS # (AUTO) 0.2 X10^3/uL (0.0-0.1); BASOPHILS % (AUTO) 2.4 % (0.2-1.0); EOSINOPHILS # (AUTO) 0.4 x10^3/uL (0.0-0.2); EOSINOPHILS % (AUTO) 5.2 % (0.9-2.9); HEMATOCRIT 33.6 % (36.0-47.0); HEMOGLOBIN 10.9 g/dL (12.0-16.0); LYMPHOCYTES # (AUTO) 2.1 X10^3/uL (1.3-2.9); LYMPHOCYTES % (AUTO) 26.6 % (21.0-51.0); MEAN CORPUSCULAR HEMOGLOBIN 29.3 pg (27.0-34.0); MEAN CORPUSCULAR HGB CONC 32.4 g/dL (33.0-35.0); MEAN CORPUSCULAR VOLUME 90.4 fL (80.0-100.0); MEAN PLATELET VOLUME 11.4 fL (7.4-11.0); MONOCYTES # (AUTO) 0.9 x10^3/uL (0.3-0.8); MONOCYTES % (AUTO) 11.7 % (0.0-13.0); NEUTROPHILS # (AUTO) 4.3 x10^3/uL (2.2-4.8); NEUTROPHILS % (AUTO) 54.1 % (42.0-75.0); PLATELET COUNT 196 X10^3/uL (150.0-450.0); RED BLOOD COUNT 3.71 X10^6/uL (3.5-5.4); RED CELL DISTRIBUTION WIDTH 17.5 % (11.6-16.5); WHITE BLOOD COUNT 7.9 X10^3/uL (3.6-10.0)
--- NOTE | 2016-07-23 06:55 | RAD ---
HISTORY: Shortness of breath, congestive heart failure Study: Chest one view Comparison: July 21, 2016 Findings: The patient is rotated to the left. The heart is enlarged. Mild pulmonary venous congestion remains. There is now some interstitial prominence likely representing edema. No alveolar infiltrates or ravi eolar edema is identified. Right pleural effusion is unchanged. There is slight improvement in the a eration of the retrocardiac area of the left lower lobe when compared with the prior examination. IMPRESSION: Cardiomegaly with mild congestive heart failure slightly worse than on the prior examination. No change right pleural effusion. Slight improvement in aeration left lower lobe Reported By:
[2016-07-23] MEDS: LOVENOX INJ 30 MG SYR SC SCH ×2 (09:39→21:48)
[2016-07-23] MEDS ORDERED: LASIX IVP ONE (09:43)
[2016-07-23] MEDS: COLACE CAP 100 MG PO SCH ×2 (09:45→21:49)
[2016-07-23] MEDS: MEGACE PO SCH ×2 (09:45→21:48)
[2016-07-23] MEDS: LOPRESSOR TAB 50 MG PO SCH ×2 (09:46→21:48)
[2016-07-23] MEDS: MACROBID CAP 100 MG EXT REL PO SCH ×2 (09:46→21:48)
[2016-07-23] MEDS: CARDIZEM CD 180 MG PO SCH (09:46)
[2016-07-23] MEDS: ZESTRIL TAB 10 MG PO SCH ×2 (09:46→21:48)
[2016-07-23] MEDS: NAMENDA TAB 10 MG PO SCH (09:47)
[2016-07-23] MEDS: DIAMOX PO SCH (10:13)
[2016-07-23] MEDS: PriLOSEC PO SCH ×2 (10:14→21:49)
[2016-07-23] MEDS: LASIX IVP SCH ×2 (10:15→21:49)
--- NOTE | 2016-07-23 14:45 | PCM.PROG ---
Progress Note - Progress Note for Day of Date: 07/23/16 - Subjective Subjective: Patient is a 86-year-old white female, patient of Dr. Olivares'guerrero who was admitted for atrial fib with RVR. Patient is currently on by mouth Cardizem. PATIENT CONTINUES WITH SLIGHTLY ELEVATED BLOOD PRESSURE AND HEART RATE IN THE LOW 100S. DISCUSSED INCREASING CARDIZEM PATIENT HAD AROUND 575 CC URINE OUTPUT FOLLOWING lASIX. pATIENT'S RENAL FUNCTION STILL STABLE TODAY, PLAN TO CONTINUE iv lASIX. wE'LL REPEAT A.M. LABS AND CHEST X-RAY. pATIENT'S REPEAT abg SIGNIFICANTLY IMPROVED. PATIENT HAS VERY LIMITED BY MOUTH INTAKE, STATES SHE HAS NO APPETITE PATIENT REFUSED PHYSICAL THERAPY AGAIN TODAY, INFORMED PATIENT FOR REHABILITATION THERAPY SHE HAS TO BE COMPLIANT WITH PHYSICAL THERAPIST PLAN OF CARE. pATIENT'S ELDEST SON REQUESTED A dnr ON THE CHART, FAMILY DOES NOT WANT MOTHER PLACED ON A VENTILATOR, HOWEVER TO DISCUSS WITH 4 OTHER SIBLINGS. DISCUSSED AT LENGTH WITH 2 SONS WITH GRADUAL IMPROVEMENT AND STABILITY PATIENT COULD BE DISCHARGED HOME WITH HOME HEALTHCARE OR COULD BE PLACED WITH [facility] FOR REHABILITATION THERAPY IF SHE IS COMPLIANT WITH PHYSICAL THERAPIST. fAMILY STATES PATIENT HAS SOMEONE WHO CAN STAY 24 HOURS [id number], EITHER OPTION WOULD BE ACCEPTABLE TO THE FAMILY. - Past Medical Family Social History Past Med/Fam/Surg Hx: No changes since H&P Allergies: Allergies No Known Drug Allergy Allergy (Verified 07/05/16 12:41) - Review of Systems ROS: No change since H&P - Vital Signs and I&O's Vital Signs: Temperature 97.6 F Pulse Rate [Left Brachial] 107 Pulse Rate [Apical] 118 Pulse Rate [Right Brachial] 124 Pulse Rate 103 Respiratory Rate 22 Blood Pressure [Right Arm] 166/81 Blood Pressure [Left Arm] 128/90 O2 Sat by Pulse Oximetry 100 Intake and Output: Intake & Output 07/21/16 07/22/16 07/23/16 07/24/16 11:59 11:59 11:59 11:59 Intake Total 2853 1601 1408 Output Total 984 072 4689 Balance 2278 1026 -217 - Physical Exam Oriented: Normal, Time, Person, Place Eyes: Normal. negative: Blurred Vision, Diplopia, Discharge, Pain, Redness, Photophobia Ear: Normal. negative: Swelling, Ecchymosis, Hemotypanum, Abrasion, Laceration Nose: Normal. negative: Injected, Discharge, Blood Throat: Normal. negative: Tonsillar Hypertrophy, Red, Exudate Respiratory: Generalized, Diminished Cardiovascular: Normal. negative: Murmur, Edema : Normal. negative: Dysuria, Hematuria, Frequency, Discharge, Bleeding, Auscultation: Bowel Sounds: Normal. negative: Bruit Tenderness: Normal. negative: Rebound, Guarding, Rigidity Skin: Wound (Left Lower Extremity Cellulitis), Other (BILATERAL UPPER EXTREMITY EDEMA WITH WEEPING) Musculoskeletal: Left (Lower Extremity), Swelling, Tender Psychiatric: Normal Mood Description: Calm, Appropriate Affect: Normal Speech Pattern: Clear - Laboratory and Diagnostics Result Diagrams: 07/23/16 04:45 07/23/16 04:45 Labs: 07/22/16 18:51 Urine,Catheterized Urine Culture - Preliminary 07/14/16 15:16 Urine,Catheterized Urine Culture - Final Enterococcus Faecium Laboratory WBC 7.9 X10^3/uL (3.6-10.0) 07/23/16 04:45 RBC 3.71 X10^6/uL (3.5-5.4) 07/23/16 04:45 Hgb 10.9 g/dL (12.0-16.0) L 07/23/16 04:45 Hct 33.6 % (36.0-47.0) L 07/23/16 04:45 MCV 90.4 fL (80.0-100.0) 07/23/16 04:45 MCH 29.3 pg (27.0-34.0) 07/23/16 04:45 MCHC 32.4 g/dL (33.0-35.0) L 07/23/16 04:45 RDW 17.5 % (11.6-16.5) H 07/23/16 04:45 Plt Count 196 X10^3/uL (150.0-450.0) 07/23/16 04:45 Plt Count Comment Adequate (ADEQUATE) 07/15/16 05:10 MPV 11.4 fL (7.4-11.0) H 07/23/16 04:45 Neut % 54.1 % (42.0-75.0) 07/23/16 04:45 Lymph % 26.6 % (21.0-51.0) 07/23/16 04:45 [place] % 11.7 % (0.0-13.0) 07/23/16 04:45 Eos % 5.2 % (0.9-2.9) H 07/23/16 04:45 Baso % 2.4 % (0.2-1.0) H 07/23/16 04:45 Neut # 4.3 x10^3/uL (2.2-4.8) 07/23/16 04:45 Lymph # 2.1 X10^3/uL (1.3-2.9) 07/23/16 04:45 [place] # 0.9 x10^3/uL (0.3-0.8) H 07/23/16 04:45 Eos # 0.4 x10^3/uL (0.0-0.2) H 07/23/16 04:45 Baso # 0.2 X10^3/uL (0.0-0.1) H 07/23/16 04:45 Absolute Nucleated RBC 0.1 /100WBC 07/23/16 04:45 Total Counted 100 07/05/16 13:00 Neutrophils % (Manual) 78 % (39-76) H 07/05/16 13:00 Band Neutrophils % 12 % (0-10) H 07/05/16 13:00 Lymphocytes % (Manual) 7 % (13-43) L 07/05/16 13:00 Monocytes % (Manual) 3 % (4-9) L 07/05/16 13:00 Plt Morphology Comment Normal (NORMAL) 07/15/16 05:10 RBC Morphology Abnormal (NORMAL) A 07/15/16 05:10 Hypochromasia 1+ A 07/15/16 05:10 INR Target Range - 07/06/16 05:20 INR 1.31 (0.8-1.3) H 07/06/16 05:20 PTT 34.4 SECONDS (22.9-36.5) 07/06/16 05:20 PTT Comment - 07/06/16 05:20 Sample Site Rr 07/23/16 04:26 ABG pH 7.410 (7.35-7.45) 07/23/16 04:26 ABG pCO2 39.0 mmHg (35.0-45.0) 07/23/16 04:26 ABG pO2 88.0 mmHg (80.0-100.0) 07/23/16 04:26 ABG HCO3 24.7 mmol/L (22-26) 07/23/16 04:26 ABG O2 Saturation 97.0 % (90-100) 07/23/16 04:26 ABG Base Excess 0.1 mmol/L (-2.0-2.0) 07/23/16 04:26 Oscar Test Pos 07/23/16 04:26 A-a Gradient 63.0 mmHg 07/23/16 04:26 FiO2 28.000 07/23/16 04:26 Blood Gas Comments Jey well 07/23/16 04:26 Sodium 146 mmol/L (136-145) H 07/23/16 04:45 Corrected Sodium TNP 07/23/16 04:45 Potassium 3.2 mmol/L (3.5-5.1) L 07/23/16 04:45 Chloride 110 mmol/L (98-107) H 07/23/16 04:45 Carbon Dioxide 24.1 mmol/L (21-32) 07/23/16 04:45 BUN 35 mg/dL (7-18) H 07/23/16 04:45 Creatinine 1.66 mg/dL (0.55-1.02) H 07/23/16 04:45 Est GFR (MDRD) Af Amer 38 (>60) L 07/23/16 04:45 Est GFR (MDRD) Non-Af 31 (>60) L 07/23/16 04:45 Glucose 88 mg/dL (65-99) 07/23/16 04:45 Calcium 8.4 mg/dL (8.5-10.1) L 07/23/16 04:45 Corrected Calcium 9.0 mg/dL (8.5-10.1) 07/23/16 04:45 Ionized Calcium Graeme 1.25 mmol/L (1.11-1.30) 07/09/16 10:25 Ionized Calcium pH 7.4 1.11 mmol/L (1.11-1.30) 07/09/16 10:25 Magnesium 1.7 mg/dL (1.7-2.9) 07/06/16 05:20 Total Bilirubin 0.40 mg/dL (0.2-1.0) 07/23/16 04:45 AST 27 Units/L (15-37) 07/23/16 04:45 ALT 22 Units/L (12-78) 07/23/16 04:45 Alkaline Phosphatase 123 Units/L (46-116) H 07/23/16 04:45 Creatine Kinase 86 Units/L (26-192) 07/06/16 01:25 CK-MB (CK-2) 1.1 ng/mL (0-4.0) 07/06/16 01:25 CK/CKMB % Calc 1.3 % (<4) 07/06/16 01:25 Troponin I 0.25 ng/mL (0-1.5) 07/06/16 01:25 B-Natriuretic Peptide 1190 pg/mL (0-79) H* 07/21/16 05:25 Total Protein 5.7 g/dL (6.4-8.2) L 07/23/16 04:45 Albumin 3.3 g/dL (3.4-5.0) L 07/23/16 04:45 Globulin 2.4 g/dL (2.5-4.5) L 07/23/16 04:45 Albumin/Globulin Ratio 1.4 Ratio (1.1-2.1) 07/23/16 04:45 Triglycerides 59 mg/dL (0-150) 07/06/16 05:20 Cholesterol 67 mg/dL (0-200) 07/06/16 05:20 LDL Cholesterol, Calc 27 mg/dL (0-100) 07/06/16 05:20 HDL Cholesterol 28 mg/dL (40-60) L 07/06/16 05:20 Cholesterol/HDL Ratio 2.4 (0.0-5.0) 07/06/16 05:20 Amylase 35 Units/L (25-115) 07/05/16 13:00 Lipase 127 Units/L (73-393) 07/05/16 13:00 Specimen Type Catherized urine 07/22/16 18:51 Urine Color Yellow (YELLOW) 07/22/16 18:51 Urine Appearance Cloudy (CLEAR) 07/22/16 18:51 Urine pH 7.0 (5.0 - 8.0) 07/22/16 18:51 Ur Specific [place] 1.010 (1.000-1.030) 07/22/16 18:51 Urine Protein 3+ (NEGATIVE) 07/22/16 18:51 Urine Glucose (UA) Negative (NEGATIVE) 07/22/16 18:51 Urine Ketones Negative (NEGATIVE) 07/22/16 18:51 Urine Occult Blood 2+ (NEGATIVE) 07/22/16 18:51 Urine Nitrite Negative (NEGATIVE) 07/22/16 18:51 Urine Bilirubin Negative (NEGATIVE) 07/22/16 18:51 Urine Urobilinogen Normal (NORMAL) 07/22/16 18:51 Ur Leukocyte Esterase 2+ (NEGATIVE) 07/22/16 18:51 Urine RBC 10-15 /HPF (NEGATIVE) 07/22/16 18:51 Urine WBC 10-15 /HPF (NEGATIVE) 07/22/16 18:51 Ur Squamous Epith Cells Rare /HPF (NEGATIVE) 07/22/16 18:51 Amorphous Sediment 1+ /HPF (NEGATIVE) 07/14/16 15:16 Urine Bacteria 1+ /HPF (NEGATIVE) 07/22/16 18:51 Urine Yeast Many /HPF (NEGATIVE) 07/22/16 18:51 Ur Culture Indicated? Yes/culture set up 07/22/16 18:51 Hepatitis A IgM Ab Negative (Negative) 07/06/16 10:55 Hep Bs Antigen Negative (Negative) 07/06/16 10:55 Hep Bs Ag Confirmation TNP 07/06/16 10:55 Hep B Core IgM Ab Negative (Negative) 07/06/16 10:55 Hepatitis C Ab Index 0.10 IV 07/06/16 10:55 Hepatitis C Interp Negative (Negative) 07/06/16 10:55 Hepatitis Interpret See note 07/06/16 10:55 Blood Type A POSITIVE 07/15/16 10:03 Antibody Screen Negative 07/15/16 10:03 Crossmatch See Detail 07/15/16 10:03 - Plan (1) Afib Status: Acute Qualifiers: Atrial fibrillation type: A Plan: PO CARDIZEM, METOPROLOL AND LISINOPRIL. CONTINUE HRIS MANAGER, REPEAT AM LABS. STRIC I & OS,. LASIX 40MG IV (2) Altered mental status Status: Acute Qualifiers: Altered mental status type: delirium Coma depth: C Coma timing: C Qualified Code(s): R41.0 - Disorientation, unspecified Plan: CONTINUE HALDOL, ZYPREXA, MONITOR. (3) CHF (congestive heart failure) Status: Chronic Qualifiers: Congestive heart failure type: C Congestive heart failure chronicity: C (4) Renal failure Status: Chronic Qualifiers: Renal failure chronicity: chronic Acute renal failure type: A Chronic kidney disease stage: stage 3 (moderate) Qualified Code(s): N18.3 - Chronic kidney disease, stage 3 (moderate) (5) Vascular dementia Status: Chronic Qualifiers: Dementia behavioral disturbance: without behavioral disturbance Qualified Code(s): F01.50 - Vascular dementia without behavioral disturbance Plan: ABOVE. (6) Adult failure to thrive Status: Acute Plan: wHEN PATIENT IS MEDICALLY STABLE FAMILY DISCUSSED WITH CASE MANAGEMENT PLACEMENT IN [facility], FAMILY ALSO DISCUSSING dnr.
[2016-07-23] MEDS: ZOCOR TAB 20 MG PO SCH (21:48)
[2016-07-24] MEDS: DUONEB 0.5 MG/3 MG NEB SCH ×6 (01:19→20:59)
[2016-07-24] MEDS: NS 1/2 + KCL 20 MEQ/L 1,000 ML IV SCH ×2 (04:58→09:47)
[2016-07-24 06:35] LABS: BASOPHILS # (AUTO) 0.2 X10^3/uL (0.0-0.1); BASOPHILS % (AUTO) 2.2 % (0.2-1.0); EOSINOPHILS # (AUTO) 0.4 x10^3/uL (0.0-0.2); EOSINOPHILS % (AUTO) 4.5 % (0.9-2.9); HEMATOCRIT 34.1 % (36.0-47.0); LYMPHOCYTES # (AUTO) 2.2 X10^3/uL (1.3-2.9); LYMPHOCYTES % (AUTO) 27.1 % (21.0-51.0); MEAN CORPUSCULAR HEMOGLOBIN 29.3 pg (27.0-34.0); MEAN CORPUSCULAR HGB CONC 32.3 g/dL (33.0-35.0); MEAN CORPUSCULAR VOLUME 90.7 fL (80.0-100.0); MEAN PLATELET VOLUME 10.6 fL (7.4-11.0); MONOCYTES # (AUTO) 0.9 x10^3/uL (0.3-0.8); MONOCYTES % (AUTO) 10.8 % (0.0-13.0); NEUTROPHILS # (AUTO) 4.6 x10^3/uL (2.2-4.8); NEUTROPHILS % (AUTO) 55.4 % (42.0-75.0); PLATELET COUNT 219 X10^3/uL (150.0-450.0); RED BLOOD COUNT 3.76 X10^6/uL (3.5-5.4); RED CELL DISTRIBUTION WIDTH 17.4 % (11.6-16.5); WHITE BLOOD COUNT 8.3 X10^3/uL (3.6-10.0)
[2016-07-24 06:39] LABS: BLOOD UREA NITROGEN 35 mg/dL (7-18); CALCIUM 8.5 mg/dL (8.5-10.1); CHLORIDE 110 mmol/L (98-107); CREATININE 1.64 mg/dL (0.55-1.02); GLUCOSE 98 mg/dL (65-99); SODIUM 147 mmol/L (136-145); eGFR BLACK RACES 38 (>60); eGFR NON BLACK RACES 32 (>60)
[2016-07-24] MEDS: PriLOSEC PO SCH ×2 (08:18→20:48)
[2016-07-24] MEDS: NAMENDA TAB 10 MG PO SCH (08:19)
[2016-07-24] MEDS: MEGACE PO SCH ×2 (08:19→20:48)
[2016-07-24] MEDS: COLACE CAP 100 MG PO SCH ×2 (08:19→20:48)
[2016-07-24] MEDS: ZESTRIL TAB 10 MG PO SCH ×2 (08:20→20:47)
[2016-07-24] MEDS: CORDARONE TAB 200 MG PO SCH ×2 (08:20→16:29)
[2016-07-24] MEDS: LOPRESSOR TAB 50 MG PO SCH ×2 (08:20→20:47)
[2016-07-24] MEDS: CARDIZEM CD 180 MG PO SCH (08:20)
[2016-07-24] MEDS: MACROBID CAP 100 MG EXT REL PO SCH ×2 (08:20→20:48)
[2016-07-24] MEDS: LOVENOX INJ 30 MG SYR SC SCH ×2 (08:21→20:49)
[2016-07-24] MEDS: LASIX IVP SCH ×2 (08:21→20:49)
[2016-07-24] MEDS: DIAMOX PO SCH (08:36)
[2016-07-24] MEDS: ZOCOR TAB 20 MG PO SCH (20:47)
--- NOTE | 2016-07-24 21:26 | RAD ---
HISTORY: 86-year-old female with shortness of breath. Study: Single frontal view of the chest. Comparison: Chest radiograph July 23, 2016. Findings: The trachea is midline. The cardiac silhouette is stably enlarged. Mild improvement in aeration bi laterally. Persistent effusions, right greater the left with bibasilar atelectasis with no pneumotho rax or focal consolidation. The bony thorax is unremarkable. IMPRESSION: 1. Mild improvement in aeration bilaterally with persistent effusions, right greater than left. Reported By:
[2016-07-25] MEDS: DUONEB 0.5 MG/3 MG NEB SCH ×6 (00:24→21:05)
[2016-07-25 07:00] LABS: BASOPHILS % (AUTO) 0.3 % (0.2-1.0); EOSINOPHILS # (AUTO) 0.4 x10^3/uL (0.0-0.2); EOSINOPHILS % (AUTO) 5.2 % (0.9-2.9); HEMATOCRIT 38.6 % (36.0-47.0); HEMOGLOBIN 12.5 g/dL (12.0-16.0); LYMPHOCYTES # (AUTO) 2.6 X10^3/uL (1.3-2.9); MEAN CORPUSCULAR HEMOGLOBIN 29.3 pg (27.0-34.0); MEAN CORPUSCULAR HGB CONC 32.3 g/dL (33.0-35.0); MEAN CORPUSCULAR VOLUME 90.7 fL (80.0-100.0); MONOCYTES # (AUTO) 0.9 x10^3/uL (0.3-0.8); MONOCYTES % (AUTO) 11.1 % (0.0-13.0); NEUTROPHILS # (AUTO) 4.5 x10^3/uL (2.2-4.8); NEUTROPHILS % (AUTO) 53.4 % (42.0-75.0); PLATELET COUNT 115 X10^3/uL (150.0-450.0); RED BLOOD COUNT 4.26 X10^6/uL (3.5-5.4); RED CELL DISTRIBUTION WIDTH 17.7 % (11.6-16.5); WHITE BLOOD COUNT 8.5 X10^3/uL (3.6-10.0)
[2016-07-25 07:22] LABS: PLATELET MORPHOLOGY COMMENT NORMAL (NORMAL); POIKILOCYTOSIS SLIGHT
[2016-07-25] MEDS: CORDARONE TAB 200 MG PO SCH ×2 (08:56→18:16)
[2016-07-25] MEDS: LASIX IVP SCH ×2 (08:59→20:43)
[2016-07-25] MEDS: LOVENOX INJ 30 MG SYR SC SCH ×2 (09:00→20:43)
[2016-07-25] MEDS: NS 1/2 + KCL 20 MEQ/L 1,000 ML IV SCH ×2 (09:00→18:16)
[2016-07-25] MEDS: ZESTRIL TAB 10 MG PO SCH ×2 (09:04→20:42)
[2016-07-25] MEDS: CARDIZEM CD 180 MG PO SCH (09:04)
[2016-07-25] MEDS: DIAMOX PO SCH (09:05)
[2016-07-25] MEDS: LOPRESSOR TAB 50 MG PO SCH ×2 (09:05→20:42)
[2016-07-25] MEDS: MEGACE PO SCH ×2 (09:06→20:42)
[2016-07-25] MEDS: MACROBID CAP 100 MG EXT REL PO SCH ×2 (09:06→20:42)
[2016-07-25] MEDS: PriLOSEC PO SCH ×2 (09:07→20:42)
[2016-07-25] MEDS: NAMENDA TAB 10 MG PO SCH (09:07)
[2016-07-25] MEDS: COLACE CAP 100 MG PO SCH ×2 (09:08→20:42)
[2016-07-25 11:00] LABS: ALANINE AMINOTRANSFERASE 22 Units/L (12-78); ALBUMIN 3.2 g/dL (3.4-5.0); ALKALINE PHOSPHATASE 114 Units/L (46-116); ASPARTATE AMINO TRANSFERASE 21 Units/L (15-37); BLOOD UREA NITROGEN 33 mg/dL (7-18); CALCIUM 8.6 mg/dL (8.5-10.1); CARBON DIOXIDE 27.8 mmol/L (21-32); CHLORIDE 111 mmol/L (98-107); COR CA(FOR HYPOALB) 9.2 mg/dL (8.5-10.1); CREATININE 1.68 mg/dL (0.55-1.02); GLUCOSE 95 mg/dL (65-99); SODIUM 147 mmol/L (136-145); TOTAL PROTEIN 5.6 g/dL (6.4-8.2); eGFR BLACK RACES 37 (>60); eGFR NON BLACK RACES 31 (>60)
[2016-07-25] MEDS: ZOCOR TAB 20 MG PO SCH (20:42)
[2016-07-26] MEDS: DUONEB 0.5 MG/3 MG NEB SCH ×6 (00:24→21:08)
[2016-07-26 05:52] LABS: ALANINE AMINOTRANSFERASE 28 Units/L (12-78); ALBUMIN 3.5 g/dL (3.4-5.0); ALKALINE PHOSPHATASE 121 Units/L (46-116); ASPARTATE AMINO TRANSFERASE 26 Units/L (15-37); BLOOD UREA NITROGEN 31 mg/dL (7-18); CARBON DIOXIDE 25.2 mmol/L (21-32); CHLORIDE 110 mmol/L (98-107); CREATININE 1.63 mg/dL (0.55-1.02); GLUCOSE 101 mg/dL (65-99); SODIUM 148 mmol/L (136-145); eGFR BLACK RACES 39 (>60); eGFR NON BLACK RACES 32 (>60)
[2016-07-26 06:22] LABS: BASOPHILS # (AUTO) 0.2 X10^3/uL (0.0-0.1); BASOPHILS % (AUTO) 1.8 % (0.2-1.0); EOSINOPHILS # (AUTO) 0.4 x10^3/uL (0.0-0.2); EOSINOPHILS % (AUTO) 5.2 % (0.9-2.9); HEMATOCRIT 38.3 % (36.0-47.0); HEMOGLOBIN 12.3 g/dL (12.0-16.0); LYMPHOCYTES # (AUTO) 1.8 X10^3/uL (1.3-2.9); LYMPHOCYTES % (AUTO) 21.3 % (21.0-51.0); MEAN CORPUSCULAR HEMOGLOBIN 29.3 pg (27.0-34.0); MEAN CORPUSCULAR HGB CONC 32.1 g/dL (33.0-35.0); MEAN CORPUSCULAR VOLUME 91.3 fL (80.0-100.0); MEAN PLATELET VOLUME 10.6 fL (7.4-11.0); MONOCYTES # (AUTO) 0.8 x10^3/uL (0.3-0.8); MONOCYTES % (AUTO) 9.7 % (0.0-13.0); NEUTROPHILS # (AUTO) 5.3 x10^3/uL (2.2-4.8); PLATELET COUNT 221 X10^3/uL (150.0-450.0); RED BLOOD COUNT 4.19 X10^6/uL (3.5-5.4); RED CELL DISTRIBUTION WIDTH 17.7 % (11.6-16.5); WHITE BLOOD COUNT 8.5 X10^3/uL (3.6-10.0)
[2016-07-26] MEDS: CORDARONE TAB 200 MG PO SCH ×2 (07:42→16:17)
[2016-07-26] MEDS: MACROBID CAP 100 MG EXT REL PO SCH ×2 (09:18→20:44)
[2016-07-26] MEDS: MEGACE PO SCH ×2 (09:18→20:44)
[2016-07-26] MEDS: PriLOSEC PO SCH ×2 (09:18→20:44)
[2016-07-26] MEDS: COLACE CAP 100 MG PO SCH ×2 (09:19→20:44)
[2016-07-26] MEDS: CARDIZEM CD 180 MG PO SCH (09:19)
[2016-07-26] MEDS: LASIX IVP SCH ×2 (09:19→20:45)
[2016-07-26] MEDS: ZESTRIL TAB 10 MG PO SCH ×2 (09:19→20:44)
[2016-07-26] MEDS: LOPRESSOR TAB 50 MG PO SCH ×2 (09:19→20:44)
[2016-07-26] MEDS: DIAMOX PO SCH (09:19)
[2016-07-26] MEDS: NAMENDA TAB 10 MG PO SCH (09:20)
[2016-07-26] MEDS: LOVENOX INJ 30 MG SYR SC SCH ×2 (09:21→20:45)
--- NOTE | 2016-07-26 15:24 | PCM.PROG ---
Progress Note - Progress Note for Day of Date: 07/26/16 - Subjective Subjective: Patient is a 86-year-old white female, patient of Dr. Olivares'guerrero who was admitted for atrial fib with RVR. Patient is currently on by mouth Cardizem. Patient has redness noted to left lower extremity and lower extrmity swelling patinet to continue on IV Lasix. Options for discharge has been discused with family and the family has decided for senior living placement. Patinet was to be dischagre evens today however, we are waiting on bed placement. Labs remain stable with the exception of potassium 3.3 for which she continues on potassium replacemenmt protocol for, BUN 31, Creatinine 1.63, Est GFR 32, Alkaline phosphate 121 - Past Medical Family Social History Past Med/Fam/Surg Hx: No changes since H&P Allergies: Allergies No Known Drug Allergy Allergy (Verified 07/05/16 12:41) - Review of Systems ROS: No change since H&P - Vital Signs and I&O's Vital Signs: Temperature 99 F Pulse Rate [Left Brachial] 107 Pulse Rate [Apical] 117 Pulse Rate [Right Brachial] 124 Pulse Rate 104 Respiratory Rate 15 Blood Pressure [Right Arm] 152/86 Blood Pressure [Left Arm] 128/90 O2 Sat by Pulse Oximetry 99 Intake and Output: Intake & Output 07/24/16 07/25/16 07/26/16 07/27/16 11:59 11:59 11:59 11:59 Intake Total 1096 1327 1273 Output Total 1500 1700 2400 Balance -474 -429 -4979 - Physical Exam Oriented: Not Oriented Eyes: Normal. negative: Blurred Vision, Diplopia, Discharge, Pain, Redness, Photophobia Ear: Normal. negative: Swelling, Ecchymosis, Hemotypanum, Abrasion, Laceration Nose: Normal. negative: Injected, Discharge, Blood Throat: Normal. negative: Tonsillar Hypertrophy, Red, Exudate Respiratory: Normal Cardiovascular: Normal. negative: Murmur, Edema : Normal. negative: Dysuria, Hematuria, Frequency, Discharge, Bleeding, Auscultation: Bowel Sounds: Normal. negative: Bruit Tenderness: Normal. negative: Rebound, Guarding, Rigidity Skin: Other (BILATERAL UPPER EXTREMITY swelling) Musculoskeletal: Right, Left (lower extremity swelling) Psychiatric: Normal Mood Description: Calm, Appropriate Affect: Normal Speech Pattern: Clear - Laboratory and Diagnostics Result Diagrams: 07/26/16 05:05 07/26/16 05:05 Labs: 07/22/16 18:51 Urine,Catheterized Urine Culture - Final 07/14/16 15:16 Urine,Catheterized Urine Culture - Final Enterococcus Faecium Laboratory WBC 8.5 X10^3/uL (3.6-10.0) 07/26/16 05:05 RBC 4.19 X10^6/uL (3.5-5.4) 07/26/16 05:05 Hgb 12.3 g/dL (12.0-16.0) 07/26/16 05:05 Hct 38.3 % (36.0-47.0) 07/26/16 05:05 MCV 91.3 fL (80.0-100.0) 07/26/16 05:05 MCH 29.3 pg (27.0-34.0) 07/26/16 05:05 MCHC 32.1 g/dL (33.0-35.0) L 07/26/16 05:05 RDW 17.7 % (11.6-16.5) H 07/26/16 05:05 Plt Count 221 X10^3/uL (150.0-450.0) 07/26/16 05:05 Plt Count Comment Adequate (ADEQUATE) 07/25/16 05:35 MPV 10.6 fL (7.4-11.0) 07/26/16 05:05 Neut % 62.0 % (42.0-75.0) 07/26/16 05:05 Lymph % 21.3 % (21.0-51.0) 07/26/16 05:05 [place] % 9.7 % (0.0-13.0) 07/26/16 05:05 Eos % 5.2 % (0.9-2.9) H 07/26/16 05:05 Baso % 1.8 % (0.2-1.0) H 07/26/16 05:05 Neut # 5.3 x10^3/uL (2.2-4.8) H 07/26/16 05:05 Lymph # 1.8 X10^3/uL (1.3-2.9) 07/26/16 05:05 [place] # 0.8 x10^3/uL (0.3-0.8) 07/26/16 05:05 Eos # 0.4 x10^3/uL (0.0-0.2) H 07/26/16 05:05 Baso # 0.2 X10^3/uL (0.0-0.1) H 07/26/16 05:05 Absolute Nucleated RBC 0.0 /100WBC 07/26/16 05:05 Total Counted 100 07/05/16 13:00 Neutrophils % (Manual) 78 % (39-76) H 07/05/16 13:00 Band Neutrophils % 12 % (0-10) H 07/05/16 13:00 Lymphocytes % (Manual) 7 % (13-43) L 07/05/16 13:00 Monocytes % (Manual) 3 % (4-9) L 07/05/16 13:00 Plt Morphology Comment Normal (NORMAL) 07/25/16 05:35 RBC Morphology Abnormal (NORMAL) A 07/25/16 05:35 Hypochromasia 1+ A 07/15/16 05:10 Poikilocytosis Slight A 07/25/16 05:35 Macrocytosis Slight A 07/25/16 05:35 INR Target Range - 07/06/16 05:20 INR 1.31 (0.8-1.3) H 07/06/16 05:20 PTT 34.4 SECONDS (22.9-36.5) 07/06/16 05:20 PTT Comment - 07/06/16 05:20 Sample Site Rr 07/23/16 04:26 ABG pH 7.410 (7.35-7.45) 07/23/16 04:26 ABG pCO2 39.0 mmHg (35.0-45.0) 07/23/16 04:26 ABG pO2 88.0 mmHg (80.0-100.0) 07/23/16 04:26 ABG HCO3 24.7 mmol/L (22-26) 07/23/16 04:26 ABG O2 Saturation 97.0 % (90-100) 07/23/16 04:26 ABG Base Excess 0.1 mmol/L (-2.0-2.0) 07/23/16 04:26 Oscar Test Pos 07/23/16 04:26 A-a Gradient 63.0 mmHg 07/23/16 04:26 FiO2 28.000 07/23/16 04:26 Blood Gas Comments Jey well 07/23/16 04:26 Sodium 148 mmol/L (136-145) H 07/26/16 05:05 Corrected Sodium TNP 07/26/16 05:05 Potassium 3.3 mmol/L (3.5-5.1) L 07/26/16 05:05 Chloride 110 mmol/L (98-107) H 07/26/16 05:05 Carbon Dioxide 25.2 mmol/L (21-32) 07/26/16 05:05 BUN 31 mg/dL (7-18) H 07/26/16 05:05 Creatinine 1.63 mg/dL (0.55-1.02) H 07/26/16 05:05 Est GFR (MDRD) Af Amer 39 (>60) L 07/26/16 05:05 Est GFR (MDRD) Non-Af 32 (>60) L 07/26/16 05:05 Glucose 101 mg/dL (65-99) H 07/26/16 05:05 Calcium 9.0 mg/dL (8.5-10.1) 07/26/16 05:05 Corrected Calcium TNP 07/26/16 05:05 Ionized Calcium [place] 1.25 mmol/L (1.11-1.30) 07/09/16 10:25 Ionized Calcium pH 7.4 1.11 mmol/L (1.11-1.30) 07/09/16 10:25 Magnesium 1.7 mg/dL (1.7-2.9) 07/06/16 05:20 Total Bilirubin 0.70 mg/dL (0.2-1.0) 07/26/16 05:05 AST 26 Units/L (15-37) 07/26/16 05:05 ALT 28 Units/L (12-78) 07/26/16 05:05 Alkaline Phosphatase 121 Units/L (46-116) H 07/26/16 05:05 Creatine Kinase 86 Units/L (26-192) 07/06/16 01:25 CK-MB (CK-2) 1.1 ng/mL (0-4.0) 07/06/16 01:25 CK/CKMB % Calc 1.3 % (<4) 05/16/17 01:25 Troponin I 0.25 ng/mL (0-1.5) 07/06/16 01:25 B-Natriuretic Peptide 1190 pg/mL (0-79) H* 07/21/16 05:25 Total Protein 6.0 g/dL (6.4-8.2) L 07/26/16 05:05 Albumin 3.5 g/dL (3.4-5.0) 07/26/16 05:05 Globulin 2.5 g/dL (2.5-4.5) 07/26/16 05:05 Albumin/Globulin Ratio 1.4 Ratio (1.1-2.1) 07/26/16 05:05 Triglycerides 59 mg/dL (0-150) 07/06/16 05:20 Cholesterol 67 mg/dL (0-200) 07/06/16 05:20 LDL Cholesterol, Calc 27 mg/dL (0-100) 07/06/16 05:20 HDL Cholesterol 28 mg/dL (40-60) L 07/06/16 05:20 Cholesterol/HDL Ratio 2.4 (0.0-5.0) 07/06/16 05:20 Amylase 35 Units/L (25-115) 07/05/16 13:00 Lipase 127 Units/L (73-393) 07/05/16 13:00 Specimen Type Catherized urine 07/22/16 18:51 Urine Color Yellow (YELLOW) 07/22/16 18:51 Urine Appearance Cloudy (CLEAR) 07/22/16 18:51 Urine pH 7.0 (5.0 - 8.0) 07/22/16 18:51 Ur Specific [place] 1.010 (1.000-1.030) 07/22/16 18:51 Urine Protein 3+ (NEGATIVE) 07/22/16 18:51 Urine Glucose (UA) Negative (NEGATIVE) 07/22/16 18:51 Urine Ketones Negative (NEGATIVE) 07/22/16 18:51 Urine Occult Blood 2+ (NEGATIVE) 07/22/16 18:51 Urine Nitrite Negative (NEGATIVE) 07/22/16 18:51 Urine Bilirubin Negative (NEGATIVE) 07/22/16 18:51 Urine Urobilinogen Normal (NORMAL) 07/22/16 18:51 Ur Leukocyte Esterase 2+ (NEGATIVE) 07/22/16 18:51 Urine RBC 10-15 /HPF (NEGATIVE) 07/22/16 18:51 Urine WBC 10-15 /HPF (NEGATIVE) 07/22/16 18:51 Ur Squamous Epith Cells Rare /HPF (NEGATIVE) 07/22/16 18:51 Amorphous Sediment 1+ /HPF (NEGATIVE) 07/14/16 15:16 Urine Bacteria 1+ /HPF (NEGATIVE) 07/22/16 18:51 Urine Yeast Many /HPF (NEGATIVE) 07/22/16 18:51 Ur Culture Indicated? Yes/culture set up 07/22/16 18:51 Hepatitis A IgM Ab Negative (Negative) 07/06/16 10:55 Hep Bs Antigen Negative (Negative) 07/06/16 10:55 Hep Bs Ag Confirmation TNP 07/06/16 10:55 Hep B Core IgM Ab Negative (Negative) 07/06/16 10:55 Hepatitis C Ab Index 0.10 IV 07/06/16 10:55 Hepatitis C Interp Negative (Negative) 07/06/16 10:55 Hepatitis Interpret See note 07/06/16 10:55 Blood Type A POSITIVE 07/15/16 10:03 Antibody Screen Negative 07/15/16 10:03 Crossmatch See Detail 07/15/16 10:03 - Plan (1) Atrial fibrillation with RVR Status: Acute Plan: Continue with cardizem 180mg PO Daily continuos cardiac monitoring (2) Altered mental status Status: Acute Qualifiers: Altered mental status type: delirium Coma depth: C Coma timing: C Qualified Code(s): R41.0 - Disorientation, unspecified Plan: CONTINUE HALDOL, ZYPREXA, MONITOR. (3) Respiratory distress Status: Acute Plan: CONTINUE SUPPLEMENTAL OXYGEN, MONITOR. (4) Dehydration Status: Acute Plan: CONTINUE IV FLUIDS, MONITOR. (5) Renal failure Status: Chronic Qualifiers: Renal failure chronicity: chronic Acute renal failure type: A Chronic kidney disease stage: stage 3 (moderate) Qualified Code(s): N18.3 - Chronic kidney disease, stage 3 (moderate) (6) Vascular dementia Status: Chronic Qualifiers: Dementia behavioral disturbance: without behavioral disturbance Qualified Code(s): F01.50 - Vascular dementia without behavioral disturbance Plan: ABOVE. (7) Hypertension Status: Chronic Qualifiers: Hypertension type: essential hypertension Qualified Code(s): I10 - Essential (primary) hypertension Plan: CONTINUE TO MONITOR. (8) CHF (congestive heart failure) Status: Chronic Qualifiers: Congestive heart failure type: combined Congestive heart failure chronicity : acute on chronic Qualified Code(s): I50.43 - Acute on chronic combined systolic (congestive) and diastolic (congestive) heart failure Plan: CONTINUE TO MONITOR CHEST XRAY. (9) GERD (gastroesophageal reflux disease) Status: Chronic Qualifiers: Esophagitis presence: esophagitis presence not specified Qualified Code(s) : K21.9 - Gastro-esophageal reflux disease without esophagitis (10) Gout Status: Chronic Qualifiers: Gout site: multiple sites Gout etiology: idiopathic Encounter type: E Laterality: L Chronicity: chronic Presence of tophus: without tophus Qualified Code(s): M1A.09X0 - Idiopathic chronic gout, multiple sites, without tophus (tophi) (11) Hyperlipidemia Status: Chronic Qualifiers: Hyperlipidemia type: mixed hyperlipidemia Qualified Code(s): E78.2 - Mixed hyperlipidemia
[2016-07-26] MEDS ORDERED: MILK OF MAGNESIA PO PRN (20:09)
[2016-07-26] MEDS: ZOCOR TAB 20 MG PO SCH (20:44)
[2016-07-27] MEDS: DUONEB 0.5 MG/3 MG NEB SCH ×3 (01:19→09:12)
[2016-07-27] MEDS: NS 1/2 + KCL 20 MEQ/L 1,000 ML IV SCH ×2 (05:28→08:28)
[2016-07-27 05:58] LABS: ALBUMIN 3.3 g/dL (3.4-5.0); CALCIUM 8.6 mg/dL (8.5-10.1); CARBON DIOXIDE 25.7 mmol/L (21-32); COR CA(FOR HYPOALB) 9.2 mg/dL (8.5-10.1); CREATININE 1.63 mg/dL (0.55-1.02)
[2016-07-27 06:37] LABS: BASOPHILS # (AUTO) 0.1 X10^3/uL (0.0-0.1); BASOPHILS % (AUTO) 1.3 % (0.2-1.0); EOSINOPHILS # (AUTO) 0.5 x10^3/uL (0.0-0.2); EOSINOPHILS % (AUTO) 5.7 % (0.9-2.9); HEMATOCRIT 35.9 % (36.0-47.0); HEMOGLOBIN 11.4 g/dL (12.0-16.0); LYMPHOCYTES # (AUTO) 1.8 X10^3/uL (1.3-2.9); LYMPHOCYTES % (AUTO) 20.8 % (21.0-51.0); MEAN CORPUSCULAR HEMOGLOBIN 28.9 pg (27.0-34.0); MEAN CORPUSCULAR HGB CONC 31.8 g/dL (33.0-35.0); MEAN CORPUSCULAR VOLUME 90.8 fL (80.0-100.0); MEAN PLATELET VOLUME 11.3 fL (7.4-11.0); MONOCYTES # (AUTO) 0.8 x10^3/uL (0.3-0.8); MONOCYTES % (AUTO) 9.1 % (0.0-13.0); NEUTROPHILS # (AUTO) 5.3 x10^3/uL (2.2-4.8); NEUTROPHILS % (AUTO) 63.1 % (42.0-75.0); PLATELET COUNT 228 X10^3/uL (150.0-450.0); RED BLOOD COUNT 3.95 X10^6/uL (3.5-5.4); WHITE BLOOD COUNT 8.5 X10^3/uL (3.6-10.0)
[2016-07-27] MEDS: LASIX IVP SCH (08:21)
[2016-07-27] MEDS: DIAMOX PO SCH (08:22)
[2016-07-27] MEDS: LOPRESSOR TAB 50 MG PO SCH (08:22)
[2016-07-27] MEDS: MACROBID CAP 100 MG EXT REL PO SCH (08:22)
[2016-07-27] MEDS: COLACE CAP 100 MG PO SCH (08:22)
[2016-07-27] MEDS: MEGACE PO SCH (08:23)
[2016-07-27] MEDS: CARDIZEM CD 180 MG PO SCH (08:23)
[2016-07-27] MEDS: PriLOSEC PO SCH (08:24)
[2016-07-27] MEDS: NAMENDA TAB 10 MG PO SCH (08:24)
[2016-07-27] MEDS: ZESTRIL TAB 10 MG PO SCH (08:24)
[2016-07-27] MEDS: CORDARONE TAB 200 MG PO SCH (08:26)
[2016-07-27] MEDS: LOVENOX INJ 30 MG SYR SC SCH (08:26)
[2016-07-27 15:38] VITALS: BP 182/79
--- NOTE | 2016-07-28 11:16 | DR.CARTERD ---
- Discharge Summary for: Discharge Summary for Date of:: 07/27/16 - Admission Date Date of Admission: 07/05/16 - Admission Diagnoses Admission Diagnosis: A-Fib with RVR. AMS. Resp Distress. Dehydration. Renal Failure. Vascular Dementia. Hypertension. CHF. GERD. Gout. Hyperlipidemia Admission Diagnosis: A-Fib with RVR AMS Resp Distress Dehydration Renal Failure Vascular Dementia Hypertension CHF GERD Gout Hyperlipidemia - Discharge Date Discharge Date: 07/27/16 - Discharge Diagnoses Discharge Diagnosis: A-Fib with RVR AMS Resp Distress Dehydration Renal Failure Vascular Dementia Hypertension CHF GERD Gout Hyperlipidemia - Hospital Course Hospital Course: Patient is a 86-year-old white female, patient of Dr. Olivares's who was admitted for atrial fib with RVR. Patient is currently on by mouth Cardizem however, prioir she was on cardizem drip and were able to wean off and change to cardizem PO. Patient has redness noted to left lower extremity and lower extremity swelling patient to continued on lasix through out the hospital stay which has markedly improved. physical therapy started working with once she was off of cardizem drip. Family were concerned about patient goign home as they did not feel like they could care for her as needed. SO the [facility]. [facility] is being [facility] the [facility] in stable condition. Labs: Labs within normal limits with the exception of Hgb 11.4, Hct 35.9, MCHC 31.8, RDW 18.0, MPV 11.3, Lymph% Eos% 5.7, Baso% 1.3, Neut# 5.3, Eos# 0.5, Sodium 149 , Chloride 111, BUN 32, Creatinine 1.63, Est GFR 32, Glucose 125, Total Protein 6.0, Albumin 3.3 - Discharge Medications Discharge Medications: Clonidine HCl [CATAPRES-TTS patch 0.3 mg/24 hr 7-day *] 1 patch TOP WEEKLY 07/05 [History] Ezetimibe [ZETIA 10 MG *] 1 tab PO HS 07/05/16 [History] Megestrol Acetate [MEGACE TAB 40 MG *] 1 tab PO BID 07/05/16 [History] Memantine HCl [Namenda] 5 mg PO DAILY 07/05/16 [History] Ipratropium/Albuterol Nebule [DUONEB 0.5 MG/3 MG NEBULE *] 1 ea NEB QID #120 each 07/12/16 [Rx] Metoprolol Tartrate [LOPRESSOR 50 MG *] 50 mg PO BID #60 tab 07/12/16 [Rx] Amiodarone HCl [CORDARONE tab 200 mg *] 200 mg PO BIDWM #60 tab 07/26/16 [Rx] Diltiazem HCl Ext Rel [CARDIZEM CD 180 mg (24 hr) *] 180 mg PO DAILY #30 cap [Rx] Omeprazole [PRILOSEC 20 MG *] 40 mg PO BID #60 cap 07/26/16 [Rx] - Discharge Disposition Discharge Disposition: Detention
== END 2016-07-27 16:00 | DRG 602 ==
LOC: ER 12:40 → ICU 15:55 → MED/SURG 07-06 15:45 → ICU 07-13 19:06
PROVIDERS: ADMIT Internal Medicine; ATTEND Internal Medicine
DX: L03.116 Cellulitis of left lower limb (principal); R06.02 Shortness of breath; R53.1 Weakness; R53.83 Other fatigue; I25.10 Atherosclerotic heart disease of native coronary artery without angina pectoris; E78.2 Mixed hyperlipidemia; K21.9 Gastro-esophageal reflux disease without esophagitis; I12.9 Hypertensive chronic kidney disease with stage 1 through stage 4 chronic kidney disease, or unspecified chronic kidney disease; N39.0 Urinary tract infection, site not specified; I50.43 Acute on chronic combined systolic (congestive) and diastolic (congestive) heart failure; E86.0 Dehydration; R94.5 Abnormal results of liver function studies; R06.09 Other forms of dyspnea; R94.31 Abnormal electrocardiogram [ECG] [EKG]; M1A.09X0 Idiopathic chronic gout, multiple sites, without tophus (tophi); N18.3 Chronic kidney disease, stage 3 (moderate); F01.50 Vascular dementia, unspecified severity, without behavioral disturbance, psychotic disturbance, mood disturbance, and anxiety; I51.7 Cardiomegaly; J44.9 Chronic obstructive pulmonary disease, unspecified; R41.82 Altered mental status, unspecified; I48.91 Unspecified atrial fibrillation; B95.62 Methicillin resistant Staphylococcus aureus infection as the cause of diseases classified elsewhere; R62.7 Adult failure to thrive
CPT/HCPCS: 36415; 36430; 36600; 71010; 74176; 76705; 78306; 80048; 80053; 80061; 80074; 81001; 82150; 82330; 82550; 82553; 82803; 83690; 83735; 83880; 84132; 84484; 85025; 85610; 85730; 86850; 86900; 86901; 86922; 87086; 87088; 87186; 93005; 93010; 94640; 96365; 97535; 99284; A4222; J7030; P9016; P9047; S0179; J0696; J1200; J1630; J1650; J1940; J2405; J3490; J7620

== ENCOUNTER 2016-09-10 11:44 | Emergency (ER) | payer OTHER, MEDICAID ==
[2016-09-10] MEDS ORDERED: NS 1000 ML 1,000 ML ONE (11:53)
[2016-09-10] MEDS ORDERED: DUONEB 0.5 MG/3 MG NEB ONE ×2 (12:00→15:15)
[2016-09-10] MEDS ORDERED: SODIUM BICARBONATE 8.4% INJ ADULT IVP ONE (12:01)
[2016-09-10] MEDS ORDERED: HumuLIN R IV ONE (12:03)
[2016-09-10] MEDS ORDERED: LASIX IVP ONE ×2 (12:05→12:22)
[2016-09-10 12:06] VITALS: BMI 23.4
--- NOTE | 2016-09-10 12:12 | DR.GENAD ---
HPI - PCP Primary Care Physician: paula - Complaint/Symptoms Chief Complaint Doctors Comments: Patient was awaiting a room for direct admit status from her primary care physician due to hyperkalemia. While waiting for room she became dyspnic,diaphoretic with rhoncih. PMH - PMH Past Medical History: CHF, COPD, Coronary Artery Disease, Dyslipidemia, GERD, Gout, Hypertension, Renal Disease Past Surgical History: Yes Surgical History: Angioplasty/Stents, Cholecystectomy - Family History Family Medical History: Diabetes Mellitus, Cancer, MA, Coronary Artery Disease, Heart Failure, Hypertension - Social History Do you use any recreational Drugs:: No ROS - Review of Systems Eyes: No Symptoms Reported ENTM: No Symptoms Reported Respiratoy: Short of Breath, Wheezing Cardiovascular: No Symptoms Reported Gastrointestinal/Abdominal: No Symptoms Reported Genitourinary: No Symptoms Reported Neurological: No Symptoms Reported Musculoskeletal: No Symptoms Reported Integumentary: No Symptoms Reported Hematologic/Lymphatic: No Symptoms Reported Endocrine: No Symptoms Reported All Other Systems: Reviewed and Negative PE - Vital Signs Vitals: Temperature 96.9 F Pulse Rate [Apical] 77 Pulse Rate 59 Respiratory Rate 18 Blood Pressure [Right Radial 163/89 Artery] Blood Pressure [Right Arm] 82/39 Blood Pressure [Left Arm] 128/90 Blood Pressure 91/47 O2 Sat by Pulse Oximetry 99 - General General Appearance: Lethargic - Head Head Exam: Normal Inspection, Atraumatic - Eyes Eye exam: Normal Appearance, PERRL, EOMI - ENT ENT Exam: Normal Exam External Ear Exam: Normal External Inspection TM/Canal Exam: Bilateral Normal Nose Exam: Normal Nose Exam Mouth Exam: Normal Inspection Throat Exam: Normal Inspection - Neck Neck Exam: Normal Inspection - Respiratory Respiratory Exam: Bilateral Wheezing, Bilateral Rhonchi, Bilateral Crackles - Cardiovascular Cardiovascular Exam: Regular Rate - Abdominal Exam Abdominal Exam: Normal Inspection Abdominal Tenderness: negative: RUQ, RLQ, LUQ, LLQ, Epigastrium, Suprapubic, Diffuse, Mild, Moderate, Severe, Other - Extremities Extremities Exam: Normal Inspection, Full ROM - Back Back Exam: Normal Inspection - Neurologic Neurological Exam: Alert, Oriented X3, CN II-XII Intact - Psychiatric Psychiatric Exam: Normal Affect - Skin Skin Exam: Warm, Dry, Intact Course - Reevaluation 1st: Improved - Consultation Called: 14:00 (Dr Suarez stated that they haave no critical care beds--will call back once gis database administrator is contacted) ROR - Labs Reviewed Result Diagrams: 09/10/16 12:10 09/10/16 15:09 Laboratory: WBC 18.0 X10^3/uL (3.6-10.0) H 09/10/16 12:10 RBC 3.97 X10^6/uL (3.5-5.4) 09/10/16 12:10 Hgb 11.9 g/dL (12.0-16.0) L 09/10/16 12:10 Hct 38.7 % (36.0-47.0) 09/10/16 12:10 MCV 97.5 fL (80.0-100.0) 09/10/16 12:10 MCH 29.9 pg (27.0-34.0) 09/10/16 12:10 MCHC 30.7 g/dL (33.0-35.0) L 09/10/16 12:10 RDW 20.2 % (11.6-16.5) H 09/10/16 12:10 Plt Count 176 X10^3/uL (150.0-450.0) 09/10/16 12:10 Plt Count Comment Adequate (ADEQUATE) 09/10/16 12:10 MPV 11.4 fL (7.4-11.0) H 09/10/16 12:10 Neut % 36.8 % (42.0-75.0) L 09/10/16 12:10 Lymph % 57.1 % (21.0-51.0) H 09/10/16 12:10 Rawlins % 4.5 % (0.0-13.0) 09/10/16 12:10 Eos % 1.3 % (0.9-2.9) 09/10/16 12:10 Baso % 0.3 % (0.2-1.0) 09/10/16 12:10 Neut # 6.6 x10^3/uL (2.2-4.8) H 09/10/16 12:10 Lymph # 10.2 X10^3/uL (1.3-2.9) H 09/10/16 12:10 Rawlins # 0.8 x10^3/uL (0.3-0.8) 09/10/16 12:10 Eos # 0.2 x10^3/uL (0.0-0.2) 09/10/16 12:10 Baso # 0.1 X10^3/uL (0.0-0.1) 09/10/16 12:10 Absolute Nucleated RBC 0.1 /100WBC 09/10/16 12:10 Plt Morphology Comment Normal (NORMAL) 09/10/16 12:10 RBC Morphology Abnormal (NORMAL) A 09/10/16 12:10 Poikilocytosis Slight A 09/10/16 12:10 Anisocytosis 1+ A 09/10/16 12:10 Sample Site Rrad 09/10/16 12:45 ABG pH 7.120 (7.35-7.45) L* 09/10/16 12:45 ABG pCO2 38.0 mmHg (35.0-45.0) 09/10/16 12:45 ABG pO2 79.0 mmHg (80.0-100.0) L 09/10/16 12:45 ABG HCO3 12.4 mmol/L (22-26) L* 09/10/16 12:45 ABG O2 Saturation 90.0 % (90-100) 09/10/16 12:45 ABG Base Excess -16.1 mmol/L (-2.0-2.0) L 09/10/16 12:45 Oscar Test Post 09/10/16 12:45 A-a Gradient 73.0 mmHg 09/10/16 12:45 FiO2 28.000 09/10/16 12:45 Blood Gas Comments Jey well 09/10/16 12:45 Sodium 173 mmol/L (136-145) H* 09/10/16 15:09 Corrected Sodium 173 mmol/L (136-145) H 09/10/16 15:09 Potassium 5.7 mmol/L (3.5-5.1) H 09/10/16 15:09 Chloride 144 mmol/L (98-107) H* 09/10/16 15:09 Carbon Dioxide 13.1 mmol/L (21-32) L* 09/10/16 15:09 BUN 131 mg/dL (7-18) H 09/10/16 15:09 Creatinine 7.11 mg/dL (0.55-1.02) H 09/10/16 15:09 Est GFR (MDRD) Af Amer 7 (>60) L 09/10/16 15:09 Est GFR (MDRD) Non-Af 6 (>60) L 09/10/16 15:09 Glucose 120 mg/dL (65-99) H 09/10/16 15:09 Calcium 8.0 mg/dL (8.5-10.1) L 09/10/16 15:09 Corrected Calcium 9.2 mg/dL (8.5-10.1) 09/10/16 12:10 Total Bilirubin 0.50 mg/dL (0.2-1.0) 09/10/16 12:10 AST 44 Units/L (15-37) H 09/10/16 12:10 ALT 43 Units/L (12-78) 09/10/16 12:10 Alkaline Phosphatase 90 Units/L (46-116) 09/10/16 12:10 Creatine Kinase 451 Units/L (26-192) H 09/10/16 12:10 CK-MB (CK-2) 5.9 ng/mL (0-4.0) H* 09/10/16 12:10 CK/CKMB % Calc 1.3 % (<4) 09/10/16 12:10 Troponin I 0.04 ng/mL (0-1.5) 09/10/16 12:10 Total Protein 6.1 g/dL (6.4-8.2) L 09/10/16 12:10 Albumin 2.8 g/dL (3.4-5.0) L 09/10/16 12:10 Globulin 3.3 g/dL (2.5-4.5) 09/10/16 12:10 Albumin/Globulin Ratio 0.8 Ratio (1.1-2.1) L 09/10/16 12:10 Specimen Type Catherized urine 09/10/16 12:43 Urine Color Yellow (YELLOW) 09/10/16 12:43 Urine Appearance Hazy (CLEAR) 09/10/16 12:43 Urine pH 8.0 (5.0 - 8.0) 09/10/16 12:43 Ur Specific Cache 1.010 (1.000-1.030) 09/10/16 12:43 Urine Protein 2+ (NEGATIVE) 09/10/16 12:43 Urine Glucose (UA) Negative (NEGATIVE) 09/10/16 12:43 Urine Ketones Negative (NEGATIVE) 09/10/16 12:43 Urine Occult Blood Negative (NEGATIVE) 09/10/16 12:43 Urine Nitrite Negative (NEGATIVE) 09/10/16 12:43 Urine Bilirubin 1+ (NEGATIVE) 09/10/16 12:43 Urine Urobilinogen Normal (NORMAL) 09/10/16 12:43 Ur Leukocyte Esterase 3+ (NEGATIVE) 09/10/16 12:43 Urine RBC 0-3 /HPF (NEGATIVE) 09/10/16 12:43 Urine WBC 20-25 /HPF (NEGATIVE) 09/10/16 12:43 Ur Squamous Epith Cells Few /HPF (NEGATIVE) 09/10/16 12:43 Ur Renal Epithelial Cell Few /HPF (NEGATIVE) 09/10/16 12:43 Urine Bacteria 2+ /HPF (NEGATIVE) 09/10/16 12:43 Ur Culture Indicated? Yes/culture set up 09/10/16 12:43 - XRAY XRAY Interpreted by: Radiologist (Chest: no acute abnormality) - Diagnosis Discharge Problem: Hypernatremia, Hyperkalemia ARF (acute renal failure) Qualifiers: Acute renal failure type: unspecified Qualified Code(s): N17.9 - Acute kidney failure, unspecified UTI (urinary tract infection) Qualifiers: Urinary tract infection type: acute cystitis Hematuria presence: without hematuria Qualified Code(s): N30.00 - Acute cystitis without hematuria UTI (urinary tract infection) Qualifiers: Urinary tract infection type: acute cystitis Hematuria presence: without hematuria Qualified Code(s): N30.00 - Acute cystitis without hematuria - Discharge Plan Condition: Stable - Follow ups/Referrals Follow ups/Referrals: Kirt Olivares [Primary Care Provider] - 3 days - Instructions
[2016-09-10] MEDS ORDERED: SODIUM BICARBONATE 8.4% INJ ADULT ONE (12:15)
[2016-09-10] MEDS ORDERED: HumuLIN R ONE (12:16)
[2016-09-10] MEDS ORDERED: PROVENTIL NEB TX 0.083% 2.5MG/ 3ML ONE ×2 (12:19→15:17)
--- NOTE | 2016-09-10 12:24 | RAD ---
HISTORY: Shortness of breath, wheezing Study: Chest one view Comparison: July 24, 2016 Findings: The heart is within normal limits in size. The swetha are normal. The aorta is calcified and mildly ec tatic. The lungs are free of acute alveolar infiltrates. No pleural effusions are identified. The le ft hemidiaphragm is elevated. IMPRESSION: No infiltrates Chronically elevated left hemidiaphragm Reported By:
[2016-09-10] MEDS ORDERED: D50W ABBOJECT SYR ONE (12:29)
[2016-09-10 12:32] LABS: BASOPHILS # (AUTO) 0.1 X10^3/uL (0.0-0.1); BASOPHILS % (AUTO) 0.3 % (0.2-1.0); EOSINOPHILS # (AUTO) 0.2 x10^3/uL (0.0-0.2); EOSINOPHILS % (AUTO) 1.3 % (0.9-2.9); HEMATOCRIT 38.7 % (36.0-47.0); HEMOGLOBIN 11.9 g/dL (12.0-16.0); LYMPHOCYTES # (AUTO) 10.2 X10^3/uL (1.3-2.9); LYMPHOCYTES % (AUTO) 57.1 % (21.0-51.0); MEAN CORPUSCULAR HEMOGLOBIN 29.9 pg (27.0-34.0); MEAN CORPUSCULAR HGB CONC 30.7 g/dL (33.0-35.0); MEAN CORPUSCULAR VOLUME 97.5 fL (80.0-100.0); MEAN PLATELET VOLUME 11.4 fL (7.4-11.0); MONOCYTES # (AUTO) 0.8 x10^3/uL (0.3-0.8); MONOCYTES % (AUTO) 4.5 % (0.0-13.0); NEUTROPHILS # (AUTO) 6.6 x10^3/uL (2.2-4.8); NEUTROPHILS % (AUTO) 36.8 % (42.0-75.0); PLATELET COUNT 176 X10^3/uL (150.0-450.0); RED BLOOD COUNT 3.97 X10^6/uL (3.5-5.4); RED CELL DISTRIBUTION WIDTH 20.2 % (11.6-16.5)
[2016-09-10 12:35] LABS: ALANINE AMINOTRANSFERASE 43 Units/L (12-78); ALBUMIN 2.8 g/dL (3.4-5.0); ALKALINE PHOSPHATASE 90 Units/L (46-116); ASPARTATE AMINO TRANSFERASE 44 Units/L (15-37); BLOOD UREA NITROGEN 135 mg/dL (7-18); CALCIUM 8.2 mg/dL (8.5-10.1); COR CA(FOR HYPOALB) 9.2 mg/dL (8.5-10.1); CREATININE 7.13 mg/dL (0.55-1.02); GLUCOSE 103 mg/dL (65-99); TOTAL PROTEIN 6.1 g/dL (6.4-8.2); eGFR BLACK RACES 7 (>60); eGFR NON BLACK RACES 6 (>60)
[2016-09-10 12:37] LABS: SODIUM 172 mmol/L (136-145)
[2016-09-10 12:39] LABS: CARBON DIOXIDE 11.7 mmol/L (21-32); CHLORIDE 142 mmol/L (98-107)
[2016-09-10 12:49] LABS: ABG BASE EXCESS -16.1 mmol/L (-2.0-2.0)
[2016-09-10 12:51] LABS: ABG ALLEN TEST POST; ABG HCO3 12.4 mmol/L (22-26)
[2016-09-10 12:55] LABS: PLATELET MORPHOLOGY COMMENT NORMAL (NORMAL)
[2016-09-10 12:56] LABS: ANISOCYTOSIS 1+; POIKILOCYTOSIS SLIGHT
[2016-09-10 12:56] LABS: BILIRUBIN,URINE 1+ (NEGATIVE); BLOOD/HEMOGLOBIN,URINE NEGATIVE (NEGATIVE); GLUCOSE, URINE NEGATIVE (NEGATIVE); KETONES,URINE NEGATIVE (NEGATIVE); LEUKOCYTE ESTERASE ,URINE 3+ (NEGATIVE); NITRITES,URINE NEGATIVE (NEGATIVE); PROTEIN,URINE 2+ (NEGATIVE); UROBILINOGEN,URINE NORMAL (NORMAL)
[2016-09-10 13:04] LABS: APPEARANCE,URINE HAZY (CLEAR); COLOR,URINE YELLOW (YELLOW)
[2016-09-10 13:09] LABS: RBC,URINE 0-3 /HPF (NEGATIVE); SQUAMOUS EPITHELIAL CELL,UR FEW /HPF (NEGATIVE)
[2016-09-10 13:10] LABS: BACTERIA,URINE 2+ /HPF (NEGATIVE); RENAL EPITHELIAL CELLS,URINE FEW /HPF (NEGATIVE)
[2016-09-10] MEDS ORDERED: NS 1/2 1000 ML IV 1,000 ML IV ONE ×4 (13:31→17:24)
[2016-09-10] MEDS ORDERED: NS 1/2 1000 ML IV 1,000 ML IV SCH (14:00)
[2016-09-10 14:19] LABS: CKMB % 1.3 % (<4); TROPONIN I 0.04 ng/mL (0-1.5)
[2016-09-10 14:21] LABS: CREATINE KINASE MB 5.9 ng/mL (0-4.0)
[2016-09-10 15:23] LABS: CREATININE 7.11 mg/dL (0.55-1.02)
[2016-09-10] MEDS ORDERED: LEVAQUIN PREMIX IV 750 MG 750 MG/150 ML BAG IV ONE ×2 (15:23→15:55)
[2016-09-10 15:25] LABS: CARBON DIOXIDE 13.1 mmol/L (21-32)
[2016-09-10] MEDS ORDERED: ATROPINE SULFATE ABBOJECT IVP ONE (16:30)
[2016-09-10] MEDS ORDERED: DOPAMINE IV PREMIX 400 MG 400 MG/250 ML BAG IV ONE (16:49)
[2016-09-10] MEDS ORDERED: DOPAMINE IV PREMIX 400 MG 400 MG/250 ML BAG IV PRN (16:54)
[2016-09-10 18:28] VITALS: BP 85/39
[2016-09-10] MEDS ORDERED: SNACK - Diabetic Appropriate PO SCH (20:00)
== END 2016-09-10 18:42 | disposition short-term general hospital (02) ==
LOC: ER 11:54
DX: N17.8 Other acute kidney failure (principal); N30.00 Acute cystitis without hematuria; E87.0 Hyperosmolality and hypernatremia; R94.31 Abnormal electrocardiogram [ECG] [EKG]; E87.5 Hyperkalemia; J98.6 Disorders of diaphragm; B95.2 Enterococcus as the cause of diseases classified elsewhere
CPT/HCPCS: 36415; 36600; 51702; 71010; 80048; 80053; 81001; 82550; 82553; 82803; 84132; 84484; 85025; 87086; 87088; 87186; 93005; 93010; 93041; 94640; 96365; 96367; 96374; 96375; 99284; 99285; A4222; J1265; J1815; J1940; J1956; J3490; J7613